=== PATIENT | female | born 1945 | race Asian ===

== ENCOUNTER → 2017-08-16 14:33 | Outpatient (CLI) | payer OTHER, SELFPAY ==
[2017-08-16 16:52] LABS: Blood Urea Nitrogen 26 mg/dL (7-17); Calcium 10.1 mg/dL (8.4-10.2); Carbon Dioxide 30 mmol/L (22-32); Chloride 99 mmol/L (98-107); Estimated Glomerular Filt Rate 54.3 mL/min (>60); Glucose 125 mg/dL (80-110); HEMOLYSIS < 15 (0-50); Potassium 4.9 mmol/L (3.4-5.1); Sodium 143 mmol/L (137-145)
== END ==
PROVIDERS: PCP Physician Assistant; Visit Provider Internal Medicine Cardiovascular Disease
DX: I10 Essential (primary) hypertension (principal)
CPT/HCPCS: 36415; 80048

== ENCOUNTER → 2017-11-17 08:01 | Outpatient (CLI) | payer OTHER, SELFPAY ==
--- NOTE | 2017-11-17 08:06 | DI.RAD.S_ITS ---
This blank DEXA report has been sent in error by the PACS system. The correct and complete report will be forthcoming in 1-2 days. Thank you for your patience and understanding. Dictated by: Lala Ruiz MD, PhD on 11/17/2017 at 9:56 Approved by: Lala Ruiz MD, PhD on 11/17/2017 at 9:57
--- NOTE | 2017-11-17 08:06 | DI.MG.S_ITS ---
BILATERAL DIGITAL SCREENING MAMMOGRAM 3D/2D WITH CAD: 11/17/2017 CLINICAL: Routine screening. Comparison is made to exams dated: 09/30/2016 mammogram, 09/24/2015 mammogram, and 08/05/2014 mammogram - [facility]. The tissue of both breasts is extremely dense, which lowers the sensitivity of mammography. Current study was also evaluated with a Computer Aided Detection (CAD) system. There is an oval focal asymmetry in the right breast upper outer aspect in the retroareolar region. No other significant masses, calcifications, or other findings are seen in either breast. IMPRESSION: INCOMPLETE: NEEDS ADDITIONAL IMAGING EVALUATION The oval focal asymmetry in the right breast is indeterminate. Additional views with possible ultrasound are recommended. This exam was interpreted at Station ID: [id number]. NOTE: For mammograms, a report in lay terms will be sent to the patient. Approximately 15% of breast malignancies will not be visualized mammographically. In the management of a palpable breast mass, a negative mammogram must not discourage biopsy of a clinically suspicious lesion. Electronically Signed By: José Miguel Forrester M.D. ecl/:11/18/2017 02:36:28 letter sent: Additional Imaging Needed ACR BI-RADS Category 0: Incomplete 3340F
[2017-11-17 09:47] LABS: Creatinine Urine Random 134.5 mg/dL
[2017-11-17 09:56] LABS: Microalbumi Creatinin Ratio Ur 4.4 ug/mg CR (<30); Microalbumin Urine Random < 0.6 mg/dL (0-1.6)
[2017-11-17 09:57] LABS: Alanine Aminotransferase 23 IU/L (9-52); Albumin 4.3 g/dL (3.5-5.0); Albumin Globulin Ratio 1.3 (1.0-2.8); Alkaline Phosphatase 82 U/L (38-126); Aspartate Aminotransferase 26 IU/L (14-36); BUN Creatinine Ratio 19.1 (6-22); Bilirubin Total 0.5 mg/dL (0.2-1.3); Blood Urea Nitrogen 21 mg/dL (7-17); Calcium 10.1 mg/dL (8.4-10.2); Carbon Dioxide 30 mmol/L (22-32); Chloride 103 mmol/L (98-107); Cholesterol 239 mg/dL (140-199); Estimated Glomerular Filt Rate 48.6 mL/min (>60); Globulin 3.4 g/dL (1.7-4.1); Glucose 104 mg/dL (80-110); HDL Cholesterol 37 mg/dL (40-60); HEMOLYSIS < 15 (0-50); LDL Cholesterol Calculated 150 mg/dL (<100); Potassium 5.3 mmol/L (3.4-5.1); Sodium 143 mmol/L (137-145); Total Protein 7.7 g/dL (6.3-8.2); Triglycerides 259 mg/dL (35-150)
== END ==
PROVIDERS: PCP Physician Assistant; Visit Provider Physician Assistant
DX: Z12.31 Encounter for screening mammogram for malignant neoplasm of breast (principal); E28.39 Other primary ovarian failure; Z78.0 Asymptomatic menopausal state; E78.2 Mixed hyperlipidemia; I10 Essential (primary) hypertension; Z90.722 Acquired absence of ovaries, bilateral
CPT/HCPCS: 36415; 77063; 77067; 77080; 80053; 80061; 82043; 82570; 84550

== ENCOUNTER → 2017-11-17 15:11 | Outpatient (CLI) | payer OTHER, MEDICARE, SELFPAY ==
[2017-11-18 14:43] LABS: Uric Acid 7.3 mg/dL (2.5-6.2)
== END ==
PROVIDERS: PCP Physician Assistant; Visit Provider Physician Assistant
DX: E78.5 Hyperlipidemia, unspecified (principal); I10 Essential (primary) hypertension; N28.9 Disorder of kidney and ureter, unspecified
CPT/HCPCS: 84550

== ENCOUNTER → 2017-12-14 09:26 | Outpatient (CLI) | payer OTHER, SELFPAY ==
--- NOTE | 2017-12-14 10:46 | DIET.PN ---
Met for initial MNT for new dx of mixed hyperlipidemia, HTN. Saw pt last year for assistance with weight control and gout. DX high TG, high BG, HTN HX: gout WEIGHT HX: Highest- 145# Current WT: 142# Most of adult life: 135# HT: 60 PHYSICAL ACTIVITY: Walks on weekends. Very little exercise during work week. Has sedentary job. USUAL DIET: Mostly vegetarian - eats mostly tofu, some legumes for protein. Lot of vegetables, whole grains and a lot of fruit. Drinks a Mocha daily. Only occasional sweets (a potlucks). ASSESSMENT: Has nutritionally well balanced diet with few extras, so there is not much left to cut out. The daily mocha provides regular source of sugar, as does the high intake of fruit. Exercise is lacking. Wt has maintained since our meetings last year. Some wt loss would benefit health significantly. INTERVENTION: Provided education on diet for mixed hyperlipidemia/high TG with emphasis on cutting out sugar, increasing exercise and weight loss PLAN/GOALS: Cut out sugar - Change mochas: Inquire at [facility] what is available for sweetening May substitue w/Mochas made with sugar free flavoring Sorbitol may try trial. Sorbitol may cause inflammation/high TG If Stevia sweetened flavoring available - best choice Or, get plain latte and curtis w/stevia herself Or, find a new beverage - Tea? Increase exercise. Strongly encouraged at least 5 days/week. During work week walk on breaks Suggested try phone bria to track food intake, following a low carb plan, to assist with wt loss No plan for f/u at this time
== END ==
PROVIDERS: PCP Physician Assistant; Visit Provider Nurse Practitioner Family
DX: E78.2 Mixed hyperlipidemia (principal)
CPT/HCPCS: 97802

== ENCOUNTER → 2017-12-30 08:23 | Outpatient (CLI) | payer OTHER, SELFPAY ==
--- NOTE | 2017-12-30 | DI.MG.S_ITS ---
UNILATERAL RIGHT DIGITAL DIAGNOSTIC MAMMOGRAM 3D/2D WITH ADDITIONAL VIEWS: 12/30/2017 CLINICAL: Additional evaluation requested from prior study. Comparison is made to exams dated: 11/17/2017 mammogram, 09/30/2016 mammogram, and 09/24/2015 mammogram - [facility]. The tissue of right breast is extremely dense, which lowers the sensitivity of mammography. There is a benign oval asymmetry in the right breast at 9 o'clock in the retroareolar region. This is not seen in additional views. No other significant masses or calcifications are seen in the breast. IMPRESSION: There is no mammographic evidence of malignancy. A 1 year screening mammogram is recommended. This exam was interpreted at Station ID: [id number]. NOTE: For mammograms, a report in lay terms will be sent to the patient. Approximately 15% of breast malignancies will not be visualized mammographically. In the management of a palpable breast mass, a negative mammogram must not discourage biopsy of a clinically suspicious lesion. Electronically Signed By: Yonatan montgomery/louis:12/30/2017 08:57:00 letter sent: Normal Exam ACR BI-RADS Category 2: Benign Finding(s) 3342F
== END ==
PROVIDERS: PCP Physician Assistant; Visit Provider Physician Assistant
DX: R92.8 Other abnormal and inconclusive findings on diagnostic imaging of breast (principal)
CPT/HCPCS: 77065; G0279

== ENCOUNTER → 2018-05-29 08:36 | Outpatient (CLI) | payer OTHER, SELFPAY ==
[2018-05-29 10:49] LABS: BUN Creatinine Ratio 24.5 (6-22); Blood Urea Nitrogen 27 mg/dL (7-17); Calcium 9.8 mg/dL (8.4-10.2); Carbon Dioxide 26 mmol/L (22-32); Chloride 103 mmol/L (98-107); Cholesterol 226 mg/dL (140-199); Estimated Glomerular Filt Rate 48.6 mL/min (>60); Glucose 108 mg/dL (80-110); HDL Cholesterol 38 mg/dL (40-60); HEMOLYSIS < 15 (0-50); LDL Cholesterol Calculated 162 mg/dL (<100); Potassium 4.8 mmol/L (3.4-5.1); Sodium 139 mmol/L (137-145); Triglycerides 130 mg/dL (35-150); Uric Acid 7.9 mg/dL (2.5-6.2)
== END ==
PROVIDERS: PCP Physician Assistant; Visit Provider Physician Assistant
DX: E78.2 Mixed hyperlipidemia (principal); E79.0 Hyperuricemia without signs of inflammatory arthritis and tophaceous disease; I10 Essential (primary) hypertension; N28.9 Disorder of kidney and ureter, unspecified
CPT/HCPCS: 36415; 80048; 80061; 84550

== ENCOUNTER → 2018-06-19 15:24 | Outpatient (CLI) | payer OTHER, SELFPAY ==
--- NOTE | 2018-06-19 15:28 | DI.RAD.S_ITS ---
PROCEDURE: XR CHEST 2V INDICATIONS: Persistant cough x 2 weeks; dyspnea TECHNIQUE: 2 views of the chest were acquired. COMPARISON: None. FINDINGS: Surgical changes and devices: None. Lungs and pleura: Lungs are clear. No pleural effusions or pneumothorax. Mediastinum: Mediastinal contours are normal. Heart size is normal. Bones and chest wall: No suspicious bony abnormalities. Soft tissues appear unremarkable. IMPRESSION: No acute disease Dictated by: Joel Childs M.D. on 06/19/2018 at 15:49 Approved by: Joel Childs M.D. on 06/19/2018 at 15:49
== END ==
PROVIDERS: PCP Physician Assistant; Visit Provider Physician Assistant
DX: R05 Cough (principal)
CPT/HCPCS: 71046

== ENCOUNTER → 2019-09-11 11:08 | Outpatient (CLI) | payer MEDICARE, SELFPAY ==
[2019-09-11 12:28] LABS: BUN Creatinine Ratio 19.8 (6-22); Blood Urea Nitrogen 23 mg/dL (7-17); Calcium 10.4 mg/dL (8.4-10.2); Carbon Dioxide 24 mmol/L (22-32); Chloride 105 mmol/L (98-107); Estimated Glomerular Filt Rate 45.5 mL/min (>60); Glucose 105 mg/dL (80-110); HEMOLYSIS < 15 (0-50); Potassium 5.3 mmol/L (3.4-5.1); Sodium 139 mmol/L (137-145)
== END ==
PROVIDERS: Referring Provider Internal Medicine Cardiovascular Disease; Visit Provider Internal Medicine Cardiovascular Disease
DX: I10 Essential (primary) hypertension (principal)
CPT/HCPCS: 36415; 80048

== ENCOUNTER → 2019-10-19 09:18 | Outpatient (CLI) | payer MEDICARE, SELFPAY ==
[2019-10-23 04:08] LABS: Aldosterone/Renin Activity Rat 1.6 (0.0-30.0); Plama Renin, LC/MS/MS 1.598 ng/mL/hr (0.167-5.380)
== END ==
PROVIDERS: Referring Provider Internal Medicine Cardiovascular Disease; Visit Provider Internal Medicine Cardiovascular Disease
DX: I10 Essential (primary) hypertension (principal)
CPT/HCPCS: 36415; 82088; 84244

== ENCOUNTER → 2019-11-02 15:03 | Outpatient (CLI) | payer MEDICARE, SELFPAY ==
[2019-11-02 16:40] LABS: BUN Creatinine Ratio 21.1 (6-22); Blood Urea Nitrogen 23 mg/dL (7-17); Calcium 9.8 mg/dL (8.4-10.2); Carbon Dioxide 28 mmol/L (22-32); Chloride 102 mmol/L (98-107); Estimated Glomerular Filt Rate 48.8 mL/min (>60); Glucose 107 mg/dL (80-110); HEMOLYSIS < 15 (0-50); Potassium 4.6 mmol/L (3.4-5.1); Sodium 139 mmol/L (137-145)
== END ==
PROVIDERS: Referring Provider Nurse Practitioner Family; Visit Provider Nurse Practitioner Family
DX: I10 Essential (primary) hypertension (principal)
CPT/HCPCS: 36415; 80048

== ENCOUNTER → 2020-02-07 07:29 | Outpatient (CLI) | payer MEDICARE, SELFPAY ==
--- NOTE | 2020-02-07 07:32 | DI.RAD.S_ITS ---
PROCEDURE: XR KNEE RT 3V INDICATIONS: right knee pain TECHNIQUE: 3 views of the knee were acquired. COMPARISON: [facility], , KNEE 3V LEFT, 10/02/2012, 14:49. FINDINGS: Bones: No acute fracture or dislocation. There is moderate medial femorotibial compartment narrowing, small intercondylar osteophytes and small tricompartmental osteophytes. Soft tissues: No joint effusion. No suspicious soft tissue calcifications. IMPRESSION: Mild knee osteoarthritis. Dictated by: Kristin Maradiaga M.D. on 02/07/2020 at 8:55 Approved by: Kristin Maradiaga M.D. on 02/07/2020 at 8:56
[2020-02-07 08:35] LABS: Hematocrit 35.9 % (36-46); Hemoglobin 12.1 g/dL (12.0-16.0); Mean Corpuscular HGB Conc 33.7 % (30-36); Mean Corpuscular Hemoglobin 30.4 PG (26-34); Mean Corpuscular Volume 90.2 fL (80-100); Platelet Count 182 X10^3/uL (150-400); Red Blood Cell Count 3.98 X10^6/uL (4.0-5.2); Red Cell Distribution Width 12.5 % (11.6-14.8); White Blood Cell Count 5.1 X10^3/uL (4.5-11.0)
[2020-02-07 09:37] LABS: Alanine Aminotransferase 18 IU/L (<35); Albumin 4.2 g/dL (3.5-5.0); Albumin Globulin Ratio 1.3 (1.0-2.8); Alkaline Phosphatase 71 U/L (38-126); Aspartate Aminotransferase 27 IU/L (14-36); Bilirubin Total 0.7 mg/dL (0.2-1.3); Blood Urea Nitrogen 26 mg/dL (7-17); Calcium 9.8 mg/dL (8.4-10.2); Carbon Dioxide 28 mmol/L (22-32); Chloride 102 mmol/L (98-107); Cholesterol 207 mg/dL (140-199); Estimated Glomerular Filt Rate 46.8 mL/min (>60); Globulin 3.2 g/dL (1.7-4.1); Glucose 100 mg/dL (80-110); HDL Cholesterol 28 mg/dL (40-60); HEMOLYSIS < 15 (0-50); LDL Cholesterol Calculated 145 mg/dL (<100); Sodium 137 mmol/L (137-145); Total Protein 7.4 g/dL (6.3-8.2); Triglycerides 170 mg/dL (35-150); Uric Acid 6.2 mg/dL (2.5-6.2)
[2020-02-07 09:39] LABS: Microalbumin Urine Random < 0.6 mg/dL (0-1.6)
== END ==
PROVIDERS: PCP Nurse Practitioner Family; Referring Provider Nurse Practitioner Family; Visit Provider Nurse Practitioner Family
DX: E78.2 Mixed hyperlipidemia (principal); I10 Essential (primary) hypertension; M25.561 Pain in right knee; N28.9 Disorder of kidney and ureter, unspecified; Z00.00 Encounter for general adult medical examination without abnormal findings; Z13.6 Encounter for screening for cardiovascular disorders; E79.0 Hyperuricemia without signs of inflammatory arthritis and tophaceous disease
CPT/HCPCS: 36415; 73562; 80053; 80061; 82043; 82570; 84550; 85027

== ENCOUNTER → 2020-03-05 12:22 | Outpatient (CLI) | payer MEDICARE, SELFPAY ==
--- NOTE | 2020-03-05 12:24 | DI.RAD.S_ITS ---
PROCEDURE: XR LUMBAR SPINE 2-3V INDICATIONS: neck and back pain TECHNIQUE: 3 views of the lumbar spine were acquired. COMPARISON: None. FINDINGS: Bones: No fracture. Multilevel degenerative endplate sclerosis and spurring. Diffuse facet arthropathy. Grade 1 anterolisthesis of L4 on L5. Diffuse mild narrowing of the lumbar disc spaces. Partially visualized lateral curvature of the thoracolumbar spine. Soft tissues: Overlying bowel gas pattern is normal. No suspicious soft tissue calcifications. IMPRESSION: Multilevel lumbar spondylosis and facet disease Grade 1 anterolisthesis of L4 on L5 Dictated by: Joel Childs M.D. on 03/05/2020 at 13:23 Approved by: Joel Childs M.D. on 03/05/2020 at 13:24
--- NOTE | 2020-03-05 12:24 | DI.RAD.S_ITS ---
PROCEDURE: XR CERVICAL SPINE 2V OR 3V INDICATIONS: neck and back pain TECHNIQUE: 3 view(s) of the cervical spine were acquired. COMPARISON: None. FINDINGS: Bones: No fracture. Multilevel degenerative endplate sclerosis and spurring. Diffuse facet arthropathy. Moderate narrowing of the C7-T1 disc space. Mild narrowing of the C6-C7 disc space. Soft tissues: No prevertebral soft tissue swelling. IMPRESSION: Multilevel cervical spondylosis and severe facet arthropathy Dictated by: Joel Childs M.D. on 03/05/2020 at 13:19 Approved by: Joel Childs M.D. on 03/05/2020 at 13:23
--- NOTE | 2020-03-05 12:24 | DI.RAD.S_ITS ---
PROCEDURE: XR THORACIC SPINE 2V INDICATIONS: neck and back pain TECHNIQUE: 2 views of the thoracic spine were acquired. COMPARISON: None. FINDINGS: Bones: No fracture. Diffuse discogenic changes. Multilevel degenerative endplate sclerosis and spurring. Diffuse facet arthropathy. Soft tissues: No paravertebral stripe thickening. IMPRESSION: Diffuse spondylosis. No fracture Dictated by: Joel Childs M.D. on 03/05/2020 at 13:24 Approved by: Joel Childs M.D. on 03/05/2020 at 13:25
== END ==
PROVIDERS: Family Provider Nurse Practitioner Family; PCP Nurse Practitioner Family; Referring Provider Nurse Practitioner Family; Visit Provider Nurse Practitioner Family
DX: M54.2 Cervicalgia (principal); M54.9 Dorsalgia, unspecified; M47.812 Spondylosis without myelopathy or radiculopathy, cervical region; M47.814 Spondylosis without myelopathy or radiculopathy, thoracic region; M47.816 Spondylosis without myelopathy or radiculopathy, lumbar region; M43.16 Spondylolisthesis, lumbar region
CPT/HCPCS: 72040; 72072; 72100

== ENCOUNTER → 2020-03-10 15:24 | Outpatient (CLI) | payer MEDICARE, SELFPAY ==
--- NOTE | 2020-03-10 15:26 | DI.MG.S_ITS ---
BILATERAL DIGITAL SCREENING MAMMOGRAM 3D/2D WITH CAD: 03/10/2020 CLINICAL: Routine screening. Comparison is made to exams dated: 11/17/2017 mammogram, 09/30/2016 mammogram, and 09/24/2015 mammogram - [facility]. The tissue of both breasts is extremely dense, which lowers the sensitivity of mammography. Current study was also evaluated with a Computer Aided Detection (CAD) system. No significant masses, calcifications, or other findings are seen in either breast. There has been no significant interval change. IMPRESSION: NEGATIVE There is no mammographic evidence of malignancy. A 1 year screening mammogram is recommended. This exam was interpreted at Station ID: [id number]. NOTE: For mammograms, a report in lay terms will be sent to the patient. Approximately 15% of breast malignancies will not be visualized mammographically. In the management of a palpable breast mass, a negative mammogram must not discourage biopsy of a clinically suspicious lesion. Electronically Signed By: Chandler gunn/louis:03/10/2020 16:15:21 letter sent: Normal Exam ACR BI-RADS Category 1: Negative [id number]
== END ==
PROVIDERS: Family Provider Nurse Practitioner Family; PCP Nurse Practitioner Family; Referring Provider Nurse Practitioner Family; Visit Provider Nurse Practitioner Family
DX: Z12.31 Encounter for screening mammogram for malignant neoplasm of breast (principal)
CPT/HCPCS: 77063; 77067

== ENCOUNTER → 2020-05-28 15:19 | Outpatient (CLI) | payer MEDICARE, SELFPAY ==
[2020-05-28] MEDS: COVID-19 VACC, Ad26(JANSSEN)/PF 0.5 ML IM (15:33)
== END ==
PROVIDERS: Family Provider Nurse Practitioner Family; PCP Nurse Practitioner Family; Visit Provider Internal Medicine
DX: Z23 Encounter for immunization (principal)
CPT/HCPCS: 0031A; 91303

== ENCOUNTER → 2020-06-03 06:53 | Outpatient (CLI) | payer MEDICARE, SELFPAY ==
[2020-06-03 08:26] LABS: Hematocrit 36.7 % (36-46); Hemoglobin 12.4 g/dL (12.0-16.0); Mean Corpuscular HGB Conc 33.8 % (30-36); Mean Corpuscular Hemoglobin 30.4 PG (26-34); Mean Corpuscular Volume 89.8 fL (80-100); Platelet Count 203 X10^3/uL (150-400); Red Blood Cell Count 4.09 X10^6/uL (4.0-5.2); Red Cell Distribution Width 12.3 % (11.6-14.8); White Blood Cell Count 6.7 X10^3/uL (4.5-11.0)
[2020-06-03 08:51] LABS: Alanine Aminotransferase 18 IU/L (<35); Albumin 4.5 g/dL (3.5-5.0); Albumin Globulin Ratio 1.5 (1.0-2.8); Alkaline Phosphatase 79 U/L (38-126); Aspartate Aminotransferase 29 IU/L (14-36); Bilirubin Total 0.5 mg/dL (0.2-1.3); Blood Urea Nitrogen 22 mg/dL (7-17); Calcium 9.6 mg/dL (8.4-10.2); Carbon Dioxide 28 mmol/L (22-32); Chloride 102 mmol/L (98-107); Cholesterol 191 mg/dL (140-199); Estimated Glomerular Filt Rate 48.3 mL/min (>60); Glucose 101 mg/dL (80-110); HDL Cholesterol 34 mg/dL (40-60); HEMOLYSIS < 15 (0-50); LDL Cholesterol Calculated 121 mg/dL (<100); Potassium 4.8 mmol/L (3.4-5.1); Sodium 136 mmol/L (137-145); Total Protein 7.5 g/dL (6.3-8.2); Triglycerides 180 mg/dL (35-150)
== END ==
PROVIDERS: Family Provider Nurse Practitioner Family; PCP Nurse Practitioner Family; Referring Provider Nurse Practitioner Family; Visit Provider Nurse Practitioner Family
DX: E78.2 Mixed hyperlipidemia (principal); Z13.6 Encounter for screening for cardiovascular disorders; I10 Essential (primary) hypertension; N28.9 Disorder of kidney and ureter, unspecified
CPT/HCPCS: 36415; 80053; 80061; 85027

== ENCOUNTER → 2020-06-16 14:42 | Outpatient (CLI) | payer MEDICARE, SELFPAY ==
[2020-06-16 16:16] LABS: Uric Acid 6.4 mg/dL (2.5-6.2)
== END ==
PROVIDERS: Family Provider Nurse Practitioner Family; PCP Nurse Practitioner Family; Referring Provider Nurse Practitioner Family; Visit Provider Nurse Practitioner Family
DX: M10.9 Gout, unspecified (principal)
CPT/HCPCS: 36415; 84550

== ENCOUNTER 2020-06-18 11:15 | Outpatient (RCR) | payer MEDICARE, OTHER, SELFPAY ==
--- NOTE | 2020-02-27 17:11 | PT.OIE ---
Current Diagnoses Pain in right knee (02/27/20) Difficulty in walking, not elsewhere classified (02/27/20) Past Medical History (Last Updated 02/06/20 @ 10:34 by BECKY Kline) Gout (Unknown) Hyperlipemia (Unknown) Hypertension (Unknown) Right knee pain (2019) Past Surgical History (Last Updated 09/22/17 @ 14:02 by Shirley Ayon LPN) History of cataract removal with insertion of prosthetic lens S/P total abdominal hysterectomy and bilateral salpingo-oophorectomy (1987) Visit Care Team Role Provider Type BECKY Kline Attending Provider Advanced Bed Bug Exterminator Family Provider Primary Care Provider Referring Provider Specialty: Family Practice Address: [address] [place] [address] Email: [email or web address] Physical Therapy Initial Evaluation PT-OP-A Visit Information Start: 02/27/20 12:58 Freq: Status: Active Protocol: Document 02/27/20 14:35 AW (Rec: 02/27/20 14:51 AW [id number]) Out-Patient Physical Therapy Visit Information Visit Information Visit Type Initial Evaluation Visit Start Time 13:45 Visit Stop Time 14:35 Total Visit Minutes 50 Visit Number 1 Number of MARKETING/SALES PERSON Visits 0 Evaluation Information Evaluation Date 02/27/20 PT-OP-B Current Condition Start: 02/27/20 12:58 Freq: Status: Active Protocol: Document 02/27/20 14:35 AW (Rec: 02/27/20 14:51 AW [id number]) Current Condition History of Current Condition Onset Date last two years Current Complaints right knee pain History of Current Condition Pt reports bilateral knee pain with right worse than left. She used to bowl and landed on right knee >10 years ago. She had no fracture but no longer felt safe bowling. Her pain resolved but has returned over the last few years. She states it is not worsening but it is not improving at all. She does not have pain on waking in the morning. She is able to do light activity without pain. She does note pain with ambulation > 1 block which then bothers her for up to an hour. When asked about pain location, pt points to the inferomedial aspect of the anterior knee. Prior Treatments and Tests x-ray right knee 01/28/20: Bones: No acute fracture or dislocation. There is moderate medial femorotibial compartment narrowing, small intercondylar osteophytes and small tricompartmental osteophytes. Soft tissues: No joint effusion. No suspicious soft tissue calcifications. IMPRESSION: Mild knee osteoarthritis. Pt has been using a prescription topical gel for pain relief but with limited effect. She is not taking any OTC medications. She has had PT before for plantar fasciitis but never for her knee pain. Pt sees a chiropractor monthly for back, hip, and neck pain. 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 Baseline Function- Recreation/Hobbies Walking for exercise without pain. Able to walk her dogs without concern for pain. Current Functional Impairments (Reported) Functional Limitations- Mobility/Gait Unable to walk > 1 block without pain. Difficulty managing with dog walking. Personal Factors Other Personal Factors That May Effect + Pt is active and has Therapy/Recovery positive associations with movement, activity, and exercise. PT-OP-C Subjective Start: 02/27/20 12:58 Freq: Status: Active Protocol: Document 02/27/20 14:35 AW (Rec: 02/27/20 15:07 AW [email or web address]) Patient Questionnaires Lower Extremity Functional Scale LEFS Score 72 LEFS Impairment 1 to 19% Impaired (Score 63-79 ) OP-PT Pain Assessment Pain Assessment Grid Paper Pain Assessment Grid Completed Yes Location right knee Intensity 1 Scale Used Numeric (0 - 10) Pain Aggravating Factors Exercise PT-OP-D Balance Start: 02/27/20 12:58 Freq: Status: Active Protocol: Document 02/27/20 14:35 AW (Rec: 02/27/20 15:07 AW [email or web address]) OP-PT Balance Assessment Standing Balance Static Standing Balance Ability Good Dynamic Standing Balance Ability Good Standing Balance Comments L SLS : 12 sec R SLS: 6 sec Robledo Fall Scale Copyright Permission PT-OP-G Mobility & Gait Start: 02/27/20 12:58 Freq: Status: Active Protocol: Document 02/27/20 14:35 AW (Rec: 02/27/20 15:07 AW [email or web address]) OP Mobility Evaluation Functional Movements Squats able with neutral knee posture but improves with cues for hip hinge OP Gait Assessment Gait Gait Assistance Required: Independent Distance (Feet) 100 Assistive Devices Assistive Device None Orthotic/Prosthetic Devices or Brace: No Gait Deviations General Gait Pattern Within Normal Limits,Decreased Feet Clearance Factors Limiting Gait Function Factors Limiting Gait Function Decreased Strength,Pain Comments Gait Comments Pt with slight genu varus in static and dynamic posture. Pt wears off the shelf shoes inserts bilaterally for arch support. PT-OP-H Neuro Start: 02/27/20 12:58 Freq: Status: Active Protocol: Document 02/27/20 14:35 AW (Rec: 02/27/20 15:07 AW [email or web address]) Sensation Evaluation Gross Sensation Gross Sensation WNL Deep Tendon Reflex & Clonus Assessment Deep Tendon Reflex Bilateral Achilles Deep Tendon Reflex 1+ Diminished Bilateral Patellar Deep Tendon Reflex 1+ Diminished PT-OP-J Posture/Palpation/Skin Start: 02/27/20 12:58 Freq: Status: Active Protocol: Document 02/27/20 14:35 AW (Rec: 02/27/20 15:07 AW [email or web address]) Posture Evaluation Position Standing Pelvis Posture Anteriorly Tilted Hip Posture (R) Externally Rotated Knee Posture (L) Genu Varus,(R) Genu Varus Patellar Posture (L) Neutral,(R) Neutral Ankle/Foot Posture (L) Pronated,(R) Pronated PT-OP-K Range of Motion Start: 02/27/20 12:58 Freq: Status: Active Protocol: Document 02/27/20 14:35 AW (Rec: 02/27/20 15:07 AW [email or web address]) Lumbar Spine Range of Motion Lumbar Spine Active Percentage Comments WNL Hip Goniometric Range of Motion Hip Left Active Extension 12 Internal Rotation 60 External Rotation 60 Right Active Hip ROM WFL Yes Testing Position Supine Extension 12 Internal Rotation 40 External Rotation 60 Hip ROM Limitations Hip ROM Limitations Soft Tissue Tightness,Muscle Weakness Knee Goniometric Range of Motion Knee Right Knee ROM WFL Yes Patient Position Supine Flexion Active (degrees) 135 Extension Active (degrees) 0 Left Knee ROM WFL Yes Patient Position Supine Flexion Active (degrees) 140 Extension Active (degrees) 0 Ankle and Foot Goniometric Range of Motion Ankle and Foot Left Active Comments B ankle ROM WNL all planes PT-OP-L Special Tests Start: 02/27/20 12:58 Freq: Status: Active Protocol: Document 02/27/20 14:35 AW (Rec: 02/27/20 16:48 AW [email or web address]) Special Tests Hip Special Tests Scour Test Test Results negative bilaterally Knee Special Tests Dony Test Results positive Comments leg elevated from table ~1 bilaterally Milind's Test Test Results positive Comments mildly positive bilaterally ligaments Comments B knees stable in all planes on exam PT-OP-M Strength Start: 02/27/20 12:58 Freq: Status: Active Protocol: Document 02/27/20 14:35 AW (Rec: 02/27/20 15:10 AW [email or web address]) Hip Strength Hip Manual Muscle Testing Right Flexion (L2) 4+ Good+ Extension (S1) 3+ Fair+ Abduction 4- Good- Adduction 4+ Good+ External Rotation 4+ Good+ Internal Rotation 4 Good Left Flexion (L2) 4+ Good+ Extension (S1) 3+ Fair+ Abduction 4- Good- Adduction 4+ Good+ External Rotation 4+ Good+ Internal Rotation 4 Good Knee Strength Knee Manual Muscle Testing Right Flexion (S2) 4+ Good+ Extension (L3) 5 Normal Left Flexion (S2) 4+ Good+ Extension (L3) 5 Normal Ankle/Foot Strength Ankle and Foot Manual Muscle Testing Right Dorsiflexion (L4) 4+ Good+ Plantarflexion (S1) 4+ Good+ Inversion 4+ Good+ Eversion (S1) 4+ Good+ Left Dorsiflexion (L4) 4+ Good+ Plantarflexion (S1) 4+ Good+ Inversion 4+ Good+ Eversion (S1) 4+ Good+ PT-OP-Q Treatments Start: 02/27/20 12:58 Freq: Status: Active Protocol: Document 02/27/20 14:35 AW (Rec: 02/27/20 15:12 AW [email or web address]) Therapeutic Exercises Supine Exercises 1 Supine Exercise Name hip flexor stretch Side bilateral Resistance manual Reps/Minutes 2 min Comments with manual resistance into knee flexion and cues for TA PT-OP-T Assessment and Plan Start: 02/27/20 12:58 Freq: Status: Active Protocol: Document 02/27/20 14:35 AW (Rec: 02/27/20 17:10 AW [email or web address]) Physical Therapy Assessment Rehab Potential Rehabilitation Potential Good Evaluation Complexity Number of Personal Factors/Comorbidities 0 Number of Body Systems Impaired 1-2 Clinical Presentation at Evaluation Stable Impairments Impairments Balance,Functional Activities, Gait,Pain,Posture,ROM,Soft Tissue Mobility,Strength Goals Three Impairment Decreased strength Short Term Goal (STG) Pt will demonstrate hip extension strength 4+ bilaterally STG Duration 04/02/20 Batch Mixing Truck Driver Goal (LTG) Pt will increase SLS to 20 seconds bilaterally without UE support LTG Duration 05/07/20 Two Impairment Pt unable to ambulate >1 block without right knee pain limiting activity. Short Term Goal (STG) Pt will walk 3 blocks without right knee pain STG Duration 04/02/20 Batch Mixing Truck Driver Goal (LTG) Pt will be able to walk her dogs for 20 minutes with 1- point or less increase in baseline pain LTG Duration 05/07/20 One Impairment Pt lacks appropriate HEP Short Term Goal (STG) Pt will be independent with HEP for support of therapy services provided in clinic. STG Duration 04/02/20 Assessment Summary Assessment Kimberly is a 74 yo recently- retired woman who presents as a low-complexity evaluation in the outpatient PT setting. She has had right knee pain with activity such as walking more than one block for approximately two years now. Pain has not worsened and has not improved. On evaluation, pt presents with anterior pelvic tilt, decreased hip flexor length, slight varus knee posture, positive Trendelenburg sign bilateraly, weakness of hip extension and hip abduction, and impaired single leg balance. Pt's pain is limiting her ability to participate in exercise and recreational activities such as walking her dogs. Pt will benefit from skilled PT to address these impairments for safe return to full activities . Physical Therapy Plan Frequency and Duration Frequency of Treatment 2x/Week Duration of Treatment 10 weeks Plan of Care Start Date 02/27/20 Plan of Care End Date 05/07/20 Therapeutic Interventions Therapeutic Interventions Balance Training,Gait Training ,Home Exercise Program,Joint Mobilizations,Manual Therapy, Neuromuscular Re-education, Patient/Caregiver Education, Self-Care/Home Management,Soft Tissue Mobilization,Taping, Therapeutic Activities, Therapeutic Exercises Modalities Cold Pack/Ice Massage Next Visit Focus/Plan Next Note Type Treatment Note Next Visit Plan introduce and progress stretching for hip flexors, lateral thigh. initiate ther ex for bilateral hip strength
--- NOTE | 2020-02-27 17:11 | PT.OPPOC ---
Physical, Occupational & Speech Therapy At [facility] Current Diagnoses Pain in right knee (02/27/20) Difficulty in walking, not elsewhere classified (02/27/20) Visit Care Team Role Provider Type BECKY Kline Attending Provider Advanced Mult Au Matic Operator Family Provider Primary Care Provider Referring Provider Specialty: Family Practice Address: [address] [place] [address], [facility] Email: [email or web address] Plan Of Care PT-OP-T Assessment and Plan Start: 02/27/20 12:58 Freq: Status: Active Protocol: Document 02/27/20 14:35 AW (Rec: 02/27/20 17:10 AW [email or web address]) Physical Therapy Assessment Rehab Potential Rehabilitation Potential Good Evaluation Complexity Number of Personal Factors/Comorbidities 0 Number of Body Systems Impaired 1-2 Clinical Presentation at Evaluation Stable Impairments Impairments Balance,Functional Activities, Gait,Pain,Posture,ROM,Soft Tissue Mobility,Strength Goals Three Impairment Decreased strength Short Term Goal (STG) Pt will demonstrate hip extension strength 4+ bilaterally STG Duration 04/02/20 [facility] Goal (LTG) Pt will increase SLS to 20 seconds bilaterally without UE support LTG Duration 05/07/20 Two Impairment Pt unable to ambulate >1 block without right knee pain limiting activity. Short Term Goal (STG) Pt will walk 3 blocks without right knee pain STG Duration 04/02/20 Slicing Machine Tender Goal (LTG) Pt will be able to walk her dogs for 20 minutes with 1- point or less increase in baseline pain LTG Duration 05/07/20 One Impairment Pt lacks appropriate HEP Short Term Goal (STG) Pt will be independent with HEP for support of therapy services provided in clinic. STG Duration 04/02/20 Assessment Summary Assessment Kimberly is a 74 yo recently- retired woman who presents as a low-complexity evaluation in the outpatient PT setting. She has had right knee pain with activity such as walking more than one block for approximately two years now. Pain has not worsened and has not improved. On evaluation, pt presents with anterior pelvic tilt, decreased hip flexor length, slight varus knee posture, positive Trendelenburg sign bilateraly, weakness of hip extension and hip abduction, and impaired single leg balance. Pt's pain is limiting her ability to participate in exercise and recreational activities such as walking her dogs. Pt will benefit from skilled PT to address these impairments for safe return to full activities . Physical Therapy Plan Frequency and Duration Frequency of Treatment 2x/Week Duration of Treatment 10 weeks Plan of Care Start Date 02/27/20 Plan of Care End Date 05/07/20 Therapeutic Interventions Therapeutic Interventions Balance Training,Gait Training ,Home Exercise Program,Joint Mobilizations,Manual Therapy, Neuromuscular Re-education, Patient/Caregiver Education, Self-Care/Home Management,Soft Tissue Mobilization,Taping, Therapeutic Activities, Therapeutic Exercises Modalities Cold Pack/Ice Massage Next Visit Focus/Plan Next Note Type Treatment Note Next Visit Plan introduce and progress stretching for hip flexors, lateral thigh. initiate ther ex for bilateral hip strength Plan of Care Dates Plan of Care Start Date 02/27/20 Plan of Care End Date 05/07/20 Electronically Signed by: Zoya Snow PT 02/27/20 [id number] Please Sign and Return: I have reviewed this Plan of Care and certify that the skilled therapy services above are required to meet the patient?s needs. Physician Signature Date Printed Name and Credentials Clinical Instructor Signature Printed Name and Credentials
--- NOTE | 2020-03-05 15:41 | PT.OTN ---
Current Diagnoses Pain in right knee (03/05/20) Difficulty in walking, not elsewhere classified (03/05/20) Physical Therapy Treatment Note PT-OP-A Visit Information Start: 02/27/20 12:58 Freq: Status: Active Protocol: Document 03/05/20 15:32 AW (Rec: 03/05/20 15:41 AW [email or web address]) Out-Patient Physical Therapy Visit Information Visit Information Visit Type Treatment Note Visit Start Time 14:30 Visit Stop Time 15:15 Total Visit Minutes 45 Visit Number 2 Number of REPAIR WEAVER Visits 0 Evaluation Information Evaluation Date 02/27/20 PT-OP-B Current Condition Start: 02/27/20 12:58 Freq: Status: Active Protocol: Document 02/27/20 14:35 AW (Rec: 02/27/20 14:51 AW [id number]) Current Condition History of Current Condition Onset Date last two years Current Complaints right knee pain History of Current Condition Pt reports bilateral knee pain with right worse than left. She used to bowl and landed on right knee >10 years ago. She had no fracture but no longer felt safe bowling. Her pain resolved but has returned over the last few years. She states it is not worsening but it is not improving at all. She does not have pain on waking in the morning. She is able to do light activity without pain. She does note pain with ambulation > 1 block which then bothers her for up to an hour. When asked about pain location, pt points to the inferomedial aspect of the anterior knee. Prior Treatments and Tests x-ray right knee 01/28/20: Bones: No acute fracture or dislocation. There is moderate medial femorotibial compartment narrowing, small intercondylar osteophytes and small tricompartmental osteophytes. Soft tissues: No joint effusion. No suspicious soft tissue calcifications. IMPRESSION: Mild knee osteoarthritis. Pt has been using a prescription topical gel for pain relief but with limited effect. She is not taking any OTC medications. She has had PT before for plantar fasciitis but never for her knee pain. Pt sees a chiropractor monthly for back, hip, and neck pain. 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 Baseline Function- Recreation/Hobbies Walking for exercise without pain. Able to walk her dogs without concern for pain. Current Functional Impairments (Reported) Functional Limitations- Mobility/Gait Unable to walk > 1 block without pain. Difficulty managing with dog walking. Personal Factors Other Personal Factors That May Effect + Pt is active and has Therapy/Recovery positive associations with movement, activity, and exercise. PT-OP-C Subjective Start: 02/27/20 12:58 Freq: Status: Active Protocol: Document 03/05/20 15:32 AW (Rec: 03/05/20 15:41 AW [email or web address]) OP-PT Subjective Patient Comments Patient Comments I'm not sure I've been doing that exercise correctly. PT-OP-D Balance Start: 02/27/20 12:58 Freq: Status: Active Protocol: Document 02/27/20 14:35 AW (Rec: 02/27/20 15:07 AW [email or web address]) OP-PT Balance Assessment Standing Balance Static Standing Balance Ability Good Dynamic Standing Balance Ability Good Standing Balance Comments L SLS : 12 sec R SLS: 6 sec Robledo Fall Scale Copyright Permission PT-OP-G Mobility & Gait Start: 02/27/20 12:58 Freq: Status: Active Protocol: Document 02/27/20 14:35 AW (Rec: 02/27/20 15:07 AW [email or web address]) OP Mobility Evaluation Functional Movements Squats able with neutral knee posture but improves with cues for hip hinge OP Gait Assessment Gait Gait Assistance Required: Independent Distance (Feet) 100 Assistive Devices Assistive Device None Orthotic/Prosthetic Devices or Brace: No Gait Deviations General Gait Pattern Within Normal Limits,Decreased Feet Clearance Factors Limiting Gait Function Factors Limiting Gait Function Decreased Strength,Pain Comments Gait Comments Pt with slight genu varus in static and dynamic posture. Pt wears off the shelf shoes inserts bilaterally for arch support. PT-OP-H Neuro Start: 02/27/20 12:58 Freq: Status: Active Protocol: Document 02/27/20 14:35 AW (Rec: 02/27/20 15:07 AW [email or web address]) Sensation Evaluation Gross Sensation Gross Sensation WNL Deep Tendon Reflex & Clonus Assessment Deep Tendon Reflex Bilateral Achilles Deep Tendon Reflex 1+ Diminished Bilateral Patellar Deep Tendon Reflex 1+ Diminished PT-OP-J Posture/Palpation/Skin Start: 02/27/20 12:58 Freq: Status: Active Protocol: Document 02/27/20 14:35 AW (Rec: 02/27/20 15:07 AW [email or web address]) Posture Evaluation Position Standing Pelvis Posture Anteriorly Tilted Hip Posture (R) Externally Rotated Knee Posture (L) Genu Varus,(R) Genu Varus Patellar Posture (L) Neutral,(R) Neutral Ankle/Foot Posture (L) Pronated,(R) Pronated PT-OP-K Range of Motion Start: 02/27/20 12:58 Freq: Status: Active Protocol: Document 02/27/20 14:35 AW (Rec: 02/27/20 15:07 AW [email or web address]) Lumbar Spine Range of Motion Lumbar Spine Active Percentage Comments WNL Hip Goniometric Range of Motion Hip Left Active Extension 12 Internal Rotation 60 External Rotation 60 Right Active Hip ROM WFL Yes Testing Position Supine Extension 12 Internal Rotation 40 External Rotation 60 Hip ROM Limitations Hip ROM Limitations Soft Tissue Tightness,Muscle Weakness Knee Goniometric Range of Motion Knee Right Knee ROM WFL Yes Patient Position Supine Flexion Active (degrees) 135 Extension Active (degrees) 0 Left Knee ROM WFL Yes Patient Position Supine Flexion Active (degrees) 140 Extension Active (degrees) 0 Ankle and Foot Goniometric Range of Motion Ankle and Foot Left Active Comments B ankle ROM WNL all planes PT-OP-L Special Tests Start: 02/27/20 12:58 Freq: Status: Active Protocol: Document 02/27/20 14:35 AW (Rec: 02/27/20 16:48 AW [email or web address]) Special Tests Hip Special Tests Scour Test Test Results negative bilaterally Knee Special Tests Dony Test Results positive Comments leg elevated from table ~1 bilaterally Milind's Test Test Results positive Comments mildly positive bilaterally ligaments Comments B knees stable in all planes on exam PT-OP-M Strength Start: 02/27/20 12:58 Freq: Status: Active Protocol: Document 02/27/20 14:35 AW (Rec: 02/27/20 15:10 AW [email or web address]) Hip Strength Hip Manual Muscle Testing Right Flexion (L2) 4+ Good+ Extension (S1) 3+ Fair+ Abduction 4- Good- Adduction 4+ Good+ External Rotation 4+ Good+ Internal Rotation 4 Good Left Flexion (L2) 4+ Good+ Extension (S1) 3+ Fair+ Abduction 4- Good- Adduction 4+ Good+ External Rotation 4+ Good+ Internal Rotation 4 Good Knee Strength Knee Manual Muscle Testing Right Flexion (S2) 4+ Good+ Extension (L3) 5 Normal Left Flexion (S2) 4+ Good+ Extension (L3) 5 Normal Ankle/Foot Strength Ankle and Foot Manual Muscle Testing Right Dorsiflexion (L4) 4+ Good+ Plantarflexion (S1) 4+ Good+ Inversion 4+ Good+ Eversion (S1) 4+ Good+ Left Dorsiflexion (L4) 4+ Good+ Plantarflexion (S1) 4+ Good+ Inversion 4+ Good+ Eversion (S1) 4+ Good+ PT-OP-Q Treatments Start: 02/27/20 12:58 Freq: Status: Active Protocol: Document 03/05/20 15:32 AW (Rec: 03/05/20 15:41 AW [email or web address]) Therapeutic Exercises Supine Exercises 4 Supine Exercise Name bridge with adduction Equipment Used purple ball Reps/Minutes 10 x 2 Comments cues for TA activation 3 Supine Exercise Name glute sets Side bilateral Reps/Minutes 15 2 Supine Exercise Name HS stretch with strap Side bilateral Equipment Used strap Reps/Minutes 30 SH x 4 Comments added to HEP 1 Supine Exercise Name hip flexor stretch Side bilateral Resistance manual Reps/Minutes 30 SH x 4 Comments instructed pt in use of strap for home use Sidelying Exercises 2 Sidelying Exercise Name reverse clamshell Side bilateral Reps/Minutes 15 Comments cued for pacing 1 Sidelying Exercise Name clamshell Side bilateral Reps/Minutes 15 Comments cues for stacked hips PT-OP-T Assessment and Plan Start: 02/27/20 12:58 Freq: Status: Active Protocol: Document 03/05/20 15:32 AW (Rec: 03/05/20 15:41 AW [email or web address]) Physical Therapy Assessment Goals Three Impairment Decreased strength Short Term Goal (STG) Pt will demonstrate hip extension strength 4+ bilaterally STG Duration 04/02/20 [employer] Lead Goal (LTG) Pt will increase SLS to 20 seconds bilaterally without UE support LTG Duration 05/07/20 Two Impairment Pt unable to ambulate >1 block without right knee pain limiting activity. Short Term Goal (STG) Pt will walk 3 blocks without right knee pain STG Duration 04/02/20 [facility] Goal (LTG) Pt will be able to walk her dogs for 20 minutes with 1- point or less increase in baseline pain LTG Duration 05/07/20 One Impairment Pt lacks appropriate HEP Short Term Goal (STG) Pt will be independent with HEP for support of therapy services provided in clinic. STG Duration 04/02/20 Assessment Summary Assessment Marii shows good effort with all activities and responds well to verbal/tactile cues for exercise form. Treatment focused on initiating hip strengthening in supported position. Physical Therapy Plan Frequency and Duration Frequency of Treatment 2x/Week Duration of Treatment 10 weeks Plan of Care Start Date 02/27/20 Plan of Care End Date 05/07/20 Therapeutic Interventions Therapeutic Interventions Balance Training,Gait Training ,Home Exercise Program,Joint Mobilizations,Manual Therapy, Neuromuscular Re-education, Patient/Caregiver Education, Self-Care/Home Management,Soft Tissue Mobilization,Taping, Therapeutic Activities, Therapeutic Exercises Modalities Cold Pack/Ice Massage Next Visit Focus/Plan Next Note Type Treatment Note Next Visit Plan Progress hip mobility and strength.
--- NOTE | 2020-03-07 11:17 | PT.OTN ---
Current Diagnoses Pain in right knee (03/07/20) Difficulty in walking, not elsewhere classified (03/07/20) Physical Therapy Treatment Note PT-OP-A Visit Information Start: 02/27/20 12:58 Freq: Status: Active Protocol: Document 03/07/20 10:32 SP (Rec: 03/07/20 13:25 SP [id number]) Out-Patient Physical Therapy Visit Information Visit Information Visit Type Treatment Note Visit Start Time 10:32 Visit Stop Time 11:17 Total Visit Minutes 53 Visit Number 3 Number of CONTENT STRATEGIST Visits 1 PT-OP-B Current Condition Start: 02/27/20 12:58 Freq: Status: Active Protocol: Document 02/27/20 14:35 AW (Rec: 02/27/20 14:51 AW [id number]) Current Condition History of Current Condition Onset Date last two years Current Complaints right knee pain History of Current Condition Pt reports bilateral knee pain with right worse than left. She used to bowl and landed on right knee >10 years ago. She had no fracture but no longer felt safe bowling. Her pain resolved but has returned over the last few years. She states it is not worsening but it is not improving at all. She does not have pain on waking in the morning. She is able to do light activity without pain. She does note pain with ambulation > 1 block which then bothers her for up to an hour. When asked about pain location, pt points to the inferomedial aspect of the anterior knee. Prior Treatments and Tests x-ray right knee 01/28/20: Bones: No acute fracture or dislocation. There is moderate medial femorotibial compartment narrowing, small intercondylar osteophytes and small tricompartmental osteophytes. Soft tissues: No joint effusion. No suspicious soft tissue calcifications. IMPRESSION: Mild knee osteoarthritis. Pt has been using a prescription topical gel for pain relief but with limited effect. She is not taking any OTC medications. She has had PT before for plantar fasciitis but never for her knee pain. Pt sees a chiropractor monthly for back, hip, and neck pain. 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 Able to walk her dogs without concern for pain. Current Functional Impairments (Reported) Functional Limitations- Mobility/Gait Unable to walk > 1 block without pain. Difficulty managing with dog walking. Personal Factors Other Personal Factors That May Effect + Pt is active and has Therapy/Recovery positive associations with movement, activity, and exercise. PT-OP-C Subjective Start: 02/27/20 12:58 Freq: Status: Active Protocol: Document 03/07/20 10:32 SP (Rec: 03/07/20 13:25 SP [id number]) OP-PT Subjective Patient Comments Patient Comments I am doing well, compliant with exercises given, but want to review. Dont' have a tall enought bed/table for front leg stretch exercise and using a pillow for between knees squeezes. Pt reported when goes for walks her upper traps tighten up initially until distance progresses and relaxes. Patient Reported Progress Improving PT-OP-D Balance Start: 02/27/20 12:58 Freq: Status: Active Protocol: Document 02/27/20 14:35 AW (Rec: 02/27/20 15:07 AW [email or web address]) OP-PT Balance Assessment Standing Balance Static Standing Balance Ability Good Dynamic Standing Balance Ability Good Standing Balance Comments L SLS : 12 sec R SLS: 6 sec Robledo Fall Scale Copyright Permission PT-OP-G Mobility & Gait Start: 02/27/20 12:58 Freq: Status: Active Protocol: Document 02/27/20 14:35 AW (Rec: 02/27/20 15:07 AW [email or web address]) OP Mobility Evaluation Functional Movements Squats able with neutral knee posture but improves with cues for hip hinge OP Gait Assessment Gait Gait Assistance Required: Independent Distance (Feet) 100 Assistive Devices Assistive Device None Orthotic/Prosthetic Devices or Brace: No Gait Deviations General Gait Pattern Within Normal Limits,Decreased Feet Clearance Factors Limiting Gait Function Factors Limiting Gait Function Decreased Strength,Pain Comments Gait Comments Pt with slight genu varus in static and dynamic posture. Pt wears off the shelf shoes inserts bilaterally for arch support. PT-OP-H Neuro Start: 02/27/20 12:58 Freq: Status: Active Protocol: Document 02/27/20 14:35 AW (Rec: 02/27/20 15:07 AW [email or web address]) Sensation Evaluation Gross Sensation Gross Sensation WNL Deep Tendon Reflex & Clonus Assessment Deep Tendon Reflex Bilateral Achilles Deep Tendon Reflex 1+ Diminished Bilateral Patellar Deep Tendon Reflex 1+ Diminished PT-OP-J Posture/Palpation/Skin Start: 02/27/20 12:58 Freq: Status: Active Protocol: Document 02/27/20 14:35 AW (Rec: 02/27/20 15:07 AW [email or web address]) Posture Evaluation Position Standing Pelvis Posture Anteriorly Tilted Hip Posture (R) Externally Rotated Knee Posture (L) Genu Varus,(R) Genu Varus Patellar Posture (L) Neutral,(R) Neutral Ankle/Foot Posture (L) Pronated,(R) Pronated PT-OP-K Range of Motion Start: 02/27/20 12:58 Freq: Status: Active Protocol: Document 02/27/20 14:35 AW (Rec: 02/27/20 15:07 AW [email or web address]) Lumbar Spine Range of Motion Lumbar Spine Active Percentage Comments WNL Hip Goniometric Range of Motion Hip Left Active Extension 12 Internal Rotation 60 External Rotation 60 Right Active Hip ROM WFL Yes Testing Position Supine Extension 12 Internal Rotation 40 External Rotation 60 Hip ROM Limitations Hip ROM Limitations Soft Tissue Tightness,Muscle Weakness Knee Goniometric Range of Motion Knee Right Knee ROM WFL Yes Patient Position Supine Flexion Active (degrees) 135 Extension Active (degrees) 0 Left Knee ROM WFL Yes Patient Position Supine Flexion Active (degrees) 140 Extension Active (degrees) 0 Ankle and Foot Goniometric Range of Motion Ankle and Foot Left Active Comments B ankle ROM WNL all planes PT-OP-L Special Tests Start: 02/27/20 12:58 Freq: Status: Active Protocol: Document 02/27/20 14:35 AW (Rec: 02/27/20 16:48 AW [email or web address]) Special Tests Hip Special Tests Scour Test Test Results negative bilaterally Knee Special Tests Dony Test Results positive Comments leg elevated from table ~1 bilaterally Milind's Test Test Results positive Comments mildly positive bilaterally ligaments Comments B knees stable in all planes on exam PT-OP-M Strength Start: 02/27/20 12:58 Freq: Status: Active Protocol: Document 02/27/20 14:35 AW (Rec: 02/27/20 15:10 AW [email or web address]) Hip Strength Hip Manual Muscle Testing Right Flexion (L2) 4+ Good+ Extension (S1) 3+ Fair+ Abduction 4- Good- Adduction 4+ Good+ External Rotation 4+ Good+ Internal Rotation 4 Good Left Flexion (L2) 4+ Good+ Extension (S1) 3+ Fair+ Abduction 4- Good- Adduction 4+ Good+ External Rotation 4+ Good+ Internal Rotation 4 Good Knee Strength Knee Manual Muscle Testing Right Flexion (S2) 4+ Good+ Extension (L3) 5 Normal Left Flexion (S2) 4+ Good+ Extension (L3) 5 Normal Ankle/Foot Strength Ankle and Foot Manual Muscle Testing Right Dorsiflexion (L4) 4+ Good+ Plantarflexion (S1) 4+ Good+ Inversion 4+ Good+ Eversion (S1) 4+ Good+ Left Dorsiflexion (L4) 4+ Good+ Plantarflexion (S1) 4+ Good+ Inversion 4+ Good+ Eversion (S1) 4+ Good+ PT-OP-Q Treatments Start: 02/27/20 12:58 Freq: Status: Active Protocol: Document 03/07/20 10:32 SP (Rec: 03/07/20 13:25 SP [id number]) Therapeutic Exercises Supine Exercises 4 Supine Exercise Name bridge with adduction Equipment Used purple ball (pillow HEP) Reps/Minutes 10 x 2 Comments good TA facilitatoin 3 Supine Exercise Name glute sets Side bilateral Reps/Minutes 15 2 Supine Exercise Name HS stretch with strap Side bilateral Equipment Used strap Reps/Minutes 30 SH x 2 Comments Review HEP 1 Supine Exercise Name hip flexor stretch Side bilateral Resistance AAROM Equipment Used off table angled with towel under pelvis/thigh Reps/Minutes 30 SH x 2 Comments instructed pt in use of strap for home use Sidelying Exercises 2 Sidelying Exercise Name reverse clamshell Side bilateral Reps/Minutes 15 Comments cued for pacing 1 Sidelying Exercise Name clamshell Side bilateral Equipment Used pillow behind pelvis assist no rocking Reps/Minutes 15 Comments cues for stacked hips Standing Exercises sit to stand Standing Exercise Name arms across chest Reps/Minutes 2x5 Comments cued hip hinge and feet under, glut facilitation, decreased anterior discom Other Exercises self STMS glut and upper trap Side bilateral Reps/Minutes 2' Comments discussed for loosening up mm before going for a walk PT-OP-T Assessment and Plan Start: 02/27/20 12:58 Freq: Status: Active Protocol: Document 03/07/20 10:32 SP (Rec: 03/07/20 13:25 SP [id number]) Physical Therapy Assessment Goals Three Impairment Decreased strength Short Term Goal (STG) Pt will demonstrate hip extension strength 4+ bilaterally STG Duration 04/02/20 M[facility] Goal (LTG) Pt will increase SLS to 20 seconds bilaterally without UE support LTG Duration 05/07/20 Two Impairment Pt unable to ambulate >1 block without right knee pain limiting activity. Short Term Goal (STG) Pt will walk 3 blocks without right knee pain STG Duration 04/02/20 M[facility] Goal (LTG) Pt will be able to walk her dogs for 20 minutes with 1- point or less increase in baseline pain LTG Duration 05/07/20 One Impairment Pt lacks appropriate HEP Short Term Goal (STG) Pt will be independent with HEP for support of therapy services provided in clinic. STG Duration 04/02/20 Assessment Summary Assessment Pt responded well to HEP review with good improvement in core facilitation, no cuing required. Initiated sit to stand for glut functional strengthening with improved hip hinge post cued and demonstrationto follow, able to do with crossed arms. Provided self STMs for decrease muscle tightness reported before goes for walks , didnt have time to perform, review next tx. Pt is making gains in glut/core facilitation. Next tx add: standing hip strengthening ( glut med). Physical Therapy Plan Frequency and Duration Frequency of Treatment 2x/Week Duration of Treatment 10 weeks Plan of Care Start Date 02/27/20 Plan of Care End Date 05/07/20 Therapeutic Interventions Therapeutic Interventions Balance Training,Gait Training ,Home Exercise Program,Joint Mobilizations,Manual Therapy, Neuromuscular Re-education, Patient/Caregiver Education, Self-Care/Home Management,Soft Tissue Mobilization,Taping, Therapeutic Activities, Therapeutic Exercises Modalities Cold Pack/Ice Massage Next Visit Focus/Plan Next Note Type Treatment Note Next Visit Plan Assess HEP review and added sit to stands and self STMs gave last tx. Progress hip mobility and strength.
--- NOTE | 2020-03-10 15:18 | PT.OTN ---
Current Diagnoses Pain in right knee (03/10/20) Difficulty in walking, not elsewhere classified (03/10/20) Physical Therapy Treatment Note PT-OP-A Visit Information Start: 02/27/20 12:58 Freq: Status: Active Protocol: Document 03/10/20 14:36 SP (Rec: 03/10/20 15:26 SP [id number]) Out-Patient Physical Therapy Visit Information Visit Information Visit Type Treatment Note Visit Note DATA POWER CONSULTANT late bringing pt back. Visit Start Time 14:36 Visit Stop Time 15:18 Total Visit Minutes 42 Visit Number 4 Number of DATA POWER CONSULTANT Visits 2 PT-OP-B Current Condition Start: 02/27/20 12:58 Freq: Status: Active Protocol: Document 02/27/20 14:35 AW (Rec: 02/27/20 14:51 AW [id number]) Current Condition History of Current Condition Onset Date last two years Current Complaints right knee pain History of Current Condition Pt reports bilateral knee pain with right worse than left. She used to bowl and landed on right knee >10 years ago. She had no fracture but no longer felt safe bowling. Her pain resolved but has returned over the last few years. She states it is not worsening but it is not improving at all. She does not have pain on waking in the morning. She is able to do light activity without pain. She does note pain with ambulation > 1 block which then bothers her for up to an hour. When asked about pain location, pt points to the inferomedial aspect of the anterior knee. Prior Treatments and Tests x-ray right knee 01/28/20: Bones: No acute fracture or dislocation. There is moderate medial femorotibial compartment narrowing, small intercondylar osteophytes and small tricompartmental osteophytes. Soft tissues: No joint effusion. No suspicious soft tissue calcifications. IMPRESSION: Mild knee osteoarthritis. Pt has been using a prescription topical gel for pain relief but with limited effect. She is not taking any OTC medications. She has had PT before for plantar fasciitis but never for her knee pain. Pt sees a chiropractor monthly for back, hip, and neck pain. 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 Baseline Function- Recreation/Hobbies Walking for exercise without pain. Able to walk her dogs without concern for pain. Current Functional Impairments (Reported) Functional Limitations- Mobility/Gait Unable to walk > 1 block without pain. Difficulty managing with dog walking. Personal Factors Other Personal Factors That May Effect + Pt is active and has Therapy/Recovery positive associations with movement, activity, and exercise. PT-OP-C Subjective Start: 02/27/20 12:58 Freq: Status: Active Protocol: Document 03/10/20 14:36 SP (Rec: 03/10/20 15:26 SP [id number]) OP-PT Subjective Patient Comments Patient Comments I am doing well, compliant with HEP and they are helping and the ball rolling at wall helped alot, so much better that can do myself w/ tennis ball. Patient Reported Progress Improving PT-OP-D Balance Start: 02/27/20 12:58 Freq: Status: Active Protocol: Document 02/27/20 14:35 AW (Rec: 02/27/20 15:07 AW [email or web address]) OP-PT Balance Assessment Standing Balance Static Standing Balance Ability Good Dynamic Standing Balance Ability Good Standing Balance Comments L SLS : 12 sec R SLS: 6 sec Robledo Fall Scale Copyright Permission PT-OP-G Mobility & Gait Start: 02/27/20 12:58 Freq: Status: Active Protocol: Document 02/27/20 14:35 AW (Rec: 02/27/20 15:07 AW [email or web address]) OP Mobility Evaluation Functional Movements Squats able with neutral knee posture but improves with cues for hip hinge OP Gait Assessment Gait Gait Assistance Required: Independent Distance (Feet) 100 Assistive Devices Assistive Device None Orthotic/Prosthetic Devices or Brace: No Gait Deviations General Gait Pattern Within Normal Limits,Decreased Feet Clearance Factors Limiting Gait Function Factors Limiting Gait Function Decreased Strength,Pain Comments Gait Comments Pt with slight genu varus in static and dynamic posture. Pt wears off the shelf shoes inserts bilaterally for arch support. PT-OP-H Neuro Start: 02/27/20 12:58 Freq: Status: Active Protocol: Document 02/27/20 14:35 AW (Rec: 02/27/20 15:07 AW [email or web address]) Sensation Evaluation Gross Sensation Gross Sensation WNL Deep Tendon Reflex & Clonus Assessment Deep Tendon Reflex Bilateral Achilles Deep Tendon Reflex 1+ Diminished Bilateral Patellar Deep Tendon Reflex 1+ Diminished PT-OP-J Posture/Palpation/Skin Start: 02/27/20 12:58 Freq: Status: Active Protocol: Document 02/27/20 14:35 AW (Rec: 02/27/20 15:07 AW [email or web address]) Posture Evaluation Position Standing Pelvis Posture Anteriorly Tilted Hip Posture (R) Externally Rotated Knee Posture (L) Genu Varus,(R) Genu Varus Patellar Posture (L) Neutral,(R) Neutral Ankle/Foot Posture (L) Pronated,(R) Pronated PT-OP-K Range of Motion Start: 02/27/20 12:58 Freq: Status: Active Protocol: Document 02/27/20 14:35 AW (Rec: 02/27/20 15:07 AW [email or web address]) Lumbar Spine Range of Motion Lumbar Spine Active Percentage Comments WNL Hip Goniometric Range of Motion Hip Left Active Extension 12 Internal Rotation 60 External Rotation 60 Right Active Hip ROM WFL Yes Testing Position Supine Extension 12 Internal Rotation 40 External Rotation 60 Hip ROM Limitations Hip ROM Limitations Soft Tissue Tightness,Muscle Weakness Knee Goniometric Range of Motion Knee Right Knee ROM WFL Yes Patient Position Supine Flexion Active (degrees) 135 Extension Active (degrees) 0 Left Knee ROM WFL Yes Patient Position Supine Flexion Active (degrees) 140 Extension Active (degrees) 0 Ankle and Foot Goniometric Range of Motion Ankle and Foot Left Active Comments B ankle ROM WNL all planes PT-OP-L Special Tests Start: 02/27/20 12:58 Freq: Status: Active Protocol: Document 02/27/20 14:35 AW (Rec: 02/27/20 16:48 AW [email or web address]) Special Tests Hip Special Tests Scour Test Test Results negative bilaterally Knee Special Tests Dony Test Results positive Comments leg elevated from table ~1 bilaterally Milind's Test Test Results positive Comments mildly positive bilaterally ligaments Comments B knees stable in all planes on exam PT-OP-M Strength Start: 02/27/20 12:58 Freq: Status: Active Protocol: Document 02/27/20 14:35 AW (Rec: 02/27/20 15:10 AW [email or web address]) Hip Strength Hip Manual Muscle Testing Right Flexion (L2) 4+ Good+ Extension (S1) 3+ Fair+ Abduction 4- Good- Adduction 4+ Good+ External Rotation 4+ Good+ Internal Rotation 4 Good Left Flexion (L2) 4+ Good+ Extension (S1) 3+ Fair+ Abduction 4- Good- Adduction 4+ Good+ External Rotation 4+ Good+ Internal Rotation 4 Good Knee Strength Knee Manual Muscle Testing Right Flexion (S2) 4+ Good+ Extension (L3) 5 Normal Left Flexion (S2) 4+ Good+ Extension (L3) 5 Normal Ankle/Foot Strength Ankle and Foot Manual Muscle Testing Right Dorsiflexion (L4) 4+ Good+ Plantarflexion (S1) 4+ Good+ Inversion 4+ Good+ Eversion (S1) 4+ Good+ Left Dorsiflexion (L4) 4+ Good+ Plantarflexion (S1) 4+ Good+ Inversion 4+ Good+ Eversion (S1) 4+ Good+ PT-OP-Q Treatments Start: 02/27/20 12:58 Freq: Status: Active Protocol: Document 03/10/20 14:36 SP (Rec: 03/10/20 15:26 SP [email or web address]) Therapeutic Exercises Sidelying Exercises 2 Sidelying Exercise Name reverse clamshell Side bilateral Reps/Minutes 15 Comments good pacing and form 1 Sidelying Exercise Name clamshell Side bilateral Reps/Minutes 15 Comments cue x1 for stacked hips Sitting Exercises HS stretch Side bilateral Reps/Minutes 30 x2 Comments cued straight back hip hinge, opp knee >90 deg (no pain) pirformis stretch Sitting Exercise Name ER and IR add HEP Side bilateral Reps/Minutes 30 x2 Comments cued arms support legs , Standing Exercises band walk Standing Exercise Name f/b/side stepping ( add HEP) Resistance Tb #1 Reps/Minutes 20 ft x2 laps each Comments cued soft knee, feet parallel apart, level pelvis sit to stand Standing Exercise Name arms across chest Reps/Minutes 5 reps in 20 sec, then eccentric squat x3 cued hip hinge Comments cued hip hinge and feet under, glut facilitation, good form PT-OP-T Assessment and Plan Start: 02/27/20 12:58 Freq: Status: Active Protocol: Document 03/10/20 14:36 SP (Rec: 03/10/20 15:26 SP [id number]) Physical Therapy Assessment Goals Three Impairment Decreased strength Short Term Goal (STG) Pt will demonstrate hip extension strength 4+ bilaterally STG Duration 04/02/20 Director Of Online Education Goal (LTG) Pt will increase SLS to 20 seconds bilaterally without UE support LTG Duration 05/07/20 Two Impairment Pt unable to ambulate >1 block without right knee pain limiting activity. Short Term Goal (STG) Pt will walk 3 blocks without right knee pain STG Duration 04/02/20 Jail Goal (LTG) Pt will be able to walk her dogs for 20 minutes with 1- point or less increase in baseline pain LTG Duration 05/07/20 One Impairment Pt lacks appropriate HEP Short Term Goal (STG) Pt will be independent with HEP for support of therapy services provided in clinic. STG Duration 04/02/20 Assessment Summary Assessment Pt responded well to HEP review, very occasional cuing for set up. Initiated standing band walk and pirf & HS stretches with good feedback results. These new ones are good, I feel a good hip working with no pain. Physical Therapy Plan Frequency and Duration Frequency of Treatment 2x/Week Duration of Treatment 10 weeks Plan of Care Start Date 02/27/20 Plan of Care End Date 05/07/20 Therapeutic Interventions Therapeutic Interventions Balance Training,Gait Training ,Home Exercise Program,Joint Mobilizations,Manual Therapy, Neuromuscular Re-education, Patient/Caregiver Education, Self-Care/Home Management,Soft Tissue Mobilization,Taping, Therapeutic Activities, Therapeutic Exercises Modalities Cold Pack/Ice Massage Next Visit Focus/Plan Next Note Type Treatment Note Next Visit Plan Assess HEP review and initiated standing strengthening and flexibility. Progress hip mobility and strength.
--- NOTE | 2020-03-12 12:17 | PT.OTN ---
Current Diagnoses Pain in right knee (03/12/20) Difficulty in walking, not elsewhere classified (03/12/20) Physical Therapy Treatment Note PT-OP-A Visit Information Start: 02/27/20 12:58 Freq: Status: Active Protocol: Document 03/12/20 11:17 AW (Rec: 03/12/20 12:17 AW [id number]) Out-Patient Physical Therapy Visit Information Visit Information Visit Type Treatment Note Visit Start Time 11:15 Visit Stop Time 12:00 Total Visit Minutes 45 Visit Number 5 Number of CLOTH BURLER Visits 0 Evaluation Information Evaluation Date 02/27/20 PT-OP-B Current Condition Start: 02/27/20 12:58 Freq: Status: Active Protocol: Document 02/27/20 14:35 AW (Rec: 02/27/20 14:51 AW [id number]) Current Condition History of Current Condition Onset Date last two years Current Complaints right knee pain History of Current Condition Pt reports bilateral knee pain with right worse than left. She used to bowl and landed on right knee >10 years ago. She had no fracture but no longer felt safe bowling. Her pain resolved but has returned over the last few years. She states it is not worsening but it is not improving at all. She does not have pain on waking in the morning. She is able to do light activity without pain. She does note pain with ambulation > 1 block which then bothers her for up to an hour. When asked about pain location, pt points to the inferomedial aspect of the anterior knee. Prior Treatments and Tests x-ray right knee 01/28/20: Bones: No acute fracture or dislocation. There is moderate medial femorotibial compartment narrowing, small intercondylar osteophytes and small tricompartmental osteophytes. Soft tissues: No joint effusion. No suspicious soft tissue calcifications. IMPRESSION: Mild knee osteoarthritis. Pt has been using a prescription topical gel for pain relief but with limited effect. She is not taking any OTC medications. She has had PT before for plantar fasciitis but never for her knee pain. Pt sees a chiropractor monthly for back, hip, and neck pain. 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 Able to walk her dogs without concern for pain. Current Functional Impairments (Reported) Functional Limitations- Mobility/Gait Unable to walk > 1 block without pain. Difficulty managing with dog walking. Personal Factors Other Personal Factors That May Effect + Pt is active and has Therapy/Recovery positive associations with movement, activity, and exercise. PT-OP-C Subjective Start: 02/27/20 12:58 Freq: Status: Active Protocol: Document 03/12/20 11:17 AW (Rec: 03/12/20 12:12 AW [id number]) OP-PT Subjective Patient Comments Patient Comments My calves have been feeling sore but not painful. Patient Reported Progress Improving PT-OP-D Balance Start: 02/27/20 12:58 Freq: Status: Active Protocol: Document 02/27/20 14:35 AW (Rec: 02/27/20 15:07 AW [email or web address]) OP-PT Balance Assessment Standing Balance Static Standing Balance Ability Good Dynamic Standing Balance Ability Good Standing Balance Comments L SLS : 12 sec R SLS: 6 sec Robledo Fall Scale Copyright Permission PT-OP-G Mobility & Gait Start: 02/27/20 12:58 Freq: Status: Active Protocol: Document 02/27/20 14:35 AW (Rec: 02/27/20 15:07 AW [email or web address]) OP Mobility Evaluation Functional Movements Squats able with neutral knee posture but improves with cues for hip hinge OP Gait Assessment Gait Gait Assistance Required: Independent Distance (Feet) 100 Assistive Devices Assistive Device None Orthotic/Prosthetic Devices or Brace: No Gait Deviations General Gait Pattern Within Normal Limits,Decreased Feet Clearance Factors Limiting Gait Function Factors Limiting Gait Function Decreased Strength,Pain Comments Gait Comments Pt with slight genu varus in static and dynamic posture. Pt wears off the shelf shoes inserts bilaterally for arch support. PT-OP-H Neuro Start: 02/27/20 12:58 Freq: Status: Active Protocol: Document 02/27/20 14:35 AW (Rec: 02/27/20 15:07 AW [email or web address]) Sensation Evaluation Gross Sensation Gross Sensation WNL Deep Tendon Reflex & Clonus Assessment Deep Tendon Reflex Bilateral Achilles Deep Tendon Reflex 1+ Diminished Bilateral Patellar Deep Tendon Reflex 1+ Diminished PT-OP-J Posture/Palpation/Skin Start: 02/27/20 12:58 Freq: Status: Active Protocol: Document 12/09/20 14:35 AW (Rec: 02/27/20 15:07 AW [email or web address]) Posture Evaluation Position Standing Pelvis Posture Anteriorly Tilted Hip Posture (R) Externally Rotated Knee Posture (L) Genu Varus,(R) Genu Varus Patellar Posture (L) Neutral,(R) Neutral Ankle/Foot Posture (L) Pronated,(R) Pronated PT-OP-K Range of Motion Start: 02/27/20 12:58 Freq: Status: Active Protocol: Document 02/27/20 14:35 AW (Rec: 02/27/20 15:07 AW [email or web address]) Lumbar Spine Range of Motion Lumbar Spine Active Percentage Comments WNL Hip Goniometric Range of Motion Hip Left Active Extension 12 Internal Rotation 60 External Rotation 60 Right Active Hip ROM WFL Yes Testing Position Supine Extension 12 Internal Rotation 40 External Rotation 60 Hip ROM Limitations Hip ROM Limitations Soft Tissue Tightness,Muscle Weakness Knee Goniometric Range of Motion Knee Right Knee ROM WFL Yes Patient Position Supine Flexion Active (degrees) 135 Extension Active (degrees) 0 Left Knee ROM WFL Yes Patient Position Supine Flexion Active (degrees) 140 Extension Active (degrees) 0 Ankle and Foot Goniometric Range of Motion Ankle and Foot Left Active Comments B ankle ROM WNL all planes PT-OP-L Special Tests Start: 02/27/20 12:58 Freq: Status: Active Protocol: Document 02/27/20 14:35 AW (Rec: 02/27/20 16:48 AW [email or web address]) Special Tests Hip Special Tests Scour Test Test Results negative bilaterally Knee Special Tests Dony Test Results positive Comments leg elevated from table ~1 bilaterally Milind's Test Test Results positive Comments mildly positive bilaterally ligaments Comments B knees stable in all planes on exam PT-OP-M Strength Start: 02/27/20 12:58 Freq: Status: Active Protocol: Document 02/27/20 14:35 AW (Rec: 02/27/20 15:10 AW [email or web address]) Hip Strength Hip Manual Muscle Testing Right Flexion (L2) 4+ Good+ Extension (S1) 3+ Fair+ Abduction 4- Good- Adduction 4+ Good+ External Rotation 4+ Good+ Internal Rotation 4 Good Left Flexion (L2) 4+ Good+ Extension (S1) 3+ Fair+ Abduction 4- Good- Adduction 4+ Good+ External Rotation 4+ Good+ Internal Rotation 4 Good Knee Strength Knee Manual Muscle Testing Right Flexion (S2) 4+ Good+ Extension (L3) 5 Normal Left Flexion (S2) 4+ Good+ Extension (L3) 5 Normal Ankle/Foot Strength Ankle and Foot Manual Muscle Testing Right Dorsiflexion (L4) 4+ Good+ Plantarflexion (S1) 4+ Good+ Inversion 4+ Good+ Eversion (S1) 4+ Good+ Left Dorsiflexion (L4) 4+ Good+ Plantarflexion (S1) 4+ Good+ Inversion 4+ Good+ Eversion (S1) 4+ Good+ PT-OP-Q Treatments Start: 02/27/20 12:58 Freq: Status: Active Protocol: Document 03/12/20 11:17 AW (Rec: 03/12/20 12:12 AW [id number]) Therapeutic Exercises Sitting Exercises HS stretch Side bilateral Reps/Minutes 30 x2 Comments cued straight back hip hinge, opp knee >90 deg (no pain) Standing Exercises single leg stance Standing Exercise Name single leg stance Side bilateral Equipment Used counter top for fingertip support Comments LLE >20 sec; RLE up to 15 sec but with increased instability step up Standing Exercise Name step up Side bilateral Equipment Used 4 step Reps/Minutes x10 Comments painful on right side, d/c'ed; focus on hip extension iso glut med with ball at wall Standing Exercise Name iso glut med with ball at wall Side bilateral Resistance purple ball Reps/Minutes 3SH x 8 Comments cued level pelvis resisted hip extension Standing Exercise Name resisted hip extension Side bilateral Resistance Tb #2 Reps/Minutes 10 reps x 2 band walk Standing Exercise Name f/b/side stepping ( add HEP) Resistance Tb #2 Reps/Minutes 20 ft x2 laps each Comments cued soft knee, feet parallel apart, level pelvis sit to stand Standing Exercise Name arms across chest Reps/Minutes 10 reps + 10 reps squat tap Comments focus on hip extension, improved hip hinge PT-OP-T Assessment and Plan Start: 02/27/20 12:58 Freq: Status: Active Protocol: Document 03/12/20 11:17 AW (Rec: 03/12/20 12:17 AW [id number]) Physical Therapy Assessment Goals Three Impairment Decreased strength Short Term Goal (STG) Pt will demonstrate hip extension strength 4+ bilaterally STG Duration 04/02/20 Retirement Goal (LTG) Pt will increase SLS to 20 seconds bilaterally without UE support LTG Duration 05/07/20 Two Impairment Pt unable to ambulate >1 block without right knee pain limiting activity. Short Term Goal (STG) Pt will walk 3 blocks without right knee pain STG Duration 04/02/20 Retirement Goal (LTG) Pt will be able to walk her dogs for 20 minutes with 1- point or less increase in baseline pain LTG Duration 05/07/20 One Impairment Pt lacks appropriate HEP Short Term Goal (STG) Pt will be independent with HEP for support of therapy services provided in clinic. STG Duration 04/02/20 Assessment Summary Assessment Discussed HEP with pt who is performing every exercise every day. Advised pt to split HEP into supported (supine, SL) and unsupported and to do a 2-day split. Added SLS to HEP. Pt is improving in glute facilitation and awareness of pelvic stability. Physical Therapy Plan Frequency and Duration Frequency of Treatment 2x/Week Duration of Treatment 10 weeks Plan of Care Start Date 02/27/20 Plan of Care End Date 05/07/20 Therapeutic Interventions Therapeutic Interventions Balance Training,Gait Training ,Home Exercise Program,Joint Mobilizations,Manual Therapy, Neuromuscular Re-education, Patient/Caregiver Education, Self-Care/Home Management,Soft Tissue Mobilization,Taping, Therapeutic Activities, Therapeutic Exercises Modalities Cold Pack/Ice Massage Next Visit Focus/Plan Next Note Type Treatment Note Next Visit Plan Assess response to remodeled HEP. Progress hip strength and SLS.
--- NOTE | 2020-03-17 11:53 | PT.OTN ---
Current Diagnoses Pain in right knee (03/17/20) Difficulty in walking, not elsewhere classified (03/17/20) Physical Therapy Treatment Note PT-OP-A Visit Information Start: 02/27/20 12:58 Freq: Status: Active Protocol: Document 03/17/20 11:44 MA (Rec: 03/17/20 11:53 MA [email or web address]) Out-Patient Physical Therapy Visit Information Visit Information Visit Type Treatment Note Visit Start Time 11:02 Visit Stop Time 11:45 Total Visit Minutes 43 Visit Number 6 Number of SATELLITE TV TECHNICIAN INSTALLER Visits 1 PT-OP-B Current Condition Start: 02/27/20 12:58 Freq: Status: Active Protocol: Document 02/27/20 14:35 AW (Rec: 02/27/20 14:51 AW [id number]) Current Condition History of Current Condition Onset Date last two years Current Complaints right knee pain History of Current Condition Pt reports bilateral knee pain with right worse than left. She used to bowl and landed on right knee >10 years ago. She had no fracture but no longer felt safe bowling. Her pain resolved but has returned over the last few years. She states it is not worsening but it is not improving at all. She does not have pain on waking in the morning. She is able to do light activity without pain. She does note pain with ambulation > 1 block which then bothers her for up to an hour. When asked about pain location, pt points to the inferomedial aspect of the anterior knee. Prior Treatments and Tests x-ray right knee 01/28/20: Bones: No acute fracture or dislocation. There is moderate medial femorotibial compartment narrowing, small intercondylar osteophytes and small tricompartmental osteophytes. Soft tissues: No joint effusion. No suspicious soft tissue calcifications. IMPRESSION: Mild knee osteoarthritis. Pt has been using a prescription topical gel for pain relief but with limited effect. She is not taking any OTC medications. She has had PT before for plantar fasciitis but never for her knee pain. Pt sees a chiropractor monthly for back, hip, and neck pain. 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 Baseline Function- Recreation/Hobbies Walking for exercise without pain. Able to walk her dogs without concern for pain. Current Functional Impairments (Reported) Functional Limitations- Mobility/Gait Unable to walk > 1 block without pain. Difficulty managing with dog walking. Personal Factors Other Personal Factors That May Effect + Pt is active and has Therapy/Recovery positive associations with movement, activity, and exercise. PT-OP-C Subjective Start: 02/27/20 12:58 Freq: Status: Active Protocol: Document 03/17/20 11:44 MA (Rec: 03/17/20 11:53 MA [email or web address]) OP-PT Subjective Patient Comments Patient Comments I would like to review that one walking exercise with the band because I don't know where I am supposed to be feeling it Patient Reported Progress Improving PT-OP-D Balance Start: 02/27/20 12:58 Freq: Status: Active Protocol: Document 02/27/20 14:35 AW (Rec: 02/27/20 15:07 AW [email or web address]) OP-PT Balance Assessment Standing Balance Static Standing Balance Ability Good Dynamic Standing Balance Ability Good Standing Balance Comments L SLS : 12 sec R SLS: 6 sec Robledo Fall Scale Copyright Permission PT-OP-G Mobility & Gait Start: 02/27/20 12:58 Freq: Status: Active Protocol: Document 02/27/20 14:35 AW (Rec: 02/27/20 15:07 AW [email or web address]) OP Mobility Evaluation Functional Movements Squats able with neutral knee posture but improves with cues for hip hinge OP Gait Assessment Gait Gait Assistance Required: Independent Distance (Feet) 100 Assistive Devices Assistive Device None Orthotic/Prosthetic Devices or Brace: No Gait Deviations General Gait Pattern Within Normal Limits,Decreased Feet Clearance Factors Limiting Gait Function Factors Limiting Gait Function Decreased Strength,Pain Comments Gait Comments Pt with slight genu varus in static and dynamic posture. Pt wears off the shelf shoes inserts bilaterally for arch support. PT-OP-H Neuro Start: 02/27/20 12:58 Freq: Status: Active Protocol: Document 02/27/20 14:35 AW (Rec: 02/27/20 15:07 AW [email or web address]) Sensation Evaluation Gross Sensation Gross Sensation WNL Deep Tendon Reflex & Clonus Assessment Deep Tendon Reflex Bilateral Achilles Deep Tendon Reflex 1+ Diminished Bilateral Patellar Deep Tendon Reflex 1+ Diminished PT-OP-J Posture/Palpation/Skin Start: 12/09/20 12:58 Freq: Status: Active Protocol: Document 02/27/20 14:35 AW (Rec: 02/27/20 15:07 AW [email or web address]) Posture Evaluation Position Standing Pelvis Posture Anteriorly Tilted Hip Posture (R) Externally Rotated Knee Posture (L) Genu Varus,(R) Genu Varus Patellar Posture (L) Neutral,(R) Neutral Ankle/Foot Posture (L) Pronated,(R) Pronated PT-OP-K Range of Motion Start: 02/27/20 12:58 Freq: Status: Active Protocol: Document 02/27/20 14:35 AW (Rec: 02/27/20 15:07 AW [email or web address]) Lumbar Spine Range of Motion Lumbar Spine Active Percentage Comments WNL Hip Goniometric Range of Motion Hip Left Active Extension 12 Internal Rotation 60 External Rotation 60 Right Active Hip ROM WFL Yes Testing Position Supine Extension 12 Internal Rotation 40 External Rotation 60 Hip ROM Limitations Hip ROM Limitations Soft Tissue Tightness,Muscle Weakness Knee Goniometric Range of Motion Knee Right Knee ROM WFL Yes Patient Position Supine Flexion Active (degrees) 135 Extension Active (degrees) 0 Left Knee ROM WFL Yes Patient Position Supine Flexion Active (degrees) 140 Extension Active (degrees) 0 Ankle and Foot Goniometric Range of Motion Ankle and Foot Left Active Comments B ankle ROM WNL all planes PT-OP-L Special Tests Start: 02/27/20 12:58 Freq: Status: Active Protocol: Document 02/27/20 14:35 AW (Rec: 02/27/20 16:48 AW [email or web address]) Special Tests Hip Special Tests Scour Test Test Results negative bilaterally Knee Special Tests Dony Test Results positive Comments leg elevated from table ~1 bilaterally Milind's Test Test Results positive Comments mildly positive bilaterally ligaments Comments B knees stable in all planes on exam PT-OP-M Strength Start: 02/27/20 12:58 Freq: Status: Active Protocol: Document 02/27/20 14:35 AW (Rec: 02/27/20 15:10 AW [email or web address]) Hip Strength Hip Manual Muscle Testing Right Flexion (L2) 4+ Good+ Extension (S1) 3+ Fair+ Abduction 4- Good- Adduction 4+ Good+ External Rotation 4+ Good+ Internal Rotation 4 Good Left Flexion (L2) 4+ Good+ Extension (S1) 3+ Fair+ Abduction 4- Good- Adduction 4+ Good+ External Rotation 4+ Good+ Internal Rotation 4 Good Knee Strength Knee Manual Muscle Testing Right Flexion (S2) 4+ Good+ Extension (L3) 5 Normal Left Flexion (S2) 4+ Good+ Extension (L3) 5 Normal Ankle/Foot Strength Ankle and Foot Manual Muscle Testing Right Dorsiflexion (L4) 4+ Good+ Plantarflexion (S1) 4+ Good+ Inversion 4+ Good+ Eversion (S1) 4+ Good+ Left Dorsiflexion (L4) 4+ Good+ Plantarflexion (S1) 4+ Good+ Inversion 4+ Good+ Eversion (S1) 4+ Good+ PT-OP-Q Treatments Start: 02/27/20 12:58 Freq: Status: Active Protocol: Document 03/17/20 11:44 MA (Rec: 03/17/20 11:53 MA [email or web address]) Therapeutic Exercises Supine Exercises 1 Supine Exercise Name Dony Stretch Side bilateral Prone Exercises Quad Stretch Side bilateral Reps/Minutes 60 sec Sidelying Exercises 2 Sidelying Exercise Name reverse clamshell Side bilateral Reps/Minutes 15 Comments good pacing and form 1 Sidelying Exercise Name clamshell Side bilateral Reps/Minutes 15 Comments cue x1 for stacked hips Sitting Exercises HS stretch Side bilateral Reps/Minutes 30 x2 Comments Bothered R knee so switched to standing HS stretch pirformis stretch Sitting Exercise Name ER and IR add HEP Side bilateral Reps/Minutes 30 x2 Comments cued arms support legs , Standing Exercises HS Stretch Standing Exercise Name reaching for toes Side bilateral single leg stance Standing Exercise Name single leg stance Side bilateral Equipment Used counter top for fingertip support Comments LLE 30 sec, RLE 17 Sec resisted hip extension Standing Exercise Name resisted hip extension Side bilateral Resistance 4# Reps/Minutes x10 band walk Standing Exercise Name f/b/side stepping Resistance Tb #2 Reps/Minutes 20 ft x2 laps each Comments cued soft knee, feet parallel apart, level pelvis Self-Care/Home Management Treatment Education Patient Education Home Exercise Program Other Education Seated HS stretch bothered right knee. Reviewed HS stretch standing while reaching for toes and long sitting on floor reaching for toes instead. PT-OP-T Assessment and Plan Start: 02/27/20 12:58 Freq: Status: Active Protocol: Document 03/17/20 11:44 MA (Rec: 03/17/20 11:53 MA [email or web address]) Physical Therapy Assessment Goals Three Impairment Decreased strength Short Term Goal (STG) Pt will demonstrate hip extension strength 4+ bilaterally STG Duration 04/02/20 Cane Loader Goal (LTG) Pt will increase SLS to 20 seconds bilaterally without UE support LTG Duration 05/07/20 Two Impairment Pt unable to ambulate >1 block without right knee pain limiting activity. Short Term Goal (STG) Pt will walk 3 blocks without right knee pain STG Duration 04/02/20 Cane Loader Goal (LTG) Pt will be able to walk her dogs for 20 minutes with 1- point or less increase in baseline pain LTG Duration 05/07/20 One Impairment Pt lacks appropriate HEP Short Term Goal (STG) Pt will be independent with HEP for support of therapy services provided in clinic. STG Duration 04/02/20 Assessment Summary Assessment HS stretch while seated bothered pt's R knee. Switched to a standing HS stretch reaching for toes with no pain felt. Also demonstrated long sitting on floor and reaching for toes to help support back on knee if R knee pain continues. Reviewed stepping band exercises with pt able to feel correct mms when stepping fwd, bkwd, and laterally. Pt was able to complete 17 sec today SLS on the RLE and 30 sec LLE with no hand hold assistance. Physical Therapy Plan Frequency and Duration Frequency of Treatment 2x/Week Duration of Treatment 10 weeks Plan of Care Start Date 02/27/20 Plan of Care End Date 05/07/20 Therapeutic Interventions Therapeutic Interventions Balance Training,Gait Training ,Home Exercise Program,Joint Mobilizations,Manual Therapy, Neuromuscular Re-education, Patient/Caregiver Education, Self-Care/Home Management,Soft Tissue Mobilization,Taping, Therapeutic Activities, Therapeutic Exercises Modalities Cold Pack/Ice Massage Next Visit Focus/Plan Next Note Type Treatment Note Next Visit Plan Continue prone quad stretch and dony stretch. Progress hip strength and SLS.
--- NOTE | 2020-03-24 13:52 | PT.OTN ---
Current Diagnoses Pain in right knee (03/24/20) Difficulty in walking, not elsewhere classified (03/24/20) Physical Therapy Treatment Note PT-OP-A Visit Information Start: 02/27/20 12:58 Freq: Status: Active Protocol: Document 03/24/20 13:06 SP (Rec: 03/24/20 14:13 SP [id number]) Out-Patient Physical Therapy Visit Information Visit Information Visit Type Treatment Note Visit Start Time 13:06 Visit Stop Time 13:52 Total Visit Minutes 46 Visit Number 7 Number of REVENUE SETTLEMENTS ADMINISTRATOR Visits 2 PT-OP-B Current Condition Start: 02/27/20 12:58 Freq: Status: Active Protocol: Document 02/27/20 14:35 AW (Rec: 02/27/20 14:51 AW [id number]) Current Condition History of Current Condition Onset Date last two years Current Complaints right knee pain History of Current Condition Pt reports bilateral knee pain with right worse than left. She used to bowl and landed on right knee >10 years ago. She had no fracture but no longer felt safe bowling. Her pain resolved but has returned over the last few years. She states it is not worsening but it is not improving at all. She does not have pain on waking in the morning. She is able to do light activity without pain. She does note pain with ambulation > 1 block which then bothers her for up to an hour. When asked about pain location, pt points to the inferomedial aspect of the anterior knee. Prior Treatments and Tests x-ray right knee 01/28/20: Bones: No acute fracture or dislocation. There is moderate medial femorotibial compartment narrowing, small intercondylar osteophytes and small tricompartmental osteophytes. Soft tissues: No joint effusion. No suspicious soft tissue calcifications. IMPRESSION: Mild knee osteoarthritis. Pt has been using a prescription topical gel for pain relief but with limited effect. She is not taking any OTC medications. She has had PT before for plantar fasciitis but never for her knee pain. Pt sees a chiropractor monthly for back, hip, and neck pain. 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 Able to walk her dogs without concern for pain. Current Functional Impairments (Reported) Functional Limitations- Mobility/Gait Unable to walk > 1 block without pain. Difficulty managing with dog walking. Personal Factors Other Personal Factors That May Effect + Pt is active and has Therapy/Recovery positive associations with movement, activity, and exercise. PT-OP-C Subjective Start: 02/27/20 12:58 Freq: Status: Active Protocol: Document 03/24/20 13:06 SP (Rec: 03/24/20 14:13 SP [id number]) OP-PT Subjective Patient Comments Patient Comments Pt reported wants to work on review of HEP, felt like almost fell off the bed during Dony stretch and medial L knee irritation at times. PT-OP-D Balance Start: 02/27/20 12:58 Freq: Status: Active Protocol: Document 02/27/20 14:35 AW (Rec: 02/27/20 15:07 AW [email or web address]) OP-PT Balance Assessment Standing Balance Static Standing Balance Ability Good Dynamic Standing Balance Ability Good Standing Balance Comments L SLS : 12 sec R SLS: 6 sec Robledo Fall Scale Copyright Permission PT-OP-G Mobility & Gait Start: 02/27/20 12:58 Freq: Status: Active Protocol: Document 02/27/20 14:35 AW (Rec: 02/27/20 15:07 AW [email or web address]) OP Mobility Evaluation Functional Movements Squats able with neutral knee posture but improves with cues for hip hinge OP Gait Assessment Gait Gait Assistance Required: Independent Distance (Feet) 100 Assistive Devices Assistive Device None Orthotic/Prosthetic Devices or Brace: No Gait Deviations General Gait Pattern Within Normal Limits,Decreased Feet Clearance Factors Limiting Gait Function Factors Limiting Gait Function Decreased Strength,Pain Comments Gait Comments Pt with slight genu varus in static and dynamic posture. Pt wears off the shelf shoes inserts bilaterally for arch support. PT-OP-H Neuro Start: 02/27/20 12:58 Freq: Status: Active Protocol: Document 02/27/20 14:35 AW (Rec: 02/27/20 15:07 AW [email or web address]) Sensation Evaluation Gross Sensation Gross Sensation WNL Deep Tendon Reflex & Clonus Assessment Deep Tendon Reflex Bilateral Achilles Deep Tendon Reflex 1+ Diminished Bilateral Patellar Deep Tendon Reflex 1+ Diminished PT-OP-J Posture/Palpation/Skin Start: 02/27/20 12:58 Freq: Status: Active Protocol: Document 02/27/20 14:35 AW (Rec: 02/27/20 15:07 AW [email or web address]) Posture Evaluation Position Standing Pelvis Posture Anteriorly Tilted Hip Posture (R) Externally Rotated Knee Posture (L) Genu Varus,(R) Genu Varus Patellar Posture (L) Neutral,(R) Neutral Ankle/Foot Posture (L) Pronated,(R) Pronated PT-OP-K Range of Motion Start: 02/27/20 12:58 Freq: Status: Active Protocol: Document 02/27/20 14:35 AW (Rec: 02/27/20 15:07 AW [email or web address]) Lumbar Spine Range of Motion Lumbar Spine Active Percentage Comments WNL Hip Goniometric Range of Motion Hip Left Active Extension 12 Internal Rotation 60 External Rotation 60 Right Active Hip ROM WFL Yes Testing Position Supine Extension 12 Internal Rotation 40 External Rotation 60 Hip ROM Limitations Hip ROM Limitations Soft Tissue Tightness,Muscle Weakness Knee Goniometric Range of Motion Knee Right Knee ROM WFL Yes Patient Position Supine Flexion Active (degrees) 135 Extension Active (degrees) 0 Left Knee ROM WFL Yes Patient Position Supine Flexion Active (degrees) 140 Extension Active (degrees) 0 Ankle and Foot Goniometric Range of Motion Ankle and Foot Left Active Comments B ankle ROM WNL all planes PT-OP-L Special Tests Start: 02/27/20 12:58 Freq: Status: Active Protocol: Document 02/27/20 14:35 AW (Rec: 02/27/20 16:48 AW [email or web address]) Special Tests Hip Special Tests Scour Test Test Results negative bilaterally Knee Special Tests Dony Test Results positive Comments leg elevated from table ~1 bilaterally Milind's Test Test Results positive Comments mildly positive bilaterally ligaments Comments B knees stable in all planes on exam PT-OP-M Strength Start: 02/27/20 12:58 Freq: Status: Active Protocol: Document 02/27/20 14:35 AW (Rec: 02/27/20 15:10 AW [email or web address]) Hip Strength Hip Manual Muscle Testing Right Flexion (L2) 4+ Good+ Extension (S1) 3+ Fair+ Abduction 4- Good- Adduction 4+ Good+ External Rotation 4+ Good+ Internal Rotation 4 Good Left Flexion (L2) 4+ Good+ Extension (S1) 3+ Fair+ Abduction 4- Good- Adduction 4+ Good+ External Rotation 4+ Good+ Internal Rotation 4 Good Knee Strength Knee Manual Muscle Testing Right Flexion (S2) 4+ Good+ Extension (L3) 5 Normal Left Flexion (S2) 4+ Good+ Extension (L3) 5 Normal Ankle/Foot Strength Ankle and Foot Manual Muscle Testing Right Dorsiflexion (L4) 4+ Good+ Plantarflexion (S1) 4+ Good+ Inversion 4+ Good+ Eversion (S1) 4+ Good+ Left Dorsiflexion (L4) 4+ Good+ Plantarflexion (S1) 4+ Good+ Inversion 4+ Good+ Eversion (S1) 4+ Good+ PT-OP-Q Treatments Start: 02/27/20 12:58 Freq: Status: Active Protocol: Document 03/24/20 13:06 SP (Rec: 03/24/20 14:13 SP [id number]) Therapeutic Exercises Supine Exercises 4 Supine Exercise Name bridge with abd TB (changed from hip add w/ pillow) Equipment Used Y TB Reps/Minutes 10 x 2, pause Comments good TA and glut facilitation (no medial knee pain) 1 Supine Exercise Name Dony Stretch perpendicular to side of bed Side bilateral Reps/Minutes 30 x2 each LE Comments cued PPT awareness- good demonstration cued set up Sitting Exercises HS stretch Side bilateral Reps/Minutes 30 x2 Comments cued hip hinge not reaching toes, discussed standing HS stretch pirformis stretch Sitting Exercise Name ER and IR add HEP Side bilateral Reps/Minutes 30 x2 Comments cued arms support legs, tall posture Standing Exercises HS Stretch Standing Exercise Name hip hinge chest elevated toward LE, straight back Side bilateral Reps/Minutes 30 single leg stance Standing Exercise Name single leg stance Side bilateral Equipment Used counter top for fingertip support Comments LLE 30 sec +, RLE 13, 13, 14 ( 3 sec less today) step up Standing Exercise Name step up Side bilateral Equipment Used 4 step Reps/Minutes x2 Comments painful on R medial knee: DC'd , difficult neutral knee alignment w/mid foot resisted hip extension Standing Exercise Name resisted hip extension Side bilateral Resistance TB #1 loop Reps/Minutes x10 Comments cued PPT awareness and hip glut facilitaiton range (both hips) band walk Standing Exercise Name f/b/side stepping Resistance Tb #2 Reps/Minutes 20 ft x2 laps each Comments cued soft knee // with toes, level pelvis Neuro Re-Education Treatment Balance Activities rocker board Details f/b/side wt shifting Equipment rocker board, contact table PRN Comments GB CG- SBA. cued COG over ENMANUEL, knees // with and behind toes. PT-OP-T Assessment and Plan Start: 02/27/20 12:58 Freq: Status: Active Protocol: Document 03/24/20 13:06 SP (Rec: 03/24/20 14:13 SP [id number]) Physical Therapy Assessment Goals Three Impairment Decreased strength Short Term Goal (STG) Pt will demonstrate hip extension strength 4+ bilaterally STG Duration 04/02/20 Credit Union Examiner Goal (LTG) Pt will increase SLS to 20 seconds bilaterally without UE support LTG Duration 05/07/20 Two Impairment Pt unable to ambulate >1 block without right knee pain limiting activity. Short Term Goal (STG) Pt will walk 3 blocks without right knee pain STG Duration 04/02/20 Credit Union Examiner Goal (LTG) Pt will be able to walk her dogs for 20 minutes with 1- point or less increase in baseline pain LTG Duration 05/07/20 One Impairment Pt lacks appropriate HEP Short Term Goal (STG) Pt will be independent with HEP for support of therapy services provided in clinic. STG Duration 04/02/20 Assessment Summary Assessment Pt improved with medial knee alignment and COG over ENMANUEL today, improved SLS set up and wt shift with tall posture and glut facilitation into hip ext with cuing. Able to tolerated and carryover onto rockerboard initiation. Physical Therapy Plan Frequency and Duration Frequency of Treatment 2x/Week Duration of Treatment 10 weeks Plan of Care Start Date 02/27/20 Plan of Care End Date 05/07/20 Therapeutic Interventions Therapeutic Interventions Balance Training,Gait Training ,Home Exercise Program,Joint Mobilizations,Manual Therapy, Neuromuscular Re-education, Patient/Caregiver Education, Self-Care/Home Management,Soft Tissue Mobilization,Taping, Therapeutic Activities, Therapeutic Exercises Modalities Cold Pack/Ice Massage Next Visit Focus/Plan Next Note Type Treatment Note Next Visit Plan Assess response to last tx: HEP review, rockerboard, band walk, stretching. Next tx reassess prone quad stretch and dony stretch for safety and flexibility. Initiate rolling stick if tolerated and beneficial for flexibility. Continue per PT POC: Progress hip strength and SLS.
--- NOTE | 2020-03-26 14:01 | PT.OTN ---
Current Diagnoses Pain in right knee (03/26/20) Difficulty in walking, not elsewhere classified (03/26/20) Physical Therapy Treatment Note PT-OP-A Visit Information Start: 02/27/20 12:58 Freq: Status: Active Protocol: Document 03/26/20 13:45 AW (Rec: 03/26/20 14:01 AW [email or web address]) Out-Patient Physical Therapy Visit Information Visit Information Visit Type Treatment Note Visit Start Time 13:01 Visit Stop Time 13:45 Total Visit Minutes 44 Visit Number 8 Number of SPOOLING OPERATOR Visits 0 Evaluation Information Evaluation Date 02/27/20 PT-OP-B Current Condition Start: 02/27/20 12:58 Freq: Status: Active Protocol: Document 02/27/20 14:35 AW (Rec: 02/27/20 14:51 AW [id number]) Current Condition History of Current Condition Onset Date last two years Current Complaints right knee pain History of Current Condition Pt reports bilateral knee pain with right worse than left. She used to bowl and landed on right knee >10 years ago. She had no fracture but no longer felt safe bowling. Her pain resolved but has returned over the last few years. She states it is not worsening but it is not improving at all. She does not have pain on waking in the morning. She is able to do light activity without pain. She does note pain with ambulation > 1 block which then bothers her for up to an hour. When asked about pain location, pt points to the inferomedial aspect of the anterior knee. Prior Treatments and Tests x-ray right knee 01/28/20: Bones: No acute fracture or dislocation. There is moderate medial femorotibial compartment narrowing, small intercondylar osteophytes and small tricompartmental osteophytes. Soft tissues: No joint effusion. No suspicious soft tissue calcifications. IMPRESSION: Mild knee osteoarthritis. Pt has been using a prescription topical gel for pain relief but with limited effect. She is not taking any OTC medications. She has had PT before for plantar fasciitis but never for her knee pain. Pt sees a chiropractor monthly for back, hip, and neck pain. 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 Baseline Function- Recreation/Hobbies Walking for exercise without pain. Able to walk her dogs without concern for pain. Current Functional Impairments (Reported) Functional Limitations- Mobility/Gait Unable to walk > 1 block without pain. Difficulty managing with dog walking. Personal Factors Other Personal Factors That May Effect + Pt is active and has Therapy/Recovery positive associations with movement, activity, and exercise. PT-OP-C Subjective Start: 02/27/20 12:58 Freq: Status: Active Protocol: Document 03/26/20 13:45 AW (Rec: 03/26/20 14:01 AW [email or web address]) OP-PT Subjective Patient Comments Patient Comments Pt still reporting medial knee irritation with recent exacerbation. She thinks she may have twisted her knee but can't remember a specific instance. PT-OP-D Balance Start: 02/27/20 12:58 Freq: Status: Active Protocol: Document 02/27/20 14:35 AW (Rec: 02/27/20 15:07 AW [email or web address]) OP-PT Balance Assessment Standing Balance Static Standing Balance Ability Good Dynamic Standing Balance Ability Good Standing Balance Comments L SLS : 12 sec R SLS: 6 sec Robledo Fall Scale Copyright Permission PT-OP-G Mobility & Gait Start: 02/27/20 12:58 Freq: Status: Active Protocol: Document 02/27/20 14:35 AW (Rec: 02/27/20 15:07 AW [email or web address]) OP Mobility Evaluation Functional Movements Squats able with neutral knee posture but improves with cues for hip hinge OP Gait Assessment Gait Gait Assistance Required: Independent Distance (Feet) 100 Assistive Devices Assistive Device None Orthotic/Prosthetic Devices or Brace: No Gait Deviations General Gait Pattern Within Normal Limits,Decreased Feet Clearance Factors Limiting Gait Function Factors Limiting Gait Function Decreased Strength,Pain Comments Gait Comments Pt with slight genu varus in static and dynamic posture. Pt wears off the shelf shoes inserts bilaterally for arch support. PT-OP-H Neuro Start: 02/27/20 12:58 Freq: Status: Active Protocol: Document 02/27/20 14:35 AW (Rec: 02/27/20 15:07 AW [email or web address]) Sensation Evaluation Gross Sensation Gross Sensation WNL Deep Tendon Reflex & Clonus Assessment Deep Tendon Reflex Bilateral Achilles Deep Tendon Reflex 1+ Diminished Bilateral Patellar Deep Tendon Reflex 1+ Diminished PT-OP-J Posture/Palpation/Skin Start: 02/27/20 12:58 Freq: Status: Active Protocol: Document 02/27/20 14:35 AW (Rec: 02/27/20 15:07 AW [email or web address]) Posture Evaluation Position Standing Pelvis Posture Anteriorly Tilted Hip Posture (R) Externally Rotated Knee Posture (L) Genu Varus,(R) Genu Varus Patellar Posture (L) Neutral,(R) Neutral Ankle/Foot Posture (L) Pronated,(R) Pronated PT-OP-K Range of Motion Start: 02/27/20 12:58 Freq: Status: Active Protocol: Document 02/27/20 14:35 AW (Rec: 02/27/20 15:07 AW [email or web address]) Lumbar Spine Range of Motion Lumbar Spine Active Percentage Comments WNL Hip Goniometric Range of Motion Hip Left Active Extension 12 Internal Rotation 60 External Rotation 60 Right Active Hip ROM WFL Yes Testing Position Supine Extension 12 Internal Rotation 40 External Rotation 60 Hip ROM Limitations Hip ROM Limitations Soft Tissue Tightness,Muscle Weakness Knee Goniometric Range of Motion Knee Right Knee ROM WFL Yes Patient Position Supine Flexion Active (degrees) 135 Extension Active (degrees) 0 Left Knee ROM WFL Yes Patient Position Supine Flexion Active (degrees) 140 Extension Active (degrees) 0 Ankle and Foot Goniometric Range of Motion Ankle and Foot Left Active Comments B ankle ROM WNL all planes PT-OP-L Special Tests Start: 02/27/20 12:58 Freq: Status: Active Protocol: Document 02/27/20 14:35 AW (Rec: 02/27/20 16:48 AW [email or web address]) Special Tests Hip Special Tests Scour Test Test Results negative bilaterally Knee Special Tests Dony Test Results positive Comments leg elevated from table ~1 bilaterally Milind's Test Test Results positive Comments mildly positive bilaterally ligaments Comments B knees stable in all planes on exam PT-OP-M Strength Start: 02/27/20 12:58 Freq: Status: Active Protocol: Document 02/27/20 14:35 AW (Rec: 02/27/20 15:10 AW [email or web address]) Hip Strength Hip Manual Muscle Testing Right Flexion (L2) 4+ Good+ Extension (S1) 3+ Fair+ Abduction 4- Good- Adduction 4+ Good+ External Rotation 4+ Good+ Internal Rotation 4 Good Left Flexion (L2) 4+ Good+ Extension (S1) 3+ Fair+ Abduction 4- Good- Adduction 4+ Good+ External Rotation 4+ Good+ Internal Rotation 4 Good Knee Strength Knee Manual Muscle Testing Right Flexion (S2) 4+ Good+ Extension (L3) 5 Normal Left Flexion (S2) 4+ Good+ Extension (L3) 5 Normal Ankle/Foot Strength Ankle and Foot Manual Muscle Testing Right Dorsiflexion (L4) 4+ Good+ Plantarflexion (S1) 4+ Good+ Inversion 4+ Good+ Eversion (S1) 4+ Good+ Left Dorsiflexion (L4) 4+ Good+ Plantarflexion (S1) 4+ Good+ Inversion 4+ Good+ Eversion (S1) 4+ Good+ PT-OP-Q Treatments Start: 02/27/20 12:58 Freq: Status: Active Protocol: Document 03/26/20 13:45 AW (Rec: 03/26/20 14:01 AW [email or web address]) Gym Equipment Shuttle Balance SLS Details WBOS, NBOS, SLS Reps/Duration 5 min Comments blue clips Therapeutic Exercises Supine Exercises 4 Supine Exercise Name bridge with abd TB (changed from hip add w/ pillow) Resistance level 2 Equipment Used TB Reps/Minutes 10 x 2 Comments good TA and glut facilitation (no medial knee pain) 1 Supine Exercise Name Dony Stretch perpendicular to side of bed Side bilateral Reps/Minutes 30 x2 each LE Comments reviewed set up for home with diagonal orientation Sitting Exercises HS stretch Side bilateral Reps/Minutes 30 x2 Comments cued hip hinge not reaching toes, discussed standing HS stretch pirformis stretch Sitting Exercise Name ER and IR add HEP Side bilateral Reps/Minutes 30 x2 Comments cued arms support legs, tall posture Standing Exercises single leg stance Standing Exercise Name single leg stance Side bilateral Equipment Used // bars; blue foam Comments LLE 10 sec; RLE 5 sec step up Standing Exercise Name lateral step up Side right Equipment Used 6 step Reps/Minutes x10 Comments cued for knee posture sit to stand Standing Exercise Name arms across chest Reps/Minutes 10 reps + 10 reps with blue foam under feet Comments focus on hip extension, improved hip hinge Neuro Re-Education Treatment Balance Activities rocker board Details f/b/side wt shifting Equipment rocker board, // bars for prn support Comments GB CG- SBA. cued COG over ENMANUEL, knees // with and behind toes. PT-OP-T Assessment and Plan Start: 02/27/20 12:58 Freq: Status: Active Protocol: Document 03/26/20 13:45 AW (Rec: 03/26/20 14:01 AW [email or web address]) Physical Therapy Assessment Goals Three Impairment Decreased strength Short Term Goal (STG) Pt will demonstrate hip extension strength 4+ bilaterally STG Duration 04/02/20 Barrel Polisher Goal (LTG) Pt will increase SLS to 20 seconds bilaterally without UE support LTG Duration 05/07/20 Two Impairment Pt unable to ambulate >1 block without right knee pain limiting activity. Short Term Goal (STG) Pt will walk 3 blocks without right knee pain STG Duration 04/02/20 Nursing Home Goal (LTG) Pt will be able to walk her dogs for 20 minutes with 1- point or less increase in baseline pain LTG Duration 05/07/20 One Impairment Pt lacks appropriate HEP Short Term Goal (STG) Pt will be independent with HEP for support of therapy services provided in clinic. STG Duration 04/02/20 Assessment Summary Assessment Pt improved with glute facilitation for sit to stand. Progressed sit to stand with foam surface under feet. Pt continues with medial knee irritation. Thessaly test today was only mildly positive for pain reproduction. Low suspicion for meniscus involvement. Descending stairs is most irritating. Physical Therapy Plan Frequency and Duration Frequency of Treatment 2x/Week Duration of Treatment 10 weeks Plan of Care Start Date 02/27/20 Plan of Care End Date 05/07/20 Therapeutic Interventions Therapeutic Interventions Balance Training,Gait Training ,Home Exercise Program,Joint Mobilizations,Manual Therapy, Neuromuscular Re-education, Patient/Caregiver Education, Self-Care/Home Management,Soft Tissue Mobilization,Taping, Therapeutic Activities, Therapeutic Exercises Modalities Cold Pack/Ice Massage Next Visit Focus/Plan Next Note Type Treatment Note Next Visit Plan Assess response to last tx: HEP review, rockerboard, band walk, stretching. Next tx Initiate rolling stick if tolerated and beneficial for flexibility. Continue per PT POC: Progress hip strength and SLS.
--- NOTE | 2020-03-31 12:38 | PT-OP ANOTE ---
Pt DNS for appt at 1215 today, called and she thought her appt was at 1300. EXTRUSION LINE OPERATOR offered appt today at 1345 but as her chiropractic appt at that time. Pt confirmed next appt on 04/03/20 at 0730.
--- NOTE | 2020-04-03 11:30 | PT.OTN ---
Current Diagnoses Pain in right knee (04/03/20) Difficulty in walking, not elsewhere classified (04/03/20) Physical Therapy Treatment Note PT-OP-A Visit Information Start: 02/27/20 12:58 Freq: Status: Active Protocol: Document 04/03/20 10:30 SP (Rec: 04/03/20 11:42 SP [id number]) Out-Patient Physical Therapy Visit Information Visit Information Visit Type Treatment Note Visit Start Time 10:30 Visit Stop Time 11:30 Total Visit Minutes 60 Visit Number 9 Number of GARBAGE STOKER Visits 1 PT-OP-B Current Condition Start: 02/27/20 12:58 Freq: Status: Active Protocol: Document 02/27/20 14:35 AW (Rec: 02/27/20 14:51 AW [id number]) Current Condition History of Current Condition Onset Date last two years Current Complaints right knee pain History of Current Condition Pt reports bilateral knee pain with right worse than left. She used to bowl and landed on right knee >10 years ago. She had no fracture but no longer felt safe bowling. Her pain resolved but has returned over the last few years. She states it is not worsening but it is not improving at all. She does not have pain on waking in the morning. She is able to do light activity without pain. She does note pain with ambulation > 1 block which then bothers her for up to an hour. When asked about pain location, pt points to the inferomedial aspect of the anterior knee. Prior Treatments and Tests x-ray right knee 01/28/20: Bones: No acute fracture or dislocation. There is moderate medial femorotibial compartment narrowing, small intercondylar osteophytes and small tricompartmental osteophytes. Soft tissues: No joint effusion. No suspicious soft tissue calcifications. IMPRESSION: Mild knee osteoarthritis. Pt has been using a prescription topical gel for pain relief but with limited effect. She is not taking any OTC medications. She has had PT before for plantar fasciitis but never for her knee pain. Pt sees a chiropractor monthly for back, hip, and neck pain. 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 Able to walk her dogs without concern for pain. Current Functional Impairments (Reported) Functional Limitations- Mobility/Gait Unable to walk > 1 block without pain. Difficulty managing with dog walking. Personal Factors Other Personal Factors That May Effect + Pt is active and has Therapy/Recovery positive associations with movement, activity, and exercise. PT-OP-C Subjective Start: 02/27/20 12:58 Freq: Status: Active Protocol: Document 04/03/20 10:30 SP (Rec: 04/03/20 11:42 SP [id number]) OP-PT Subjective Patient Comments Patient Comments Pt reported got some xray results that has some DD in back but hasn't seen her physician yet to discuss further. Her knees have some arthritis as well but dont' bother to much. Patient Reported Progress Improving PT-OP-D Balance Start: 02/27/20 12:58 Freq: Status: Active Protocol: Document 02/27/20 14:35 AW (Rec: 02/27/20 15:07 AW [email or web address]) OP-PT Balance Assessment Standing Balance Static Standing Balance Ability Good Dynamic Standing Balance Ability Good Standing Balance Comments L SLS : 12 sec R SLS: 6 sec Robledo Fall Scale Copyright Permission PT-OP-G Mobility & Gait Start: 02/27/20 12:58 Freq: Status: Active Protocol: Document 02/27/20 14:35 AW (Rec: 02/27/20 15:07 AW [email or web address]) OP Mobility Evaluation Functional Movements Squats able with neutral knee posture but improves with cues for hip hinge OP Gait Assessment Gait Gait Assistance Required: Independent Distance (Feet) 100 Assistive Devices Assistive Device None Orthotic/Prosthetic Devices or Brace: No Gait Deviations General Gait Pattern Within Normal Limits,Decreased Feet Clearance Factors Limiting Gait Function Factors Limiting Gait Function Decreased Strength,Pain Comments Gait Comments Pt with slight genu varus in static and dynamic posture. Pt wears off the shelf shoes inserts bilaterally for arch support. PT-OP-H Neuro Start: 02/27/20 12:58 Freq: Status: Active Protocol: Document 02/27/20 14:35 AW (Rec: 02/27/20 15:07 AW [email or web address]) Sensation Evaluation Gross Sensation Gross Sensation WNL Deep Tendon Reflex & Clonus Assessment Deep Tendon Reflex Bilateral Achilles Deep Tendon Reflex 1+ Diminished Bilateral Patellar Deep Tendon Reflex 1+ Diminished PT-OP-J Posture/Palpation/Skin Start: 02/27/20 12:58 Freq: Status: Active Protocol: Document 02/27/20 14:35 AW (Rec: 02/27/20 15:07 AW [email or web address]) Posture Evaluation Position Standing Pelvis Posture Anteriorly Tilted Hip Posture (R) Externally Rotated Knee Posture (L) Genu Varus,(R) Genu Varus Patellar Posture (L) Neutral,(R) Neutral Ankle/Foot Posture (L) Pronated,(R) Pronated PT-OP-K Range of Motion Start: 02/27/20 12:58 Freq: Status: Active Protocol: Document 02/27/20 14:35 AW (Rec: 02/27/20 15:07 AW [email or web address]) Lumbar Spine Range of Motion Lumbar Spine Active Percentage Comments WNL Hip Goniometric Range of Motion Hip Left Active Extension 12 Internal Rotation 60 External Rotation 60 Right Active Hip ROM WFL Yes Testing Position Supine Extension 12 Internal Rotation 40 External Rotation 60 Hip ROM Limitations Hip ROM Limitations Soft Tissue Tightness,Muscle Weakness Knee Goniometric Range of Motion Knee Right Knee ROM WFL Yes Patient Position Supine Flexion Active (degrees) 135 Extension Active (degrees) 0 Left Knee ROM WFL Yes Patient Position Supine Flexion Active (degrees) 140 Extension Active (degrees) 0 Ankle and Foot Goniometric Range of Motion Ankle and Foot Left Active Comments B ankle ROM WNL all planes PT-OP-L Special Tests Start: 02/27/20 12:58 Freq: Status: Active Protocol: Document 02/27/20 14:35 AW (Rec: 02/27/20 16:48 AW [email or web address]) Special Tests Hip Special Tests Scour Test Test Results negative bilaterally Knee Special Tests Dony Test Results positive Comments leg elevated from table ~1 bilaterally Milind's Test Test Results positive Comments mildly positive bilaterally ligaments Comments B knees stable in all planes on exam PT-OP-M Strength Start: 02/27/20 12:58 Freq: Status: Active Protocol: Document 02/27/20 14:35 AW (Rec: 02/27/20 15:10 AW [email or web address]) Hip Strength Hip Manual Muscle Testing Right Flexion (L2) 4+ Good+ Extension (S1) 3+ Fair+ Abduction 4- Good- Adduction 4+ Good+ External Rotation 4+ Good+ Internal Rotation 4 Good Left Flexion (L2) 4+ Good+ Extension (S1) 3+ Fair+ Abduction 4- Good- Adduction 4+ Good+ External Rotation 4+ Good+ Internal Rotation 4 Good Knee Strength Knee Manual Muscle Testing Right Flexion (S2) 4+ Good+ Extension (L3) 5 Normal Left Flexion (S2) 4+ Good+ Extension (L3) 5 Normal Ankle/Foot Strength Ankle and Foot Manual Muscle Testing Right Dorsiflexion (L4) 4+ Good+ Plantarflexion (S1) 4+ Good+ Inversion 4+ Good+ Eversion (S1) 4+ Good+ Left Dorsiflexion (L4) 4+ Good+ Plantarflexion (S1) 4+ Good+ Inversion 4+ Good+ Eversion (S1) 4+ Good+ PT-OP-Q Treatments Start: 02/27/20 12:58 Freq: Status: Active Protocol: Document 04/03/20 10:30 SP (Rec: 04/03/20 11:42 SP [email or web address]) Gym Equipment Shuttle Balance red Details WBOS, NBOS, side Comments EO 1. wt shift 2. head turns SLS Details WBOS, NBOS, Stagger stance Reps/Duration 5 min Comments blue clips EO 1. wt shift 2. head turns 3. eyes closed each 30 sec CGA Therapeutic Exercises Standing Exercises step up Standing Exercise Name forward w/ Med knee irritation (did perform) lateral step up Side right Equipment Used 6 step Reps/Minutes x10 Comments cued for knee posture with and behind toes w/ glut facilitaiton Other Exercises rolling pin Other Exercise Name quad, HS, calf Reps/Minutes 1 min tota Comments cued rolling or rocking side to side tolerance and benefits PT-OP-R Modalities Start: 02/27/20 12:58 Freq: Status: Active Protocol: Document 04/03/20 10:30 SP (Rec: 04/03/20 11:42 SP [id number]) Hot Pack/Cold Pack Treatment CP Location R Medial knee jt line Patient Position Hooklying Treatment Duration (minutes) 10 Patient Tolerance Good Comments feels alot better, I can use cold to decreased pain or prescription ointment as needed. PT-OP-T Assessment and Plan Start: 02/27/20 12:58 Freq: Status: Active Protocol: Document 04/03/20 10:30 SP (Rec: 04/03/20 11:42 SP [id number]) Physical Therapy Assessment Goals Three Impairment Decreased strength Short Term Goal (STG) Pt will demonstrate hip extension strength 4+ bilaterally STG Duration 04/02/20 Care Home Goal (LTG) Pt will increase SLS to 20 seconds bilaterally without UE support LTG Duration 05/07/20 Two Impairment Pt unable to ambulate >1 block without right knee pain limiting activity. Short Term Goal (STG) Pt will walk 3 blocks without right knee pain STG Duration 04/02/20 Care Home Goal (LTG) Pt will be able to walk her dogs for 20 minutes with 1- point or less increase in baseline pain LTG Duration 05/07/20 One Impairment Pt lacks appropriate HEP Short Term Goal (STG) Pt will be independent with HEP for support of therapy services provided in clinic. STG Duration 04/02/20 Assessment Summary Assessment Pt improved with shuttle balance today blue clips 30 sec EO/ EC. Intiated Red clips with good response and improved COG over ENMANUEL and glut facilitaiton. Initiated rolling pin to quad for assist with flexibility with good response for home application. Forward step ups irritated medial R knee, alot better after cryocuff. Physical Therapy Plan Frequency and Duration Frequency of Treatment 2x/Week Duration of Treatment 10 weeks Plan of Care Start Date 02/27/20 Plan of Care End Date 05/07/20 Therapeutic Interventions Therapeutic Interventions Balance Training,Gait Training ,Home Exercise Program,Joint Mobilizations,Manual Therapy, Neuromuscular Re-education, Patient/Caregiver Education, Self-Care/Home Management,Soft Tissue Mobilization,Taping, Therapeutic Activities, Therapeutic Exercises Modalities Cold Pack/Ice Massage Next Visit Focus/Plan Next Note Type Treatment Note Next Visit Plan Assess response to last tx: shuttle balance, step ups and irritation of R knee and rolling stick to quad, HS, ITB , calf initated last tx. Next tx revisit lateral step ups and knee align/glut fac russ. Continue per PT POC: Progress hip strength and SLS.
--- NOTE | 2020-04-07 13:47 | PT.OTN ---
Current Diagnoses Pain in right knee (04/07/20) Difficulty in walking, not elsewhere classified (04/07/20) Physical Therapy Treatment Note PT-OP-A Visit Information Start: 02/27/20 12:58 Freq: Status: Active Protocol: Document 04/07/20 12:58 SP (Rec: 04/07/20 13:52 SP [id number]) Out-Patient Physical Therapy Visit Information Visit Information Visit Type Treatment Note Visit Start Time 12:58 Visit Stop Time 13:45 Total Visit Minutes 47 Visit Number 10 Number of HAIRCUTTER Visits 2 PT-OP-B Current Condition Start: 02/27/20 12:58 Freq: Status: Active Protocol: Document 02/27/20 14:35 AW (Rec: 02/27/20 14:51 AW [id number]) Current Condition History of Current Condition Onset Date last two years Current Complaints right knee pain History of Current Condition Pt reports bilateral knee pain with right worse than left. She used to bowl and landed on right knee >10 years ago. She had no fracture but no longer felt safe bowling. Her pain resolved but has returned over the last few years. She states it is not worsening but it is not improving at all. She does not have pain on waking in the morning. She is able to do light activity without pain. She does note pain with ambulation > 1 block which then bothers her for up to an hour. When asked about pain location, pt points to the inferomedial aspect of the anterior knee. Prior Treatments and Tests x-ray right knee 01/28/20: Bones: No acute fracture or dislocation. There is moderate medial femorotibial compartment narrowing, small intercondylar osteophytes and small tricompartmental osteophytes. Soft tissues: No joint effusion. No suspicious soft tissue calcifications. IMPRESSION: Mild knee osteoarthritis. Pt has been using a prescription topical gel for pain relief but with limited effect. She is not taking any OTC medications. She has had PT before for plantar fasciitis but never for her knee pain. Pt sees a chiropractor monthly for back, hip, and neck pain. 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 Baseline Function- Recreation/Hobbies Walking for exercise without pain. Able to walk her dogs without concern for pain. Current Functional Impairments (Reported) Functional Limitations- Mobility/Gait Unable to walk > 1 block without pain. Difficulty managing with dog walking. Personal Factors Other Personal Factors That May Effect + Pt is active and has Therapy/Recovery positive associations with movement, activity, and exercise. PT-OP-C Subjective Start: 02/27/20 12:58 Freq: Status: Active Protocol: Document 04/07/20 12:58 SP (Rec: 04/07/20 13:52 SP [id number]) OP-PT Subjective Patient Comments Patient Comments Pt stated the step ups are irritating her medial R knee and want to review to see if doing it wrong. Pt reported when medial R knee is painful stops walking/ stairs and extends knee and does a quad set and helps, also hamstring stretch is getting further. Patient Reported Progress Same PT-OP-D Balance Start: 02/27/20 12:58 Freq: Status: Active Protocol: Document 02/27/20 14:35 AW (Rec: 02/27/20 15:07 AW [email or web address]) OP-PT Balance Assessment Standing Balance Static Standing Balance Ability Good Dynamic Standing Balance Ability Good Standing Balance Comments L SLS : 12 sec R SLS: 6 sec Robledo Fall Scale Copyright Permission PT-OP-G Mobility & Gait Start: 02/27/20 12:58 Freq: Status: Active Protocol: Document 02/27/20 14:35 AW (Rec: 02/27/20 15:07 AW [email or web address]) OP Mobility Evaluation Functional Movements Squats able with neutral knee posture but improves with cues for hip hinge OP Gait Assessment Gait Gait Assistance Required: Independent Distance (Feet) 100 Assistive Devices Assistive Device None Orthotic/Prosthetic Devices or Brace: No Gait Deviations General Gait Pattern Within Normal Limits,Decreased Feet Clearance Factors Limiting Gait Function Factors Limiting Gait Function Decreased Strength,Pain Comments Gait Comments Pt with slight genu varus in static and dynamic posture. Pt wears off the shelf shoes inserts bilaterally for arch support. PT-OP-H Neuro Start: 02/27/20 12:58 Freq: Status: Active Protocol: Document 02/27/20 14:35 AW (Rec: 02/27/20 15:07 AW [email or web address]) Sensation Evaluation Gross Sensation Gross Sensation WNL Deep Tendon Reflex & Clonus Assessment Deep Tendon Reflex Bilateral Achilles Deep Tendon Reflex 1+ Diminished Bilateral Patellar Deep Tendon Reflex 1+ Diminished PT-OP-J Posture/Palpation/Skin Start: 02/27/20 12:58 Freq: Status: Active Protocol: Document 02/27/20 14:35 AW (Rec: 02/27/20 15:07 AW [email or web address]) Posture Evaluation Position Standing Pelvis Posture Anteriorly Tilted Hip Posture (R) Externally Rotated Knee Posture (L) Genu Varus,(R) Genu Varus Patellar Posture (L) Neutral,(R) Neutral Ankle/Foot Posture (L) Pronated,(R) Pronated PT-OP-K Range of Motion Start: 02/27/20 12:58 Freq: Status: Active Protocol: Document 02/27/20 14:35 AW (Rec: 02/27/20 15:07 AW [email or web address]) Lumbar Spine Range of Motion Lumbar Spine Active Percentage Comments WNL Hip Goniometric Range of Motion Hip Left Active Extension 12 Internal Rotation 60 External Rotation 60 Right Active Hip ROM WFL Yes Testing Position Supine Extension 12 Internal Rotation 40 External Rotation 60 Hip ROM Limitations Hip ROM Limitations Soft Tissue Tightness,Muscle Weakness Knee Goniometric Range of Motion Knee Right Knee ROM WFL Yes Patient Position Supine Flexion Active (degrees) 135 Extension Active (degrees) 0 Left Knee ROM WFL Yes Patient Position Supine Flexion Active (degrees) 140 Extension Active (degrees) 0 Ankle and Foot Goniometric Range of Motion Ankle and Foot Left Active Comments B ankle ROM WNL all planes PT-OP-L Special Tests Start: 02/27/20 12:58 Freq: Status: Active Protocol: Document 02/27/20 14:35 AW (Rec: 02/27/20 16:48 AW [email or web address]) Special Tests Hip Special Tests Scour Test Test Results negative bilaterally Knee Special Tests Dony Test Results positive Comments leg elevated from table ~1 bilaterally Milind's Test Test Results positive Comments mildly positive bilaterally ligaments Comments B knees stable in all planes on exam PT-OP-M Strength Start: 02/27/20 12:58 Freq: Status: Active Protocol: Document 02/27/20 14:35 AW (Rec: 02/27/20 15:10 AW [email or web address]) Hip Strength Hip Manual Muscle Testing Right Flexion (L2) 4+ Good+ Extension (S1) 3+ Fair+ Abduction 4- Good- Adduction 4+ Good+ External Rotation 4+ Good+ Internal Rotation 4 Good Left Flexion (L2) 4+ Good+ Extension (S1) 3+ Fair+ Abduction 4- Good- Adduction 4+ Good+ External Rotation 4+ Good+ Internal Rotation 4 Good Knee Strength Knee Manual Muscle Testing Right Flexion (S2) 4+ Good+ Extension (L3) 5 Normal Left Flexion (S2) 4+ Good+ Extension (L3) 5 Normal Ankle/Foot Strength Ankle and Foot Manual Muscle Testing Right Dorsiflexion (L4) 4+ Good+ Plantarflexion (S1) 4+ Good+ Inversion 4+ Good+ Eversion (S1) 4+ Good+ Left Dorsiflexion (L4) 4+ Good+ Plantarflexion (S1) 4+ Good+ Inversion 4+ Good+ Eversion (S1) 4+ Good+ PT-OP-Q Treatments Start: 02/27/20 12:58 Freq: Status: Active Protocol: Document 04/07/20 12:58 SP (Rec: 04/07/20 13:52 SP [id number]) Therapeutic Exercises Supine Exercises 4 Supine Exercise Name bridge with abd TB (changed from hip add w/ pillow) Resistance level 2 Equipment Used TB Reps/Minutes 10 x 2 Comments good TA and glut facilitation (no medial knee pain) Sitting Exercises HS stretch Side bilateral Reps/Minutes 30 x2 Comments cued hip hinge not reaching toes, discussed standing HS stretch pirformis stretch Sitting Exercise Name ER and IR add HEP Side bilateral Reps/Minutes 30 x2 Comments cued arms support legs, tall posture Standing Exercises TKE Standing Exercise Name Add HEP Side right Resistance Tb #2 Reps/Minutes 5 sec hold x10 Comments cued knee with and behind toes step up Standing Exercise Name lateral step up Side right Equipment Used 4 step Reps/Minutes x15 Comments cued knee with and behind toes and still irritated so stopped, hold for now band walk Standing Exercise Name f/b/side stepping ( review HEP ) Resistance Tb #2 loop Reps/Minutes 20 ft x2 laps each Comments cued soft knee // with toes, level pelvis Gait Training Gait Activity stair mgt Device Used R rail down Level of Assistance S Distance/Duration 4 steps x4 sets Treatment Focus knee alignment Comments R knee eccentric flexion alignment and hip hinge glut facilitation- improved less pain PT-OP-R Modalities Start: 02/27/20 12:58 Freq: Status: Active Protocol: Document 04/03/20 10:30 SP (Rec: 04/03/20 11:42 SP [id number]) Hot Pack/Cold Pack Treatment CP Location R Medial knee jt line Patient Position Hooklying Treatment Duration (minutes) 10 Patient Tolerance Good Comments feels alot better, I can use cold to decreased pain or prescription ointment as needed. PT-OP-T Assessment and Plan Start: 02/27/20 12:58 Freq: Status: Active Protocol: Document 04/07/20 12:58 SP (Rec: 04/07/20 13:52 SP [id number]) Physical Therapy Assessment Goals Three Impairment Decreased strength Short Term Goal (STG) Pt will demonstrate hip extension strength 4+ bilaterally STG Duration 04/02/20 Fpc Goal (LTG) Pt will increase SLS to 20 seconds bilaterally without UE support LTG Duration 05/07/20 Two Impairment Pt unable to ambulate >1 block without right knee pain limiting activity. Short Term Goal (STG) Pt will walk 3 blocks without right knee pain STG Duration 04/02/20 Fpc Goal (LTG) Pt will be able to walk her dogs for 20 minutes with 1- point or less increase in baseline pain LTG Duration 05/07/20 One Impairment Pt lacks appropriate HEP Short Term Goal (STG) Pt will be independent with HEP for support of therapy services provided in clinic. STG Duration 04/02/20 Assessment Summary Assessment Pt had irritation during lateral step down and assess stair mgt so stopped, hold for now. Pt able to complete 10 sec balance EC WBOS shuttle bal and 5 sec NBOS/ stagger today. Intiated TKE and band walk with no pain. Pt stated no pain end of tx. Physical Therapy Plan Frequency and Duration Frequency of Treatment 2x/Week Duration of Treatment 10 weeks Plan of Care Start Date 02/27/20 Plan of Care End Date 05/07/20 Therapeutic Interventions Therapeutic Interventions Balance Training,Gait Training ,Home Exercise Program,Joint Mobilizations,Manual Therapy, Neuromuscular Re-education, Patient/Caregiver Education, Self-Care/Home Management,Soft Tissue Mobilization,Taping, Therapeutic Activities, Therapeutic Exercises Modalities Cold Pack/Ice Massage Next Visit Focus/Plan Next Note Type Treatment Note Next Visit Plan Assess response to last tx: shuttle balance, TKE, band walk. Continue per PT POC: Progress hip strength and SLS.
--- NOTE | 2020-04-09 11:55 | PT.OTN ---
Current Diagnoses Pain in right knee (04/09/20) Difficulty in walking, not elsewhere classified (04/09/20) Physical Therapy Treatment Note PT-OP-A Visit Information Start: 02/27/20 12:58 Freq: Status: Active Protocol: Document 04/09/20 11:47 AW (Rec: 04/09/20 11:55 AW [email or web address]) Out-Patient Physical Therapy Visit Information Visit Information Visit Type Progress Note Visit Start Time 09:45 Visit Stop Time 10:30 Total Visit Minutes 45 Visit Number 11 Number of RADIO MACHINIST Visits 0 Evaluation Information Evaluation Date 02/27/20 PT-OP-B Current Condition Start: 02/27/20 12:58 Freq: Status: Active Protocol: Document 02/27/20 14:35 AW (Rec: 02/27/20 14:51 AW [id number]) Current Condition History of Current Condition Onset Date last two years Current Complaints right knee pain History of Current Condition Pt reports bilateral knee pain with right worse than left. She used to bowl and landed on right knee >10 years ago. She had no fracture but no longer felt safe bowling. Her pain resolved but has returned over the last few years. She states it is not worsening but it is not improving at all. She does not have pain on waking in the morning. She is able to do light activity without pain. She does note pain with ambulation > 1 block which then bothers her for up to an hour. When asked about pain location, pt points to the inferomedial aspect of the anterior knee. Prior Treatments and Tests x-ray right knee 01/28/20: Bones: No acute fracture or dislocation. There is moderate medial femorotibial compartment narrowing, small intercondylar osteophytes and small tricompartmental osteophytes. Soft tissues: No joint effusion. No suspicious soft tissue calcifications. IMPRESSION: Mild knee osteoarthritis. Pt has been using a prescription topical gel for pain relief but with limited effect. She is not taking any OTC medications. She has had PT before for plantar fasciitis but never for her knee pain. Pt sees a chiropractor monthly for back, hip, and neck pain. 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 Able to walk her dogs without concern for pain. Current Functional Impairments (Reported) Functional Limitations- Mobility/Gait Unable to walk > 1 block without pain. Difficulty managing with dog walking. Personal Factors Other Personal Factors That May Effect + Pt is active and has Therapy/Recovery positive associations with movement, activity, and exercise. PT-OP-C Subjective Start: 02/27/20 12:58 Freq: Status: Active Protocol: Document 04/09/20 11:47 AW (Rec: 04/09/20 11:55 AW [email or web address]) OP-PT Subjective Patient Comments Patient Comments Pt reports mild knee irritation when initiating gait but improved with quad sets and focus on knee extension. PT-OP-D Balance Start: 02/27/20 12:58 Freq: Status: Active Protocol: Document 02/27/20 14:35 AW (Rec: 02/27/20 15:07 AW [email or web address]) OP-PT Balance Assessment Standing Balance Static Standing Balance Ability Good Dynamic Standing Balance Ability Good Standing Balance Comments L SLS : 12 sec R SLS: 6 sec Robledo Fall Scale Copyright Permission PT-OP-G Mobility & Gait Start: 02/27/20 12:58 Freq: Status: Active Protocol: Document 02/27/20 14:35 AW (Rec: 02/27/20 15:07 AW [email or web address]) OP Mobility Evaluation Functional Movements Squats able with neutral knee posture but improves with cues for hip hinge OP Gait Assessment Gait Gait Assistance Required: Independent Distance (Feet) 100 Assistive Devices Assistive Device None Orthotic/Prosthetic Devices or Brace: No Gait Deviations General Gait Pattern Within Normal Limits,Decreased Feet Clearance Factors Limiting Gait Function Factors Limiting Gait Function Decreased Strength,Pain Comments Gait Comments Pt with slight genu varus in static and dynamic posture. Pt wears off the shelf shoes inserts bilaterally for arch support. PT-OP-H Neuro Start: 02/27/20 12:58 Freq: Status: Active Protocol: Document 02/27/20 14:35 AW (Rec: 02/27/20 15:07 AW [email or web address]) Sensation Evaluation Gross Sensation Gross Sensation WNL Deep Tendon Reflex & Clonus Assessment Deep Tendon Reflex Bilateral Achilles Deep Tendon Reflex 1+ Diminished Bilateral Patellar Deep Tendon Reflex 1+ Diminished PT-OP-J Posture/Palpation/Skin Start: 02/27/20 12:58 Freq: Status: Active Protocol: Document 02/27/20 14:35 AW (Rec: 02/27/20 15:07 AW [email or web address]) Posture Evaluation Position Standing Pelvis Posture Anteriorly Tilted Hip Posture (R) Externally Rotated Knee Posture (L) Genu Varus,(R) Genu Varus Patellar Posture (L) Neutral,(R) Neutral Ankle/Foot Posture (L) Pronated,(R) Pronated PT-OP-K Range of Motion Start: 02/27/20 12:58 Freq: Status: Active Protocol: Document 02/27/20 14:35 AW (Rec: 02/27/20 15:07 AW [email or web address]) Lumbar Spine Range of Motion Lumbar Spine Active Percentage Comments WNL Hip Goniometric Range of Motion Hip Left Active Extension 12 Internal Rotation 60 External Rotation 60 Right Active Hip ROM WFL Yes Testing Position Supine Extension 12 Internal Rotation 40 External Rotation 60 Hip ROM Limitations Hip ROM Limitations Soft Tissue Tightness,Muscle Weakness Knee Goniometric Range of Motion Knee Right Knee ROM WFL Yes Patient Position Supine Flexion Active (degrees) 135 Extension Active (degrees) 0 Left Knee ROM WFL Yes Patient Position Supine Flexion Active (degrees) 140 Extension Active (degrees) 0 Ankle and Foot Goniometric Range of Motion Ankle and Foot Left Active Comments B ankle ROM WNL all planes PT-OP-L Special Tests Start: 02/27/20 12:58 Freq: Status: Active Protocol: Document 02/27/20 14:35 AW (Rec: 02/27/20 16:48 AW [email or web address]) Special Tests Hip Special Tests Scour Test Test Results negative bilaterally Knee Special Tests Dony Test Results positive Comments leg elevated from table ~1 bilaterally Milind's Test Test Results positive Comments mildly positive bilaterally ligaments Comments B knees stable in all planes on exam PT-OP-M Strength Start: 02/27/20 12:58 Freq: Status: Active Protocol: Document 02/27/20 14:35 AW (Rec: 02/27/20 15:10 AW [email or web address]) Hip Strength Hip Manual Muscle Testing Right Flexion (L2) 4+ Good+ Extension (S1) 3+ Fair+ Abduction 4- Good- Adduction 4+ Good+ External Rotation 4+ Good+ Internal Rotation 4 Good Left Flexion (L2) 4+ Good+ Extension (S1) 3+ Fair+ Abduction 4- Good- Adduction 4+ Good+ External Rotation 4+ Good+ Internal Rotation 4 Good Knee Strength Knee Manual Muscle Testing Right Flexion (S2) 4+ Good+ Extension (L3) 5 Normal Left Flexion (S2) 4+ Good+ Extension (L3) 5 Normal Ankle/Foot Strength Ankle and Foot Manual Muscle Testing Right Dorsiflexion (L4) 4+ Good+ Plantarflexion (S1) 4+ Good+ Inversion 4+ Good+ Eversion (S1) 4+ Good+ Left Dorsiflexion (L4) 4+ Good+ Plantarflexion (S1) 4+ Good+ Inversion 4+ Good+ Eversion (S1) 4+ Good+ PT-OP-Q Treatments Start: 02/27/20 12:58 Freq: Status: Active Protocol: Document 04/09/20 11:47 AW (Rec: 04/09/20 11:55 AW [email or web address]) Gym Equipment Shuttle Balance red Details WBOS, NBOS EO EC Comments EO 1. wt shift 2. head turns EC 1. static stance Therapeutic Exercises Supine Exercises 4 Supine Exercise Name bridge with abd TB Resistance level 2 Equipment Used TB Reps/Minutes 5SH x 15 Comments good TA and glut facilitation (no medial knee pain) Sitting Exercises HS stretch Side bilateral Reps/Minutes 30 x2 Comments cued hip hinge not reaching toes, discussed standing HS stretch pirformis stretch Sitting Exercise Name ER and IR Side bilateral Reps/Minutes 30 x2 Comments cued arms support legs, tall posture Standing Exercises TKE Side right Resistance Tb #2 Reps/Minutes 5 sec hold x10; 2 sets Comments minimal cueing; improved performance sit to stand Standing Exercise Name arms across chest Equipment Used 16 table; 2 foam Reps/Minutes 10 reps + 10 reps with blue foam under feet Comments focus on hip extension, improved hip hinge PT-OP-R Modalities Start: 02/27/20 12:58 Freq: Status: Active Protocol: Document 04/09/20 11:47 AW (Rec: 04/09/20 11:55 AW [email or web address]) Hot Pack/Cold Pack Treatment CP Location R Medial knee jt line Patient Position Hooklying Treatment Duration (minutes) 4 Patient Tolerance Good Comments ice massage to reach numb state; pt tolerated well PT-OP-T Assessment and Plan Start: 02/27/20 12:58 Freq: Status: Active Protocol: Document 04/09/20 11:47 AW (Rec: 04/09/20 11:55 AW [email or web address]) Physical Therapy Assessment Goals Three Impairment Decreased strength Short Term Goal (STG) Pt will demonstrate hip extension strength 4+ bilaterally 04/09/20 MET STG Duration 04/02/20 Project Developer Goal (LTG) Pt will increase SLS to 20 seconds bilaterally without UE support LTG Duration 05/07/20 Two Impairment Pt unable to ambulate >1 block without right knee pain limiting activity. Short Term Goal (STG) Pt will walk 3 blocks without right knee pain 04/09/20 MET - pt reports walking up to 1 mile without pain STG Duration 04/02/20 Nursing Home Goal (LTG) Pt will be able to walk her dogs for 20 minutes with 1- point or less increase in baseline pain LTG Duration 05/07/20 One Impairment Pt lacks appropriate HEP Short Term Goal (STG) Pt will be independent with HEP for support of therapy services provided in clinic. MET STG Duration 04/02/20 Assessment Summary Assessment Pt still experiencing medial knee irritation with stairs, lateral or forward step ups. Overall progress is positive. Pt will benefit from continued PT to progress her strength, improve stairs mobility, and balance on uneven terrain. Physical Therapy Plan Frequency and Duration Frequency of Treatment 2x/Week Duration of Treatment 10 weeks Plan of Care Start Date 02/27/20 Plan of Care End Date 05/07/20 Therapeutic Interventions Therapeutic Interventions Balance Training,Gait Training ,Home Exercise Program,Joint Mobilizations,Manual Therapy, Neuromuscular Re-education, Patient/Caregiver Education, Self-Care/Home Management,Soft Tissue Mobilization,Taping, Therapeutic Activities, Therapeutic Exercises Modalities Cold Pack/Ice Massage Next Visit Focus/Plan Next Note Type Treatment Note Next Visit Plan Continue per PT POC: Progress hip strength and SLS.
--- NOTE | 2020-04-14 13:48 | PT.OTN ---
Current Diagnoses Pain in right knee (04/14/20) Difficulty in walking, not elsewhere classified (04/14/20) Physical Therapy Treatment Note PT-OP-A Visit Information Start: 02/27/20 12:58 Freq: Status: Active Protocol: Document 04/14/20 13:08 SP (Rec: 04/14/20 14:44 SP [email or web address]) Out-Patient Physical Therapy Visit Information Visit Information Visit Type Treatment Note Visit Note SATURNINO Tijerina attended tx, observation only. Visit Start Time 13:08 Visit Stop Time 13:48 Total Visit Minutes 40 Visit Number 12 Number of [employer] Visits 1 PT-OP-B Current Condition Start: 02/27/20 12:58 Freq: Status: Active Protocol: Document 02/27/20 14:35 AW (Rec: 02/27/20 14:51 AW [id number]) Current Condition History of Current Condition Onset Date last two years Current Complaints right knee pain History of Current Condition Pt reports bilateral knee pain with right worse than left. She used to bowl and landed on right knee >10 years ago. She had no fracture but no longer felt safe bowling. Her pain resolved but has returned over the last few years. She states it is not worsening but it is not improving at all. She does not have pain on waking in the morning. She is able to do light activity without pain. She does note pain with ambulation > 1 block which then bothers her for up to an hour. When asked about pain location, pt points to the inferomedial aspect of the anterior knee. Prior Treatments and Tests x-ray right knee 01/28/20: Bones: No acute fracture or dislocation. There is moderate medial femorotibial compartment narrowing, small intercondylar osteophytes and small tricompartmental osteophytes. Soft tissues: No joint effusion. No suspicious soft tissue calcifications. IMPRESSION: Mild knee osteoarthritis. Pt has been using a prescription topical gel for pain relief but with limited effect. She is not taking any OTC medications. She has had PT before for plantar fasciitis but never for her knee pain. Pt sees a chiropractor monthly for back, hip, and neck pain. 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 Baseline Function- Recreation/Hobbies Walking for exercise without pain. Able to walk her dogs without concern for pain. Current Functional Impairments (Reported) Functional Limitations- Mobility/Gait Unable to walk > 1 block without pain. Difficulty managing with dog walking. Personal Factors Other Personal Factors That May Effect + Pt is active and has Therapy/Recovery positive associations with movement, activity, and exercise. PT-OP-C Subjective Start: 02/27/20 12:58 Freq: Status: Active Protocol: Document 04/14/20 13:08 SP (Rec: 04/14/20 14:44 SP [email or web address]) OP-PT Subjective Patient Comments Patient Comments Pt reported has helped not doing the step exercise since last tx, hasn't done any walking outside due to it being cold so not sure how her knee is improving with that activity. Pt state will try her treadmill at home in the garage. PT-OP-D Balance Start: 02/27/20 12:58 Freq: Status: Active Protocol: Document 02/27/20 14:35 AW (Rec: 02/27/20 15:07 AW [email or web address]) OP-PT Balance Assessment Standing Balance Static Standing Balance Ability Good Dynamic Standing Balance Ability Good Standing Balance Comments L SLS : 12 sec R SLS: 6 sec Robledo Fall Scale Copyright Permission PT-OP-G Mobility & Gait Start: 02/27/20 12:58 Freq: Status: Active Protocol: Document 02/27/20 14:35 AW (Rec: 02/27/20 15:07 AW [email or web address]) OP Mobility Evaluation Functional Movements Squats able with neutral knee posture but improves with cues for hip hinge OP Gait Assessment Gait Gait Assistance Required: Independent Distance (Feet) 100 Assistive Devices Assistive Device None Orthotic/Prosthetic Devices or Brace: No Gait Deviations General Gait Pattern Within Normal Limits,Decreased Feet Clearance Factors Limiting Gait Function Factors Limiting Gait Function Decreased Strength,Pain Comments Gait Comments Pt with slight genu varus in static and dynamic posture. Pt wears off the shelf shoes inserts bilaterally for arch support. PT-OP-H Neuro Start: 02/27/20 12:58 Freq: Status: Active Protocol: Document 02/27/20 14:35 AW (Rec: 02/27/20 15:07 AW [email or web address]) Sensation Evaluation Gross Sensation Gross Sensation WNL Deep Tendon Reflex & Clonus Assessment Deep Tendon Reflex Bilateral Achilles Deep Tendon Reflex 1+ Diminished Bilateral Patellar Deep Tendon Reflex 1+ Diminished PT-OP-J Posture/Palpation/Skin Start: 02/27/20 12:58 Freq: Status: Active Protocol: Document 02/27/20 14:35 AW (Rec: 02/27/20 15:07 AW [email or web address]) Posture Evaluation Position Standing Pelvis Posture Anteriorly Tilted Hip Posture (R) Externally Rotated Knee Posture (L) Genu Varus,(R) Genu Varus Patellar Posture (L) Neutral,(R) Neutral Ankle/Foot Posture (L) Pronated,(R) Pronated PT-OP-K Range of Motion Start: 02/27/20 12:58 Freq: Status: Active Protocol: Document 02/27/20 14:35 AW (Rec: 02/27/20 15:07 AW [email or web address]) Lumbar Spine Range of Motion Lumbar Spine Active Percentage Comments WNL Hip Goniometric Range of Motion Hip Left Active Extension 12 Internal Rotation 60 External Rotation 60 Right Active Hip ROM WFL Yes Testing Position Supine Extension 12 Internal Rotation 40 External Rotation 60 Hip ROM Limitations Hip ROM Limitations Soft Tissue Tightness,Muscle Weakness Knee Goniometric Range of Motion Knee Right Knee ROM WFL Yes Patient Position Supine Flexion Active (degrees) 135 Extension Active (degrees) 0 Left Knee ROM WFL Yes Patient Position Supine Flexion Active (degrees) 140 Extension Active (degrees) 0 Ankle and Foot Goniometric Range of Motion Ankle and Foot Left Active Comments B ankle ROM WNL all planes PT-OP-L Special Tests Start: 02/27/20 12:58 Freq: Status: Active Protocol: Document 02/27/20 14:35 AW (Rec: 02/27/20 16:48 AW [email or web address]) Special Tests Hip Special Tests Scour Test Test Results negative bilaterally Knee Special Tests Dony Test Results positive Comments leg elevated from table ~1 bilaterally Milind's Test Test Results positive Comments mildly positive bilaterally ligaments Comments B knees stable in all planes on exam PT-OP-M Strength Start: 02/27/20 12:58 Freq: Status: Active Protocol: Document 02/27/20 14:35 AW (Rec: 02/27/20 15:10 AW [email or web address]) Hip Strength Hip Manual Muscle Testing Right Flexion (L2) 4+ Good+ Extension (S1) 3+ Fair+ Abduction 4- Good- Adduction 4+ Good+ External Rotation 4+ Good+ Internal Rotation 4 Good Left Flexion (L2) 4+ Good+ Extension (S1) 3+ Fair+ Abduction 4- Good- Adduction 4+ Good+ External Rotation 4+ Good+ Internal Rotation 4 Good Knee Strength Knee Manual Muscle Testing Right Flexion (S2) 4+ Good+ Extension (L3) 5 Normal Left Flexion (S2) 4+ Good+ Extension (L3) 5 Normal Ankle/Foot Strength Ankle and Foot Manual Muscle Testing Right Dorsiflexion (L4) 4+ Good+ Plantarflexion (S1) 4+ Good+ Inversion 4+ Good+ Eversion (S1) 4+ Good+ Left Dorsiflexion (L4) 4+ Good+ Plantarflexion (S1) 4+ Good+ Inversion 4+ Good+ Eversion (S1) 4+ Good+ PT-OP-Q Treatments Start: 02/27/20 12:58 Freq: Status: Active Protocol: Document 04/14/20 13:08 SP (Rec: 04/14/20 14:44 SP [email or web address]) Cardio Equipment Treadmill Duration (Minutes) 8 Speed 1-1.3 Incline 0-2% Other 0.18 miles, ed for safety clip and tred movt befor getting on, rails PRN Gym Equipment Shuttle Balance red Details WBOS, NBOS EO EC Comments EO 1. wt shift 2. head turns EC 1. static stance 30 sec CG- min WBOS, 10 sec NBOS , unable stagger Sport Cord green Exercise Details glut fac, ENMANUEL, posture/trunk alignment level vs incline/ decline Cord/Resistance green Reps/Duration 5 reps f/b/side stepping Comments cued COG over ENMANUEL w/ glut facil eccentric directioning for safety w/ balance, provided CG- 10% PRN. Therapeutic Exercises Standing Exercises TKE Standing Exercise Name Discussed but not performed- Yes perform B at home Side right Resistance Tb #2 Reps/Minutes 5 sec hold x10; 2 sets Comments minimal cueing; improved performance PT-OP-R Modalities Start: 02/27/20 12:58 Freq: Status: Active Protocol: Document 04/09/20 11:47 AW (Rec: 04/09/20 11:55 AW [email or web address]) Hot Pack/Cold Pack Treatment CP Location R Medial knee jt line Patient Position Hooklying Treatment Duration (minutes) 4 Patient Tolerance Good Comments ice massage to reach numb state; pt tolerated well PT-OP-T Assessment and Plan Start: 02/27/20 12:58 Freq: Status: Active Protocol: Document 04/14/20 13:08 SP (Rec: 04/14/20 14:44 SP [email or web address]) Physical Therapy Assessment Goals Three Impairment Decreased strength Short Term Goal (STG) Pt will demonstrate hip extension strength 4+ bilaterally 04/09/20 MET STG Duration 04/02/20 Lobster Fisherman Goal (LTG) Pt will increase SLS to 20 seconds bilaterally without UE support LTG Duration 05/07/20 Two Impairment Pt unable to ambulate >1 block without right knee pain limiting activity. Short Term Goal (STG) Pt will walk 3 blocks without right knee pain 04/09/20 MET - pt reports walking up to 1 mile without pain STG Duration 04/02/20 Halfway Goal (LTG) Pt will be able to walk her dogs for 20 minutes with 1- point or less increase in baseline pain LTG Duration 05/07/20 One Impairment Pt lacks appropriate HEP Short Term Goal (STG) Pt will be independent with HEP for support of therapy services provided in clinic. MET STG Duration 04/02/20 Assessment Summary Assessment Pt tolerated tx, education on proper set up and use of TM warm up to assimuate use at home for cold days gait. Pt reported some R knee pain during shuttle bal in NBOS and stagger but decreased post cuing for taller posture and utilizing glut and COG over ENMANUEL and not knee flexion stabilization. Pt requested more visits to get her through POC. Messaged schedulers 2x/ wk for 4 weeks for now and POC update w/ PT pre 05/07/20. Physical Therapy Plan Frequency and Duration Frequency of Treatment 2x/Week Duration of Treatment 10 weeks Plan of Care Start Date 02/27/20 Plan of Care End Date 05/07/20 Therapeutic Interventions Therapeutic Interventions Balance Training,Gait Training ,Home Exercise Program,Joint Mobilizations,Manual Therapy, Neuromuscular Re-education, Patient/Caregiver Education, Self-Care/Home Management,Soft Tissue Mobilization,Taping, Therapeutic Activities, Therapeutic Exercises Modalities Cold Pack/Ice Massage Next Visit Focus/Plan Next Note Type Treatment Note Next Visit Plan Assess response to last tx: initiated TM warm up and sport cord, continued shuttle bal. Continue per PT POC: Progress hip strength and SLS.
--- NOTE | 2020-04-16 15:05 | PT.OTN ---
Current Diagnoses Pain in right knee (04/16/20) Difficulty in walking, not elsewhere classified (04/16/20) Physical Therapy Treatment Note PT-OP-A Visit Information Start: 02/27/20 12:58 Freq: Status: Active Protocol: Document 04/16/20 14:54 AW (Rec: 04/16/20 15:05 AW [email or web address]) Out-Patient Physical Therapy Visit Information Visit Information Visit Type Treatment Note Visit Start Time 13:00 Visit Stop Time 13:43 Total Visit Minutes 43 Visit Number 13 Number of [employer] Visits 0 PT-OP-B Current Condition Start: 02/27/20 12:58 Freq: Status: Active Protocol: Document 02/27/20 14:35 AW (Rec: 02/27/20 14:51 AW [id number]) Current Condition History of Current Condition Onset Date last two years Current Complaints right knee pain History of Current Condition Pt reports bilateral knee pain with right worse than left. She used to bowl and landed on right knee >10 years ago. She had no fracture but no longer felt safe bowling. Her pain resolved but has returned over the last few years. She states it is not worsening but it is not improving at all. She does not have pain on waking in the morning. She is able to do light activity without pain. She does note pain with ambulation > 1 block which then bothers her for up to an hour. When asked about pain location, pt points to the inferomedial aspect of the anterior knee. Prior Treatments and Tests x-ray right knee 01/28/20: Bones: No acute fracture or dislocation. There is moderate medial femorotibial compartment narrowing, small intercondylar osteophytes and small tricompartmental osteophytes. Soft tissues: No joint effusion. No suspicious soft tissue calcifications. IMPRESSION: Mild knee osteoarthritis. Pt has been using a prescription topical gel for pain relief but with limited effect. She is not taking any OTC medications. She has had PT before for plantar fasciitis but never for her knee pain. Pt sees a chiropractor monthly for back, hip, and neck pain. 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 Able to walk her dogs without concern for pain. Current Functional Impairments (Reported) Functional Limitations- Mobility/Gait Unable to walk > 1 block without pain. Difficulty managing with dog walking. Personal Factors Other Personal Factors That May Effect + Pt is active and has Therapy/Recovery positive associations with movement, activity, and exercise. PT-OP-C Subjective Start: 02/27/20 12:58 Freq: Status: Active Protocol: Document 04/16/20 14:54 AW (Rec: 04/16/20 15:05 AW [email or web address]) OP-PT Subjective Patient Comments Patient Comments Pt continues to have mild medial knee irritation which is complicating her relationship with stairs. She notices mild pain when initiating ambulation but states it resolves with warm up ~50% of the time. PT-OP-D Balance Start: 02/27/20 12:58 Freq: Status: Active Protocol: Document 02/27/20 14:35 AW (Rec: 02/27/20 15:07 AW [email or web address]) OP-PT Balance Assessment Standing Balance Static Standing Balance Ability Good Dynamic Standing Balance Ability Good Standing Balance Comments L SLS : 12 sec R SLS: 6 sec Robledo Fall Scale Copyright Permission PT-OP-G Mobility & Gait Start: 02/27/20 12:58 Freq: Status: Active Protocol: Document 02/27/20 14:35 AW (Rec: 02/27/20 15:07 AW [email or web address]) OP Mobility Evaluation Functional Movements Squats able with neutral knee posture but improves with cues for hip hinge OP Gait Assessment Gait Gait Assistance Required: Independent Distance (Feet) 100 Assistive Devices Assistive Device None Orthotic/Prosthetic Devices or Brace: No Gait Deviations General Gait Pattern Within Normal Limits,Decreased Feet Clearance Factors Limiting Gait Function Factors Limiting Gait Function Decreased Strength,Pain Comments Gait Comments Pt with slight genu varus in static and dynamic posture. Pt wears off the shelf shoes inserts bilaterally for arch support. PT-OP-H Neuro Start: 02/27/20 12:58 Freq: Status: Active Protocol: Document 02/27/20 14:35 AW (Rec: 02/27/20 15:07 AW [email or web address]) Sensation Evaluation Gross Sensation Gross Sensation WNL Deep Tendon Reflex & Clonus Assessment Deep Tendon Reflex Bilateral Achilles Deep Tendon Reflex 1+ Diminished Bilateral Patellar Deep Tendon Reflex 1+ Diminished PT-OP-J Posture/Palpation/Skin Start: 12/09/20 12:58 Freq: Status: Active Protocol: Document 02/27/20 14:35 AW (Rec: 02/27/20 15:07 AW [email or web address]) Posture Evaluation Position Standing Pelvis Posture Anteriorly Tilted Hip Posture (R) Externally Rotated Knee Posture (L) Genu Varus,(R) Genu Varus Patellar Posture (L) Neutral,(R) Neutral Ankle/Foot Posture (L) Pronated,(R) Pronated PT-OP-K Range of Motion Start: 02/27/20 12:58 Freq: Status: Active Protocol: Document 02/27/20 14:35 AW (Rec: 02/27/20 15:07 AW [email or web address]) Lumbar Spine Range of Motion Lumbar Spine Active Percentage Comments WNL Hip Goniometric Range of Motion Hip Left Active Extension 12 Internal Rotation 60 External Rotation 60 Right Active Hip ROM WFL Yes Testing Position Supine Extension 12 Internal Rotation 40 External Rotation 60 Hip ROM Limitations Hip ROM Limitations Soft Tissue Tightness,Muscle Weakness Knee Goniometric Range of Motion Knee Right Knee ROM WFL Yes Patient Position Supine Flexion Active (degrees) 135 Extension Active (degrees) 0 Left Knee ROM WFL Yes Patient Position Supine Flexion Active (degrees) 140 Extension Active (degrees) 0 Ankle and Foot Goniometric Range of Motion Ankle and Foot Left Active Comments B ankle ROM WNL all planes PT-OP-L Special Tests Start: 02/27/20 12:58 Freq: Status: Active Protocol: Document 02/27/20 14:35 AW (Rec: 02/27/20 16:48 AW [email or web address]) Special Tests Hip Special Tests Scour Test Test Results negative bilaterally Knee Special Tests Dony Test Results positive Comments leg elevated from table ~1 bilaterally Milind's Test Test Results positive Comments mildly positive bilaterally ligaments Comments B knees stable in all planes on exam PT-OP-M Strength Start: 02/27/20 12:58 Freq: Status: Active Protocol: Document 02/27/20 14:35 AW (Rec: 02/27/20 15:10 AW [email or web address]) Hip Strength Hip Manual Muscle Testing Right Flexion (L2) 4+ Good+ Extension (S1) 3+ Fair+ Abduction 4- Good- Adduction 4+ Good+ External Rotation 4+ Good+ Internal Rotation 4 Good Left Flexion (L2) 4+ Good+ Extension (S1) 3+ Fair+ Abduction 4- Good- Adduction 4+ Good+ External Rotation 4+ Good+ Internal Rotation 4 Good Knee Strength Knee Manual Muscle Testing Right Flexion (S2) 4+ Good+ Extension (L3) 5 Normal Left Flexion (S2) 4+ Good+ Extension (L3) 5 Normal Ankle/Foot Strength Ankle and Foot Manual Muscle Testing Right Dorsiflexion (L4) 4+ Good+ Plantarflexion (S1) 4+ Good+ Inversion 4+ Good+ Eversion (S1) 4+ Good+ Left Dorsiflexion (L4) 4+ Good+ Plantarflexion (S1) 4+ Good+ Inversion 4+ Good+ Eversion (S1) 4+ Good+ PT-OP-Q Treatments Start: 02/27/20 12:58 Freq: Status: Active Protocol: Document 04/16/20 14:54 AW (Rec: 04/16/20 15:05 AW [email or web address]) Cardio Equipment Treadmill Duration (Minutes) 8 Speed 1.7 Other cued for natural arm swing and self-selected pace Gym Equipment Sport Cord green Exercise Details glut fac, ENMANUEL, posture/trunk alignment level vs incline/ decline Cord/Resistance green Reps/Duration multiple reps f/b/lateral Comments Cued glute facilitation in stance and core engagement. Required CGA for balance ~10% of the time Neuro Re-Education Treatment Balance Activities SLS Details SLS Surface firm and foam Equipment 4 blue foam; mirror Reps/Duration 12 min Comments Started on level ground: LLE 30 sec, RLE 18 sec. Progressed to foam under feet and used mirror for visual feedback for pelvic stability, posture with pt able to progress to ~12 sec each LE PT-OP-R Modalities Start: 02/27/20 12:58 Freq: Status: Active Protocol: Document 04/16/20 14:54 AW (Rec: 04/16/20 15:05 AW [email or web address]) Hot Pack/Cold Pack Treatment CP Location R Medial knee jt line Patient Position Hooklying Treatment Duration (minutes) 4 Patient Tolerance Good Comments ice massage to reach numb state; pt tolerated well PT-OP-T Assessment and Plan Start: 02/27/20 12:58 Freq: Status: Active Protocol: Document 04/16/20 14:54 AW (Rec: 04/16/20 15:05 AW [email or web address]) Physical Therapy Assessment Goals Three Impairment Decreased strength Short Term Goal (STG) Pt will demonstrate hip extension strength 4+ bilaterally 04/09/20 MET STG Duration 04/02/20 Shelter Goal (LTG) Pt will increase SLS to 20 seconds bilaterally without UE support LTG Duration 05/07/20 Two Impairment Pt unable to ambulate >1 block without right knee pain limiting activity. Short Term Goal (STG) Pt will walk 3 blocks without right knee pain 04/09/20 MET - pt reports walking up to 1 mile without pain STG Duration 04/02/20 Shelter Goal (LTG) Pt will be able to walk her dogs for 20 minutes with 1- point or less increase in baseline pain LTG Duration 05/07/20 One Impairment Pt lacks appropriate HEP Short Term Goal (STG) Pt will be independent with HEP for support of therapy services provided in clinic. MET STG Duration 04/02/20 Assessment Summary Assessment Pt responds well to cues for natural gait on treadmill and appreciates warm up to work out initial irritation in medial knee. Focused treatment today on single-leg stance and glute facilitation in gait . Some activities bothered pt' s knee so ended with ice massage with immediate relief noted. Physical Therapy Plan Frequency and Duration Frequency of Treatment 2x/Week Duration of Treatment 10 weeks Plan of Care Start Date 02/27/20 Plan of Care End Date 05/07/20 Therapeutic Interventions Therapeutic Interventions Balance Training,Gait Training ,Home Exercise Program,Joint Mobilizations,Manual Therapy, Neuromuscular Re-education, Patient/Caregiver Education, Self-Care/Home Management,Soft Tissue Mobilization,Taping, Therapeutic Activities, Therapeutic Exercises Modalities Cold Pack/Ice Massage Next Visit Focus/Plan Next Note Type Treatment Note Next Visit Plan Add ankle strength and stability for R ankle to improve SLS.
--- NOTE | 2020-04-21 13:47 | PT.OTN ---
Current Diagnoses Pain in right knee (04/21/20) Difficulty in walking, not elsewhere classified (04/21/20) Physical Therapy Treatment Note PT-OP-A Visit Information Start: 02/27/20 12:58 Freq: Status: Active Protocol: Document 04/21/20 13:02 LD (Rec: 04/21/20 16:15 LD [email or web address]) Out-Patient Physical Therapy Visit Information Visit Information Visit Type Treatment Note Visit Note SATURNINO Tijerina led tx, with supervision by RANDA Santos. Visit Start Time 13:02 Visit Stop Time 13:47 Total Visit Minutes 45 Visit Number 14 Number of CYLINDER STEAMER Visits 1 PT-OP-B Current Condition Start: 02/27/20 12:58 Freq: Status: Active Protocol: Document 02/27/20 14:35 AW (Rec: 02/27/20 14:51 AW [id number]) Current Condition History of Current Condition Onset Date last two years Current Complaints right knee pain History of Current Condition Pt reports bilateral knee pain with right worse than left. She used to bowl and landed on right knee >10 years ago. She had no fracture but no longer felt safe bowling. Her pain resolved but has returned over the last few years. She states it is not worsening but it is not improving at all. She does not have pain on waking in the morning. She is able to do light activity without pain. She does note pain with ambulation > 1 block which then bothers her for up to an hour. When asked about pain location, pt points to the inferomedial aspect of the anterior knee. Prior Treatments and Tests x-ray right knee 01/28/20: Bones: No acute fracture or dislocation. There is moderate medial femorotibial compartment narrowing, small intercondylar osteophytes and small tricompartmental osteophytes. Soft tissues: No joint effusion. No suspicious soft tissue calcifications. IMPRESSION: Mild knee osteoarthritis. Pt has been using a prescription topical gel for pain relief but with limited effect. She is not taking any OTC medications. She has had PT before for plantar fasciitis but never for her knee pain. Pt sees a chiropractor monthly for back, hip, and neck pain. 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 Baseline Function- Recreation/Hobbies Walking for exercise without pain. Able to walk her dogs without concern for pain. Current Functional Impairments (Reported) Functional Limitations- Mobility/Gait Unable to walk > 1 block without pain. Difficulty managing with dog walking. Personal Factors Other Personal Factors That May Effect + Pt is active and has Therapy/Recovery positive associations with movement, activity, and exercise. PT-OP-C Subjective Start: 02/27/20 12:58 Freq: Status: Active Protocol: Document 04/21/20 13:02 LD (Rec: 04/21/20 16:15 LD [email or web address]) OP-PT Subjective Patient Comments Patient Comments Pt reported she got a new car, still adjusting to it. Notices pain when sitting and driving 30 min to her tx from home. Patient Reported Progress Improving PT-OP-D Balance Start: 02/27/20 12:58 Freq: Status: Active Protocol: Document 02/27/20 14:35 AW (Rec: 02/27/20 15:07 AW [email or web address]) OP-PT Balance Assessment Standing Balance Static Standing Balance Ability Good Dynamic Standing Balance Ability Good Standing Balance Comments L SLS : 12 sec R SLS: 6 sec Robledo Fall Scale Copyright Permission PT-OP-G Mobility & Gait Start: 02/27/20 12:58 Freq: Status: Active Protocol: Document 02/27/20 14:35 AW (Rec: 02/27/20 15:07 AW [email or web address]) OP Mobility Evaluation Functional Movements Squats able with neutral knee posture but improves with cues for hip hinge OP Gait Assessment Gait Gait Assistance Required: Independent Distance (Feet) 100 Assistive Devices Assistive Device None Orthotic/Prosthetic Devices or Brace: No Gait Deviations General Gait Pattern Within Normal Limits,Decreased Feet Clearance Factors Limiting Gait Function Factors Limiting Gait Function Decreased Strength,Pain Comments Gait Comments Pt with slight genu varus in static and dynamic posture. Pt wears off the shelf shoes inserts bilaterally for arch support. PT-OP-H Neuro Start: 02/27/20 12:58 Freq: Status: Active Protocol: Document 02/27/20 14:35 AW (Rec: 02/27/20 15:07 AW [email or web address]) Sensation Evaluation Gross Sensation Gross Sensation WNL Deep Tendon Reflex & Clonus Assessment Deep Tendon Reflex Bilateral Achilles Deep Tendon Reflex 1+ Diminished Bilateral Patellar Deep Tendon Reflex 1+ Diminished PT-OP-J Posture/Palpation/Skin Start: 02/27/20 12:58 Freq: Status: Active Protocol: Document 02/27/20 14:35 AW (Rec: 02/27/20 15:07 AW [email or web address]) Posture Evaluation Position Standing Pelvis Posture Anteriorly Tilted Hip Posture (R) Externally Rotated Knee Posture (L) Genu Varus,(R) Genu Varus Patellar Posture (L) Neutral,(R) Neutral Ankle/Foot Posture (L) Pronated,(R) Pronated PT-OP-K Range of Motion Start: 02/27/20 12:58 Freq: Status: Active Protocol: Document 02/27/20 14:35 AW (Rec: 02/27/20 15:07 AW [email or web address]) Lumbar Spine Range of Motion Lumbar Spine Active Percentage Comments WNL Hip Goniometric Range of Motion Hip Left Active Extension 12 Internal Rotation 60 External Rotation 60 Right Active Hip ROM WFL Yes Testing Position Supine Extension 12 Internal Rotation 40 External Rotation 60 Hip ROM Limitations Hip ROM Limitations Soft Tissue Tightness,Muscle Weakness Knee Goniometric Range of Motion Knee Right Knee ROM WFL Yes Patient Position Supine Flexion Active (degrees) 135 Extension Active (degrees) 0 Left Knee ROM WFL Yes Patient Position Supine Flexion Active (degrees) 140 Extension Active (degrees) 0 Ankle and Foot Goniometric Range of Motion Ankle and Foot Left Active Comments B ankle ROM WNL all planes PT-OP-L Special Tests Start: 02/27/20 12:58 Freq: Status: Active Protocol: Document 02/27/20 14:35 AW (Rec: 02/27/20 16:48 AW [email or web address]) Special Tests Hip Special Tests Scour Test Test Results negative bilaterally Knee Special Tests Dony Test Results positive Comments leg elevated from table ~1 bilaterally Milind's Test Test Results positive Comments mildly positive bilaterally ligaments Comments B knees stable in all planes on exam PT-OP-M Strength Start: 02/27/20 12:58 Freq: Status: Active Protocol: Document 02/27/20 14:35 AW (Rec: 02/27/20 15:10 AW [email or web address]) Hip Strength Hip Manual Muscle Testing Right Flexion (L2) 4+ Good+ Extension (S1) 3+ Fair+ Abduction 4- Good- Adduction 4+ Good+ External Rotation 4+ Good+ Internal Rotation 4 Good Left Flexion (L2) 4+ Good+ Extension (S1) 3+ Fair+ Abduction 4- Good- Adduction 4+ Good+ External Rotation 4+ Good+ Internal Rotation 4 Good Knee Strength Knee Manual Muscle Testing Right Flexion (S2) 4+ Good+ Extension (L3) 5 Normal Left Flexion (S2) 4+ Good+ Extension (L3) 5 Normal Ankle/Foot Strength Ankle and Foot Manual Muscle Testing Right Dorsiflexion (L4) 4+ Good+ Plantarflexion (S1) 4+ Good+ Inversion 4+ Good+ Eversion (S1) 4+ Good+ Left Dorsiflexion (L4) 4+ Good+ Plantarflexion (S1) 4+ Good+ Inversion 4+ Good+ Eversion (S1) 4+ Good+ PT-OP-Q Treatments Start: 02/27/20 12:58 Freq: Status: Active Protocol: Document 04/21/20 13:02 LD (Rec: 04/21/20 16:15 LD [email or web address]) Cardio Equipment Treadmill Duration (Minutes) 8 Speed 1.4 Incline 0 Other pt able to walk and talk w/ head turned on treadmill. Unsteady,self recover Gym Equipment Sport Cord green Exercise Details glut fac, ENMANUEL, posture/trunk alignment level vs incline/ decline Cord/Resistance green Reps/Duration multiple reps f/b/lateral Comments Cued glute facilitation in stance w/ knee extended and core engagement. Provided CGA for balance -10% of the time. Therapeutic Exercises Standing Exercises Concentric/eccentric calf raises Side bilateral Equipment Used stairs Reps/Minutes 10x bilateral, 10x unilateral each LE Neuro Re-Education Treatment Balance Activities Obstacle course Surface unstable Equipment 4 oval cusions, 4 seneca cushions Reps/Duration 4 laps Comments Cued for COG over ENMANUEL, heel to toe pattern. SLS Details SLS Surface foam Equipment 4 blue foam; mirror Reps/Duration 12 min Comments LLE: 6'', 11'', 18'', 21'' RLE: 7'', 5'', 11'', 24'' Used mirror for visual feedback, cued knee straight, body weight over stance leg, lift other leg, 'tall' posture '. PT-OP-R Modalities Start: 02/27/20 12:58 Freq: Status: Active Protocol: Document 04/16/20 14:54 AW (Rec: 04/16/20 15:05 AW [email or web address]) Hot Pack/Cold Pack Treatment CP Location R Medial knee jt line Patient Position Hooklying Treatment Duration (minutes) 4 Patient Tolerance Good Comments ice massage to reach numb state; pt tolerated well PT-OP-T Assessment and Plan Start: 02/27/20 12:58 Freq: Status: Active Protocol: Document 04/21/20 13:02 LD (Rec: 04/21/20 16:15 LD [email or web address]) Physical Therapy Assessment Goals Three Impairment Decreased strength Short Term Goal (STG) Pt will demonstrate hip extension strength 4+ bilaterally 04/09/20 MET STG Duration 04/02/20 Alf Goal (LTG) Pt will increase SLS to 20 seconds bilaterally without UE support LTG Duration 05/07/20 Two Impairment Pt unable to ambulate >1 block without right knee pain limiting activity. Short Term Goal (STG) Pt will walk 3 blocks without right knee pain 04/09/20 MET - pt reports walking up to 1 mile without pain STG Duration 04/02/20 Alf Goal (LTG) Pt will be able to walk her dogs for 20 minutes with 1- point or less increase in baseline pain LTG Duration 05/07/20 One Impairment Pt lacks appropriate HEP Short Term Goal (STG) Pt will be independent with HEP for support of therapy services provided in clinic. MET STG Duration 04/02/20 Assessment Summary Assessment Pt responded well to tx. Pt improved in self dynamic balance and recovery on treadmill. Pt presented w/ lateral knee irritation when walking laterally during sport cord ex. Decreased w/ shorter steps. SLS is improving, w/ appropriate cues given: 'knee straight, body weight over stance leg, lift other leg and tall posture.' RLE increased to 24''. Added ankle strengthening and obstacle course to improve ankle stability and strength. Physical Therapy Plan Frequency and Duration Frequency of Treatment 2x/Week Duration of Treatment 10 weeks Plan of Care Start Date 02/27/20 Plan of Care End Date 05/07/20 Therapeutic Interventions Therapeutic Interventions Balance Training,Gait Training ,Home Exercise Program,Joint Mobilizations,Manual Therapy, Neuromuscular Re-education, Patient/Caregiver Education, Self-Care/Home Management,Soft Tissue Mobilization,Taping, Therapeutic Activities, Therapeutic Exercises Modalities Cold Pack/Ice Massage Next Visit Focus/Plan Next Note Type Treatment Note Next Visit Plan Assess response to last tx: concentric/eccentric calf raises, obstacle course. Continue per PT POC: Progress hip strength, continue ankle strengthening and SLS.
--- NOTE | 2020-04-23 14:15 | PT.OTN ---
Current Diagnoses Pain in right knee (04/23/20) Difficulty in walking, not elsewhere classified (04/23/20) Physical Therapy Treatment Note PT-OP-A Visit Information Start: 02/27/20 12:58 Freq: Status: Active Protocol: Document 04/23/20 14:06 AW (Rec: 04/23/20 14:15 AW [email or web address]) Out-Patient Physical Therapy Visit Information Visit Information Visit Type Treatment Note Visit Start Time 13:00 Visit Stop Time 13:45 Total Visit Minutes 45 Visit Number 15 Number of WELDER TOOL AND DIE Visits 0 PT-OP-B Current Condition Start: 02/27/20 12:58 Freq: Status: Active Protocol: Document 02/27/20 14:35 AW (Rec: 02/27/20 14:51 AW [id number]) Current Condition History of Current Condition Onset Date last two years Current Complaints right knee pain History of Current Condition Pt reports bilateral knee pain with right worse than left. She used to bowl and landed on right knee >10 years ago. She had no fracture but no longer felt safe bowling. Her pain resolved but has returned over the last few years. She states it is not worsening but it is not improving at all. She does not have pain on waking in the morning. She is able to do light activity without pain. She does note pain with ambulation > 1 block which then bothers her for up to an hour. When asked about pain location, pt points to the inferomedial aspect of the anterior knee. Prior Treatments and Tests x-ray right knee 01/28/20: Bones: No acute fracture or dislocation. There is moderate medial femorotibial compartment narrowing, small intercondylar osteophytes and small tricompartmental osteophytes. Soft tissues: No joint effusion. No suspicious soft tissue calcifications. IMPRESSION: Mild knee osteoarthritis. Pt has been using a prescription topical gel for pain relief but with limited effect. She is not taking any OTC medications. She has had PT before for plantar fasciitis but never for her knee pain. Pt sees a chiropractor monthly for back, hip, and neck pain. 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 Able to walk her dogs without concern for pain. Current Functional Impairments (Reported) Functional Limitations- Mobility/Gait Unable to walk > 1 block without pain. Difficulty managing with dog walking. Personal Factors Other Personal Factors That May Effect + Pt is active and has Therapy/Recovery positive associations with movement, activity, and exercise. PT-OP-C Subjective Start: 02/27/20 12:58 Freq: Status: Active Protocol: Document 04/23/20 14:06 AW (Rec: 04/23/20 14:15 AW [email or web address]) OP-PT Subjective Patient Comments Patient Comments Pt reports frequent use of her home treadmill and her tolerance is improving. PT-OP-D Balance Start: 02/27/20 12:58 Freq: Status: Active Protocol: Document 02/27/20 14:35 AW (Rec: 02/27/20 15:07 AW [email or web address]) OP-PT Balance Assessment Standing Balance Static Standing Balance Ability Good Dynamic Standing Balance Ability Good Standing Balance Comments L SLS : 12 sec R SLS: 6 sec Robledo Fall Scale Copyright Permission PT-OP-G Mobility & Gait Start: 02/27/20 12:58 Freq: Status: Active Protocol: Document 02/27/20 14:35 AW (Rec: 02/27/20 15:07 AW [email or web address]) OP Mobility Evaluation Functional Movements Squats able with neutral knee posture but improves with cues for hip hinge OP Gait Assessment Gait Gait Assistance Required: Independent Distance (Feet) 100 Assistive Devices Assistive Device None Orthotic/Prosthetic Devices or Brace: No Gait Deviations General Gait Pattern Within Normal Limits,Decreased Feet Clearance Factors Limiting Gait Function Factors Limiting Gait Function Decreased Strength,Pain Comments Gait Comments Pt with slight genu varus in static and dynamic posture. Pt wears off the shelf shoes inserts bilaterally for arch support. PT-OP-H Neuro Start: 02/27/20 12:58 Freq: Status: Active Protocol: Document 02/27/20 14:35 AW (Rec: 02/27/20 15:07 AW [email or web address]) Sensation Evaluation Gross Sensation Gross Sensation WNL Deep Tendon Reflex & Clonus Assessment Deep Tendon Reflex Bilateral Achilles Deep Tendon Reflex 1+ Diminished Bilateral Patellar Deep Tendon Reflex 1+ Diminished PT-OP-J Posture/Palpation/Skin Start: 02/27/20 12:58 Freq: Status: Active Protocol: Document 02/27/20 14:35 AW (Rec: 12/09/20 15:07 AW [email or web address]) Posture Evaluation Position Standing Pelvis Posture Anteriorly Tilted Hip Posture (R) Externally Rotated Knee Posture (L) Genu Varus,(R) Genu Varus Patellar Posture (L) Neutral,(R) Neutral Ankle/Foot Posture (L) Pronated,(R) Pronated PT-OP-K Range of Motion Start: 02/27/20 12:58 Freq: Status: Active Protocol: Document 02/27/20 14:35 AW (Rec: 02/27/20 15:07 AW [email or web address]) Lumbar Spine Range of Motion Lumbar Spine Active Percentage Comments WNL Hip Goniometric Range of Motion Hip Left Active Extension 12 Internal Rotation 60 External Rotation 60 Right Active Hip ROM WFL Yes Testing Position Supine Extension 12 Internal Rotation 40 External Rotation 60 Hip ROM Limitations Hip ROM Limitations Soft Tissue Tightness,Muscle Weakness Knee Goniometric Range of Motion Knee Right Knee ROM WFL Yes Patient Position Supine Flexion Active (degrees) 135 Extension Active (degrees) 0 Left Knee ROM WFL Yes Patient Position Supine Flexion Active (degrees) 140 Extension Active (degrees) 0 Ankle and Foot Goniometric Range of Motion Ankle and Foot Left Active Comments B ankle ROM WNL all planes PT-OP-L Special Tests Start: 02/27/20 12:58 Freq: Status: Active Protocol: Document 02/27/20 14:35 AW (Rec: 02/27/20 16:48 AW [email or web address]) Special Tests Hip Special Tests Scour Test Test Results negative bilaterally Knee Special Tests Dony Test Results positive Comments leg elevated from table ~1 bilaterally Milind's Test Test Results positive Comments mildly positive bilaterally ligaments Comments B knees stable in all planes on exam PT-OP-M Strength Start: 02/27/20 12:58 Freq: Status: Active Protocol: Document 02/27/20 14:35 AW (Rec: 02/27/20 15:10 AW [email or web address]) Hip Strength Hip Manual Muscle Testing Right Flexion (L2) 4+ Good+ Extension (S1) 3+ Fair+ Abduction 4- Good- Adduction 4+ Good+ External Rotation 4+ Good+ Internal Rotation 4 Good Left Flexion (L2) 4+ Good+ Extension (S1) 3+ Fair+ Abduction 4- Good- Adduction 4+ Good+ External Rotation 4+ Good+ Internal Rotation 4 Good Knee Strength Knee Manual Muscle Testing Right Flexion (S2) 4+ Good+ Extension (L3) 5 Normal Left Flexion (S2) 4+ Good+ Extension (L3) 5 Normal Ankle/Foot Strength Ankle and Foot Manual Muscle Testing Right Dorsiflexion (L4) 4+ Good+ Plantarflexion (S1) 4+ Good+ Inversion 4+ Good+ Eversion (S1) 4+ Good+ Left Dorsiflexion (L4) 4+ Good+ Plantarflexion (S1) 4+ Good+ Inversion 4+ Good+ Eversion (S1) 4+ Good+ PT-OP-Q Treatments Start: 02/27/20 12:58 Freq: Status: Active Protocol: Document 04/23/20 14:06 AW (Rec: 04/23/20 14:15 AW [email or web address]) Cardio Equipment Treadmill Duration (Minutes) 5 Speed 1.8 Incline 1.0 Other pt tolerated slight incline without increase in pain Therapeutic Exercises Standing Exercises lateral step up Standing Exercise Name lateral step up Side right Equipment Used 4 step Reps/Minutes 10 x 2 Comments cued weight shift over stance leg prior to knee/hip extension mini squat Standing Exercise Name mini squat Equipment Used TB around knees + mirror Reps/Minutes 10 x 2 Comments good hip hinge form and awareness of knee posture Concentric/eccentric calf raises Side bilateral Equipment Used stairs Reps/Minutes 10x bilateral, 10x unilateral each LE iso glut med with ball at wall Standing Exercise Name iso glut med with ball at wall Side bilateral Resistance purple ball Reps/Minutes 3SH x 8 Comments for SLS awareness of lateral hip/level pelvis Neuro Re-Education Treatment Balance Activities Obstacle course Surface unstable Equipment oval cushions, river stones, rocker board Reps/Duration 10 laps Comments Cued for COG over ENMANUEL, heel to toe pattern. SBA to CGA SLS Details SLS Surface foam Equipment 4 blue foam; mirror Reps/Duration 12 min Comments Improvement BLE Used mirror for visual feedback, cued knee straight, body weight over stance leg, lift other leg, 'tall' posture '. rocker board Details f/b/side wt shifting Equipment rocker board, mirror for feedback of pelvic neutral PT-OP-R Modalities Start: 02/27/20 12:58 Freq: Status: Active Protocol: Document 04/16/20 14:54 AW (Rec: 04/16/20 15:05 AW [email or web address]) Hot Pack/Cold Pack Treatment CP Location R Medial knee jt line Patient Position Hooklying Treatment Duration (minutes) 4 Patient Tolerance Good Comments ice massage to reach numb state; pt tolerated well PT-OP-T Assessment and Plan Start: 02/27/20 12:58 Freq: Status: Active Protocol: Document 04/23/20 14:06 AW (Rec: 04/23/20 14:15 AW [email or web address]) Physical Therapy Assessment Goals Three Impairment Decreased strength Short Term Goal (STG) Pt will demonstrate hip extension strength 4+ bilaterally 04/09/20 MET STG Duration 04/02/20 Fdc Goal (LTG) Pt will increase SLS to 20 seconds bilaterally without UE support LTG Duration 05/07/20 Two Impairment Pt unable to ambulate >1 block without right knee pain limiting activity. Short Term Goal (STG) Pt will walk 3 blocks without right knee pain 04/09/20 MET - pt reports walking up to 1 mile without pain STG Duration 04/02/20 Strategy Specialist Goal (LTG) Pt will be able to walk her dogs for 20 minutes with 1- point or less increase in baseline pain LTG Duration 05/07/20 One Impairment Pt lacks appropriate HEP Short Term Goal (STG) Pt will be independent with HEP for support of therapy services provided in clinic. MET STG Duration 04/02/20 Assessment Summary Assessment Pt tolerated incline on treadmill and improved lateral weight shifting in response to cues for weight shift over stance leg prior to hip/knee extension. Initiated forward tap/step down from 4 step but pain was reported so discontinued. Physical Therapy Plan Frequency and Duration Frequency of Treatment 2x/Week Duration of Treatment 10 weeks Plan of Care Start Date 02/27/20 Plan of Care End Date 05/07/20 Therapeutic Interventions Therapeutic Interventions Balance Training,Gait Training ,Home Exercise Program,Joint Mobilizations,Manual Therapy, Neuromuscular Re-education, Patient/Caregiver Education, Self-Care/Home Management,Soft Tissue Mobilization,Taping, Therapeutic Activities, Therapeutic Exercises Modalities Cold Pack/Ice Massage Next Visit Focus/Plan Next Note Type Treatment Note Next Visit Plan Continue to challenge pt with unstable surfaces, gradually progress step ups with cues for weight shift over stance leg as tolerated
--- NOTE | 2020-04-28 13:47 | PT.OTN ---
Current Diagnoses Pain in right knee (04/28/20) Difficulty in walking, not elsewhere classified (04/28/20) Physical Therapy Treatment Note PT-OP-A Visit Information Start: 02/27/20 12:58 Freq: Status: Active Protocol: Document 04/28/20 13:02 LD (Rec: 04/28/20 16:25 LD [id number]) Out-Patient Physical Therapy Visit Information Visit Information Visit Type Treatment Note Visit Note SATURNINO Tijerina led tx w/ supervision of RANDA Santos. POC expires 05/07, progress note required next appt 05/14. Visit Start Time 13:02 Visit Stop Time 13:47 Total Visit Minutes 45 Visit Number 16 Number of FINISHED STOCK INSPECTOR Visits 1 PT-OP-B Current Condition Start: 02/27/20 12:58 Freq: Status: Active Protocol: Document 02/27/20 14:35 AW (Rec: 02/27/20 14:51 AW [id number]) Current Condition History of Current Condition Onset Date last two years Current Complaints right knee pain History of Current Condition Pt reports bilateral knee pain with right worse than left. She used to bowl and landed on right knee >10 years ago. She had no fracture but no longer felt safe bowling. Her pain resolved but has returned over the last few years. She states it is not worsening but it is not improving at all. She does not have pain on waking in the morning. She is able to do light activity without pain. She does note pain with ambulation > 1 block which then bothers her for up to an hour. When asked about pain location, pt points to the inferomedial aspect of the anterior knee. Prior Treatments and Tests x-ray right knee 01/28/20: Bones: No acute fracture or dislocation. There is moderate medial femorotibial compartment narrowing, small intercondylar osteophytes and small tricompartmental osteophytes. Soft tissues: No joint effusion. No suspicious soft tissue calcifications. IMPRESSION: Mild knee osteoarthritis. Pt has been using a prescription topical gel for pain relief but with limited effect. She is not taking any OTC medications. She has had PT before for plantar fasciitis but never for her knee pain. Pt sees a chiropractor monthly for back, hip, and neck pain. 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 Baseline Function- Recreation/Hobbies Walking for exercise without pain. Able to walk her dogs without concern for pain. Current Functional Impairments (Reported) Functional Limitations- Mobility/Gait Unable to walk > 1 block without pain. Difficulty managing with dog walking. Personal Factors Other Personal Factors That May Effect + Pt is active and has Therapy/Recovery positive associations with movement, activity, and exercise. PT-OP-C Subjective Start: 02/27/20 12:58 Freq: Status: Active Protocol: Document 04/28/20 13:02 LD (Rec: 04/28/20 16:25 LD [id number]) OP-PT Subjective Patient Comments Patient Comments Pt reports walking to her appt from home, car is getting repaired. Is planning to walk to her chiropractic appt after . ([address] <> [address]) PT-OP-D Balance Start: 02/27/20 12:58 Freq: Status: Active Protocol: Document 02/27/20 14:35 AW (Rec: 02/27/20 15:07 AW [email or web address]) OP-PT Balance Assessment Standing Balance Static Standing Balance Ability Good Dynamic Standing Balance Ability Good Standing Balance Comments L SLS : 12 sec R SLS: 6 sec Robledo Fall Scale Copyright Permission PT-OP-G Mobility & Gait Start: 02/27/20 12:58 Freq: Status: Active Protocol: Document 02/27/20 14:35 AW (Rec: 02/27/20 15:07 AW [email or web address]) OP Mobility Evaluation Functional Movements Squats able with neutral knee posture but improves with cues for hip hinge OP Gait Assessment Gait Gait Assistance Required: Independent Distance (Feet) 100 Assistive Devices Assistive Device None Orthotic/Prosthetic Devices or Brace: No Gait Deviations General Gait Pattern Within Normal Limits,Decreased Feet Clearance Factors Limiting Gait Function Factors Limiting Gait Function Decreased Strength,Pain Comments Gait Comments Pt with slight genu varus in static and dynamic posture. Pt wears off the shelf shoes inserts bilaterally for arch support. PT-OP-H Neuro Start: 02/27/20 12:58 Freq: Status: Active Protocol: Document 02/27/20 14:35 AW (Rec: 02/27/20 15:07 AW [email or web address]) Sensation Evaluation Gross Sensation Gross Sensation WNL Deep Tendon Reflex & Clonus Assessment Deep Tendon Reflex Bilateral Achilles Deep Tendon Reflex 1+ Diminished Bilateral Patellar Deep Tendon Reflex 1+ Diminished PT-OP-J Posture/Palpation/Skin Start: 02/27/20 12:58 Freq: Status: Active Protocol: Document 02/27/20 14:35 AW (Rec: 02/27/20 15:07 AW [email or web address]) Posture Evaluation Position Standing Pelvis Posture Anteriorly Tilted Hip Posture (R) Externally Rotated Knee Posture (L) Genu Varus,(R) Genu Varus Patellar Posture (L) Neutral,(R) Neutral Ankle/Foot Posture (L) Pronated,(R) Pronated PT-OP-K Range of Motion Start: 02/27/20 12:58 Freq: Status: Active Protocol: Document 02/27/20 14:35 AW (Rec: 02/27/20 15:07 AW [email or web address]) Lumbar Spine Range of Motion Lumbar Spine Active Percentage Comments WNL Hip Goniometric Range of Motion Hip Left Active Extension 12 Internal Rotation 60 External Rotation 60 Right Active Hip ROM WFL Yes Testing Position Supine Extension 12 Internal Rotation 40 External Rotation 60 Hip ROM Limitations Hip ROM Limitations Soft Tissue Tightness,Muscle Weakness Knee Goniometric Range of Motion Knee Right Knee ROM WFL Yes Patient Position Supine Flexion Active (degrees) 135 Extension Active (degrees) 0 Left Knee ROM WFL Yes Patient Position Supine Flexion Active (degrees) 140 Extension Active (degrees) 0 Ankle and Foot Goniometric Range of Motion Ankle and Foot Left Active Comments B ankle ROM WNL all planes PT-OP-L Special Tests Start: 02/27/20 12:58 Freq: Status: Active Protocol: Document 02/27/20 14:35 AW (Rec: 02/27/20 16:48 AW [email or web address]) Special Tests Hip Special Tests Scour Test Test Results negative bilaterally Knee Special Tests Dony Test Results positive Comments leg elevated from table ~1 bilaterally Milind's Test Test Results positive Comments mildly positive bilaterally ligaments Comments B knees stable in all planes on exam PT-OP-M Strength Start: 02/27/20 12:58 Freq: Status: Active Protocol: Document 02/27/20 14:35 AW (Rec: 02/27/20 15:10 AW [email or web address]) Hip Strength Hip Manual Muscle Testing Right Flexion (L2) 4+ Good+ Extension (S1) 3+ Fair+ Abduction 4- Good- Adduction 4+ Good+ External Rotation 4+ Good+ Internal Rotation 4 Good Left Flexion (L2) 4+ Good+ Extension (S1) 3+ Fair+ Abduction 4- Good- Adduction 4+ Good+ External Rotation 4+ Good+ Internal Rotation 4 Good Knee Strength Knee Manual Muscle Testing Right Flexion (S2) 4+ Good+ Extension (L3) 5 Normal Left Flexion (S2) 4+ Good+ Extension (L3) 5 Normal Ankle/Foot Strength Ankle and Foot Manual Muscle Testing Right Dorsiflexion (L4) 4+ Good+ Plantarflexion (S1) 4+ Good+ Inversion 4+ Good+ Eversion (S1) 4+ Good+ Left Dorsiflexion (L4) 4+ Good+ Plantarflexion (S1) 4+ Good+ Inversion 4+ Good+ Eversion (S1) 4+ Good+ PT-OP-Q Treatments Start: 02/27/20 12:58 Freq: Status: Active Protocol: Document 04/28/20 13:02 LD (Rec: 04/28/20 16:25 LD [id number]) Therapeutic Exercises Standing Exercises lateral step up Standing Exercise Name lateral step up Side right Equipment Used 4 step, pole stick, L hand rail Reps/Minutes 10 x 2 Comments cued weight shift over stance leg prior to knee/hip extension mini squat Standing Exercise Name mini squat Equipment Used TB around knees + mirror Reps/Minutes 10 x 2 Comments good hip hinge form and awareness of knee posture Therapeutic Activity Therapeutic Activity Education on falls/ getting up from floor Reps/Minutes 5 min Comments Performed and educated pt on ways to safely get up from floor, protecting R knee. Neuro Re-Education Treatment Balance Activities SLS Details SLS Surface foam Equipment 4 blue foam; mirror Reps/Duration 12 min Comments Improvement BLE: able to hold 30 sec each LE. Used mirror for visual feedback, cued knee straight, body weight over stance leg, lift other leg, 'tall' posture '. rocker board Details f/b/side wt shifting Equipment rocker board, mirror for feedback of pelvic neutral, balloon for dynamic st Comments 1. f/b/side wt shifting 2. balloon toss for dynamic stability, more unsteadiness w / lateral weightshifting. PT-OP-R Modalities Start: 02/27/20 12:58 Freq: Status: Active Protocol: Document 04/16/20 14:54 AW (Rec: 04/16/20 15:05 AW [email or web address]) Hot Pack/Cold Pack Treatment CP Location R Medial knee jt line Patient Position Hooklying Treatment Duration (minutes) 4 Patient Tolerance Good Comments ice massage to reach numb state; pt tolerated well PT-OP-T Assessment and Plan Start: 02/27/20 12:58 Freq: Status: Active Protocol: Document 04/28/20 13:02 LD (Rec: 04/28/20 16:25 LD [id number]) Physical Therapy Assessment Goals Three Impairment Decreased strength Short Term Goal (STG) Pt will demonstrate hip extension strength 4+ bilaterally 04/09/20 MET STG Duration 04/02/20 [facility] Goal (LTG) Pt will increase SLS to 20 seconds bilaterally without UE support LTG Duration 05/07/20 Two Impairment Pt unable to ambulate >1 block without right knee pain limiting activity. Short Term Goal (STG) Pt will walk 3 blocks without right knee pain 04/09/20 MET - pt reports walking up to 1 mile without pain STG Duration 04/02/20 Sample Mounter Goal (LTG) Pt will be able to walk her dogs for 20 minutes with 1- point or less increase in baseline pain LTG Duration 05/07/20 One Impairment Pt lacks appropriate HEP Short Term Goal (STG) Pt will be independent with HEP for support of therapy services provided in clinic. MET STG Duration 04/02/20 Assessment Summary Assessment Pt is continuosly improving her balance. Initiated balloon toss w/ rockerboard for dynamic stability, challenged by lateral weight shifting. Provided education on how to protect the right knee when getting up from floor, pt requested fall prevention recovery review. Pt utilized a walkiong stick during lateral step up today, to assimulate use w/ broom due to no right HR. Pt didn't comment any pain today. Continue to reasses tolereance of the exercise. Physical Therapy Plan Frequency and Duration Frequency of Treatment 2x/Week Duration of Treatment 10 weeks Plan of Care Start Date 02/27/20 Plan of Care End Date 05/07/20 Therapeutic Interventions Therapeutic Interventions Balance Training,Gait Training ,Home Exercise Program,Joint Mobilizations,Manual Therapy, Neuromuscular Re-education, Patient/Caregiver Education, Self-Care/Home Management,Soft Tissue Mobilization,Taping, Therapeutic Activities, Therapeutic Exercises Modalities Cold Pack/Ice Massage Next Visit Focus/Plan Next Note Type Treatment Note Next Visit Plan Assess response to last tx: mini squats, rocker board w/ balloon toss, SLS, lateral step up. Continue to challenge pt w/ unstable surfaces. Progress note required next appt 05/14.
--- NOTE | 2020-05-14 14:02 | PT.OTN ---
Current Diagnoses Pain in right knee (05/14/20) Difficulty in walking, not elsewhere classified (05/14/20) Physical Therapy Treatment Note PT-OP-A Visit Information Start: 02/27/20 12:58 Freq: Status: Active Protocol: Document 05/14/20 13:48 AW (Rec: 05/14/20 14:02 AW [email or web address]) Out-Patient Physical Therapy Visit Information Visit Information Visit Type Progress Note Visit Start Time 13:00 Visit Stop Time 13:45 Total Visit Minutes 45 Visit Number 17 Number of CONSUMER LOAN PROCESSOR Visits 0 Evaluation Information Evaluation Date 02/27/20 PT-OP-B Current Condition Start: 02/27/20 12:58 Freq: Status: Active Protocol: Document 02/27/20 14:35 AW (Rec: 02/27/20 14:51 AW [id number]) Current Condition History of Current Condition Onset Date last two years Current Complaints right knee pain History of Current Condition Pt reports bilateral knee pain with right worse than left. She used to bowl and landed on right knee >10 years ago. She had no fracture but no longer felt safe bowling. Her pain resolved but has returned over the last few years. She states it is not worsening but it is not improving at all. She does not have pain on waking in the morning. She is able to do light activity without pain. She does note pain with ambulation > 1 block which then bothers her for up to an hour. When asked about pain location, pt points to the inferomedial aspect of the anterior knee. Prior Treatments and Tests x-ray right knee 01/28/20: Bones: No acute fracture or dislocation. There is moderate medial femorotibial compartment narrowing, small intercondylar osteophytes and small tricompartmental osteophytes. Soft tissues: No joint effusion. No suspicious soft tissue calcifications. IMPRESSION: Mild knee osteoarthritis. Pt has been using a prescription topical gel for pain relief but with limited effect. She is not taking any OTC medications. She has had PT before for plantar fasciitis but never for her knee pain. Pt sees a chiropractor monthly for back, hip, and neck pain. 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 Able to walk her dogs without concern for pain. Current Functional Impairments (Reported) Functional Limitations- Mobility/Gait Unable to walk > 1 block without pain. Difficulty managing with dog walking. Personal Factors Other Personal Factors That May Effect + Pt is active and has Therapy/Recovery positive associations with movement, activity, and exercise. PT-OP-C Subjective Start: 02/27/20 12:58 Freq: Status: Active Protocol: Document 05/14/20 13:48 AW (Rec: 05/14/20 14:02 AW [email or web address]) OP-PT Subjective Patient Comments Patient Comments Pt reports overall improvement . Medial knee pain is off and on and worse with inclines or stairs. Patient Reported Progress Improving PT-OP-D Balance Start: 02/27/20 12:58 Freq: Status: Active Protocol: Document 02/27/20 14:35 AW (Rec: 02/27/20 15:07 AW [email or web address]) OP-PT Balance Assessment Standing Balance Static Standing Balance Ability Good Dynamic Standing Balance Ability Good Standing Balance Comments L SLS : 12 sec R SLS: 6 sec Robledo Fall Scale Copyright Permission PT-OP-G Mobility & Gait Start: 02/27/20 12:58 Freq: Status: Active Protocol: Document 02/27/20 14:35 AW (Rec: 02/27/20 15:07 AW [email or web address]) OP Mobility Evaluation Functional Movements Squats able with neutral knee posture but improves with cues for hip hinge OP Gait Assessment Gait Gait Assistance Required: Independent Distance (Feet) 100 Assistive Devices Assistive Device None Orthotic/Prosthetic Devices or Brace: No Gait Deviations General Gait Pattern Within Normal Limits,Decreased Feet Clearance Factors Limiting Gait Function Factors Limiting Gait Function Decreased Strength,Pain Comments Gait Comments Pt with slight genu varus in static and dynamic posture. Pt wears off the shelf shoes inserts bilaterally for arch support. PT-OP-H Neuro Start: 02/27/20 12:58 Freq: Status: Active Protocol: Document 02/27/20 14:35 AW (Rec: 02/27/20 15:07 AW [email or web address]) Sensation Evaluation Gross Sensation Gross Sensation WNL Deep Tendon Reflex & Clonus Assessment Deep Tendon Reflex Bilateral Achilles Deep Tendon Reflex 1+ Diminished Bilateral Patellar Deep Tendon Reflex 1+ Diminished PT-OP-J Posture/Palpation/Skin Start: 02/27/20 12:58 Freq: Status: Active Protocol: Document 02/27/20 14:35 AW (Rec: 02/27/20 15:07 AW [email or web address]) Posture Evaluation Position Standing Pelvis Posture Anteriorly Tilted Hip Posture (R) Externally Rotated Knee Posture (L) Genu Varus,(R) Genu Varus Patellar Posture (L) Neutral,(R) Neutral Ankle/Foot Posture (L) Pronated,(R) Pronated PT-OP-K Range of Motion Start: 02/27/20 12:58 Freq: Status: Active Protocol: Document 02/27/20 14:35 AW (Rec: 02/27/20 15:07 AW [email or web address]) Lumbar Spine Range of Motion Lumbar Spine Active Percentage Comments WNL Hip Goniometric Range of Motion Hip Left Active Extension 12 Internal Rotation 60 External Rotation 60 Right Active Hip ROM WFL Yes Testing Position Supine Extension 12 Internal Rotation 40 External Rotation 60 Hip ROM Limitations Hip ROM Limitations Soft Tissue Tightness,Muscle Weakness Knee Goniometric Range of Motion Knee Right Knee ROM WFL Yes Patient Position Supine Flexion Active (degrees) 135 Extension Active (degrees) 0 Left Knee ROM WFL Yes Patient Position Supine Flexion Active (degrees) 140 Extension Active (degrees) 0 Ankle and Foot Goniometric Range of Motion Ankle and Foot Left Active Comments B ankle ROM WNL all planes PT-OP-L Special Tests Start: 02/27/20 12:58 Freq: Status: Active Protocol: Document 02/27/20 14:35 AW (Rec: 02/27/20 16:48 AW [email or web address]) Special Tests Hip Special Tests Scour Test Test Results negative bilaterally Knee Special Tests Dony Test Results positive Comments leg elevated from table ~1 bilaterally Milind's Test Test Results positive Comments mildly positive bilaterally ligaments Comments B knees stable in all planes on exam PT-OP-M Strength Start: 02/27/20 12:58 Freq: Status: Active Protocol: Document 02/27/20 14:35 AW (Rec: 02/27/20 15:10 AW [email or web address]) Hip Strength Hip Manual Muscle Testing Right Flexion (L2) 4+ Good+ Extension (S1) 3+ Fair+ Abduction 4- Good- Adduction 4+ Good+ External Rotation 4+ Good+ Internal Rotation 4 Good Left Flexion (L2) 4+ Good+ Extension (S1) 3+ Fair+ Abduction 4- Good- Adduction 4+ Good+ External Rotation 4+ Good+ Internal Rotation 4 Good Knee Strength Knee Manual Muscle Testing Right Flexion (S2) 4+ Good+ Extension (L3) 5 Normal Left Flexion (S2) 4+ Good+ Extension (L3) 5 Normal Ankle/Foot Strength Ankle and Foot Manual Muscle Testing Right Dorsiflexion (L4) 4+ Good+ Plantarflexion (S1) 4+ Good+ Inversion 4+ Good+ Eversion (S1) 4+ Good+ Left Dorsiflexion (L4) 4+ Good+ Plantarflexion (S1) 4+ Good+ Inversion 4+ Good+ Eversion (S1) 4+ Good+ PT-OP-Q Treatments Start: 02/27/20 12:58 Freq: Status: Active Protocol: Document 05/14/20 13:48 AW (Rec: 05/14/20 14:02 AW [email or web address]) Therapeutic Exercises Supine Exercises 4 Supine Exercise Name bridge with abd TB Resistance level 2 Equipment Used TB Reps/Minutes 5SH x 15 Comments good TA and glut facilitation (no medial knee pain) Standing Exercises lateral step up Standing Exercise Name lateral step up Side right Equipment Used 4 step, hand rail Reps/Minutes 10 x 2 Comments cued weight shift over stance leg prior to knee/hip extension Concentric/eccentric calf raises Side bilateral Equipment Used stairs Reps/Minutes 10x bilateral, 10x unilateral each LE TKE Standing Exercise Name Discussed but not performed- Yes perform B at home Side right Resistance Tb #2 Reps/Minutes 5 sec hold x10; 2 sets Comments minimal cueing; no pain resisted hip extension Standing Exercise Name resisted hip extension Side left Resistance orange cord on wall Reps/Minutes x10 Comments RLE with pt c/o medial knee pain; d/c'ed band walk Standing Exercise Name f/b/side stepping ( review HEP ) Resistance green loop Reps/Minutes 20 ft x2 laps each Comments cued soft knee // with toes, level pelvis Manual Therapy Treatment Soft Tissue Mobilization R medial quad Body Location R medial quad Mobilization Type Cross-Friction,Myofascial Release Intensity/Depth Moderate Body Position Hooklying R medial gastroc Body Location R medial gastroc Mobilization Type Cross-Friction,Myofascial Release,Trigger Point Release Intensity/Depth Moderate Body Position Hooklying Comments trigger point with improvement following STM PT-OP-R Modalities Start: 02/27/20 12:58 Freq: Status: Active Protocol: Document 04/16/20 14:54 AW (Rec: 04/16/20 15:05 AW [email or web address]) Hot Pack/Cold Pack Treatment CP Location R Medial knee jt line Patient Position Hooklying Treatment Duration (minutes) 4 Patient Tolerance Good Comments ice massage to reach numb state; pt tolerated well PT-OP-T Assessment and Plan Start: 02/27/20 12:58 Freq: Status: Active Protocol: Document 05/14/20 13:48 AW (Rec: 05/14/20 14:02 AW [email or web address]) Physical Therapy Assessment Rehab Potential Rehabilitation Potential Good Evaluation Complexity Number of Personal Factors/Comorbidities 0 Number of Body Systems Impaired 1-2 Clinical Presentation at Evaluation Stable Impairments Impairments Balance,Functional Activities, Gait,Pain,Posture,ROM,Soft Tissue Mobility,Strength Goals Four Impairment single leg balance Facility Specialist Goal (LTG) Pt will be able to perform RLE single leg squat from 21 height with good stability. LTG Duration 08/11/20 Three Impairment Decreased strength Short Term Goal (STG) Pt will demonstrate hip extension strength 4+ bilaterally 04/09/20 MET STG Duration 04/02/20 Penitentiary Goal (LTG) Pt will increase SLS to 20 seconds bilaterally without UE support 05/14/20 MET LTG Duration 05/07/20 Two Impairment Pt unable to ambulate >1 block without right knee pain limiting activity. Short Term Goal (STG) Pt will walk 3 blocks without right knee pain 04/09/20 MET - pt reports walking up to 1 mile without pain STG Duration 04/02/20 Penitentiary Goal (LTG) Pt will be able to walk her dogs for 60 minutes with 1- point or less increase in baseline pain LTG Duration 08/11/20 One Impairment Pt lacks appropriate HEP Short Term Goal (STG) Pt will be independent with HEP for support of therapy services provided in clinic. MET STG Duration 04/02/20 Progress Towards Goals Progress Towards Goals Progressing Toward Goals Progress Comments Pt has progressed by decreasing pain symptoms overall but remains challenged by inclines and longer distance ambulation on flat terrain. Pt would benefit from further PT to address hip strength, ROM, and balance deficits for ability to return to regular activity. Assessment Summary Assessment Static single leg balance has improved greatly but pt remains challenged with single leg squat from a high chair surface (21). Will continue to work on hip strength, hip extension ROM, and dynamic stability. Physical Therapy Plan Frequency and Duration Frequency of Treatment 2x/Week Duration of Treatment 3 months Plan of Care Start Date 05/14/20 Plan of Care End Date 08/11/20 Therapeutic Interventions Therapeutic Interventions Balance Training,Gait Training ,Home Exercise Program,Joint Mobilizations,Manual Therapy, Neuromuscular Re-education, Patient/Caregiver Education, Self-Care/Home Management,Soft Tissue Mobilization,Taping, Therapeutic Activities, Therapeutic Exercises Modalities Cold Pack/Ice Massage Next Visit Focus/Plan Next Note Type Treatment Note Next Visit Plan Continue dynamic stability training for right knee. May need to dial back exercises depending on pain presentation .
--- NOTE | 2020-05-14 14:03 | PT.OPPOC ---
Physical, Occupational & Speech Therapy At [facility] Current Diagnoses Pain in right knee (05/14/20) Difficulty in walking, not elsewhere classified (05/14/20) Visit Care Team Role Provider Type BECKY Kline Attending Provider Advanced Clock Smith Family Provider Primary Care Provider Referring Provider Specialty: Family Practice Address: [address] [place] [address], [facility] Email: [email or web address] Plan Of Care PT-OP-T Assessment and Plan Start: 02/27/20 12:58 Freq: Status: Active Protocol: Document 05/14/20 13:48 AW (Rec: 05/14/20 14:02 AW [email or web address]) Physical Therapy Assessment Rehab Potential Rehabilitation Potential Good Evaluation Complexity Number of Personal Factors/Comorbidities 0 Number of Body Systems Impaired 1-2 Clinical Presentation at Evaluation Stable Impairments Impairments Balance,Functional Activities, Gait,Pain,Posture,ROM,Soft Tissue Mobility,Strength Goals Four Impairment single leg balance Fpc Goal (LTG) Pt will be able to perform RLE single leg squat from 21 height with good stability. LTG Duration 08/11/20 Three Impairment Decreased strength Short Term Goal (STG) Pt will demonstrate hip extension strength 4+ bilaterally 04/09/20 MET STG Duration 04/02/20 Spinner Iron Goal (LTG) Pt will increase SLS to 20 seconds bilaterally without UE support 05/14/20 MET LTG Duration 05/07/20 Two Impairment Pt unable to ambulate >1 block without right knee pain limiting activity. Short Term Goal (STG) Pt will walk 3 blocks without right knee pain 04/09/20 MET - pt reports walking up to 1 mile without pain STG Duration 04/02/20 Fpc Goal (LTG) Pt will be able to walk her dogs for 60 minutes with 1- point or less increase in baseline pain LTG Duration 08/11/20 One Impairment Pt lacks appropriate HEP Short Term Goal (STG) Pt will be independent with HEP for support of therapy services provided in clinic. MET STG Duration 04/02/20 Progress Towards Goals Progress Towards Goals Progressing Toward Goals Progress Comments Pt has progressed by decreasing pain symptoms overall but remains challenged by inclines and longer distance ambulation on flat terrain. Pt would benefit from further PT to address hip strength, ROM, and balance deficits for ability to return to regular activity. Assessment Summary Assessment Static single leg balance has improved greatly but pt remains challenged with single leg squat from a high chair surface (21). Will continue to work on hip strength, hip extension ROM, and dynamic stability. Physical Therapy Plan Frequency and Duration Frequency of Treatment 2x/Week Duration of Treatment 3 months Plan of Care Start Date 05/14/20 Plan of Care End Date 08/11/20 Therapeutic Interventions Therapeutic Interventions Balance Training,Gait Training ,Home Exercise Program,Joint Mobilizations,Manual Therapy, Neuromuscular Re-education, Patient/Caregiver Education, Self-Care/Home Management,Soft Tissue Mobilization,Taping, Therapeutic Activities, Therapeutic Exercises Modalities Cold Pack/Ice Massage Next Visit Focus/Plan Next Note Type Treatment Note Next Visit Plan Continue dynamic stability training for right knee. May need to dial back exercises depending on pain presentation . Plan of Care Dates Plan of Care Start Date 05/14/20 Plan of Care End Date 08/11/20 Electronically Signed by: Zoya Snow, PT 05/14/20 [id number] Please Sign and Return: I have reviewed this Plan of Care and certify that the skilled therapy services above are required to meet the patient?s needs. Physician Signature Date Printed Name and Credentials Clinical Instructor Signature Printed Name and Credentials
--- NOTE | 2020-05-19 13:46 | PT.OTN ---
Current Diagnoses Pain in right knee (05/19/20) Difficulty in walking, not elsewhere classified (05/19/20) Physical Therapy Treatment Note PT-OP-A Visit Information Start: 02/27/20 12:58 Freq: Status: Active Protocol: Document 05/19/20 13:01 SP (Rec: 05/19/20 14:08 SP [id number]) Out-Patient Physical Therapy Visit Information Visit Information Visit Type Treatment Note Visit Note DENVERA Lilliana assisted durign tx as needed. Visit Start Time 13:01 Visit Stop Time 13:46 Total Visit Minutes 45 Visit Number 18 Number of DUMPER OPERATOR Visits 1 PT-OP-B Current Condition Start: 02/27/20 12:58 Freq: Status: Active Protocol: Document 02/27/20 14:35 AW (Rec: 02/27/20 14:51 AW [id number]) Current Condition History of Current Condition Onset Date last two years Current Complaints right knee pain History of Current Condition Pt reports bilateral knee pain with right worse than left. She used to bowl and landed on right knee >10 years ago. She had no fracture but no longer felt safe bowling. Her pain resolved but has returned over the last few years. She states it is not worsening but it is not improving at all. She does not have pain on waking in the morning. She is able to do light activity without pain. She does note pain with ambulation > 1 block which then bothers her for up to an hour. When asked about pain location, pt points to the inferomedial aspect of the anterior knee. Prior Treatments and Tests x-ray right knee 01/28/20: Bones: No acute fracture or dislocation. There is moderate medial femorotibial compartment narrowing, small intercondylar osteophytes and small tricompartmental osteophytes. Soft tissues: No joint effusion. No suspicious soft tissue calcifications. IMPRESSION: Mild knee osteoarthritis. Pt has been using a prescription topical gel for pain relief but with limited effect. She is not taking any OTC medications. She has had PT before for plantar fasciitis but never for her knee pain. Pt sees a chiropractor monthly for back, hip, and neck pain. 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 Baseline Function- Recreation/Hobbies Walking for exercise without pain. Able to walk her dogs without concern for pain. Current Functional Impairments (Reported) Functional Limitations- Mobility/Gait Unable to walk > 1 block without pain. Difficulty managing with dog walking. Personal Factors Other Personal Factors That May Effect + Pt is active and has Therapy/Recovery positive associations with movement, activity, and exercise. PT-OP-C Subjective Start: 02/27/20 12:58 Freq: Status: Active Protocol: Document 05/19/20 13:01 SP (Rec: 05/19/20 14:08 SP [id number]) OP-PT Subjective Patient Comments Patient Comments Pt stated is getting some aching pain over anteromedial proximal tibia, knows it's there but so much better than when first started PT, is improving. Patient Reported Progress Improving PT-OP-D Balance Start: 02/27/20 12:58 Freq: Status: Active Protocol: Document 02/27/20 14:35 AW (Rec: 02/27/20 15:07 AW [email or web address]) OP-PT Balance Assessment Standing Balance Static Standing Balance Ability Good Dynamic Standing Balance Ability Good Standing Balance Comments L SLS : 12 sec R SLS: 6 sec Robledo Fall Scale Copyright Permission PT-OP-G Mobility & Gait Start: 02/27/20 12:58 Freq: Status: Active Protocol: Document 02/27/20 14:35 AW (Rec: 02/27/20 15:07 AW [email or web address]) OP Mobility Evaluation Functional Movements Squats able with neutral knee posture but improves with cues for hip hinge OP Gait Assessment Gait Gait Assistance Required: Independent Distance (Feet) 100 Assistive Devices Assistive Device None Orthotic/Prosthetic Devices or Brace: No Gait Deviations General Gait Pattern Within Normal Limits,Decreased Feet Clearance Factors Limiting Gait Function Factors Limiting Gait Function Decreased Strength,Pain Comments Gait Comments Pt with slight genu varus in static and dynamic posture. Pt wears off the shelf shoes inserts bilaterally for arch support. PT-OP-H Neuro Start: 02/27/20 12:58 Freq: Status: Active Protocol: Document 02/27/20 14:35 AW (Rec: 02/27/20 15:07 AW [email or web address]) Sensation Evaluation Gross Sensation Gross Sensation WNL Deep Tendon Reflex & Clonus Assessment Deep Tendon Reflex Bilateral Achilles Deep Tendon Reflex 1+ Diminished Bilateral Patellar Deep Tendon Reflex 1+ Diminished PT-OP-J Posture/Palpation/Skin Start: 02/27/20 12:58 Freq: Status: Active Protocol: Document 02/27/20 14:35 AW (Rec: 02/27/20 15:07 AW [email or web address]) Posture Evaluation Position Standing Pelvis Posture Anteriorly Tilted Hip Posture (R) Externally Rotated Knee Posture (L) Genu Varus,(R) Genu Varus Patellar Posture (L) Neutral,(R) Neutral Ankle/Foot Posture (L) Pronated,(R) Pronated PT-OP-K Range of Motion Start: 02/27/20 12:58 Freq: Status: Active Protocol: Document 02/27/20 14:35 AW (Rec: 02/27/20 15:07 AW [email or web address]) Lumbar Spine Range of Motion Lumbar Spine Active Percentage Comments WNL Hip Goniometric Range of Motion Hip Left Active Extension 12 Internal Rotation 60 External Rotation 60 Right Active Hip ROM WFL Yes Testing Position Supine Extension 12 Internal Rotation 40 External Rotation 60 Hip ROM Limitations Hip ROM Limitations Soft Tissue Tightness,Muscle Weakness Knee Goniometric Range of Motion Knee Right Knee ROM WFL Yes Patient Position Supine Flexion Active (degrees) 135 Extension Active (degrees) 0 Left Knee ROM WFL Yes Patient Position Supine Flexion Active (degrees) 140 Extension Active (degrees) 0 Ankle and Foot Goniometric Range of Motion Ankle and Foot Left Active Comments B ankle ROM WNL all planes PT-OP-L Special Tests Start: 02/27/20 12:58 Freq: Status: Active Protocol: Document 02/27/20 14:35 AW (Rec: 02/27/20 16:48 AW [email or web address]) Special Tests Hip Special Tests Scour Test Test Results negative bilaterally Knee Special Tests Dony Test Results positive Comments leg elevated from table ~1 bilaterally Milind's Test Test Results positive Comments mildly positive bilaterally ligaments Comments B knees stable in all planes on exam PT-OP-M Strength Start: 02/27/20 12:58 Freq: Status: Active Protocol: Document 02/27/20 14:35 AW (Rec: 02/27/20 15:10 AW [email or web address]) Hip Strength Hip Manual Muscle Testing Right Flexion (L2) 4+ Good+ Extension (S1) 3+ Fair+ Abduction 4- Good- Adduction 4+ Good+ External Rotation 4+ Good+ Internal Rotation 4 Good Left Flexion (L2) 4+ Good+ Extension (S1) 3+ Fair+ Abduction 4- Good- Adduction 4+ Good+ External Rotation 4+ Good+ Internal Rotation 4 Good Knee Strength Knee Manual Muscle Testing Right Flexion (S2) 4+ Good+ Extension (L3) 5 Normal Left Flexion (S2) 4+ Good+ Extension (L3) 5 Normal Ankle/Foot Strength Ankle and Foot Manual Muscle Testing Right Dorsiflexion (L4) 4+ Good+ Plantarflexion (S1) 4+ Good+ Inversion 4+ Good+ Eversion (S1) 4+ Good+ Left Dorsiflexion (L4) 4+ Good+ Plantarflexion (S1) 4+ Good+ Inversion 4+ Good+ Eversion (S1) 4+ Good+ PT-OP-Q Treatments Start: 02/27/20 12:58 Freq: Status: Active Protocol: Document 05/19/20 13:01 SP (Rec: 05/19/20 14:08 SP [id number]) Cardio Equipment Treadmill Duration (Minutes) 10 Speed 1.0-1.6 Incline 0>0.5%> 0 Other no contact needed Therapeutic Exercises Standing Exercises single leg squat to 21 chair Equipment Used 20 height chair Reps/Minutes x10 Comments cued foot under and hip hinge, buttocks back con/eccentric lateral step up Standing Exercise Name lateral step up -no pain Side right Equipment Used 6 step, hand rail Reps/Minutes 10 x 2 Comments cued weight shift over stance leg prior to knee/hip extension Other Exercises rolling pin Other Exercise Name quad Reps/Minutes 1 min tota Comments cued rolling or rocking side to side tolerance and benefits Manual Therapy Treatment Taping patellar tendon/fat pad taping Body Location R anterior knee Treatment Focus decrease anteromedial achy/ pain Type of Tape [place] Skin Inspection intact, normal color Comments little pocket edema R very little more than L. Cover roll and leukotape decompress patellar tendon. PT-OP-R Modalities Start: 02/27/20 12:58 Freq: Status: Active Protocol: Document 04/16/20 14:54 AW (Rec: 04/16/20 15:05 AW [email or web address]) Hot Pack/Cold Pack Treatment CP Location R Medial knee jt line Patient Position Hooklying Treatment Duration (minutes) 4 Patient Tolerance Good Comments ice massage to reach numb state; pt tolerated well PT-OP-T Assessment and Plan Start: 02/27/20 12:58 Freq: Status: Active Protocol: Document 05/19/20 13:01 SP (Rec: 05/19/20 14:08 SP [id number]) Physical Therapy Assessment Goals Four Impairment single leg balance Electricity Trader Goal (LTG) Pt will be able to perform RLE single leg squat from 21 height with good stability. LTG Duration 08/11/20 Three Impairment Decreased strength Short Term Goal (STG) Pt will demonstrate hip extension strength 4+ bilaterally 04/09/20 MET STG Duration 04/02/20 Mcfp Goal (LTG) Pt will increase SLS to 20 seconds bilaterally without UE support 05/14/20 MET LTG Duration 05/07/20 Two Impairment Pt unable to ambulate >1 block without right knee pain limiting activity. Short Term Goal (STG) Pt will walk 3 blocks without right knee pain 04/09/20 MET - pt reports walking up to 1 mile without pain STG Duration 04/02/20 Electricity Trader Goal (LTG) Pt will be able to walk her dogs for 60 minutes with 1- point or less increase in baseline pain LTG Duration 08/11/20 One Impairment Pt lacks appropriate HEP Short Term Goal (STG) Pt will be independent with HEP for support of therapy services provided in clinic. MET STG Duration 04/02/20 Assessment Summary Assessment Pt commented when added incline on TM notices increase achy pain over anterior medial tibia, better on 0% incline. Extra time spent with new activity assessed last tx : single leg sit to stand with improvement in ability arrise from 20 raised table post cuing for hip hinge and posterior chain facilitation and awareness of knee with mid foot alignment with improved muscle recruitment reported more mid to upper quad and glut, no front knee pain. Pt continues to have no knee pain in lateral step. Physical Therapy Plan Frequency and Duration Frequency of Treatment 2x/Week Duration of Treatment 3 months Plan of Care Start Date 05/14/20 Plan of Care End Date 08/11/20 Therapeutic Interventions Therapeutic Interventions Balance Training,Gait Training ,Home Exercise Program,Joint Mobilizations,Manual Therapy, Neuromuscular Re-education, Patient/Caregiver Education, Self-Care/Home Management,Soft Tissue Mobilization,Taping, Therapeutic Activities, Therapeutic Exercises Modalities Cold Pack/Ice Massage Next Visit Focus/Plan Next Note Type Treatment Note Next Visit Plan Assess response of last tx: lat step ups, single leg sit < > stand. Continue per PT POC: dynamic stability training for right knee. May need to dial back exercises depending on pain presentation.
--- NOTE | 2020-05-21 17:31 | PT.OTN ---
Current Diagnoses Pain in right knee (05/21/20) Difficulty in walking, not elsewhere classified (05/21/20) Physical Therapy Treatment Note PT-OP-A Visit Information Start: 02/27/20 12:58 Freq: Status: Active Protocol: Document 05/21/20 17:26 AW (Rec: 05/21/20 17:31 AW [email or web address]) Out-Patient Physical Therapy Visit Information Visit Information Visit Type Treatment Note Visit Start Time 13:00 Visit Stop Time 13:45 Total Visit Minutes 45 Visit Number 19 Number of IT HELP DESK ANALYST Visits 0 Evaluation Information Evaluation Date 02/27/20 PT-OP-B Current Condition Start: 02/27/20 12:58 Freq: Status: Active Protocol: Document 02/27/20 14:35 AW (Rec: 02/27/20 14:51 AW [id number]) Current Condition History of Current Condition Onset Date last two years Current Complaints right knee pain History of Current Condition Pt reports bilateral knee pain with right worse than left. She used to bowl and landed on right knee >10 years ago. She had no fracture but no longer felt safe bowling. Her pain resolved but has returned over the last few years. She states it is not worsening but it is not improving at all. She does not have pain on waking in the morning. She is able to do light activity without pain. She does note pain with ambulation > 1 block which then bothers her for up to an hour. When asked about pain location, pt points to the inferomedial aspect of the anterior knee. Prior Treatments and Tests x-ray right knee 01/28/20: Bones: No acute fracture or dislocation. There is moderate medial femorotibial compartment narrowing, small intercondylar osteophytes and small tricompartmental osteophytes. Soft tissues: No joint effusion. No suspicious soft tissue calcifications. IMPRESSION: Mild knee osteoarthritis. Pt has been using a prescription topical gel for pain relief but with limited effect. She is not taking any OTC medications. She has had PT before for plantar fasciitis but never for her knee pain. Pt sees a chiropractor monthly for back, hip, and neck pain. 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 Baseline Function- Recreation/Hobbies Walking for exercise without pain. Able to walk her dogs without concern for pain. Current Functional Impairments (Reported) Functional Limitations- Mobility/Gait Unable to walk > 1 block without pain. Difficulty managing with dog walking. Personal Factors Other Personal Factors That May Effect + Pt is active and has Therapy/Recovery positive associations with movement, activity, and exercise. PT-OP-C Subjective Start: 02/27/20 12:58 Freq: Status: Active Protocol: Document 05/21/20 17:26 AW (Rec: 05/21/20 17:31 AW [email or web address]) OP-PT Subjective Patient Comments Patient Comments Pt reports anteromedial knee pain worse after long periods of inactivity and after long walks. Patient Reported Progress Improving PT-OP-D Balance Start: 02/27/20 12:58 Freq: Status: Active Protocol: Document 02/27/20 14:35 AW (Rec: 02/27/20 15:07 AW [email or web address]) OP-PT Balance Assessment Standing Balance Static Standing Balance Ability Good Dynamic Standing Balance Ability Good Standing Balance Comments L SLS : 12 sec R SLS: 6 sec Robledo Fall Scale Copyright Permission PT-OP-G Mobility & Gait Start: 02/27/20 12:58 Freq: Status: Active Protocol: Document 02/27/20 14:35 AW (Rec: 02/27/20 15:07 AW [email or web address]) OP Mobility Evaluation Functional Movements Squats able with neutral knee posture but improves with cues for hip hinge OP Gait Assessment Gait Gait Assistance Required: Independent Distance (Feet) 100 Assistive Devices Assistive Device None Orthotic/Prosthetic Devices or Brace: No Gait Deviations General Gait Pattern Within Normal Limits,Decreased Feet Clearance Factors Limiting Gait Function Factors Limiting Gait Function Decreased Strength,Pain Comments Gait Comments Pt with slight genu varus in static and dynamic posture. Pt wears off the shelf shoes inserts bilaterally for arch support. PT-OP-H Neuro Start: 02/27/20 12:58 Freq: Status: Active Protocol: Document 02/27/20 14:35 AW (Rec: 02/27/20 15:07 AW [email or web address]) Sensation Evaluation Gross Sensation Gross Sensation WNL Deep Tendon Reflex & Clonus Assessment Deep Tendon Reflex Bilateral Achilles Deep Tendon Reflex 1+ Diminished Bilateral Patellar Deep Tendon Reflex 1+ Diminished PT-OP-J Posture/Palpation/Skin Start: 02/27/20 12:58 Freq: Status: Active Protocol: Document 02/27/20 14:35 AW (Rec: 02/27/20 15:07 AW [email or web address]) Posture Evaluation Position Standing Pelvis Posture Anteriorly Tilted Hip Posture (R) Externally Rotated Knee Posture (L) Genu Varus,(R) Genu Varus Patellar Posture (L) Neutral,(R) Neutral Ankle/Foot Posture (L) Pronated,(R) Pronated PT-OP-K Range of Motion Start: 02/27/20 12:58 Freq: Status: Active Protocol: Document 02/27/20 14:35 AW (Rec: 02/27/20 15:07 AW [email or web address]) Lumbar Spine Range of Motion Lumbar Spine Active Percentage Comments WNL Hip Goniometric Range of Motion Hip Left Active Extension 12 Internal Rotation 60 External Rotation 60 Right Active Hip ROM WFL Yes Testing Position Supine Extension 12 Internal Rotation 40 External Rotation 60 Hip ROM Limitations Hip ROM Limitations Soft Tissue Tightness,Muscle Weakness Knee Goniometric Range of Motion Knee Right Knee ROM WFL Yes Patient Position Supine Flexion Active (degrees) 135 Extension Active (degrees) 0 Left Knee ROM WFL Yes Patient Position Supine Flexion Active (degrees) 140 Extension Active (degrees) 0 Ankle and Foot Goniometric Range of Motion Ankle and Foot Left Active Comments B ankle ROM WNL all planes PT-OP-L Special Tests Start: 02/27/20 12:58 Freq: Status: Active Protocol: Document 02/27/20 14:35 AW (Rec: 02/27/20 16:48 AW [email or web address]) Special Tests Hip Special Tests Scour Test Test Results negative bilaterally Knee Special Tests Dony Test Results positive Comments leg elevated from table ~1 bilaterally Milind's Test Test Results positive Comments mildly positive bilaterally ligaments Comments B knees stable in all planes on exam PT-OP-M Strength Start: 02/27/20 12:58 Freq: Status: Active Protocol: Document 02/27/20 14:35 AW (Rec: 02/27/20 15:10 AW [email or web address]) Hip Strength Hip Manual Muscle Testing Right Flexion (L2) 4+ Good+ Extension (S1) 3+ Fair+ Abduction 4- Good- Adduction 4+ Good+ External Rotation 4+ Good+ Internal Rotation 4 Good Left Flexion (L2) 4+ Good+ Extension (S1) 3+ Fair+ Abduction 4- Good- Adduction 4+ Good+ External Rotation 4+ Good+ Internal Rotation 4 Good Knee Strength Knee Manual Muscle Testing Right Flexion (S2) 4+ Good+ Extension (L3) 5 Normal Left Flexion (S2) 4+ Good+ Extension (L3) 5 Normal Ankle/Foot Strength Ankle and Foot Manual Muscle Testing Right Dorsiflexion (L4) 4+ Good+ Plantarflexion (S1) 4+ Good+ Inversion 4+ Good+ Eversion (S1) 4+ Good+ Left Dorsiflexion (L4) 4+ Good+ Plantarflexion (S1) 4+ Good+ Inversion 4+ Good+ Eversion (S1) 4+ Good+ PT-OP-Q Treatments Start: 02/27/20 12:58 Freq: Status: Active Protocol: Document 05/21/20 13:45 AW (Rec: 05/21/20 13:50 AW [id number]) Cardio Equipment Bicycle (Upright) Duration (Minutes) 6 Resistance 9 Seat Position min Gym Equipment Shuttle Recovery Bilateral Squats Resistance 75 Shuttle Recovery Platform Stable,Unstable Reps/Time 2 x 10 stable; 1 x 10 unstable Shuttle Balance red Details WBOS, NBOS Reps/Duration 8 min Comments + mini squats Therapeutic Exercises Standing Exercises mini squat Standing Exercise Name mini squat Reps/Minutes 10 x 2 Comments good hip hinge form and awareness of knee posture Concentric/eccentric calf raises Side bilateral Equipment Used stairs Reps/Minutes 10x bilateral, 10x unilateral each LE resisted hip extension Standing Exercise Name bodyweight hip extension Side bilateral Reps/Minutes 10 Comments improved with no resistance Manual Therapy Treatment Soft Tissue Mobilization R medial quad Body Location R medial quad, HS Mobilization Type Cross-Friction,Myofascial Release Intensity/Depth Moderate Body Position Hooklying Comments trigger point vs cyst R medial hamstring R medial gastroc Body Location R medial gastroc Mobilization Type Cross-Friction,Myofascial Release,Trigger Point Release Intensity/Depth Moderate Body Position Hooklying PT-OP-R Modalities Start: 02/27/20 12:58 Freq: Status: Active Protocol: Document 04/16/20 14:54 AW (Rec: 04/16/20 15:05 AW [email or web address]) Hot Pack/Cold Pack Treatment CP Location R Medial knee jt line Patient Position Hooklying Treatment Duration (minutes) 4 Patient Tolerance Good Comments ice massage to reach numb state; pt tolerated well PT-OP-T Assessment and Plan Start: 02/27/20 12:58 Freq: Status: Active Protocol: Document 05/21/20 17:26 AW (Rec: 05/21/20 17:31 AW [email or web address]) Physical Therapy Assessment Impairments Impairments Balance,Functional Activities, Gait,Pain,Posture,ROM,Soft Tissue Mobility,Strength Goals Four Impairment single leg balance Retirement Goal (LTG) Pt will be able to perform RLE single leg squat from 21 height with good stability. LTG Duration 08/11/20 Three Impairment Decreased strength Short Term Goal (STG) Pt will demonstrate hip extension strength 4+ bilaterally 04/09/20 MET STG Duration 04/02/20 Payroll Accounting Manager Goal (LTG) Pt will increase SLS to 20 seconds bilaterally without UE support 05/14/20 MET LTG Duration 05/07/20 Two Impairment Pt unable to ambulate >1 block without right knee pain limiting activity. Short Term Goal (STG) Pt will walk 3 blocks without right knee pain 04/09/20 MET - pt reports walking up to 1 mile without pain STG Duration 04/02/20 Payroll Accounting Manager Goal (LTG) Pt will be able to walk her dogs for 60 minutes with 1- point or less increase in baseline pain LTG Duration 08/11/20 One Impairment Pt lacks appropriate HEP Short Term Goal (STG) Pt will be independent with HEP for support of therapy services provided in clinic. MET STG Duration 04/02/20 Assessment Summary Assessment Pt tolerated bike today but lowest seat setting is slightly too high so will discontinue. Pt has continued pocket of swelling at anteromedial knee and pain first thing in the morning and after long walks. Physical Therapy Plan Frequency and Duration Frequency of Treatment 2x/Week Duration of Treatment 3 months Plan of Care Start Date 05/14/20 Plan of Care End Date 08/11/20 Therapeutic Interventions Therapeutic Interventions Balance Training,Gait Training ,Home Exercise Program,Joint Mobilizations,Manual Therapy, Neuromuscular Re-education, Patient/Caregiver Education, Self-Care/Home Management,Soft Tissue Mobilization,Taping, Therapeutic Activities, Therapeutic Exercises Modalities Cold Pack/Ice Massage Next Visit Focus/Plan Next Note Type Treatment Note Next Visit Plan Assess response of last tx: STM medial HS, quad, gastroc. Continue per PT POC: dynamic stability training for right knee. May need to dial back exercises depending on pain presentation.
--- NOTE | 2020-05-28 12:14 | PT.OTN ---
Current Diagnoses Pain in right knee (05/28/20) Difficulty in walking, not elsewhere classified (05/28/20) Physical Therapy Treatment Note PT-OP-A Visit Information Start: 02/27/20 12:58 Freq: Status: Active Protocol: Document 05/28/20 12:02 AW (Rec: 05/28/20 12:14 AW [email or web address]) Out-Patient Physical Therapy Visit Information Visit Information Visit Type Treatment Note Visit Start Time 11:15 Visit Stop Time 12:00 Total Visit Minutes 45 Visit Number 20 Number of SUPERVISOR RESEARCH [employer]OP Visits 0 Evaluation Information Evaluation Date 02/27/20 PT-OP-B Current Condition Start: 02/27/20 12:58 Freq: Status: Active Protocol: Document 02/27/20 14:35 AW (Rec: 02/27/20 14:51 AW [id number]) Current Condition History of Current Condition Onset Date last two years Current Complaints right knee pain History of Current Condition Pt reports bilateral knee pain with right worse than left. She used to bowl and landed on right knee >10 years ago. She had no fracture but no longer felt safe bowling. Her pain resolved but has returned over the last few years. She states it is not worsening but it is not improving at all. She does not have pain on waking in the morning. She is able to do light activity without pain. She does note pain with ambulation > 1 block which then bothers her for up to an hour. When asked about pain location, pt points to the inferomedial aspect of the anterior knee. Prior Treatments and Tests x-ray right knee 01/28/20: Bones: No acute fracture or dislocation. There is moderate medial femorotibial compartment narrowing, small intercondylar osteophytes and small tricompartmental osteophytes. Soft tissues: No joint effusion. No suspicious soft tissue calcifications. IMPRESSION: Mild knee osteoarthritis. Pt has been using a prescription topical gel for pain relief but with limited effect. She is not taking any OTC medications. She has had PT before for plantar fasciitis but never for her knee pain. Pt sees a chiropractor monthly for back, hip, and neck pain. 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 Able to walk her dogs without concern for pain. Current Functional Impairments (Reported) Functional Limitations- Mobility/Gait Unable to walk > 1 block without pain. Difficulty managing with dog walking. Personal Factors Other Personal Factors That May Effect + Pt is active and has Therapy/Recovery positive associations with movement, activity, and exercise. PT-OP-C Subjective Start: 02/27/20 12:58 Freq: Status: Active Protocol: Document 05/28/20 12:02 AW (Rec: 05/28/20 12:14 AW [email or web address]) OP-PT Subjective Patient Comments Patient Comments Pt walked >40 blocks today without significant increase in pain. Pt reports symptoms as irritation. PT-OP-D Balance Start: 02/27/20 12:58 Freq: Status: Active Protocol: Document 02/27/20 14:35 AW (Rec: 02/27/20 15:07 AW [email or web address]) OP-PT Balance Assessment Standing Balance Static Standing Balance Ability Good Dynamic Standing Balance Ability Good Standing Balance Comments L SLS : 12 sec R SLS: 6 sec Robledo Fall Scale Copyright Permission PT-OP-G Mobility & Gait Start: 02/27/20 12:58 Freq: Status: Active Protocol: Document 02/27/20 14:35 AW (Rec: 02/27/20 15:07 AW [email or web address]) OP Mobility Evaluation Functional Movements Squats able with neutral knee posture but improves with cues for hip hinge OP Gait Assessment Gait Gait Assistance Required: Independent Distance (Feet) 100 Assistive Devices Assistive Device None Orthotic/Prosthetic Devices or Brace: No Gait Deviations General Gait Pattern Within Normal Limits,Decreased Feet Clearance Factors Limiting Gait Function Factors Limiting Gait Function Decreased Strength,Pain Comments Gait Comments Pt with slight genu varus in static and dynamic posture. Pt wears off the shelf shoes inserts bilaterally for arch support. PT-OP-H Neuro Start: 02/27/20 12:58 Freq: Status: Active Protocol: Document 02/27/20 14:35 AW (Rec: 02/27/20 15:07 AW [email or web address]) Sensation Evaluation Gross Sensation Gross Sensation WNL Deep Tendon Reflex & Clonus Assessment Deep Tendon Reflex Bilateral Achilles Deep Tendon Reflex 1+ Diminished Bilateral Patellar Deep Tendon Reflex 1+ Diminished PT-OP-J Posture/Palpation/Skin Start: 02/27/20 12:58 Freq: Status: Active Protocol: Document 02/27/20 14:35 AW (Rec: 02/27/20 15:07 AW [email or web address]) Posture Evaluation Position Standing Pelvis Posture Anteriorly Tilted Hip Posture (R) Externally Rotated Knee Posture (L) Genu Varus,(R) Genu Varus Patellar Posture (L) Neutral,(R) Neutral Ankle/Foot Posture (L) Pronated,(R) Pronated PT-OP-K Range of Motion Start: 02/27/20 12:58 Freq: Status: Active Protocol: Document 02/27/20 14:35 AW (Rec: 02/27/20 15:07 AW [email or web address]) Lumbar Spine Range of Motion Lumbar Spine Active Percentage Comments WNL Hip Goniometric Range of Motion Hip Left Active Extension 12 Internal Rotation 60 External Rotation 60 Right Active Hip ROM WFL Yes Testing Position Supine Extension 12 Internal Rotation 40 External Rotation 60 Hip ROM Limitations Hip ROM Limitations Soft Tissue Tightness,Muscle Weakness Knee Goniometric Range of Motion Knee Right Knee ROM WFL Yes Patient Position Supine Flexion Active (degrees) 135 Extension Active (degrees) 0 Left Knee ROM WFL Yes Patient Position Supine Flexion Active (degrees) 140 Extension Active (degrees) 0 Ankle and Foot Goniometric Range of Motion Ankle and Foot Left Active Comments B ankle ROM WNL all planes PT-OP-L Special Tests Start: 02/27/20 12:58 Freq: Status: Active Protocol: Document 02/27/20 14:35 AW (Rec: 02/27/20 16:48 AW [email or web address]) Special Tests Hip Special Tests Scour Test Test Results negative bilaterally Knee Special Tests Dony Test Results positive Comments leg elevated from table ~1 bilaterally Milind's Test Test Results positive Comments mildly positive bilaterally ligaments Comments B knees stable in all planes on exam PT-OP-M Strength Start: 02/27/20 12:58 Freq: Status: Active Protocol: Document 02/27/20 14:35 AW (Rec: 02/27/20 15:10 AW [email or web address]) Hip Strength Hip Manual Muscle Testing Right Flexion (L2) 4+ Good+ Extension (S1) 3+ Fair+ Abduction 4- Good- Adduction 4+ Good+ External Rotation 4+ Good+ Internal Rotation 4 Good Left Flexion (L2) 4+ Good+ Extension (S1) 3+ Fair+ Abduction 4- Good- Adduction 4+ Good+ External Rotation 4+ Good+ Internal Rotation 4 Good Knee Strength Knee Manual Muscle Testing Right Flexion (S2) 4+ Good+ Extension (L3) 5 Normal Left Flexion (S2) 4+ Good+ Extension (L3) 5 Normal Ankle/Foot Strength Ankle and Foot Manual Muscle Testing Right Dorsiflexion (L4) 4+ Good+ Plantarflexion (S1) 4+ Good+ Inversion 4+ Good+ Eversion (S1) 4+ Good+ Left Dorsiflexion (L4) 4+ Good+ Plantarflexion (S1) 4+ Good+ Inversion 4+ Good+ Eversion (S1) 4+ Good+ PT-OP-Q Treatments Start: 02/27/20 12:58 Freq: Status: Active Protocol: Document 05/28/20 12:02 AW (Rec: 05/28/20 12:14 AW [email or web address]) Therapeutic Exercises Supine Exercises SLR with ER Supine Exercise Name SLR with ER Side right Reps/Minutes 8x2 Comments emphasis on VMO contraction bridge with heels on ball Supine Exercise Name bridge with heels on ball Equipment Used 45 cm ball Reps/Minutes 8x2 Comments no pain; fatigue only 4 Supine Exercise Name bridge with add squeeze Equipment Used ball Reps/Minutes 5SH x 8; 2 sets Comments no medial knee pain Prone Exercises prone extension on ball Prone Exercise Name prone extension on ball Side bilateral Resistance none Equipment Used 45 cm ball Reps/Minutes x5 right side only Comments pain with RLE WB in plank position Quad Stretch Side bilateral Reps/Minutes 60 sec Comments with anterior femoral glide grade III Standing Exercises plie squat Standing Exercise Name plie squat Reps/Minutes x8 Comments reported medial knee pain; dc' ed mini squat Standing Exercise Name mini squat Equipment Used ball for add squeeze Reps/Minutes 10 TKE Standing Exercise Name Discussed but not performed- Yes perform B at home Side right Resistance Tb #4 Reps/Minutes 5 sec hold x10; 2 sets Comments relieves pain Manual Therapy Treatment Soft Tissue Mobilization R medial quad Body Location R medial quad, HS Mobilization Type Cross-Friction,Myofascial Release Intensity/Depth Moderate Body Position Hooklying Comments trigger point vs cyst R medial hamstring R medial gastroc Body Location R medial gastroc Mobilization Type Cross-Friction,Myofascial Release,Trigger Point Release Intensity/Depth Moderate Body Position Hooklying PT-OP-R Modalities Start: 02/27/20 12:58 Freq: Status: Active Protocol: Document 04/16/20 14:54 AW (Rec: 04/16/20 15:05 AW [email or web address]) Hot Pack/Cold Pack Treatment CP Location R Medial knee jt line Patient Position Hooklying Treatment Duration (minutes) 4 Patient Tolerance Good Comments ice massage to reach numb state; pt tolerated well PT-OP-T Assessment and Plan Start: 02/27/20 12:58 Freq: Status: Active Protocol: Document 05/28/20 12:02 AW (Rec: 05/28/20 12:14 AW [email or web address]) Physical Therapy Assessment Impairments Impairments Balance,Functional Activities, Gait,Pain,Posture,ROM,Soft Tissue Mobility,Strength Goals Four Impairment single leg balance Residential Goal (LTG) Pt will be able to perform RLE single leg squat from 21 height with good stability. LTG Duration 08/11/20 Three Impairment Decreased strength Short Term Goal (STG) Pt will demonstrate hip extension strength 4+ bilaterally 04/09/20 MET STG Duration 04/02/20 Communications Instructor Goal (LTG) Pt will increase SLS to 20 seconds bilaterally without UE support 05/14/20 MET LTG Duration 05/07/20 Two Impairment Pt unable to ambulate >1 block without right knee pain limiting activity. Short Term Goal (STG) Pt will walk 3 blocks without right knee pain 04/09/20 MET - pt reports walking up to 1 mile without pain STG Duration 04/02/20 Residential Goal (LTG) Pt will be able to walk her dogs for 60 minutes with 1- point or less increase in baseline pain LTG Duration 08/11/20 One Impairment Pt lacks appropriate HEP Short Term Goal (STG) Pt will be independent with HEP for support of therapy services provided in clinic. MET STG Duration 04/02/20 Assessment Summary Assessment Tx focused on hip extension ROM and strength. Also worked on VMO activation and awareness. Pt progressing overall but continuing to complain of right medial knee pain with initiation and with uphill walking. Encouraged pt to perform a set of LAQ before getting up from sitting position and report back if helpful. Screw home mechanism intact and relieves knee pain. Physical Therapy Plan Frequency and Duration Frequency of Treatment 2x/Week Duration of Treatment 3 months Plan of Care Start Date 05/14/20 Plan of Care End Date 08/11/20 Therapeutic Interventions Therapeutic Interventions Balance Training,Gait Training ,Home Exercise Program,Joint Mobilizations,Manual Therapy, Neuromuscular Re-education, Patient/Caregiver Education, Self-Care/Home Management,Soft Tissue Mobilization,Taping, Therapeutic Activities, Therapeutic Exercises Modalities Cold Pack/Ice Massage Next Visit Focus/Plan Next Note Type Treatment Note Next Visit Plan Continue per PT POC: dynamic stability training for right knee. May need to dial back exercises depending on pain presentation.
--- NOTE | 2020-06-02 14:35 | PT.OTN ---
Current Diagnoses Pain in right knee (06/02/20) Difficulty in walking, not elsewhere classified (06/02/20) Physical Therapy Treatment Note PT-OP-A Visit Information Start: 02/27/20 12:58 Freq: Status: Active Protocol: Document 06/02/20 13:50 SP (Rec: 06/02/20 16:03 SP [id number]) Out-Patient Physical Therapy Visit Information Visit Information Visit Type Treatment Note Visit Start Time 13:50 Visit Stop Time 14:35 Total Visit Minutes 45 Visit Number 21 Number of DENTAL INSURANCE COORDINATOR Visits 1 PT-OP-B Current Condition Start: 02/27/20 12:58 Freq: Status: Active Protocol: Document 02/27/20 14:35 AW (Rec: 02/27/20 14:51 AW [id number]) Current Condition History of Current Condition Onset Date last two years Current Complaints right knee pain History of Current Condition Pt reports bilateral knee pain with right worse than left. She used to bowl and landed on right knee >10 years ago. She had no fracture but no longer felt safe bowling. Her pain resolved but has returned over the last few years. She states it is not worsening but it is not improving at all. She does not have pain on waking in the morning. She is able to do light activity without pain. She does note pain with ambulation > 1 block which then bothers her for up to an hour. When asked about pain location, pt points to the inferomedial aspect of the anterior knee. Prior Treatments and Tests x-ray right knee 01/28/20: Bones: No acute fracture or dislocation. There is moderate medial femorotibial compartment narrowing, small intercondylar osteophytes and small tricompartmental osteophytes. Soft tissues: No joint effusion. No suspicious soft tissue calcifications. IMPRESSION: Mild knee osteoarthritis. Pt has been using a prescription topical gel for pain relief but with limited effect. She is not taking any OTC medications. She has had PT before for plantar fasciitis but never for her knee pain. Pt sees a chiropractor monthly for back, hip, and neck pain. 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 Baseline Function- Recreation/Hobbies Walking for exercise without pain. Able to walk her dogs without concern for pain. Current Functional Impairments (Reported) Functional Limitations- Mobility/Gait Unable to walk > 1 block without pain. Difficulty managing with dog walking. Personal Factors Other Personal Factors That May Effect + Pt is active and has Therapy/Recovery positive associations with movement, activity, and exercise. PT-OP-C Subjective Start: 02/27/20 12:58 Freq: Status: Active Protocol: Document 06/02/20 13:50 SP (Rec: 06/02/20 16:03 SP [id number]) OP-PT Subjective Patient Comments Patient Comments Pt stated walked here from home approx 10 blocks, my L knee did get stiff like the veronica in gun smoke. The L knee pain does come and go not significant just aware, does make a conscious effort to massage the knee and extend the knee out before gets up. PT-OP-D Balance Start: 02/27/20 12:58 Freq: Status: Active Protocol: Document 02/27/20 14:35 AW (Rec: 02/27/20 15:07 AW [email or web address]) OP-PT Balance Assessment Standing Balance Static Standing Balance Ability Good Dynamic Standing Balance Ability Good Standing Balance Comments L SLS : 12 sec R SLS: 6 sec Robledo Fall Scale Copyright Permission PT-OP-G Mobility & Gait Start: 02/27/20 12:58 Freq: Status: Active Protocol: Document 02/27/20 14:35 AW (Rec: 02/27/20 15:07 AW [email or web address]) OP Mobility Evaluation Functional Movements Squats able with neutral knee posture but improves with cues for hip hinge OP Gait Assessment Gait Gait Assistance Required: Independent Distance (Feet) 100 Assistive Devices Assistive Device None Orthotic/Prosthetic Devices or Brace: No Gait Deviations General Gait Pattern Within Normal Limits,Decreased Feet Clearance Factors Limiting Gait Function Factors Limiting Gait Function Decreased Strength,Pain Comments Gait Comments Pt with slight genu varus in static and dynamic posture. Pt wears off the shelf shoes inserts bilaterally for arch support. PT-OP-H Neuro Start: 02/27/20 12:58 Freq: Status: Active Protocol: Document 02/27/20 14:35 AW (Rec: 02/27/20 15:07 AW [email or web address]) Sensation Evaluation Gross Sensation Gross Sensation WNL Deep Tendon Reflex & Clonus Assessment Deep Tendon Reflex Bilateral Achilles Deep Tendon Reflex 1+ Diminished Bilateral Patellar Deep Tendon Reflex 1+ Diminished PT-OP-J Posture/Palpation/Skin Start: 02/27/20 12:58 Freq: Status: Active Protocol: Document 02/27/20 14:35 AW (Rec: 02/27/20 15:07 AW [email or web address]) Posture Evaluation Position Standing Pelvis Posture Anteriorly Tilted Hip Posture (R) Externally Rotated Knee Posture (L) Genu Varus,(R) Genu Varus Patellar Posture (L) Neutral,(R) Neutral Ankle/Foot Posture (L) Pronated,(R) Pronated PT-OP-K Range of Motion Start: 02/27/20 12:58 Freq: Status: Active Protocol: Document 02/27/20 14:35 AW (Rec: 02/27/20 15:07 AW [email or web address]) Lumbar Spine Range of Motion Lumbar Spine Active Percentage Comments WNL Hip Goniometric Range of Motion Hip Left Active Extension 12 Internal Rotation 60 External Rotation 60 Right Active Hip ROM WFL Yes Testing Position Supine Extension 12 Internal Rotation 40 External Rotation 60 Hip ROM Limitations Hip ROM Limitations Soft Tissue Tightness,Muscle Weakness Knee Goniometric Range of Motion Knee Right Knee ROM WFL Yes Patient Position Supine Flexion Active (degrees) 135 Extension Active (degrees) 0 Left Knee ROM WFL Yes Patient Position Supine Flexion Active (degrees) 140 Extension Active (degrees) 0 Ankle and Foot Goniometric Range of Motion Ankle and Foot Left Active Comments B ankle ROM WNL all planes PT-OP-L Special Tests Start: 02/27/20 12:58 Freq: Status: Active Protocol: Document 02/27/20 14:35 AW (Rec: 02/27/20 16:48 AW [email or web address]) Special Tests Hip Special Tests Scour Test Test Results negative bilaterally Knee Special Tests Dony Test Results positive Comments leg elevated from table ~1 bilaterally Milind's Test Test Results positive Comments mildly positive bilaterally ligaments Comments B knees stable in all planes on exam PT-OP-M Strength Start: 02/27/20 12:58 Freq: Status: Active Protocol: Document 02/27/20 14:35 AW (Rec: 02/27/20 15:10 AW [email or web address]) Hip Strength Hip Manual Muscle Testing Right Flexion (L2) 4+ Good+ Extension (S1) 3+ Fair+ Abduction 4- Good- Adduction 4+ Good+ External Rotation 4+ Good+ Internal Rotation 4 Good Left Flexion (L2) 4+ Good+ Extension (S1) 3+ Fair+ Abduction 4- Good- Adduction 4+ Good+ External Rotation 4+ Good+ Internal Rotation 4 Good Knee Strength Knee Manual Muscle Testing Right Flexion (S2) 4+ Good+ Extension (L3) 5 Normal Left Flexion (S2) 4+ Good+ Extension (L3) 5 Normal Ankle/Foot Strength Ankle and Foot Manual Muscle Testing Right Dorsiflexion (L4) 4+ Good+ Plantarflexion (S1) 4+ Good+ Inversion 4+ Good+ Eversion (S1) 4+ Good+ Left Dorsiflexion (L4) 4+ Good+ Plantarflexion (S1) 4+ Good+ Inversion 4+ Good+ Eversion (S1) 4+ Good+ PT-OP-Q Treatments Start: 02/27/20 12:58 Freq: Status: Active Protocol: Document 06/02/20 13:50 SP (Rec: 06/02/20 16:03 SP [id number]) Therapeutic Exercises Supine Exercises SLR with ER Supine Exercise Name SLR with ER Side right Reps/Minutes 12 reps x2 Comments emphasis on VMO contraction bridge with heels on ball Supine Exercise Name bridge with heels on ball Equipment Used 45 cm ball (blue)- unsure knee / hip range Reps/Minutes 8x2 Comments some inferiolateral R pain- cued glut facilitation/ mod knee 4 Supine Exercise Name bridge with add squeeze Equipment Used small blue ball Reps/Minutes 5SH x 8; 2 sets Comments no medial knee pain, twinge lat R knee but gone with glut fac ecc return Standing Exercises plie squat Standing Exercise Name plie squat w/ arms across chest Equipment Used to raised table approx 18- good hip hinge Reps/Minutes x8 Comments reported medial lateral R knee pressure post wt shift even BLE, B quad tire Other Exercises rolling pin Other Exercise Name quad, ITb, adductor, calf Side bilateral Equipment Used green Reps/Minutes 2 min total Comments end tx for flexibility and pre walk home PT-OP-R Modalities Start: 02/27/20 12:58 Freq: Status: Active Protocol: Document 04/16/20 14:54 AW (Rec: 04/16/20 15:05 AW [email or web address]) Hot Pack/Cold Pack Treatment CP Location R Medial knee jt line Patient Position Hooklying Treatment Duration (minutes) 4 Patient Tolerance Good Comments ice massage to reach numb state; pt tolerated well PT-OP-T Assessment and Plan Start: 02/27/20 12:58 Freq: Status: Active Protocol: Document 06/02/20 13:50 SP (Rec: 06/02/20 16:03 SP [id number]) Physical Therapy Assessment Goals Four Impairment single leg balance Longterm Goal (LTG) Pt will be able to perform RLE single leg squat from 21 height with good stability. LTG Duration 08/11/20 Three Impairment Decreased strength Short Term Goal (STG) Pt will demonstrate hip extension strength 4+ bilaterally 04/09/20 MET STG Duration 04/02/20 Longterm Goal (LTG) Pt will increase SLS to 20 seconds bilaterally without UE support 05/14/20 MET LTG Duration 05/07/20 Two Impairment Pt unable to ambulate >1 block without right knee pain limiting activity. Short Term Goal (STG) Pt will walk 3 blocks without right knee pain 04/09/20 MET - pt reports walking up to 1 mile without pain STG Duration 04/02/20 Longterm Goal (LTG) Pt will be able to walk her dogs for 60 minutes with 1- point or less increase in baseline pain LTG Duration 08/11/20 One Impairment Pt lacks appropriate HEP Short Term Goal (STG) Pt will be independent with HEP for support of therapy services provided in clinic. MET STG Duration 04/02/20 Assessment Summary Assessment Tx continued on hip extension ROM and strength, VMO facilitation with occasional cuing for knee alignment to allow brief distal ITB twinge with improvement. Pt rolled LE musculature end of tx and will see if helped pain with walk home today. Physical Therapy Plan Frequency and Duration Frequency of Treatment 2x/Week Duration of Treatment 3 months Plan of Care Start Date 05/14/20 Plan of Care End Date 08/11/20 Therapeutic Interventions Therapeutic Interventions Balance Training,Gait Training ,Home Exercise Program,Joint Mobilizations,Manual Therapy, Neuromuscular Re-education, Patient/Caregiver Education, Self-Care/Home Management,Soft Tissue Mobilization,Taping, Therapeutic Activities, Therapeutic Exercises Modalities Cold Pack/Ice Massage Next Visit Focus/Plan Next Note Type Treatment Note Next Visit Plan Continue per PT POC: dynamic stability training for right knee. May need to dial back exercises depending on pain presentation.
--- NOTE | 2020-06-04 17:11 | PT.OTN ---
Current Diagnoses Pain in right knee (06/04/20) Difficulty in walking, not elsewhere classified (06/04/20) Physical Therapy Treatment Note PT-OP-A Visit Information Start: 02/27/20 12:58 Freq: Status: Active Protocol: Document 06/04/20 13:47 AW (Rec: 06/04/20 14:31 AW [id number]) Out-Patient Physical Therapy Visit Information Visit Information Visit Type Treatment Note Visit Start Time 13:45 Visit Stop Time 14:30 Total Visit Minutes 45 Visit Number 22 Number of GLOVE TURNER Visits 0 PT-OP-B Current Condition Start: 02/27/20 12:58 Freq: Status: Active Protocol: Document 02/27/20 14:35 AW (Rec: 02/27/20 14:51 AW [id number]) Current Condition History of Current Condition Onset Date last two years Current Complaints right knee pain History of Current Condition Pt reports bilateral knee pain with right worse than left. She used to bowl and landed on right knee >10 years ago. She had no fracture but no longer felt safe bowling. Her pain resolved but has returned over the last few years. She states it is not worsening but it is not improving at all. She does not have pain on waking in the morning. She is able to do light activity without pain. She does note pain with ambulation > 1 block which then bothers her for up to an hour. When asked about pain location, pt points to the inferomedial aspect of the anterior knee. Prior Treatments and Tests x-ray right knee 01/28/20: Bones: No acute fracture or dislocation. There is moderate medial femorotibial compartment narrowing, small intercondylar osteophytes and small tricompartmental osteophytes. Soft tissues: No joint effusion. No suspicious soft tissue calcifications. IMPRESSION: Mild knee osteoarthritis. Pt has been using a prescription topical gel for pain relief but with limited effect. She is not taking any OTC medications. She has had PT before for plantar fasciitis but never for her knee pain. Pt sees a chiropractor monthly for back, hip, and neck pain. 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 Able to walk her dogs without concern for pain. Current Functional Impairments (Reported) Functional Limitations- Mobility/Gait Unable to walk > 1 block without pain. Difficulty managing with dog walking. Personal Factors Other Personal Factors That May Effect + Pt is active and has Therapy/Recovery positive associations with movement, activity, and exercise. PT-OP-C Subjective Start: 02/27/20 12:58 Freq: Status: Active Protocol: Document 06/04/20 13:47 AW (Rec: 06/04/20 17:11 AW [email or web address]) OP-PT Subjective Patient Comments Patient Comments Pt reports taking longer walks with less pain. PT-OP-D Balance Start: 02/27/20 12:58 Freq: Status: Active Protocol: Document 02/27/20 14:35 AW (Rec: 02/27/20 15:07 AW [email or web address]) OP-PT Balance Assessment Standing Balance Static Standing Balance Ability Good Dynamic Standing Balance Ability Good Standing Balance Comments L SLS : 12 sec R SLS: 6 sec Robledo Fall Scale Copyright Permission PT-OP-G Mobility & Gait Start: 02/27/20 12:58 Freq: Status: Active Protocol: Document 02/27/20 14:35 AW (Rec: 02/27/20 15:07 AW [email or web address]) OP Mobility Evaluation Functional Movements Squats able with neutral knee posture but improves with cues for hip hinge OP Gait Assessment Gait Gait Assistance Required: Independent Distance (Feet) 100 Assistive Devices Assistive Device None Orthotic/Prosthetic Devices or Brace: No Gait Deviations General Gait Pattern Within Normal Limits,Decreased Feet Clearance Factors Limiting Gait Function Factors Limiting Gait Function Decreased Strength,Pain Comments Gait Comments Pt with slight genu varus in static and dynamic posture. Pt wears off the shelf shoes inserts bilaterally for arch support. PT-OP-H Neuro Start: 02/27/20 12:58 Freq: Status: Active Protocol: Document 02/27/20 14:35 AW (Rec: 02/27/20 15:07 AW [email or web address]) Sensation Evaluation Gross Sensation Gross Sensation WNL Deep Tendon Reflex & Clonus Assessment Deep Tendon Reflex Bilateral Achilles Deep Tendon Reflex 1+ Diminished Bilateral Patellar Deep Tendon Reflex 1+ Diminished PT-OP-J Posture/Palpation/Skin Start: 02/27/20 12:58 Freq: Status: Active Protocol: Document 02/27/20 14:35 AW (Rec: 02/27/20 15:07 AW [email or web address]) Posture Evaluation Position Standing Pelvis Posture Anteriorly Tilted Hip Posture (R) Externally Rotated Knee Posture (L) Genu Varus,(R) Genu Varus Patellar Posture (L) Neutral,(R) Neutral Ankle/Foot Posture (L) Pronated,(R) Pronated PT-OP-K Range of Motion Start: 02/27/20 12:58 Freq: Status: Active Protocol: Document 02/27/20 14:35 AW (Rec: 02/27/20 15:07 AW [email or web address]) Lumbar Spine Range of Motion Lumbar Spine Active Percentage Comments WNL Hip Goniometric Range of Motion Hip Left Active Extension 12 Internal Rotation 60 External Rotation 60 Right Active Hip ROM WFL Yes Testing Position Supine Extension 12 Internal Rotation 40 External Rotation 60 Hip ROM Limitations Hip ROM Limitations Soft Tissue Tightness,Muscle Weakness Knee Goniometric Range of Motion Knee Right Knee ROM WFL Yes Patient Position Supine Flexion Active (degrees) 135 Extension Active (degrees) 0 Left Knee ROM WFL Yes Patient Position Supine Flexion Active (degrees) 140 Extension Active (degrees) 0 Ankle and Foot Goniometric Range of Motion Ankle and Foot Left Active Comments B ankle ROM WNL all planes PT-OP-L Special Tests Start: 02/27/20 12:58 Freq: Status: Active Protocol: Document 02/27/20 14:35 AW (Rec: 02/27/20 16:48 AW [email or web address]) Special Tests Hip Special Tests Scour Test Test Results negative bilaterally Knee Special Tests Dony Test Results positive Comments leg elevated from table ~1 bilaterally Milind's Test Test Results positive Comments mildly positive bilaterally ligaments Comments B knees stable in all planes on exam PT-OP-M Strength Start: 02/27/20 12:58 Freq: Status: Active Protocol: Document 02/27/20 14:35 AW (Rec: 02/27/20 15:10 AW [email or web address]) Hip Strength Hip Manual Muscle Testing Right Flexion (L2) 4+ Good+ Extension (S1) 3+ Fair+ Abduction 4- Good- Adduction 4+ Good+ External Rotation 4+ Good+ Internal Rotation 4 Good Left Flexion (L2) 4+ Good+ Extension (S1) 3+ Fair+ Abduction 4- Good- Adduction 4+ Good+ External Rotation 4+ Good+ Internal Rotation 4 Good Knee Strength Knee Manual Muscle Testing Right Flexion (S2) 4+ Good+ Extension (L3) 5 Normal Left Flexion (S2) 4+ Good+ Extension (L3) 5 Normal Ankle/Foot Strength Ankle and Foot Manual Muscle Testing Right Dorsiflexion (L4) 4+ Good+ Plantarflexion (S1) 4+ Good+ Inversion 4+ Good+ Eversion (S1) 4+ Good+ Left Dorsiflexion (L4) 4+ Good+ Plantarflexion (S1) 4+ Good+ Inversion 4+ Good+ Eversion (S1) 4+ Good+ PT-OP-Q Treatments Start: 02/27/20 12:58 Freq: Status: Active Protocol: Document 06/04/20 13:47 AW (Rec: 06/04/20 14:31 AW [id number]) Gym Equipment Shuttle Balance red Details WBOS, NBOS Reps/Duration 8 min Comments + mini squats Therapeutic Exercises Supine Exercises hip flexor march Side right Reps/Minutes x15 Comments floor to tx table SLR with ER Supine Exercise Name SLR with ER Side right Resistance level 1 Equipment Used TB Reps/Minutes 12 reps x2 Comments emphasis on medial quad bridge with heels on ball Supine Exercise Name bridge with heels on ball Equipment Used 45 cm ball (blue) - straight leg and 90/90 Reps/Minutes 8x2 Comments no reported pain Standing Exercises TKE Side right Resistance Tb #4 Reps/Minutes 5 sec hold x10; 2 sets Comments relieves pain Gait Training Gait Activity stair mgt Device Used R rail down Level of Assistance SBA Distance/Duration 4 hallway stairs Treatment Focus knee alignment Comments pain worse with descending; ascending, pt responds well to cues for glute facilitation which reduces pain Manual Therapy Treatment Soft Tissue Mobilization R medial quad Body Location R medial quad, HS Mobilization Type Cross-Friction,Myofascial Release Intensity/Depth Moderate Body Position Hooklying Comments trigger point vs cyst R medial hamstring R medial gastroc Body Location R medial gastroc Mobilization Type Cross-Friction,Myofascial Release,Trigger Point Release Intensity/Depth Moderate Body Position Hooklying PT-OP-R Modalities Start: 02/27/20 12:58 Freq: Status: Active Protocol: Document 04/16/20 14:54 AW (Rec: 04/16/20 15:05 AW [email or web address]) Hot Pack/Cold Pack Treatment CP Location R Medial knee jt line Patient Position Hooklying Treatment Duration (minutes) 4 Patient Tolerance Good Comments ice massage to reach numb state; pt tolerated well PT-OP-T Assessment and Plan Start: 02/27/20 12:58 Freq: Status: Active Protocol: Document 06/04/20 13:47 AW (Rec: 06/04/20 17:11 AW [email or web address]) Physical Therapy Assessment Goals Four Impairment single leg balance Residential Goal (LTG) Pt will be able to perform RLE single leg squat from 21 height with good stability. LTG Duration 08/11/20 Three Impairment Decreased strength Short Term Goal (STG) Pt will demonstrate hip extension strength 4+ bilaterally 04/09/20 MET STG Duration 04/02/20 Studio Data Analyst Goal (LTG) Pt will increase SLS to 20 seconds bilaterally without UE support 05/14/20 MET LTG Duration 05/07/20 Two Impairment Pt unable to ambulate >1 block without right knee pain limiting activity. Short Term Goal (STG) Pt will walk 3 blocks without right knee pain 04/09/20 MET - pt reports walking up to 1 mile without pain STG Duration 04/02/20 [employer] Data [employer]st Goal (LTG) Pt will be able to walk her dogs for 60 minutes with 1- point or less increase in baseline pain LTG Duration 08/11/20 One Impairment Pt lacks appropriate HEP Short Term Goal (STG) Pt will be independent with HEP for support of therapy services provided in clinic. MET STG Duration 04/02/20 Assessment Summary Assessment Worked on stairs today with pt complaining of greatest pain going down stairs. Cued knee alignment and posture with mild improvement. Pt may be plateauing in progress. She has several visits remaining. Will continue to assess readiness for discharge. Physical Therapy Plan Frequency and Duration Frequency of Treatment 2x/Week Duration of Treatment 3 months Plan of Care Start Date 05/14/20 Plan of Care End Date 08/11/20 Therapeutic Interventions Therapeutic Interventions Balance Training,Gait Training ,Home Exercise Program,Joint Mobilizations,Manual Therapy, Neuromuscular Re-education, Patient/Caregiver Education, Self-Care/Home Management,Soft Tissue Mobilization,Taping, Therapeutic Activities, Therapeutic Exercises Modalities Cold Pack/Ice Massage Next Visit Focus/Plan Next Note Type Treatment Note Next Visit Plan Continue per PT POC: dynamic stability training for right knee. Work on uneven surfaces.
--- NOTE | 2020-06-09 14:34 | PT.OTN ---
Current Diagnoses Pain in right knee (06/09/20) Difficulty in walking, not elsewhere classified (06/09/20) Physical Therapy Treatment Note PT-OP-A Visit Information Start: 02/27/20 12:58 Freq: Status: Active Protocol: Document 06/09/20 13:46 SP (Rec: 06/09/20 16:17 SP [id number]) Out-Patient Physical Therapy Visit Information Visit Information Visit Type Treatment Note Visit Start Time 13:46 Visit Stop Time 14:34 Total Visit Minutes 48 Visit Number 23 Number of CYBER SYSTEMS OPERATIONS SPECIALIST Visits 1 PT-OP-B Current Condition Start: 02/27/20 12:58 Freq: Status: Active Protocol: Document 02/27/20 14:35 AW (Rec: 02/27/20 14:51 AW [id number]) Current Condition History of Current Condition Onset Date last two years Current Complaints right knee pain History of Current Condition Pt reports bilateral knee pain with right worse than left. She used to bowl and landed on right knee >10 years ago. She had no fracture but no longer felt safe bowling. Her pain resolved but has returned over the last few years. She states it is not worsening but it is not improving at all. She does not have pain on waking in the morning. She is able to do light activity without pain. She does note pain with ambulation > 1 block which then bothers her for up to an hour. When asked about pain location, pt points to the inferomedial aspect of the anterior knee. Prior Treatments and Tests x-ray right knee 01/28/20: Bones: No acute fracture or dislocation. There is moderate medial femorotibial compartment narrowing, small intercondylar osteophytes and small tricompartmental osteophytes. Soft tissues: No joint effusion. No suspicious soft tissue calcifications. IMPRESSION: Mild knee osteoarthritis. Pt has been using a prescription topical gel for pain relief but with limited effect. She is not taking any OTC medications. She has had PT before for plantar fasciitis but never for her knee pain. Pt sees a chiropractor monthly for back, hip, and neck pain. 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 Baseline Function- Recreation/Hobbies Walking for exercise without pain. Able to walk her dogs without concern for pain. Current Functional Impairments (Reported) Functional Limitations- Mobility/Gait Unable to walk > 1 block without pain. Difficulty managing with dog walking. Personal Factors Other Personal Factors That May Effect + Pt is active and has Therapy/Recovery positive associations with movement, activity, and exercise. PT-OP-C Subjective Start: 02/27/20 12:58 Freq: Status: Active Protocol: Document 06/09/20 13:46 SP (Rec: 06/09/20 16:17 SP [id number]) OP-PT Subjective Patient Comments Patient Comments Pt reported walked approx 1, 991 steps walking from her house to today's appt with initial soreness over anterior R knee (like can occasional twist feeling) but lessened if completes TKE with tall posture. PT-OP-D Balance Start: 02/27/20 12:58 Freq: Status: Active Protocol: Document 02/27/20 14:35 AW (Rec: 02/27/20 15:07 AW [email or web address]) OP-PT Balance Assessment Standing Balance Static Standing Balance Ability Good Dynamic Standing Balance Ability Good Standing Balance Comments L SLS : 12 sec R SLS: 6 sec Robledo Fall Scale Copyright Permission PT-OP-G Mobility & Gait Start: 02/27/20 12:58 Freq: Status: Active Protocol: Document 02/27/20 14:35 AW (Rec: 02/27/20 15:07 AW [email or web address]) OP Mobility Evaluation Functional Movements Squats able with neutral knee posture but improves with cues for hip hinge OP Gait Assessment Gait Gait Assistance Required: Independent Distance (Feet) 100 Assistive Devices Assistive Device None Orthotic/Prosthetic Devices or Brace: No Gait Deviations General Gait Pattern Within Normal Limits,Decreased Feet Clearance Factors Limiting Gait Function Factors Limiting Gait Function Decreased Strength,Pain Comments Gait Comments Pt with slight genu varus in static and dynamic posture. Pt wears off the shelf shoes inserts bilaterally for arch support. PT-OP-H Neuro Start: 02/27/20 12:58 Freq: Status: Active Protocol: Document 02/27/20 14:35 AW (Rec: 02/27/20 15:07 AW [email or web address]) Sensation Evaluation Gross Sensation Gross Sensation WNL Deep Tendon Reflex & Clonus Assessment Deep Tendon Reflex Bilateral Achilles Deep Tendon Reflex 1+ Diminished Bilateral Patellar Deep Tendon Reflex 1+ Diminished PT-OP-J Posture/Palpation/Skin Start: 02/27/20 12:58 Freq: Status: Active Protocol: Document 02/27/20 14:35 AW (Rec: 02/27/20 15:07 AW [email or web address]) Posture Evaluation Position Standing Pelvis Posture Anteriorly Tilted Hip Posture (R) Externally Rotated Knee Posture (L) Genu Varus,(R) Genu Varus Patellar Posture (L) Neutral,(R) Neutral Ankle/Foot Posture (L) Pronated,(R) Pronated PT-OP-K Range of Motion Start: 02/27/20 12:58 Freq: Status: Active Protocol: Document 02/27/20 14:35 AW (Rec: 02/27/20 15:07 AW [email or web address]) Lumbar Spine Range of Motion Lumbar Spine Active Percentage Comments WNL Hip Goniometric Range of Motion Hip Left Active Extension 12 Internal Rotation 60 External Rotation 60 Right Active Hip ROM WFL Yes Testing Position Supine Extension 12 Internal Rotation 40 External Rotation 60 Hip ROM Limitations Hip ROM Limitations Soft Tissue Tightness,Muscle Weakness Knee Goniometric Range of Motion Knee Right Knee ROM WFL Yes Patient Position Supine Flexion Active (degrees) 135 Extension Active (degrees) 0 Left Knee ROM WFL Yes Patient Position Supine Flexion Active (degrees) 140 Extension Active (degrees) 0 Ankle and Foot Goniometric Range of Motion Ankle and Foot Left Active Comments B ankle ROM WNL all planes PT-OP-L Special Tests Start: 02/27/20 12:58 Freq: Status: Active Protocol: Document 02/27/20 14:35 AW (Rec: 02/27/20 16:48 AW [email or web address]) Special Tests Hip Special Tests Scour Test Test Results negative bilaterally Knee Special Tests Dony Test Results positive Comments leg elevated from table ~1 bilaterally Milind's Test Test Results positive Comments mildly positive bilaterally ligaments Comments B knees stable in all planes on exam PT-OP-M Strength Start: 02/27/20 12:58 Freq: Status: Active Protocol: Document 02/27/20 14:35 AW (Rec: 02/27/20 15:10 AW [email or web address]) Hip Strength Hip Manual Muscle Testing Right Flexion (L2) 4+ Good+ Extension (S1) 3+ Fair+ Abduction 4- Good- Adduction 4+ Good+ External Rotation 4+ Good+ Internal Rotation 4 Good Left Flexion (L2) 4+ Good+ Extension (S1) 3+ Fair+ Abduction 4- Good- Adduction 4+ Good+ External Rotation 4+ Good+ Internal Rotation 4 Good Knee Strength Knee Manual Muscle Testing Right Flexion (S2) 4+ Good+ Extension (L3) 5 Normal Left Flexion (S2) 4+ Good+ Extension (L3) 5 Normal Ankle/Foot Strength Ankle and Foot Manual Muscle Testing Right Dorsiflexion (L4) 4+ Good+ Plantarflexion (S1) 4+ Good+ Inversion 4+ Good+ Eversion (S1) 4+ Good+ Left Dorsiflexion (L4) 4+ Good+ Plantarflexion (S1) 4+ Good+ Inversion 4+ Good+ Eversion (S1) 4+ Good+ PT-OP-Q Treatments Start: 02/27/20 12:58 Freq: Status: Active Protocol: Document 06/09/20 13:46 SP (Rec: 06/09/20 16:17 SP [id number]) Gym Equipment Shuttle Balance red Details WBOS, NBOS Reps/Duration 8 min Comments wt shift f/b, stationary w/ head turns, EC 7 sec & 10 sec, + mini squats Therapeutic Exercises Supine Exercises bridge with heels on ball Supine Exercise Name bridge with heels on ball Equipment Used 45 cm ball (blue) - straight leg and 90/90 Reps/Minutes 8x2 Comments no reported pain- how can do this at home with no ball Sitting Exercises HS curl w/ TB Side right Resistance Tb #2 Equipment Used chair Reps/Minutes x10 Comments cued slow muscular control Standing Exercises lunge knee flexion mobility Side right Equipment Used rail at stairs, 2nd step Reps/Minutes x5 pre post TKE Comments reports decreased tight/ soreness in R knee post to walk home TKE Side right Resistance AROM Reps/Minutes x5 isometric post shuttle balance Comments relieves soreness/tightness Lateral knee pain PT-OP-R Modalities Start: 02/27/20 12:58 Freq: Status: Active Protocol: Document 04/16/20 14:54 AW (Rec: 04/16/20 15:05 AW [email or web address]) Hot Pack/Cold Pack Treatment CP Location R Medial knee jt line Patient Position Hooklying Treatment Duration (minutes) 4 Patient Tolerance Good Comments ice massage to reach numb state; pt tolerated well PT-OP-T Assessment and Plan Start: 02/27/20 12:58 Freq: Status: Active Protocol: Document 06/09/20 13:46 SP (Rec: 06/09/20 16:17 SP [id number]) Physical Therapy Assessment Goals Four Impairment single leg balance Fci Goal (LTG) Pt will be able to perform RLE single leg squat from 21 height with good stability. LTG Duration 08/11/20 Three Impairment Decreased strength Short Term Goal (STG) Pt will demonstrate hip extension strength 4+ bilaterally 04/09/20 MET STG Duration 04/02/20 Power Reactor Operator Goal (LTG) Pt will increase SLS to 20 seconds bilaterally without UE support 05/14/20 MET LTG Duration 05/07/20 Two Impairment Pt unable to ambulate >1 block without right knee pain limiting activity. Short Term Goal (STG) Pt will walk 3 blocks without right knee pain 04/09/20 MET - pt reports walking up to 1 mile without pain STG Duration 04/02/20 Power Reactor Operator Goal (LTG) Pt will be able to walk her dogs for 60 minutes with 1- point or less increase in baseline pain LTG Duration 08/11/20 One Impairment Pt lacks appropriate HEP Short Term Goal (STG) Pt will be independent with HEP for support of therapy services provided in clinic. MET STG Duration 04/02/20 Assessment Summary Assessment Extra time spent on HS facilitation and DF range to decrease calf recruitment using theraball, added seated HS curl against TB with good simulation feedback feels same w/ awareness of DF R LE. Post shuttle balance required knee mobility and TKE ROM to decrease increased tightness post balance activity as does during walk to PT. Pt stated decreased anterior R knee soreness end of tx. Physical Therapy Plan Frequency and Duration Frequency of Treatment 2x/Week Duration of Treatment 3 months Plan of Care Start Date 05/14/20 Plan of Care End Date 08/11/20 Therapeutic Interventions Therapeutic Interventions Balance Training,Gait Training ,Home Exercise Program,Joint Mobilizations,Manual Therapy, Neuromuscular Re-education, Patient/Caregiver Education, Self-Care/Home Management,Soft Tissue Mobilization,Taping, Therapeutic Activities, Therapeutic Exercises Modalities Cold Pack/Ice Massage Next Visit Focus/Plan Next Note Type Treatment Note Next Visit Plan Continue per PT POC: dynamic stability training for right knee. Work on uneven surfaces.
--- NOTE | 2020-06-13 09:46 | PT.OTN ---
Current Diagnoses Pain in right knee (06/13/20) Difficulty in walking, not elsewhere classified (06/13/20) Physical Therapy Treatment Note PT-OP-A Visit Information Start: 02/27/20 12:58 Freq: Status: Active Protocol: Document 06/13/20 09:06 SP (Rec: 06/13/20 09:49 SP [id number]) Out-Patient Physical Therapy Visit Information Visit Information Visit Type Treatment Note Visit Start Time 09:06 Visit Stop Time 09:46 Total Visit Minutes 40 Visit Number 24 Number of HAT BRIM CURLER Visits 2 PT-OP-B Current Condition Start: 02/27/20 12:58 Freq: Status: Active Protocol: Document 02/27/20 14:35 AW (Rec: 02/27/20 14:51 AW [id number]) Current Condition History of Current Condition Onset Date last two years Current Complaints right knee pain History of Current Condition Pt reports bilateral knee pain with right worse than left. She used to bowl and landed on right knee >10 years ago. She had no fracture but no longer felt safe bowling. Her pain resolved but has returned over the last few years. She states it is not worsening but it is not improving at all. She does not have pain on waking in the morning. She is able to do light activity without pain. She does note pain with ambulation > 1 block which then bothers her for up to an hour. When asked about pain location, pt points to the inferomedial aspect of the anterior knee. Prior Treatments and Tests x-ray right knee 01/28/20: Bones: No acute fracture or dislocation. There is moderate medial femorotibial compartment narrowing, small intercondylar osteophytes and small tricompartmental osteophytes. Soft tissues: No joint effusion. No suspicious soft tissue calcifications. IMPRESSION: Mild knee osteoarthritis. Pt has been using a prescription topical gel for pain relief but with limited effect. She is not taking any OTC medications. She has had PT before for plantar fasciitis but never for her knee pain. Pt sees a chiropractor monthly for back, hip, and neck pain. 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 Able to walk her dogs without concern for pain. Current Functional Impairments (Reported) Functional Limitations- Mobility/Gait Unable to walk > 1 block without pain. Difficulty managing with dog walking. Personal Factors Other Personal Factors That May Effect + Pt is active and has Therapy/Recovery positive associations with movement, activity, and exercise. PT-OP-C Subjective Start: 02/27/20 12:58 Freq: Status: Active Protocol: Document 06/13/20 09:06 SP (Rec: 06/13/20 09:49 SP [id number]) OP-PT Subjective Patient Comments Patient Comments Pt reported had a good day on was nice out so walked > 10,000 steps and Wed did 3.000 + steps on treadmill. Experiences just R knee soreness not pain but goes away with TKE ROM few reps. Patient Reported Progress Improving PT-OP-D Balance Start: 02/27/20 12:58 Freq: Status: Active Protocol: Document 02/27/20 14:35 AW (Rec: 02/27/20 15:07 AW [email or web address]) OP-PT Balance Assessment Standing Balance Static Standing Balance Ability Good Dynamic Standing Balance Ability Good Standing Balance Comments L SLS : 12 sec R SLS: 6 sec Robledo Fall Scale Copyright Permission PT-OP-G Mobility & Gait Start: 02/27/20 12:58 Freq: Status: Active Protocol: Document 02/27/20 14:35 AW (Rec: 02/27/20 15:07 AW [email or web address]) OP Mobility Evaluation Functional Movements Squats able with neutral knee posture but improves with cues for hip hinge OP Gait Assessment Gait Gait Assistance Required: Independent Distance (Feet) 100 Assistive Devices Assistive Device None Orthotic/Prosthetic Devices or Brace: No Gait Deviations General Gait Pattern Within Normal Limits,Decreased Feet Clearance Factors Limiting Gait Function Factors Limiting Gait Function Decreased Strength,Pain Comments Gait Comments Pt with slight genu varus in static and dynamic posture. Pt wears off the shelf shoes inserts bilaterally for arch support. PT-OP-H Neuro Start: 02/27/20 12:58 Freq: Status: Active Protocol: Document 02/27/20 14:35 AW (Rec: 02/27/20 15:07 AW [email or web address]) Sensation Evaluation Gross Sensation Gross Sensation WNL Deep Tendon Reflex & Clonus Assessment Deep Tendon Reflex Bilateral Achilles Deep Tendon Reflex 1+ Diminished Bilateral Patellar Deep Tendon Reflex 1+ Diminished PT-OP-J Posture/Palpation/Skin Start: 02/27/20 12:58 Freq: Status: Active Protocol: Document 02/27/20 14:35 AW (Rec: 02/27/20 15:07 AW [email or web address]) Posture Evaluation Position Standing Pelvis Posture Anteriorly Tilted Hip Posture (R) Externally Rotated Knee Posture (L) Genu Varus,(R) Genu Varus Patellar Posture (L) Neutral,(R) Neutral Ankle/Foot Posture (L) Pronated,(R) Pronated PT-OP-K Range of Motion Start: 02/27/20 12:58 Freq: Status: Active Protocol: Document 02/27/20 14:35 AW (Rec: 02/27/20 15:07 AW [email or web address]) Lumbar Spine Range of Motion Lumbar Spine Active Percentage Comments WNL Hip Goniometric Range of Motion Hip Left Active Extension 12 Internal Rotation 60 External Rotation 60 Right Active Hip ROM WFL Yes Testing Position Supine Extension 12 Internal Rotation 40 External Rotation 60 Hip ROM Limitations Hip ROM Limitations Soft Tissue Tightness,Muscle Weakness Knee Goniometric Range of Motion Knee Right Knee ROM WFL Yes Patient Position Supine Flexion Active (degrees) 135 Extension Active (degrees) 0 Left Knee ROM WFL Yes Patient Position Supine Flexion Active (degrees) 140 Extension Active (degrees) 0 Ankle and Foot Goniometric Range of Motion Ankle and Foot Left Active Comments B ankle ROM WNL all planes PT-OP-L Special Tests Start: 02/27/20 12:58 Freq: Status: Active Protocol: Document 02/27/20 14:35 AW (Rec: 02/27/20 16:48 AW [email or web address]) Special Tests Hip Special Tests Scour Test Test Results negative bilaterally Knee Special Tests Dony Test Results positive Comments leg elevated from table ~1 bilaterally Milind's Test Test Results positive Comments mildly positive bilaterally ligaments Comments B knees stable in all planes on exam PT-OP-M Strength Start: 02/27/20 12:58 Freq: Status: Active Protocol: Document 02/27/20 14:35 AW (Rec: 02/27/20 15:10 AW [email or web address]) Hip Strength Hip Manual Muscle Testing Right Flexion (L2) 4+ Good+ Extension (S1) 3+ Fair+ Abduction 4- Good- Adduction 4+ Good+ External Rotation 4+ Good+ Internal Rotation 4 Good Left Flexion (L2) 4+ Good+ Extension (S1) 3+ Fair+ Abduction 4- Good- Adduction 4+ Good+ External Rotation 4+ Good+ Internal Rotation 4 Good Knee Strength Knee Manual Muscle Testing Right Flexion (S2) 4+ Good+ Extension (L3) 5 Normal Left Flexion (S2) 4+ Good+ Extension (L3) 5 Normal Ankle/Foot Strength Ankle and Foot Manual Muscle Testing Right Dorsiflexion (L4) 4+ Good+ Plantarflexion (S1) 4+ Good+ Inversion 4+ Good+ Eversion (S1) 4+ Good+ Left Dorsiflexion (L4) 4+ Good+ Plantarflexion (S1) 4+ Good+ Inversion 4+ Good+ Eversion (S1) 4+ Good+ PT-OP-Q Treatments Start: 02/27/20 12:58 Freq: Status: Active Protocol: Document 06/13/20 09:06 SP (Rec: 06/13/20 09:49 SP [id number]) Gym Equipment Shuttle Recovery Unilateral squat Details cued knee with toes see shoe insole Resistance 37# Shuttle Recovery Platform Stable Reps/Time x10 each LE Bilateral Squats Details Cued knee Resistance 75# Shuttle Recovery Platform Stable,Unstable Reps/Time 2 x 10 stable; 1 x 10 unstable Shuttle Balance red Details WBOS, NBOS, stagger Reps/Duration 8 min Comments wt shift f/b, stationary w/ head turns, EC 30 sec WBOS and NBOS More challenging with stagger today 5-7 sec EC Gait Training Gait Activity uneven surface dynamic gait Description high knee lift step Device Used 0 Level of Assistance CG Surface uneven blue 2 lrg foam mats Distance/Duration 20 ft x4 laps Treatment Focus stabilization stance time Comments cued norrmal step length, tall glut hip ext and ankle stability over ENMANUEL PT-OP-R Modalities Start: 02/27/20 12:58 Freq: Status: Active Protocol: Document 04/16/20 14:54 AW (Rec: 04/16/20 15:05 AW [email or web address]) Hot Pack/Cold Pack Treatment CP Location R Medial knee jt line Patient Position Hooklying Treatment Duration (minutes) 4 Patient Tolerance Good Comments ice massage to reach numb state; pt tolerated well PT-OP-T Assessment and Plan Start: 02/27/20 12:58 Freq: Status: Active Protocol: Document 06/13/20 09:06 SP (Rec: 06/13/20 09:49 SP [id number]) Physical Therapy Assessment Goals Four Impairment single leg balance Lending Activities Supervisor Goal (LTG) Pt will be able to perform RLE single leg squat from 21 height with good stability. LTG Duration 08/11/20 Three Impairment Decreased strength Short Term Goal (STG) Pt will demonstrate hip extension strength 4+ bilaterally 04/09/20 MET STG Duration 04/02/20 Lending Activities Supervisor Goal (LTG) Pt will increase SLS to 20 seconds bilaterally without UE support 05/14/20 MET LTG Duration 05/07/20 Two Impairment Pt unable to ambulate >1 block without right knee pain limiting activity. Short Term Goal (STG) Pt will walk 3 blocks without right knee pain 04/09/20 MET - pt reports walking up to 1 mile without pain STG Duration 04/02/20 Penitentiary Goal (LTG) Pt will be able to walk her dogs for 60 minutes with 1- point or less increase in baseline pain LTG Duration 08/11/20 One Impairment Pt lacks appropriate HEP Short Term Goal (STG) Pt will be independent with HEP for support of therapy services provided in clinic. MET STG Duration 04/02/20 Assessment Summary Assessment Pt tolerated tx well, little medial R knee discomfort end DL uneven shuttle recovery but after TKE quad set standing, went away as experiences during walks. Initiated uneven gait increase high knee stance time for walking on grass with improved stability. Pt able increase EC timing stability WBOS and NBOS, challenging stagger but able to maintain 5 sec each foot position. Physical Therapy Plan Frequency and Duration Frequency of Treatment 2x/Week Duration of Treatment 3 months Plan of Care Start Date 05/14/20 Plan of Care End Date 08/11/20 Therapeutic Interventions Therapeutic Interventions Balance Training,Gait Training ,Home Exercise Program,Joint Mobilizations,Manual Therapy, Neuromuscular Re-education, Patient/Caregiver Education, Self-Care/Home Management,Soft Tissue Mobilization,Taping, Therapeutic Activities, Therapeutic Exercises Modalities Cold Pack/Ice Massage Next Visit Focus/Plan Next Note Type Treatment Note Next Visit Plan Assess response to uneven gait increased stance time and balance last tx. Continue per PT POC: dynamic stability training for right knee. Work on uneven surfaces.
--- NOTE | 2020-06-16 14:35 | PT.OTN ---
Current Diagnoses Pain in right knee (06/16/20) Difficulty in walking, not elsewhere classified (06/16/20) Physical Therapy Treatment Note PT-OP-A Visit Information Start: 02/27/20 12:58 Freq: Status: Active Protocol: Document 06/16/20 13:54 SP (Rec: 06/16/20 14:57 SP [id number]) Out-Patient Physical Therapy Visit Information Visit Information Visit Type Treatment Note Visit Start Time 13:54 Visit Stop Time 14:35 Total Visit Minutes 41 Visit Number 25 Number of ELECTRONICS TECHNICIAN Visits 3 PT-OP-B Current Condition Start: 02/27/20 12:58 Freq: Status: Active Protocol: Document 02/27/20 14:35 AW (Rec: 02/27/20 14:51 AW [id number]) Current Condition History of Current Condition Onset Date last two years Current Complaints right knee pain History of Current Condition Pt reports bilateral knee pain with right worse than left. She used to bowl and landed on right knee >10 years ago. She had no fracture but no longer felt safe bowling. Her pain resolved but has returned over the last few years. She states it is not worsening but it is not improving at all. She does not have pain on waking in the morning. She is able to do light activity without pain. She does note pain with ambulation > 1 block which then bothers her for up to an hour. When asked about pain location, pt points to the inferomedial aspect of the anterior knee. Prior Treatments and Tests x-ray right knee 01/28/20: Bones: No acute fracture or dislocation. There is moderate medial femorotibial compartment narrowing, small intercondylar osteophytes and small tricompartmental osteophytes. Soft tissues: No joint effusion. No suspicious soft tissue calcifications. IMPRESSION: Mild knee osteoarthritis. Pt has been using a prescription topical gel for pain relief but with limited effect. She is not taking any OTC medications. She has had PT before for plantar fasciitis but never for her knee pain. Pt sees a chiropractor monthly for back, hip, and neck pain. 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 Able to walk her dogs without concern for pain. Current Functional Impairments (Reported) Functional Limitations- Mobility/Gait Unable to walk > 1 block without pain. Difficulty managing with dog walking. Personal Factors Other Personal Factors That May Effect + Pt is active and has Therapy/Recovery positive associations with movement, activity, and exercise. PT-OP-C Subjective Start: 02/27/20 12:58 Freq: Status: Active Protocol: Document 06/16/20 13:54 SP (Rec: 06/16/20 14:57 SP [id number]) OP-PT Subjective Patient Comments Patient Comments Pt stated anteromedial R knee is sore and noted some swelling when walking here today and more as distance progressed on [employer] [place] and treadmill lately. PT-OP-D Balance Start: 02/27/20 12:58 Freq: Status: Active Protocol: Document 02/27/20 14:35 AW (Rec: 02/27/20 15:07 AW [email or web address]) OP-PT Balance Assessment Standing Balance Static Standing Balance Ability Good Dynamic Standing Balance Ability Good Standing Balance Comments L SLS : 12 sec R SLS: 6 sec Robledo Fall Scale Copyright Permission PT-OP-G Mobility & Gait Start: 02/27/20 12:58 Freq: Status: Active Protocol: Document 02/27/20 14:35 AW (Rec: 02/27/20 15:07 AW [email or web address]) OP Mobility Evaluation Functional Movements Squats able with neutral knee posture but improves with cues for hip hinge OP Gait Assessment Gait Gait Assistance Required: Independent Distance (Feet) 100 Assistive Devices Assistive Device None Orthotic/Prosthetic Devices or Brace: No Gait Deviations General Gait Pattern Within Normal Limits,Decreased Feet Clearance Factors Limiting Gait Function Factors Limiting Gait Function Decreased Strength,Pain Comments Gait Comments Pt with slight genu varus in static and dynamic posture. Pt wears off the shelf shoes inserts bilaterally for arch support. PT-OP-H Neuro Start: 02/27/20 12:58 Freq: Status: Active Protocol: Document 02/27/20 14:35 AW (Rec: 02/27/20 15:07 AW [email or web address]) Sensation Evaluation Gross Sensation Gross Sensation WNL Deep Tendon Reflex & Clonus Assessment Deep Tendon Reflex Bilateral Achilles Deep Tendon Reflex 1+ Diminished Bilateral Patellar Deep Tendon Reflex 1+ Diminished PT-OP-J Posture/Palpation/Skin Start: 02/27/20 12:58 Freq: Status: Active Protocol: Document 02/27/20 14:35 AW (Rec: 02/27/20 15:07 AW [email or web address]) Posture Evaluation Position Standing Pelvis Posture Anteriorly Tilted Hip Posture (R) Externally Rotated Knee Posture (L) Genu Varus,(R) Genu Varus Patellar Posture (L) Neutral,(R) Neutral Ankle/Foot Posture (L) Pronated,(R) Pronated PT-OP-K Range of Motion Start: 02/27/20 12:58 Freq: Status: Active Protocol: Document 02/27/20 14:35 AW (Rec: 02/27/20 15:07 AW [email or web address]) Lumbar Spine Range of Motion Lumbar Spine Active Percentage Comments WNL Hip Goniometric Range of Motion Hip Left Active Extension 12 Internal Rotation 60 External Rotation 60 Right Active Hip ROM WFL Yes Testing Position Supine Extension 12 Internal Rotation 40 External Rotation 60 Hip ROM Limitations Hip ROM Limitations Soft Tissue Tightness,Muscle Weakness Knee Goniometric Range of Motion Knee Right Knee ROM WFL Yes Patient Position Supine Flexion Active (degrees) 135 Extension Active (degrees) 0 Left Knee ROM WFL Yes Patient Position Supine Flexion Active (degrees) 140 Extension Active (degrees) 0 Ankle and Foot Goniometric Range of Motion Ankle and Foot Left Active Comments B ankle ROM WNL all planes PT-OP-L Special Tests Start: 02/27/20 12:58 Freq: Status: Active Protocol: Document 02/27/20 14:35 AW (Rec: 02/27/20 16:48 AW [email or web address]) Special Tests Hip Special Tests Scour Test Test Results negative bilaterally Knee Special Tests Dony Test Results positive Comments leg elevated from table ~1 bilaterally Milind's Test Test Results positive Comments mildly positive bilaterally ligaments Comments B knees stable in all planes on exam PT-OP-M Strength Start: 02/27/20 12:58 Freq: Status: Active Protocol: Document 02/27/20 14:35 AW (Rec: 02/27/20 15:10 AW [email or web address]) Hip Strength Hip Manual Muscle Testing Right Flexion (L2) 4+ Good+ Extension (S1) 3+ Fair+ Abduction 4- Good- Adduction 4+ Good+ External Rotation 4+ Good+ Internal Rotation 4 Good Left Flexion (L2) 4+ Good+ Extension (S1) 3+ Fair+ Abduction 4- Good- Adduction 4+ Good+ External Rotation 4+ Good+ Internal Rotation 4 Good Knee Strength Knee Manual Muscle Testing Right Flexion (S2) 4+ Good+ Extension (L3) 5 Normal Left Flexion (S2) 4+ Good+ Extension (L3) 5 Normal Ankle/Foot Strength Ankle and Foot Manual Muscle Testing Right Dorsiflexion (L4) 4+ Good+ Plantarflexion (S1) 4+ Good+ Inversion 4+ Good+ Eversion (S1) 4+ Good+ Left Dorsiflexion (L4) 4+ Good+ Plantarflexion (S1) 4+ Good+ Inversion 4+ Good+ Eversion (S1) 4+ Good+ PT-OP-Q Treatments Start: 02/27/20 12:58 Freq: Status: Active Protocol: Document 06/16/20 13:54 SP (Rec: 06/16/20 14:57 SP [id number]) Gym Equipment Shuttle Recovery Unilateral squat Details cued knee with toes see shoe insole Resistance 37# Shuttle Recovery Platform Stable Reps/Time x10 each LE Bilateral Squats Details Cued knee Resistance 62# Shuttle Recovery Platform Stable Reps/Time 2 x 10 stable Shuttle Balance red Details WBOS, NBOS, stagger Reps/Duration 8 min Comments wt shift f/b, stationary w/ head turns, EC 30 sec WBOS and NBOS More challenging with stagger today decreased to 2-3 sec EC Therapeutic Exercises Sitting Exercises HS curl w/ TB Side right Resistance Tb #2 Equipment Used chair Reps/Minutes 2 x10 Comments cued slow muscular eccentric control HS stretch Side bilateral Reps/Minutes 30 x2 Comments cued hip hinge pirformis stretch Sitting Exercise Name ER Side bilateral Reps/Minutes 20 Comments cued arms support legs, tall posture- little discomfort med R knee Standing Exercises sit to stand Standing Exercise Name arms across chest- pain free Equipment Used 18 black table (lowest will go); 2 foam Reps/Minutes 10 reps + 10 reps with blue foam under feet Comments focus on hip extension, improved hip hinge Manual Therapy Treatment Taping swelling/ medial jt suport Body Location C Treatment Focus assist swelling and medial support Type of Tape Kinesio Tape Skin Inspection intact, normal color Comments good response I don't feel the pull. PT-OP-R Modalities Start: 02/27/20 12:58 Freq: Status: Active Protocol: Document 04/16/20 14:54 AW (Rec: 04/16/20 15:05 AW [email or web address]) Hot Pack/Cold Pack Treatment CP Location R Medial knee jt line Patient Position Hooklying Treatment Duration (minutes) 4 Patient Tolerance Good Comments ice massage to reach numb state; pt tolerated well PT-OP-T Assessment and Plan Start: 02/27/20 12:58 Freq: Status: Active Protocol: Document 06/16/20 13:54 SP (Rec: 06/16/20 14:57 SP [id number]) Physical Therapy Assessment Goals Four Impairment single leg balance Jail Goal (LTG) Pt will be able to perform RLE single leg squat from 21 height with good stability. LTG Duration 08/11/20 Three Impairment Decreased strength Short Term Goal (STG) Pt will demonstrate hip extension strength 4+ bilaterally 04/09/20 MET STG Duration 04/02/20 Rehabilitation Tech Goal (LTG) Pt will increase SLS to 20 seconds bilaterally without UE support 05/14/20 MET LTG Duration 05/07/20 Two Impairment Pt unable to ambulate >1 block without right knee pain limiting activity. Short Term Goal (STG) Pt will walk 3 blocks without right knee pain 04/09/20 MET - pt reports walking up to 1 mile without pain STG Duration 04/02/20 Rehabilitation Tech Goal (LTG) Pt will be able to walk her dogs for 60 minutes with 1- point or less increase in baseline pain LTG Duration 08/11/20 One Impairment Pt lacks appropriate HEP Short Term Goal (STG) Pt will be independent with HEP for support of therapy services provided in clinic. MET STG Duration 04/02/20 Assessment Summary Assessment Pt had decreased in anteromedial R knee pain with K taping and CKC ther ex today by end of tx. Pt stated still getting irritation on longer walks and sometimes after PT, wondering if should try a knee sleeve compression sleeve and take a break from therapy and see how does if might help, can always return. Physical Therapy Plan Frequency and Duration Frequency of Treatment 2x/Week Duration of Treatment 3 months Plan of Care Start Date 05/14/20 Plan of Care End Date 08/11/20 Therapeutic Interventions Therapeutic Interventions Balance Training,Gait Training ,Home Exercise Program,Joint Mobilizations,Manual Therapy, Neuromuscular Re-education, Patient/Caregiver Education, Self-Care/Home Management,Soft Tissue Mobilization,Taping, Therapeutic Activities, Therapeutic Exercises Modalities Cold Pack/Ice Massage Next Visit Focus/Plan Next Note Type Treatment Note Next Visit Plan Assess response to ktaping and CKC functional strengthening and balance. Continue per PT POC: dynamic stability training for right knee. Work on uneven surfaces.
--- NOTE | 2020-06-18 12:07 | PT.OTN ---
Current Diagnoses Pain in right knee (06/18/20) Difficulty in walking, not elsewhere classified (06/18/20) Physical Therapy Treatment Note PT-OP-A Visit Information Start: 02/27/20 12:58 Freq: Status: Active Protocol: Document 06/18/20 11:57 AW (Rec: 06/18/20 12:00 AW [id number]) Out-Patient Physical Therapy Visit Information Visit Information Visit Type Treatment Note Visit Start Time 11:15 Visit Stop Time 11:57 Total Visit Minutes 42 Visit Number 26 Number of DIRECTOR ELECTRONICS Visits 0 PT-OP-B Current Condition Start: 02/27/20 12:58 Freq: Status: Active Protocol: Document 02/27/20 14:35 AW (Rec: 02/27/20 14:51 AW [id number]) Current Condition History of Current Condition Onset Date last two years Current Complaints right knee pain History of Current Condition Pt reports bilateral knee pain with right worse than left. She used to bowl and landed on right knee >10 years ago. She had no fracture but no longer felt safe bowling. Her pain resolved but has returned over the last few years. She states it is not worsening but it is not improving at all. She does not have pain on waking in the morning. She is able to do light activity without pain. She does note pain with ambulation > 1 block which then bothers her for up to an hour. When asked about pain location, pt points to the inferomedial aspect of the anterior knee. Prior Treatments and Tests x-ray right knee 01/28/20: Bones: No acute fracture or dislocation. There is moderate medial femorotibial compartment narrowing, small intercondylar osteophytes and small tricompartmental osteophytes. Soft tissues: No joint effusion. No suspicious soft tissue calcifications. IMPRESSION: Mild knee osteoarthritis. Pt has been using a prescription topical gel for pain relief but with limited effect. She is not taking any OTC medications. She has had PT before for plantar fasciitis but never for her knee pain. Pt sees a chiropractor monthly for back, hip, and neck pain. 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 Able to walk her dogs without concern for pain. Current Functional Impairments (Reported) Functional Limitations- Mobility/Gait Unable to walk > 1 block without pain. Difficulty managing with dog walking. Personal Factors Other Personal Factors That May Effect + Pt is active and has Therapy/Recovery positive associations with movement, activity, and exercise. PT-OP-C Subjective Start: 02/27/20 12:58 Freq: Status: Active Protocol: Document 06/18/20 11:57 AW (Rec: 06/18/20 12:00 AW [id number]) OP-PT Subjective Patient Comments Patient Comments Pt states K tape helped with swelling and irritation. She is planning to purchase a compression garment and is ready to discharge from therapy PT-OP-D Balance Start: 02/27/20 12:58 Freq: Status: Active Protocol: Document 02/27/20 14:35 AW (Rec: 02/27/20 15:07 AW [email or web address]) OP-PT Balance Assessment Standing Balance Static Standing Balance Ability Good Dynamic Standing Balance Ability Good Standing Balance Comments L SLS : 12 sec R SLS: 6 sec Robledo Fall Scale Copyright Permission PT-OP-G Mobility & Gait Start: 02/27/20 12:58 Freq: Status: Active Protocol: Document 02/27/20 14:35 AW (Rec: 02/27/20 15:07 AW [email or web address]) OP Mobility Evaluation Functional Movements Squats able with neutral knee posture but improves with cues for hip hinge OP Gait Assessment Gait Gait Assistance Required: Independent Distance (Feet) 100 Assistive Devices Assistive Device None Orthotic/Prosthetic Devices or Brace: No Gait Deviations General Gait Pattern Within Normal Limits,Decreased Feet Clearance Factors Limiting Gait Function Factors Limiting Gait Function Decreased Strength,Pain Comments Gait Comments Pt with slight genu varus in static and dynamic posture. Pt wears off the shelf shoes inserts bilaterally for arch support. PT-OP-H Neuro Start: 02/27/20 12:58 Freq: Status: Active Protocol: Document 02/27/20 14:35 AW (Rec: 02/27/20 15:07 AW [email or web address]) Sensation Evaluation Gross Sensation Gross Sensation WNL Deep Tendon Reflex & Clonus Assessment Deep Tendon Reflex Bilateral Achilles Deep Tendon Reflex 1+ Diminished Bilateral Patellar Deep Tendon Reflex 1+ Diminished PT-OP-J Posture/Palpation/Skin Start: 02/27/20 12:58 Freq: Status: Active Protocol: Document 02/27/20 14:35 AW (Rec: 02/27/20 15:07 AW [email or web address]) Posture Evaluation Position Standing Pelvis Posture Anteriorly Tilted Hip Posture (R) Externally Rotated Knee Posture (L) Genu Varus,(R) Genu Varus Patellar Posture (L) Neutral,(R) Neutral Ankle/Foot Posture (L) Pronated,(R) Pronated PT-OP-K Range of Motion Start: 02/27/20 12:58 Freq: Status: Active Protocol: Document 02/27/20 14:35 AW (Rec: 02/27/20 15:07 AW [email or web address]) Lumbar Spine Range of Motion Lumbar Spine Active Percentage Comments WNL Hip Goniometric Range of Motion Hip Left Active Extension 12 Internal Rotation 60 External Rotation 60 Right Active Hip ROM WFL Yes Testing Position Supine Extension 12 Internal Rotation 40 External Rotation 60 Hip ROM Limitations Hip ROM Limitations Soft Tissue Tightness,Muscle Weakness Knee Goniometric Range of Motion Knee Right Knee ROM WFL Yes Patient Position Supine Flexion Active (degrees) 135 Extension Active (degrees) 0 Left Knee ROM WFL Yes Patient Position Supine Flexion Active (degrees) 140 Extension Active (degrees) 0 Ankle and Foot Goniometric Range of Motion Ankle and Foot Left Active Comments B ankle ROM WNL all planes PT-OP-L Special Tests Start: 02/27/20 12:58 Freq: Status: Active Protocol: Document 02/27/20 14:35 AW (Rec: 02/27/20 16:48 AW [email or web address]) Special Tests Hip Special Tests Scour Test Test Results negative bilaterally Knee Special Tests Dony Test Results positive Comments leg elevated from table ~1 bilaterally Milind's Test Test Results positive Comments mildly positive bilaterally ligaments Comments B knees stable in all planes on exam PT-OP-M Strength Start: 02/27/20 12:58 Freq: Status: Active Protocol: Document 02/27/20 14:35 AW (Rec: 02/27/20 15:10 AW [email or web address]) Hip Strength Hip Manual Muscle Testing Right Flexion (L2) 4+ Good+ Extension (S1) 3+ Fair+ Abduction 4- Good- Adduction 4+ Good+ External Rotation 4+ Good+ Internal Rotation 4 Good Left Flexion (L2) 4+ Good+ Extension (S1) 3+ Fair+ Abduction 4- Good- Adduction 4+ Good+ External Rotation 4+ Good+ Internal Rotation 4 Good Knee Strength Knee Manual Muscle Testing Right Flexion (S2) 4+ Good+ Extension (L3) 5 Normal Left Flexion (S2) 4+ Good+ Extension (L3) 5 Normal Ankle/Foot Strength Ankle and Foot Manual Muscle Testing Right Dorsiflexion (L4) 4+ Good+ Plantarflexion (S1) 4+ Good+ Inversion 4+ Good+ Eversion (S1) 4+ Good+ Left Dorsiflexion (L4) 4+ Good+ Plantarflexion (S1) 4+ Good+ Inversion 4+ Good+ Eversion (S1) 4+ Good+ PT-OP-Q Treatments Start: 02/27/20 12:58 Freq: Status: Active Protocol: Document 06/18/20 11:57 AW (Rec: 06/18/20 12:00 AW [id number]) Gym Equipment Shuttle Recovery Unilateral squat Details cued knee with toes see shoe insole Resistance 50# Shuttle Recovery Platform Stable Reps/Time x10 each LE Bilateral Squats Details Cued knee (hip rotation) Resistance 75# Shuttle Recovery Platform Stable Reps/Time 2 x 10 stable Therapeutic Exercises Sitting Exercises HS curl w/ TB Side right Resistance Tb #2 Equipment Used chair Reps/Minutes 2 x10 Comments cued slow muscular eccentric control Standing Exercises Concentric/eccentric calf raises Side bilateral Equipment Used stairs Reps/Minutes 10x bilateral, 10x unilateral each LE single leg stance Standing Exercise Name single leg stance Side bilateral Equipment Used // bars; blue foam Comments BLE 20+ seconds on level surface Gait Training Gait Activity uneven surface dynamic gait Description high knee lift step Device Used 0 Level of Assistance CG Surface airex pads, hurdles Distance/Duration 10 ft x8 laps Treatment Focus single leg stability Comments cued norrmal step length, tall glut hip ext and ankle stability over ENMANUEL PT-OP-R Modalities Start: 02/27/20 12:58 Freq: Status: Active Protocol: Document 04/16/20 14:54 AW (Rec: 04/16/20 15:05 AW [email or web address]) Hot Pack/Cold Pack Treatment CP Location R Medial knee jt line Patient Position Hooklying Treatment Duration (minutes) 4 Patient Tolerance Good Comments ice massage to reach numb state; pt tolerated well PT-OP-T Assessment and Plan Start: 02/27/20 12:58 Freq: Status: Active Protocol: Document 06/18/20 11:57 AW (Rec: 06/18/20 12:04 AW [id number]) Physical Therapy Assessment Rehab Potential Rehabilitation Potential Good Goals Four Impairment single leg balance Inspector [employer] Goal (LTG) Pt will be able to perform RLE single leg squat from 21 height with good stability. 06/18/20 - PROGRESS pt able from 20 height bilaterally LTG Duration 08/11/20 Three Impairment Decreased strength Short Term Goal (STG) Pt will demonstrate hip extension strength 4+ bilaterally 04/09/20 MET STG Duration 04/02/20 Inspector [employer] Metal [employer] Goal (LTG) Pt will increase SLS to 20 seconds bilaterally without UE support 05/14/20 MET LTG Duration 05/07/20 Two Impairment Pt unable to ambulate >1 block without right knee pain limiting activity. Short Term Goal (STG) Pt will walk 3 blocks without right knee pain 04/09/20 MET - pt reports walking up to 1 mile without pain STG Duration 04/02/20 Inspector [employer] Metal [employer] Goal (LTG) Pt will be able to walk her dogs for 60 minutes with 1- point or less increase in baseline pain 06/18/20 - Pt able to walk ~25 min on uneven terrain without increased pain LTG Duration 08/11/20 One Impairment Pt lacks appropriate HEP Short Term Goal (STG) Pt will be independent with HEP for support of therapy services provided in clinic. MET STG Duration 04/02/20 Assessment Summary Assessment Pt has met or made good progress toward all goals. Therapy team feels she has plateaued in progress and pt agrees. Pt to trial compression garment and knows she will need a new referral to return to PT if condition worsens. Physical Therapy Plan Frequency and Duration Frequency of Treatment 2x/Week Duration of Treatment 3 months Plan of Care Start Date 05/14/20 Plan of Care End Date 08/11/20 Therapeutic Interventions Therapeutic Interventions Balance Training,Gait Training ,Home Exercise Program,Joint Mobilizations,Manual Therapy, Neuromuscular Re-education, Patient/Caregiver Education, Self-Care/Home Management,Soft Tissue Mobilization,Taping, Therapeutic Activities, Therapeutic Exercises Discharge Physical Therapy Discharge Reasons Plateau in Progress Discharge Comments Pt has met or made good progress toward all goals. Therapy team feels she has plateaued in progress and pt agrees. Pt to trial compression garment and knows she will need a new referral to return to PT if condition worsens.
== END 2020-06-25 08:56 | disposition home or self-care (01) ==
LOC: PHYS 11:15
PROVIDERS: Family Provider Nurse Practitioner Family; PCP Nurse Practitioner Family; Referring Provider Nurse Practitioner Family; Visit Provider Nurse Practitioner Family
DX: M25.561 Pain in right knee (principal); R26.2 Difficulty in walking, not elsewhere classified
CPT/HCPCS: 97110; 97112; 97116; 97140; 97161; 97530

== ENCOUNTER → 2021-02-04 08:09 | Outpatient (CLI) | payer MEDICARE, SELFPAY ==
[2021-02-04 09:29] LABS: Hematocrit 36.1 % (36-46); Hemoglobin 12.1 g/dL (12.0-16.0); Mean Corpuscular HGB Conc 33.6 % (30-36); Mean Corpuscular Hemoglobin 29.7 PG (26-34); Mean Corpuscular Volume 88.2 fL (80-100); Platelet Count 183 X10^3/uL (150-400); Red Blood Cell Count 4.09 X10^6/uL (4.0-5.2); White Blood Cell Count 4.5 X10^3/uL (4.5-11.0)
[2021-02-04 09:56] LABS: NT-proBNP (BNP-Adult 18+) 160 pg/mL (<450)
[2021-02-04 09:56] LABS: Alanine Aminotransferase 17 IU/L (<35); Albumin 4.5 g/dL (3.5-5.0); Albumin Globulin Ratio 1.5 (1.0-2.8); Alkaline Phosphatase 82 U/L (38-126); Aspartate Aminotransferase 26 IU/L (14-36); BUN Creatinine Ratio 22.8 (6-22); Bilirubin Total 0.6 mg/dL (0.2-1.3); Blood Urea Nitrogen 28 mg/dL (7-17); Calcium 9.7 mg/dL (8.4-10.2); Carbon Dioxide 25 mmol/L (22-32); Chloride 105 mmol/L (98-107); Cholesterol 172 mg/dL (140-199); Estimated Glomerular Filt Rate 42.3 mL/min (>60); Globulin 3.1 g/dL (1.7-4.1); Glucose 103 mg/dL (80-110); HDL Cholesterol 31 mg/dL (40-60); HEMOLYSIS 15 (0-50); LDL Cholesterol Calculated 112 mg/dL (<100); Sodium 139 mmol/L (137-145); Total Protein 7.6 g/dL (6.3-8.2); Triglycerides 147 mg/dL (35-150); Uric Acid 6.6 mg/dL (2.5-6.2)
[2021-02-04 10:00] LABS: Creatinine Urine Random 206.4 mg/dL
[2021-02-04 10:04] LABS: Microalbumi Creatinin Ratio Ur 4.8 ug/mg CR (<30)
[2021-02-04 10:14] LABS: Potassium 5.4 mmol/L (3.4-5.1)
== END ==
PROVIDERS: Family Provider Nurse Practitioner Family; PCP Nurse Practitioner Family; Referring Provider Internal Medicine Cardiovascular Disease; Visit Provider Internal Medicine Cardiovascular Disease
DX: I10 Essential (primary) hypertension (principal); R06.00 Dyspnea, unspecified
CPT/HCPCS: 36415; 80053; 80061; 82043; 82570; 83880; 84550; 85027

== ENCOUNTER → 2021-02-06 12:29 | Outpatient (CLI) | payer MEDICARE, SELFPAY ==
[2021-02-06 14:34] LABS: BUN Creatinine Ratio 17.6 (6-22); Blood Urea Nitrogen 22 mg/dL (7-17); Calcium 9.9 mg/dL (8.4-10.2); Carbon Dioxide 26 mmol/L (22-32); Chloride 103 mmol/L (98-107); Estimated Glomerular Filt Rate 41.6 mL/min (>60); Glucose 91 mg/dL (80-110); HEMOLYSIS < 15 (0-50); Potassium 5.2 mmol/L (3.4-5.1); Sodium 139 mmol/L (137-145)
== END ==
PROVIDERS: Family Provider Nurse Practitioner Family; PCP Nurse Practitioner Family; Referring Provider Nurse Practitioner Family; Visit Provider Nurse Practitioner Family
DX: E78.5 Hyperlipidemia, unspecified (principal); N28.9 Disorder of kidney and ureter, unspecified
CPT/HCPCS: 36415; 80048

== ENCOUNTER → 2021-03-23 08:19 | Outpatient (CLI) | payer MEDICARE, SELFPAY ==
[2021-03-23 10:06] LABS: BUN Creatinine Ratio 17.1 (6-22); Blood Urea Nitrogen 24 mg/dL (7-17); Calcium 10.1 mg/dL (8.4-10.2); Carbon Dioxide 28 mmol/L (22-32); Chloride 100 mmol/L (98-107); Estimated Glomerular Filt Rate 36.5 mL/min (>60); Glucose 100 mg/dL (80-110); HEMOLYSIS < 15 (0-50); Potassium 5.2 mmol/L (3.4-5.1); Sodium 134 mmol/L (137-145)
== END ==
PROVIDERS: Family Provider Nurse Practitioner Family; PCP Nurse Practitioner Family; Referring Provider Nurse Practitioner Family; Visit Provider Nurse Practitioner Family
DX: E87.5 Hyperkalemia (principal)
CPT/HCPCS: 36415; 80048

== ENCOUNTER → 2021-05-05 16:35 | Outpatient (CLI) | payer MEDICARE, SELFPAY ==
--- NOTE | 2021-05-05 16:37 | DI.MG.S_ITS ---
BILATERAL DIGITAL SCREENING MAMMOGRAM 3D/2D WITH CAD: 05/05/2021 CLINICAL: Routine screening. Comparison is made to exams dated: 03/10/2020 mammogram, 11/17/2017 mammogram, 09/30/2016 mammogram, and 12/30/2017 mammogram - [facility]. The tissue of both breasts is extremely dense, which lowers the sensitivity of mammography. Current study was also evaluated with a Computer Aided Detection (CAD) system. No significant masses, calcifications, or other findings are seen in either breast. There has been no significant interval change. IMPRESSION: NEGATIVE There is no mammographic evidence of malignancy. A 1 year screening mammogram is recommended. This exam was interpreted at Station ID: [id number]. NOTE: For mammograms, a report in lay terms will be sent to the patient. Approximately 15% of breast malignancies will not be visualized mammographically. In the management of a palpable breast mass, a negative mammogram must not discourage biopsy of a clinically suspicious lesion. Electronically Signed By: Mariza ruiz/louis:05/05/2021 17:22:25 letter sent: Normal Exam ACR BI-RADS Category 1: Negative [id number]
== END ==
PROVIDERS: Family Provider Nurse Practitioner Family; PCP Nurse Practitioner Family; Referring Provider Nurse Practitioner Family; Visit Provider Nurse Practitioner Family
DX: Z12.31 Encounter for screening mammogram for malignant neoplasm of breast (principal)
CPT/HCPCS: 77063; 77067

== ENCOUNTER → 2021-09-02 15:06 | Outpatient (CLI) | payer MEDICARE, SELFPAY | PROVIDERS: Family Provider Nurse Practitioner Family; PCP Nurse Practitioner; Referring Provider Nurse Practitioner; Visit Provider Nurse Practitioner | DX: M81.0 Age-related osteoporosis without current pathological fracture (principal) | CPT/HCPCS: 77080 ==

== ENCOUNTER → 2021-09-25 07:00 | Outpatient (CLI) | payer MEDICARE, SELFPAY ==
[2021-09-25 08:17] LABS: Alanine Aminotransferase 19 IU/L (<35); Albumin 4.5 g/dL (3.5-5.0); Albumin Globulin Ratio 1.4 (1.0-2.8); Alkaline Phosphatase 78 U/L (38-126); Aspartate Aminotransferase 28 IU/L (14-36); BUN Creatinine Ratio 17.2 (6-22); Bilirubin Total 0.8 mg/dL (0.2-1.3); Blood Urea Nitrogen 23 mg/dL (7-17); Calcium 9.5 mg/dL (8.4-10.2); Carbon Dioxide 26 mmol/L (22-32); Chloride 103 mmol/L (98-107); Cholesterol 186 mg/dL (140-199); Estimated Glomerular Filt Rate 41 mL/min (>60); Globulin 3.2 g/dL (1.7-4.1); Glucose 99 mg/dL (80-110); HDL Cholesterol 33 mg/dL (40-60); HEMOLYSIS < 15 (0-50); LDL Cholesterol Calculated 124 mg/dL (<100); Magnesium 1.9 mg/dL (1.6-2.3); Potassium 5.1 mmol/L (3.4-5.1); Sodium 137 mmol/L (137-145); Total Protein 7.7 g/dL (6.3-8.2); Triglycerides 145 mg/dL (35-150); Uric Acid 6.7 mg/dL (2.5-6.2)
== END ==
PROVIDERS: Family Provider Nurse Practitioner Family; PCP Nurse Practitioner; Referring Provider Internal Medicine Cardiovascular Disease; Visit Provider Internal Medicine Cardiovascular Disease
DX: I10 Essential (primary) hypertension (principal); E78.2 Mixed hyperlipidemia; E79.0 Hyperuricemia without signs of inflammatory arthritis and tophaceous disease; E87.5 Hyperkalemia; M1A.9XX0 Chronic gout, unspecified, without tophus (tophi); N28.9 Disorder of kidney and ureter, unspecified
CPT/HCPCS: 36415; 80053; 80061; 83735; 84550

== ENCOUNTER → 2022-04-21 08:34 | Outpatient (CLI) | payer MEDICARE, SELFPAY ==
[2022-04-21 11:17] LABS: Alanine Aminotransferase 19 IU/L (<35); Albumin 4.3 g/dL (3.5-5.0); Albumin Globulin Ratio 1.3 (1.0-2.8); Alkaline Phosphatase 70 U/L (38-126); Aspartate Aminotransferase 26 IU/L (14-36); BUN Creatinine Ratio 13.9 (6-22); Bilirubin Total 0.6 mg/dL (0.2-1.3); Blood Urea Nitrogen 17 mg/dL (7-17); Calcium 9.7 mg/dL (8.4-10.2); Carbon Dioxide 26 mmol/L (22-32); Chloride 99 mmol/L (98-107); Cholesterol 194 mg/dL (140-199); Estimated Glomerular Filt Rate 45 mL/min (>60); Globulin 3.4 g/dL (1.7-4.1); Glucose 91 mg/dL (80-110); HDL Cholesterol 39 mg/dL (40-60); HEMOLYSIS < 15 (0-50); LDL Cholesterol Calculated 129 mg/dL (<100); Sodium 135 mmol/L (137-145); Total Protein 7.7 g/dL (6.3-8.2); Triglycerides 132 mg/dL (35-150); Uric Acid 5.9 mg/dL (2.5-6.2)
[2022-04-21 11:29] LABS: Free T3, Triiodothyronine Free 3.76 pg/mL (2.77-5.27); Free T4, Direct Thyroxine 1.28 ng/dL (0.78-2.19)
[2022-04-21 11:37] LABS: Microalbumi Creatinin Ratio Ur 4.2 ug/mg CR (<30); Microalbumin Urine Random 1.1 mg/dL (0-1.6)
[2022-04-21 11:42] LABS: Thyroid Stimulating Hormone 2.55 uIU/mL (0.47-4.68)
== END ==
PROVIDERS: Family Provider Nurse Practitioner Family; PCP Nurse Practitioner; Referring Provider Nurse Practitioner; Visit Provider Nurse Practitioner
DX: E78.2 Mixed hyperlipidemia (principal); E79.0 Hyperuricemia without signs of inflammatory arthritis and tophaceous disease; E87.5 Hyperkalemia; I10 Essential (primary) hypertension; M1A.9XX0 Chronic gout, unspecified, without tophus (tophi); N28.9 Disorder of kidney and ureter, unspecified; Z79.899 Other long term (current) drug therapy
CPT/HCPCS: 36415; 80053; 80061; 82043; 82570; 84439; 84443; 84481; 84550

== ENCOUNTER → 2022-06-07 13:22 | Outpatient (CLI) | payer MEDICARE, SELFPAY ==
--- NOTE | 2022-06-07 | DI.MG.S_ITS ---
BILATERAL DIGITAL SCREENING MAMMOGRAM 3D/2D WITH CAD: 06/07/2022 CLINICAL: Routine screening. Comparison is made to exams dated: 05/05/2021 mammogram, 03/10/2020 mammogram, 12/30/2017 mammogram, and 11/17/2017 mammogram - [facility]. Both breasts are heterogeneously dense, which may obscure small masses (category c / 51-75% glandular tissue). Current study was also evaluated with a Computer Aided Detection (CAD) system. No significant masses, calcifications, or other findings are seen in either breast. There has been no significant interval change. IMPRESSION: NEGATIVE There is no mammographic evidence of malignancy. A 1 year screening mammogram is recommended. Based on the Tyrer Cuzick model (a risk assessment model) the patient's lifetime risk is 4.2% and her 10 year risk is 0.0%. According to the ACR, ACS, and NCCN guidelines, an annual breast MRI exam along with mammogram is recommended if the patient's lifetime risk is 20% or greater. This exam was interpreted at Station ID: [id number]. NOTE: For mammograms, a report in lay terms will be sent to the patient. Approximately 15% of breast malignancies will not be visualized mammographically. In the management of a palpable breast mass, a negative mammogram must not discourage biopsy of a clinically suspicious lesion. Electronically Signed By: Kristin williamson/louis:06/07/2022 16:01:19 letter sent: Normal Exam ACR BI-RADS Category 1: Negative [id number]
== END ==
PROVIDERS: Family Provider Nurse Practitioner; PCP Nurse Practitioner; Referring Provider Nurse Practitioner; Visit Provider Nurse Practitioner
DX: Z12.31 Encounter for screening mammogram for malignant neoplasm of breast (principal)
CPT/HCPCS: 77063; 77067

== ENCOUNTER → 2022-06-24 09:30 | Outpatient (CLI) | payer MEDICARE, SELFPAY ==
--- NOTE | 2022-06-24 09:32 | DI.RAD.S_ITS ---
PROCEDURE: XR CHEST 2V INDICATIONS: HYPERTENSION TECHNIQUE: 2 views of the chest were acquired. COMPARISON: [facility], CR, XR CHEST 2V, 06/19/2018, 15:31. FINDINGS: Surgical changes and devices: None. Lungs and pleura: Lungs are clear. No pleural effusions or pneumothorax. Mediastinum: Mediastinal contours are normal. Heart size is normal. Bones and chest wall: No suspicious bony abnormalities. Soft tissues appear unremarkable. IMPRESSION: No acute cardiopulmonary abnormality. Dictated by: Aamir Calderon M.D. on 06/24/2022 at 11:53 Approved by: Aamir Calderon M.D. on 06/24/2022 at 11:59
== END ==
PROVIDERS: Family Provider Nurse Practitioner; PCP Nurse Practitioner; Referring Provider Internal Medicine Cardiovascular Disease; Visit Provider Internal Medicine Cardiovascular Disease
DX: I10 Essential (primary) hypertension (principal)
CPT/HCPCS: 71046

== ENCOUNTER 2022-07-22 10:00 | Outpatient (RCR) | payer MEDICARE, SELFPAY ==
--- NOTE | 2022-06-01 15:12 | PT.OIE ---
Current Diagnoses Dorsalgia, unspecified (06/01/22) Past Medical History (Last Reviewed 04/26/22 @ 17:31 by BECKY Keen) Eczema of both upper extremities Gout (Unknown) Hyperlipemia (Unknown) Hypertension (Unknown) Right knee pain (2019) Past Surgical History (Last Reviewed 04/26/22 @ 17:31 by BECKY Keen) History of cataract removal with insertion of prosthetic lens S/P total abdominal hysterectomy and bilateral salpingo-oophorectomy (1987) Visit Care Team Role Provider Type BECKY Keen Attending Provider Advanced Cover Stitch Machine Operator Family Provider Primary Care Provider Referring Provider Specialty: [facility] Practice Address: [address] [place] [address], [facility] Email: [email or web address] Physical Therapy Initial Evaluation PT-OP-A Visit Information Start: 05/31/22 10:22 Freq: Status: Active Protocol: Document 06/01/22 09:00 AMB (Rec: 06/01/22 09:15 AMB [id number]) Out-Patient Physical Therapy Visit Information Visit Information Visit Type Initial Evaluation Visit Start Time 09:00 Visit Stop Time 09:45 Total Visit Minutes 45 Visit Number 1 PT-OP-B Current Condition Start: 05/31/22 10:22 Freq: Status: Active Protocol: Document 06/01/22 09:06 AMB (Rec: 06/01/22 09:14 AMB [id number]) Current Condition History of Current Condition Onset Date 2-3 months Current Complaints upper back pain History of Current Condition upper back down to the mid back seems to radiate down. 2 -3 months of back pain. Gets better when she lies down. Seems to be worst with extended standing like an hour of standing. Definitely affecting cooking. Stretching the back seems to be helpful. Turning neck to the left is painful. Prior Treatments and Tests Chiropractor was somewhat helpful PT-OP-C Subjective Start: 05/31/22 10:22 Freq: Status: Active Protocol: Document 06/01/22 09:00 AMB (Rec: 06/03/22 14:46 AMB [id number]) Patient Questionnaires Oswestry Low Back Index Oswestry Score 6 PT-OP-J Posture/Palpation/Skin Start: 05/31/22 10:22 Freq: Status: Active Protocol: Document 06/02/22 09:00 AMB (Rec: 06/03/22 14:45 AMB [id number]) Posture Evaluation Comments Posture Comments increased lumbar lordosis PT-OP-K Range of Motion Start: 05/31/22 10:22 Freq: Status: Active Protocol: Document 06/02/22 09:00 AMB (Rec: 06/03/22 14:45 AMB [id number]) Lumbar Spine Range of Motion Lumbar Spine Active Percentage Testing Position Standing Flexion 100 Extension 25 Lateral Flexion Left 50 Lateral Flexion Right 25 PT-OP-M Strength Start: 05/31/22 10:22 Freq: Status: Active Protocol: Document 06/02/22 09:00 AMB (Rec: 06/03/22 14:45 AMB [id number]) Hip Strength Hip Manual Muscle Testing Right Extension (S1) 4 Good Left Extension (S1) 4 Good PT-OP-Q Treatments Start: 05/31/22 10:22 Freq: Status: Active Protocol: Document 06/02/22 09:00 AMB (Rec: 06/03/22 14:45 AMB [id number]) Therapeutic Exercises Supine Exercises 1 Supine Exercise Name TA in hooklying PT-OP-T Assessment and Plan Start: 05/31/22 10:22 Freq: Status: Active Protocol: Document 06/02/22 09:00 AMB (Rec: 06/03/22 15:12 AMB [id number]) Physical Therapy Assessment Rehab Potential Rehabilitation Potential Good Evaluation Complexity Number of Personal Factors/Comorbidities 0 Number of Body Systems Impaired 3 Clinical Presentation at Evaluation Stable Impairments Impairments Pain,Posture,ROM Goals Two Impairment Transfers Short Term Goal (STG) Aicha will perform all bed mobility with good body mechanics without pain. STG Duration 4 weeks One Impairment Pain Short Term Goal (STG) Aicha will stand to vegetables cook for 45 minutes without an increase in her baseline pain. STG Duration 4 weeks Longterm Goal (LTG) Aicha will perform a partial squat and lift 10# without an increase in pain with good body mechanics. LTG Duration 8 weeks Assessment Summary Assessment Aicha attends physical therapy with mid/low back pain with standing. Limited ROM into extension and R sidebending. Poor gluteal and core strength . Aicha will benefit from body mechanics and postural insruction in addition to working on strengthening to support her so that she can cook and move throughout her home with less back pain. Physical Therapy Plan Frequency and Duration Frequency of Treatment 2x/Week Duration of treatment (weeks) 12 Plan of Care Start Date 06/01/22 Plan of Care End Date 08/24/22 Therapeutic Interventions Therapeutic Interventions Manual Therapy,Neuromuscular Re-education,Therapeutic Activities,Therapeutic Exercises Modalities Cold Pack/Ice Massage,Electric Stimulation,Hot Packs Next Visit Focus/Plan Next Note Type Treatment Note Next Visit Plan Follow up on body mechanics, core stabilization
--- NOTE | 2022-06-01 15:14 | PT.OPPOC ---
Physical, Occupational & Speech Therapy At [facility] Current Diagnoses Dorsalgia, unspecified (06/01/22) Visit Care Team Role Provider Type BECKY Keen Attending Provider Advanced Chemical Treatment Operator Family Provider Primary Care Provider Referring Provider Specialty: Family Practice Address: [address] [place] [address], [id number] Email: [email or web address] Plan Of Care PT-OP-T Assessment and Plan Start: 05/31/22 10:22 Freq: Status: Active Protocol: Document 06/02/22 09:00 AMB (Rec: 06/03/22 15:12 AMB [id number]) Physical Therapy Assessment Rehab Potential Rehabilitation Potential Good Evaluation Complexity Number of Personal Factors/Comorbidities 0 Number of Body Systems Impaired 3 Clinical Presentation at Evaluation Stable Impairments Impairments Pain,Posture,ROM Goals Two Impairment Transfers Short Term Goal (STG) Aicha will perform all bed mobility with good body mechanics without pain. STG Duration 4 weeks One Impairment Pain Short Term Goal (STG) Aicha will stand to cooky packer for 45 minutes without an increase in her baseline pain. STG Duration 4 weeks Commodity Buyer Goal (LTG) Aicha will perform a partial squat and lift 10# without an increase in pain with good body mechanics. LTG Duration 8 weeks Assessment Summary Assessment Aicha attends physical therapy with mid/low back pain with standing. Limited ROM into extension and R sidebending. Poor gluteal and core strength . Aicha will benefit from body mechanics and postural insruction in addition to working on strengthening to support her so that she can cook and move throughout her home with less back pain. Physical Therapy Plan Frequency and Duration Frequency of Treatment 2x/Week Duration of treatment (weeks) 12 Plan of Care Start Date 06/01/22 Plan of Care End Date 08/24/22 Therapeutic Interventions Therapeutic Interventions Manual Therapy,Neuromuscular Re-education,Therapeutic Activities,Therapeutic Exercises Modalities Cold Pack/Ice Massage,Electric Stimulation,Hot Packs Next Visit Focus/Plan Next Note Type Treatment Note Next Visit Plan Follow up on body mechanics, core stabilization Plan of Care Dates Plan of Care Start Date 06/01/22 Plan of Care End Date 08/24/22 Electronically Signed by: Tara Barlow, PT 06/03/22 1333 If you are in agreement with this Plan of Care, please return a signed and dated copy. I have reviewed this Plan of Care and certify that the skilled therapy services above are required to meet the patient?s needs. Physician Signature Date Printed Name and Credentials Clinical Instructor Signature Printed Name and Credentials
--- NOTE | 2022-06-07 10:31 | PT.OTN ---
Current Diagnoses Dorsalgia, unspecified (06/07/22) Physical Therapy Treatment Note PT-OP-A Visit Information Start: 05/31/22 10:22 Freq: Status: Active Protocol: Document 06/07/22 09:51 AMB (Rec: 06/07/22 10:30 AMB [id number]) Out-Patient Physical Therapy Visit Information Visit Information Visit Type Treatment Note Visit Start Time 09:00 Visit Stop Time 09:45 Total Visit Minutes 45 Visit Number 2 PT-OP-B Current Condition Start: 05/31/22 10:22 Freq: Status: Active Protocol: Document 06/01/22 09:06 AMB (Rec: 06/01/22 09:14 AMB [id number]) Current Condition History of Current Condition Onset Date 2-3 months Current Complaints upper back pain History of Current Condition upper back down to the mid back seems to radiate down. 2 -3 months of back pain. Gets better when she lies down. Seems to be worst with extended standing like an hour of standing. Definitely affecting cooking. Stretching the back seems to be helpful. Turning neck to the left is painful. Prior Treatments and Tests Chiropractor was somewhat helpful PT-OP-C Subjective Start: 05/31/22 10:22 Freq: Status: Active Protocol: Document 06/07/22 09:51 AMB (Rec: 06/07/22 10:30 AMB [id number]) OP-PT Subjective Patient Comments Patient Comments Pt reports less painin the kitchen with putting her leg up on something, made her a little wooden block that she can kick around. Has been doing her exercises. PT-OP-J Posture/Palpation/Skin Start: 05/31/22 10:22 Freq: Status: Active Protocol: Document 06/02/22 09:00 AMB (Rec: 06/03/22 14:45 AMB [id number]) Posture Evaluation Comments Posture Comments increased lumbar lordosis PT-OP-K Range of Motion Start: 05/31/22 10:22 Freq: Status: Active Protocol: Document 06/02/22 09:00 AMB (Rec: 06/03/22 14:45 AMB [id number]) Lumbar Spine Range of Motion Lumbar Spine Active Percentage Testing Position Standing Flexion 100 Extension 25 Lateral Flexion Left 50 Lateral Flexion Right 25 PT-OP-M Strength Start: 05/31/22 10:22 Freq: Status: Active Protocol: Document 06/02/22 09:00 AMB (Rec: 06/03/22 14:45 AMB [id number]) Hip Strength Hip Manual Muscle Testing Right Extension (S1) 4 Good Left Extension (S1) 4 Good PT-OP-Q Treatments Start: 05/31/22 10:22 Freq: Status: Active Protocol: Document 06/07/22 09:51 AMB (Rec: 06/07/22 10:30 AMB [id number]) Therapeutic Exercises Supine Exercises table top Supine Exercise Name too challenging d/jessie TA with SLR Reps/Minutes 10 1 Supine Exercise Name TA in hooklying Sitting Exercises pelvic tilt Reps/Minutes 10 Comments cue breath Standing Exercises kitchen sink stretch Reps/Minutes 10x3 Comments with hip side to side for QL stretch Other Exercises max pose Reps/Minutes 30x2 cat cow Reps/Minutes 10 Comments challenging due to wrists PT-OP-T Assessment and Plan Start: 05/31/22 10:22 Freq: Status: Active Protocol: Document 06/07/22 09:51 AMB (Rec: 06/07/22 10:30 AMB [id number]) Physical Therapy Assessment Goals Two Impairment Transfers Short Term Goal (STG) Aicha will perform all bed mobility with good body mechanics without pain. STG Duration 4 weeks One Impairment Pain Short Term Goal (STG) Aicha will stand to cook camp for 45 minutes without an increase in her baseline pain. STG Duration 4 weeks Drug Abuse Counselor Goal (LTG) Aicha will perform a partial squat and lift 10# without an increase in pain with good body mechanics. LTG Duration 8 weeks Assessment Summary Assessment Table top increased pt;s back pain, single leg march was pretty easy. SLR worked the best, worked on pelvic tilt for long car rides. Pt feels tension in neck so addressed with UT stretch. Physical Therapy Plan Frequency and Duration Frequency of Treatment 2x/Week Duration of treatment (weeks) 12 Plan of Care Start Date 06/01/22 Plan of Care End Date 08/24/22 Therapeutic Interventions Therapeutic Interventions Manual Therapy,Neuromuscular Re-education,Therapeutic Activities,Therapeutic Exercises Modalities Cold Pack/Ice Massage,Electric Stimulation,Hot Packs Next Visit Focus/Plan Next Note Type Treatment Note Next Visit Plan Follow up on body mechanics, core stabilization
--- NOTE | 2022-06-29 16:01 | PT.OTN ---
Current Diagnoses Dorsalgia, unspecified (07/06/22) Physical Therapy Treatment Note PT-OP-A Visit Information Start: 05/31/22 10:22 Freq: Status: Active Protocol: Document 07/06/22 14:30 AMB (Rec: 06/29/22 10:34 AMB [id number]) Out-Patient Physical Therapy Visit Information Visit Information Visit Type Treatment Note Visit Start Time 09:45 Visit Stop Time 10:30 Total Visit Minutes 45 Visit Number 3 PT-OP-B Current Condition Start: 05/31/22 10:22 Freq: Status: Active Protocol: Document 06/01/22 09:06 AMB (Rec: 06/01/22 09:14 AMB [id number]) Current Condition History of Current Condition Onset Date 2-3 months Current Complaints upper back pain History of Current Condition upper back down to the mid back seems to radiate down. 2 -3 months of back pain. Gets better when she lies down. Seems to be worst with extended standing like an hour of standing. Definitely affecting cooking. Stretching the back seems to be helpful. Turning neck to the left is painful. Prior Treatments and Tests Chiropractor was somewhat helpful PT-OP-C Subjective Start: 05/31/22 10:22 Freq: Status: Active Protocol: Document 07/06/22 14:30 AMB (Rec: 06/29/22 10:34 AMB [id number]) OP-PT Subjective Patient Comments Patient Comments Pt reports improving back pain , does need to take a break and do stretches while cooking , but pain does come back down . PT-OP-J Posture/Palpation/Skin Start: 05/31/22 10:22 Freq: Status: Active Protocol: Document 06/02/22 09:00 AMB (Rec: 06/03/22 14:45 AMB [id number]) Posture Evaluation Comments Posture Comments increased lumbar lordosis PT-OP-K Range of Motion Start: 05/31/22 10:22 Freq: Status: Active Protocol: Document 06/02/22 09:00 AMB (Rec: 06/03/22 14:45 AMB [id number]) Lumbar Spine Range of Motion Lumbar Spine Active Percentage Testing Position Standing Flexion 100 Extension 25 Lateral Flexion Left 50 Lateral Flexion Right 25 PT-OP-M Strength Start: 05/31/22 10:22 Freq: Status: Active Protocol: Document 06/02/22 09:00 AMB (Rec: 06/03/22 14:45 AMB [id number]) Hip Strength Hip Manual Muscle Testing Right Extension (S1) 4 Good Left Extension (S1) 4 Good PT-OP-Q Treatments Start: 05/31/22 10:22 Freq: Status: Active Protocol: Document 07/06/22 14:30 AMB (Rec: 06/29/22 10:34 AMB [id number]) Therapeutic Exercises Supine Exercises table top Supine Exercise Name too challenging increased back pain TA with SLR Reps/Minutes 10 Comments not touching down between reps Sidelying Exercises open book Reps/Minutes 10 ea Comments cue follow hand with eyes for c spine rot clamshell Reps/Minutes 2x10 Comments AROM Sitting Exercises flaco disk Sitting Exercise Name may Reps/Minutes 5 min therapy ball Sitting Exercise Name may, LAQ, pelvic tilt Reps/Minutes 10 min Standing Exercises squats Standing Exercise Name at railing, focus on PT-OP-T Assessment and Plan Start: 05/31/22 10:22 Freq: Status: Active Protocol: Document 07/06/22 14:30 AMB (Rec: 06/29/22 10:34 AMB [id number]) Physical Therapy Assessment Goals Two Impairment Transfers Short Term Goal (STG) Aicha will perform all bed mobility with good body mechanics without pain. STG Duration 4 weeks One Impairment Pain Short Term Goal (STG) Aicha will stand to cook chill technician for 45 minutes without an increase in her baseline pain. STG Duration 4 weeks Digital Marketing Project Manager Goal (LTG) Aicha will perform a partial squat and lift 10# without an increase in pain with good body mechanics. LTG Duration 8 weeks Assessment Summary Assessment Pt is progressing well back pain is reducing. Continues to be concerned about upper back/thoracic pain wistanding, . Physical Therapy Plan Frequency and Duration Frequency of Treatment 2x/Week Duration of treatment (weeks) 12 Plan of Care Start Date 06/01/22 Plan of Care End Date 08/24/22 Therapeutic Interventions Therapeutic Interventions Manual Therapy,Neuromuscular Re-education,Therapeutic Activities,Therapeutic Exercises Modalities Cold Pack/Ice Massage,Electric Stimulation,Hot Packs Next Visit Focus/Plan Next Note Type Treatment Note Next Visit Plan Recheck response to open book. Incorporated standing core: resisted rows/ext, hurdles. Add: Follow up on body mechanics, core stabilization
--- NOTE | 2022-07-01 14:30 | PT.OTN ---
Current Diagnoses Dorsalgia, unspecified (07/01/22) Physical Therapy Treatment Note PT-OP-A Visit Information Start: 05/31/22 10:22 Freq: Status: Active Protocol: Document 07/01/22 13:49 SP (Rec: 07/01/22 14:33 SP [id number]) Out-Patient Physical Therapy Visit Information Visit Information Visit Type Treatment Note Visit Start Time 13:49 Visit Stop Time 14:30 Total Visit Minutes 41 Visit Number 4 Number of DIRECTOR SALES SUPPORT Visits 1 PT-OP-B Current Condition Start: 05/31/22 10:22 Freq: Status: Active Protocol: Document 06/01/22 09:06 AMB (Rec: 06/01/22 09:14 AMB [id number]) Current Condition History of Current Condition Onset Date 2-3 months Current Complaints upper back pain History of Current Condition upper back down to the mid back seems to radiate down. 2 -3 months of back pain. Gets better when she lies down. Seems to be worst with extended standing like an hour of standing. Definitely affecting cooking. Stretching the back seems to be helpful. Turning neck to the left is painful. Prior Treatments and Tests Chiropractor was somewhat helpful PT-OP-C Subjective Start: 05/31/22 10:22 Freq: Status: Active Protocol: Document 07/01/22 13:49 SP (Rec: 07/01/22 14:33 SP [id number]) OP-PT Subjective Patient Comments Patient Comments Pt reports exercises given helping, wants to review open book to be sure doing correctly, can't get back flat on table as picture instructs . PT-OP-J Posture/Palpation/Skin Start: 05/31/22 10:22 Freq: Status: Active Protocol: Document 06/02/22 09:00 AMB (Rec: 06/03/22 14:45 AMB [id number]) Posture Evaluation Comments Posture Comments increased lumbar lordosis PT-OP-K Range of Motion Start: 05/31/22 10:22 Freq: Status: Active Protocol: Document 06/02/22 09:00 AMB (Rec: 06/03/22 14:45 AMB [id number]) Lumbar Spine Range of Motion Lumbar Spine Active Percentage Testing Position Standing Flexion 100 Extension 25 Lateral Flexion Left 50 Lateral Flexion Right 25 PT-OP-M Strength Start: 05/31/22 10:22 Freq: Status: Active Protocol: Document 06/02/22 09:00 AMB (Rec: 06/03/22 14:45 AMB [id number]) Hip Strength Hip Manual Muscle Testing Right Extension (S1) 4 Good Left Extension (S1) 4 Good PT-OP-Q Treatments Start: 05/31/22 10:22 Freq: Status: Active Protocol: Document 07/01/22 13:49 SP (Rec: 07/01/22 14:33 SP [id number]) Therapeutic Exercises Sidelying Exercises open book Sidelying Exercise Name HEP reviewed Side bilateral Resistance R partial head turn then eyes follow, L head / TS rotation fine Reps/Minutes 10 ea Comments cue follow hand with eyes/head if painfree for c spine rot clamshell Sidelying Exercise Name HEP reviewed Resistance AROM Reps/Minutes 2x10 Comments good PPT/TA, slow hip abd painfree ROM Sitting Exercises flaco disk Sitting Exercise Name may, Equipment Used low table + blue disc Reps/Minutes x10 each Comments cued tall posture over pelvis, LE lift with core fac stability- good form therapy ball Sitting Exercise Name may,, pelvic tilt Reps/Minutes 5 min Comments improved stability without need use UE support nearby table Standing Exercises squats Standing Exercise Name sit to stands on/off low table Resistance arms across chest Reps/Minutes x10 reps Comments cued scoot fwd, hip hinge full descent slow- improved form/ painfree Self-Care/Home Management Treatment Education Patient Education Home Exercise Program Other Education Ed and instruction on proper form: head with arm open book painfree range, no UT recruitment. Extra time hip hinge STS arms across chest vs lap. PT-OP-T Assessment and Plan Start: 05/31/22 10:22 Freq: Status: Active Protocol: Document 07/01/22 13:49 SP (Rec: 07/01/22 14:33 SP [id number]) Physical Therapy Assessment Goals Two Impairment Transfers Short Term Goal (STG) Aicha will perform all bed mobility with good body mechanics without pain. STG Duration 4 weeks One Impairment Pain Short Term Goal (STG) Aicha will stand to cook vegetable for 45 minutes without an increase in her baseline pain. STG Duration 4 weeks Leather Belt Shaper Goal (LTG) Aicha will perform a partial squat and lift 10# without an increase in pain with good body mechanics. LTG Duration 8 weeks Assessment Summary Assessment Pt improved understanding of HEP post review, cues for head turn during R limited then follow with eyes decreased to no UT neck pain painfree range , not needing to rotation to extent hand out suggested. Pt improved TA and hip hinge sit to stands end tx, self corrections scoot forward and no use UE. Physical Therapy Plan Frequency and Duration Frequency of Treatment 2x/Week Duration of treatment (weeks) 12 Plan of Care Start Date 06/01/22 Plan of Care End Date 08/24/22 Therapeutic Interventions Therapeutic Interventions Manual Therapy,Neuromuscular Re-education,Therapeutic Activities,Therapeutic Exercises Modalities Cold Pack/Ice Massage,Electric Stimulation,Hot Packs Next Visit Focus/Plan Next Note Type Treatment Note Next Visit Plan Recheck response to open book. Incorporated standing core: resisted rows/ext, hurdles. Add: Follow up on body mechanics, core stabilization
--- NOTE | 2022-07-06 08:55 | PT.OTN ---
Current Diagnoses Dorsalgia, unspecified (07/06/22) Physical Therapy Treatment Note PT-OP-A Visit Information Start: 05/31/22 10:22 Freq: Status: Active Protocol: Document 07/01/22 13:49 SP (Rec: 07/01/22 14:33 SP [id number]) Out-Patient Physical Therapy Visit Information Visit Information Visit Type Treatment Note Visit Start Time 13:49 Visit Stop Time 14:30 Total Visit Minutes 41 Visit Number 4 Number of TUBE BUILDER AIRPLANE Visits 1 PT-OP-B Current Condition Start: 05/31/22 10:22 Freq: Status: Active Protocol: Document 06/01/22 09:06 AMB (Rec: 06/01/22 09:14 AMB [id number]) Current Condition History of Current Condition Onset Date 2-3 months Current Complaints upper back pain History of Current Condition upper back down to the mid back seems to radiate down. 2 -3 months of back pain. Gets better when she lies down. Seems to be worst with extended standing like an hour of standing. Definitely affecting cooking. Stretching the back seems to be helpful. Turning neck to the left is painful. Prior Treatments and Tests Chiropractor was somewhat helpful PT-OP-C Subjective Start: 05/31/22 10:22 Freq: Status: Active Protocol: Document 07/01/22 13:49 SP (Rec: 07/01/22 14:33 SP [id number]) OP-PT Subjective Patient Comments Patient Comments Pt reports exercises given helping, wants to review open book to be sure doing correctly, can't get back flat on table as picture instructs . PT-OP-J Posture/Palpation/Skin Start: 05/31/22 10:22 Freq: Status: Active Protocol: Document 06/02/22 09:00 AMB (Rec: 06/03/22 14:45 AMB [id number]) Posture Evaluation Comments Posture Comments increased lumbar lordosis PT-OP-K Range of Motion Start: 05/31/22 10:22 Freq: Status: Active Protocol: Document 06/02/22 09:00 AMB (Rec: 06/03/22 14:45 AMB [id number]) Lumbar Spine Range of Motion Lumbar Spine Active Percentage Testing Position Standing Flexion 100 Extension 25 Lateral Flexion Left 50 Lateral Flexion Right 25 PT-OP-M Strength Start: 05/31/22 10:22 Freq: Status: Active Protocol: Document 06/02/22 09:00 AMB (Rec: 06/03/22 14:45 AMB [id number]) Hip Strength Hip Manual Muscle Testing Right Extension (S1) 4 Good Left Extension (S1) 4 Good PT-OP-Q Treatments Start: 05/31/22 10:22 Freq: Status: Active Protocol: Document 07/01/22 13:49 SP (Rec: 07/01/22 14:33 SP [id number]) Therapeutic Exercises Sidelying Exercises open book Sidelying Exercise Name HEP reviewed Side bilateral Resistance R partial head turn then eyes follow, L head / TS rotation fine Reps/Minutes 10 ea Comments cue follow hand with eyes/head if painfree for c spine rot clamshell Sidelying Exercise Name HEP reviewed Resistance AROM Reps/Minutes 2x10 Comments good PPT/TA, slow hip abd painfree ROM Sitting Exercises flaco disk Sitting Exercise Name may, Equipment Used low table + blue disc Reps/Minutes x10 each Comments cued tall posture over pelvis, LE lift with core fac stability- good form therapy ball Sitting Exercise Name may,, pelvic tilt Reps/Minutes 5 min Comments improved stability without need use UE support nearby table Standing Exercises squats Standing Exercise Name sit to stands on/off low table Resistance arms across chest Reps/Minutes x10 reps Comments cued scoot fwd, hip hinge full descent slow- improved form/ painfree Self-Care/Home Management Treatment Education Patient Education Home Exercise Program Other Education Ed and instruction on proper form: head with arm open book painfree range, no UT recruitment. Extra time hip hinge STS arms across chest vs lap. PT-OP-T Assessment and Plan Start: 05/31/22 10:22 Freq: Status: Active Protocol: Document 07/01/22 13:49 SP (Rec: 07/01/22 14:33 SP [id number]) Physical Therapy Assessment Goals Two Impairment Transfers Short Term Goal (STG) Aicha will perform all bed mobility with good body mechanics without pain. STG Duration 4 weeks One Impairment Pain Short Term Goal (STG) Aicha will stand to meal cooker for 45 minutes without an increase in her baseline pain. STG Duration 4 weeks Photographic Process Worker Goal (LTG) Aicha will perform a partial squat and lift 10# without an increase in pain with good body mechanics. LTG Duration 8 weeks Assessment Summary Assessment Pt improved understanding of HEP post review, cues for head turn during R limited then follow with eyes decreased to no UT neck pain painfree range , not needing to rotation to extent hand out suggested. Pt improved TA and hip hinge sit to stands end tx, self corrections scoot forward and no use UE. Physical Therapy Plan Frequency and Duration Frequency of Treatment 2x/Week Duration of treatment (weeks) 12 Plan of Care Start Date 06/01/22 Plan of Care End Date 08/24/22 Therapeutic Interventions Therapeutic Interventions Manual Therapy,Neuromuscular Re-education,Therapeutic Activities,Therapeutic Exercises Modalities Cold Pack/Ice Massage,Electric Stimulation,Hot Packs Next Visit Focus/Plan Next Note Type Treatment Note Next Visit Plan Recheck response to open book. Incorporated standing core: resisted rows/ext, hurdles. Add: Follow up on body mechanics, core stabilization
--- NOTE | 2022-07-06 15:53 | PT.OTN ---
Current Diagnoses Dorsalgia, unspecified (07/06/22) Physical Therapy Treatment Note PT-OP-A Visit Information Start: 05/31/22 10:22 Freq: Status: Active Protocol: Document 07/06/22 08:56 AMB (Rec: 07/06/22 09:54 AMB [id number]) Out-Patient Physical Therapy Visit Information Visit Information Visit Type Treatment Note Visit Start Time 09:00 Visit Stop Time 09:45 Total Visit Minutes 45 Visit Number 5 PT-OP-B Current Condition Start: 05/31/22 10:22 Freq: Status: Active Protocol: Document 06/01/22 09:06 AMB (Rec: 06/01/22 09:14 AMB [id number]) Current Condition History of Current Condition Onset Date 2-3 months Current Complaints upper back pain History of Current Condition upper back down to the mid back seems to radiate down. 2 -3 months of back pain. Gets better when she lies down. Seems to be worst with extended standing like an hour of standing. Definitely affecting cooking. Stretching the back seems to be helpful. Turning neck to the left is painful. Prior Treatments and Tests Chiropractor was somewhat helpful PT-OP-C Subjective Start: 05/31/22 10:22 Freq: Status: Active Protocol: Document 07/06/22 08:56 AMB (Rec: 07/06/22 09:54 AMB [id number]) OP-PT Subjective Patient Comments Patient Comments Whenever pt flexes spine she notices increased back pain. Appreciates exercises working on thoracic mobility as she feels that is where pain starts. PT-OP-J Posture/Palpation/Skin Start: 05/31/22 10:22 Freq: Status: Active Protocol: Document 06/02/22 09:00 AMB (Rec: 06/03/22 14:45 AMB [id number]) Posture Evaluation Comments Posture Comments increased lumbar lordosis PT-OP-K Range of Motion Start: 05/31/22 10:22 Freq: Status: Active Protocol: Document 06/02/22 09:00 AMB (Rec: 06/03/22 14:45 AMB [id number]) Lumbar Spine Range of Motion Lumbar Spine Active Percentage Testing Position Standing Flexion 100 Extension 25 Lateral Flexion Left 50 Lateral Flexion Right 25 PT-OP-M Strength Start: 05/31/22 10:22 Freq: Status: Active Protocol: Document 06/02/22 09:00 AMB (Rec: 06/03/22 14:45 AMB [id number]) Hip Strength Hip Manual Muscle Testing Right Extension (S1) 4 Good Left Extension (S1) 4 Good PT-OP-Q Treatments Start: 05/31/22 10:22 Freq: Status: Active Protocol: Document 07/06/22 08:56 AMB (Rec: 07/06/22 09:54 AMB [id number]) Therapeutic Exercises Sidelying Exercises open book Sidelying Exercise Name HEP reviewed Side bilateral Resistance R partial head turn then eyes follow, L head / TS rotation fine Reps/Minutes 10 ea Comments cue follow hand with eyes/head if painfree for c spine rot Sitting Exercises foam roll Sitting Exercise Name gentle pec stretch Reps/Minutes 30x2 Standing Exercises t band rows Reps/Minutes 2x10 squats Standing Exercise Name sit to stands on/off low table Resistance arms across chest Reps/Minutes x10 reps Comments cue hip/back dissasociation kitchen sink stretch Reps/Minutes 10x3 Comments with hip side to side for QL stretch Other Exercises thread the needle Reps/Minutes 5 Comments reps limited due to wrists PT-OP-T Assessment and Plan Start: 05/31/22 10:22 Freq: Status: Active Protocol: Document 07/06/22 08:56 AMB (Rec: 07/06/22 09:54 AMB [id number]) Physical Therapy Assessment Goals Two Impairment Transfers Short Term Goal (STG) Aicha will perform all bed mobility with good body mechanics without pain. STG Duration 4 weeks One Impairment Pain Short Term Goal (STG) Aicha will stand to head cook for 45 minutes without an increase in her baseline pain. STG Duration 4 weeks Radiology Practitioner Assistant Goal (LTG) Aicha will perform a partial squat and lift 10# without an increase in pain with good body mechanics. LTG Duration 8 weeks Assessment Summary Assessment Pt did well with half foam roll, had significant difficulty lifting L leg up when in hooklying on half foam , did better with towel roll. Given options for home of half foam roll vs towel roll vs pool noodle. Physical Therapy Plan Frequency and Duration Frequency of Treatment 2x/Week Duration of treatment (weeks) 12 Plan of Care Start Date 06/01/22 Plan of Care End Date 08/24/22 Therapeutic Interventions Therapeutic Interventions Manual Therapy,Neuromuscular Re-education,Therapeutic Activities,Therapeutic Exercises Modalities Cold Pack/Ice Massage,Electric Stimulation,Hot Packs Next Visit Focus/Plan Next Note Type Treatment Note Next Visit Plan Recheck response to open book. Incorporated standing core: resisted rows/ext, hurdles. Add: Follow up on body mechanics, core stabilization
--- NOTE | 2022-07-13 13:45 | PT.OTN ---
Current Diagnoses Dorsalgia, unspecified (07/13/22) Physical Therapy Treatment Note PT-OP-A Visit Information Start: 05/31/22 10:22 Freq: Status: Active Protocol: Document 07/13/22 13:04 SP (Rec: 07/13/22 13:48 SP [id number]) Out-Patient Physical Therapy Visit Information Visit Information Visit Type Treatment Note Visit Start Time 13:04 Visit Stop Time 13:45 Total Visit Minutes 41 Visit Number 6 Number of DIRECTOR SECURITY RISK MANAGEMENT Visits 1 PT-OP-B Current Condition Start: 05/31/22 10:22 Freq: Status: Active Protocol: Document 06/01/22 09:06 AMB (Rec: 06/01/22 09:14 AMB [id number]) Current Condition History of Current Condition Onset Date 2-3 months Current Complaints upper back pain History of Current Condition upper back down to the mid back seems to radiate down. 2 -3 months of back pain. Gets better when she lies down. Seems to be worst with extended standing like an hour of standing. Definitely affecting cooking. Stretching the back seems to be helpful. Turning neck to the left is painful. Prior Treatments and Tests Chiropractor was somewhat helpful PT-OP-C Subjective Start: 05/31/22 10:22 Freq: Status: Active Protocol: Document 07/13/22 13:04 SP (Rec: 07/13/22 13:48 SP [id number]) OP-PT Subjective Patient Comments Patient Comments Pt reports rolled towel/ blanket isn;t the same, looking for a noodle for home stretching. PT-OP-J Posture/Palpation/Skin Start: 05/31/22 10:22 Freq: Status: Active Protocol: Document 06/02/22 09:00 AMB (Rec: 06/03/22 14:45 AMB [id number]) Posture Evaluation Comments Posture Comments increased lumbar lordosis PT-OP-K Range of Motion Start: 05/31/22 10:22 Freq: Status: Active Protocol: Document 06/02/22 09:00 AMB (Rec: 06/03/22 14:45 AMB [id number]) Lumbar Spine Range of Motion Lumbar Spine Active Percentage Testing Position Standing Flexion 100 Extension 25 Lateral Flexion Left 50 Lateral Flexion Right 25 PT-OP-M Strength Start: 05/31/22 10:22 Freq: Status: Active Protocol: Document 06/02/22 09:00 AMB (Rec: 06/03/22 14:45 AMB [id number]) Hip Strength Hip Manual Muscle Testing Right Extension (S1) 4 Good Left Extension (S1) 4 Good PT-OP-Q Treatments Start: 05/31/22 10:22 Freq: Status: Active Protocol: Document 07/13/22 13:04 SP (Rec: 07/13/22 13:48 SP [id number]) Gym Equipment Shuttle Balance red Details stagger Reps/Duration 4 min Comments wt shift f/b, stationary w/ arm swings, cued relax UEs with increased stability TS rotation. Discussed spinal alignment but allowance TS rotation with arm swing carryover walking up/down streets when out for walk. Therapeutic Exercises Supine Exercises over noodle Supine Exercise Name 1. pec stretch various angles w/ breath 2. FF 3. HABD 4. 1/2 X diagonal Side bilateral Resistance AROM Reps/Minutes x8 reps each Comments good feedback ROM painfree, cued TA as needed for LS stab 1 Supine Exercise Name TA in hooklying, added march Equipment Used over noodle Reps/Minutes x10 Comments cued TA and scapular complex ( LT) recruitment Neuro Re-Education Treatment Balance Activities hurdles Details floor then added foam Equipment 6 hurdles, 4 oval cushions- near rail not used Reps/Duration 4 laps Comments cued tall posturing book on head and core over stance LE slower pacing improved stability for uneven surface. PT-OP-T Assessment and Plan Start: 05/31/22 10:22 Freq: Status: Active Protocol: Document 07/13/22 13:04 SP (Rec: 07/13/22 13:48 SP [id number]) Physical Therapy Assessment Goals Two Impairment Transfers Short Term Goal (STG) Aicha will perform all bed mobility with good body mechanics without pain. STG Duration 4 weeks One Impairment Pain Short Term Goal (STG) Aicha will stand to cooker cleaner for 45 minutes without an increase in her baseline pain. STG Duration 4 weeks Airplane Captain Goal (LTG) Aicha will perform a partial squat and lift 10# without an increase in pain with good body mechanics. LTG Duration 8 weeks Assessment Summary Assessment Pt improved TA recruitment during UE and LE movements supine over noodle today with good feedback response back painfree with more freedom to move posterior. Good posturing , TS mobility with arms swing corrections during uneven angel luis stepping and shuttle balance today for [place] outdoor walks on street. Physical Therapy Plan Frequency and Duration Frequency of Treatment 2x/Week Duration of treatment (weeks) 12 Plan of Care Start Date 06/01/22 Plan of Care End Date 08/24/22 Therapeutic Interventions Therapeutic Interventions Manual Therapy,Neuromuscular Re-education,Therapeutic Activities,Therapeutic Exercises Modalities Cold Pack/Ice Massage,Electric Stimulation,Hot Packs Next Visit Focus/Plan Next Note Type Treatment Note Next Visit Plan Recheck response to supine noodle, uneven hurdles, shuttle balance. If did well can incorporate TB over noodle . POC: Incorporated standing core: resisted rows/ext, hurdles. Add: Follow up on body mechanics, core stabilization
--- NOTE | 2022-07-15 10:30 | PT.OTN ---
Current Diagnoses Dorsalgia, unspecified (07/15/22) Physical Therapy Treatment Note PT-OP-A Visit Information Start: 05/31/22 10:22 Freq: Status: Active Protocol: Document 07/15/22 09:50 SP (Rec: 07/15/22 10:33 SP [id number]) Out-Patient Physical Therapy Visit Information Visit Information Visit Type Treatment Note Visit Start Time 09:51 Visit Stop Time 10:30 Total Visit Minutes 39 Visit Number 7 Number of CRISIS INTERVENTION COUNSELOR Visits 2 PT-OP-B Current Condition Start: 05/31/22 10:22 Freq: Status: Active Protocol: Document 06/01/22 09:06 AMB (Rec: 06/01/22 09:14 AMB [id number]) Current Condition History of Current Condition Onset Date 2-3 months Current Complaints upper back pain History of Current Condition upper back down to the mid back seems to radiate down. 2 -3 months of back pain. Gets better when she lies down. Seems to be worst with extended standing like an hour of standing. Definitely affecting cooking. Stretching the back seems to be helpful. Turning neck to the left is painful. Prior Treatments and Tests Chiropractor was somewhat helpful PT-OP-C Subjective Start: 05/31/22 10:22 Freq: Status: Active Protocol: Document 07/15/22 09:50 SP (Rec: 07/15/22 10:33 SP [id number]) OP-PT Subjective Patient Comments Patient Comments Pt reports was able get noodle and tried ROM and pec stretch last night with it. She is little tight in pecs when wakes up. PT-OP-J Posture/Palpation/Skin Start: 05/31/22 10:22 Freq: Status: Active Protocol: Document 06/02/22 09:00 AMB (Rec: 06/03/22 14:45 AMB [id number]) Posture Evaluation Comments Posture Comments increased lumbar lordosis PT-OP-K Range of Motion Start: 05/31/22 10:22 Freq: Status: Active Protocol: Document 06/02/22 09:00 AMB (Rec: 06/03/22 14:45 AMB [id number]) Lumbar Spine Range of Motion Lumbar Spine Active Percentage Testing Position Standing Flexion 100 Extension 25 Lateral Flexion Left 50 Lateral Flexion Right 25 PT-OP-M Strength Start: 05/31/22 10:22 Freq: Status: Active Protocol: Document 06/02/22 09:00 AMB (Rec: 06/03/22 14:45 AMB [id number]) Hip Strength Hip Manual Muscle Testing Right Extension (S1) 4 Good Left Extension (S1) 4 Good PT-OP-Q Treatments Start: 05/31/22 10:22 Freq: Status: Active Protocol: Document 07/15/22 09:50 SP (Rec: 07/15/22 10:33 SP [id number]) Therapeutic Exercises Supine Exercises over noodle Supine Exercise Name 1. pec stretch various angles w/ breath 2. FF 3. HABD 4. 1/2 X diagonal Side bilateral Resistance AROM Equipment Used over noodle/mat Reps/Minutes x10 reps each Comments good feedback ROM painfree, cued TA as needed for LS stab TA with SLR Supine Exercise Name HEP reviewed Side bilateral Reps/Minutes 10 each LE Comments Cued TA, good slow pacing almost no touch between re ps 1 Supine Exercise Name TA HEP review march Equipment Used over noodle Reps/Minutes x10 Comments cued TA and scapular complex ( LT) recruitment Standing Exercises t band rows Standing Exercise Name Rows and ext Resistance Tb #3 (green latex free) Reps/Minutes 2x10 each Comments cued split stance for stability if needed, good scap stab Other Exercises quadruped Other Exercise Name UE, LE ext each- in PT Reps/Minutes x3 reps each side Comments cued sequencing, (to challenging together, slide floor) thread the needle Reps/Minutes 10 SH x1 rep each side Comments good form and stretch max pose Reps/Minutes 30x2 Comments good feedback stretch cat cow Reps/Minutes 4 reps Comments wrist little sore but ok PT-OP-T Assessment and Plan Start: 05/31/22 10:22 Freq: Status: Active Protocol: Document 07/15/22 09:50 SP (Rec: 07/15/22 10:33 SP [id number]) Physical Therapy Assessment Goals Two Impairment Transfers Short Term Goal (STG) Aicha will perform all bed mobility with good body mechanics without pain. STG Duration 4 weeks One Impairment Pain Short Term Goal (STG) Aicha will stand to first cook for 45 minutes without an increase in her baseline pain. STG Duration 4 weeks Prison Goal (LTG) Aicha will perform a partial squat and lift 10# without an increase in pain with good body mechanics. LTG Duration 8 weeks Assessment Summary Assessment Pt reponded well to supine over noodle and reviewed core march this tx with improved stability. Added resisted shld ext with good response core fac challenge. Pt reports feels progressing well and compliant with HEP home. Physical Therapy Plan Frequency and Duration Frequency of Treatment 2x/Week Duration of treatment (weeks) 12 Plan of Care Start Date 06/01/22 Plan of Care End Date 08/24/22 Therapeutic Interventions Therapeutic Interventions Manual Therapy,Neuromuscular Re-education,Therapeutic Activities,Therapeutic Exercises Modalities Cold Pack/Ice Massage,Electric Stimulation,Hot Packs Next Visit Focus/Plan Next Note Type Treatment Note Next Visit Plan Next 10 th visit PN due soon. Recheck response to supine noodle HEP. Next: Continue uneven hurdles, shuttle balance. If did well over noodle AROM can incorporate TB over noodle. POC: Follow up on body mechanics, core stabilization
--- NOTE | 2022-07-20 10:52 | PT.OTN ---
Current Diagnoses Dorsalgia, unspecified (07/20/22) Physical Therapy Treatment Note PT-OP-A Visit Information Start: 05/31/22 10:22 Freq: Status: Active Protocol: Document 07/20/22 10:05 AMB (Rec: 07/20/22 10:51 AMB [id number]) Out-Patient Physical Therapy Visit Information Visit Information Visit Type Treatment Note Visit Start Time 10:00 Visit Stop Time 10:45 Total Visit Minutes 45 Visit Number 8 Number of FLEXIBLE NANNY Visits 0 PT-OP-B Current Condition Start: 05/31/22 10:22 Freq: Status: Active Protocol: Document 06/01/22 09:06 AMB (Rec: 06/01/22 09:14 AMB [id number]) Current Condition History of Current Condition Onset Date 2-3 months Current Complaints upper back pain History of Current Condition upper back down to the mid back seems to radiate down. 2 -3 months of back pain. Gets better when she lies down. Seems to be worst with extended standing like an hour of standing. Definitely affecting cooking. Stretching the back seems to be helpful. Turning neck to the left is painful. Prior Treatments and Tests Chiropractor was somewhat helpful PT-OP-C Subjective Start: 05/31/22 10:22 Freq: Status: Active Protocol: Document 07/20/22 10:05 AMB (Rec: 07/20/22 10:51 AMB [id number]) OP-PT Subjective Patient Comments Patient Comments Pt reports still gets pain if stands too long but doesn't happen as frequently and feels like exercises are helpful to take pain away once it starts . PT-OP-J Posture/Palpation/Skin Start: 05/31/22 10:22 Freq: Status: Active Protocol: Document 06/02/22 09:00 AMB (Rec: 06/03/22 14:45 AMB [id number]) Posture Evaluation Comments Posture Comments increased lumbar lordosis PT-OP-K Range of Motion Start: 05/31/22 10:22 Freq: Status: Active Protocol: Document 06/02/22 09:00 AMB (Rec: 06/03/22 14:45 AMB [id number]) Lumbar Spine Range of Motion Lumbar Spine Active Percentage Testing Position Standing Flexion 100 Extension 25 Lateral Flexion Left 50 Lateral Flexion Right 25 PT-OP-M Strength Start: 05/31/22 10:22 Freq: Status: Active Protocol: Document 06/02/22 09:00 AMB (Rec: 06/03/22 14:45 AMB [id number]) Hip Strength Hip Manual Muscle Testing Right Extension (S1) 4 Good Left Extension (S1) 4 Good PT-OP-Q Treatments Start: 05/31/22 10:22 Freq: Status: Active Protocol: Document 07/20/22 10:05 AMB (Rec: 07/20/22 10:51 AMB [id number]) Gym Equipment Shuttle Balance red Details stagger Reps/Duration 2 min Comments increased pt's knee pain Therapeutic Exercises Supine Exercises over noodle Supine Exercise Name 1. pec stretch various angles w/ breath 2. FF 3. HABD 4. 1/2 X diagonal Side bilateral Resistance AROM Equipment Used over noodle/mat Reps/Minutes x10 reps each Comments good feedback ROM painfree, cued TA as needed for LS stab Sitting Exercises therapy ball Sitting Exercise Name march, LAQ, pelvic tilt Reps/Minutes 5 min Comments improved stability without need use UE support nearby table Standing Exercises t band rows Standing Exercise Name Rows and ext Resistance Tb #3 (green latex free) Reps/Minutes 2x10 each Comments cued split stance for stability if needed, good scap stab PT-OP-T Assessment and Plan Start: 05/31/22 10:22 Freq: Status: Active Protocol: Document 07/20/22 10:05 AMB (Rec: 07/20/22 10:51 AMB [id number]) Physical Therapy Assessment Goals Two Impairment Transfers Short Term Goal (STG) Aicha will perform all bed mobility with good body mechanics without pain. STG Duration 4 weeks One Impairment Pain Short Term Goal (STG) Aicha will stand to cook chili for 45 minutes without an increase in her baseline pain. STG Duration 4 weeks Skilled Nursing Goal (LTG) Aicha will perform a partial squat and lift 10# without an increase in pain with good body mechanics. LTG Duration 8 weeks Assessment Summary Assessment Pt progressing with her exercises well. Likes to do pool noodle on the floor for a good stretch. Added t band to pool noodle exercises. Physical Therapy Plan Frequency and Duration Frequency of Treatment 2x/Week Duration of treatment (weeks) 12 Plan of Care Start Date 06/01/22 Plan of Care End Date 08/24/22 Therapeutic Interventions Therapeutic Interventions Manual Therapy,Neuromuscular Re-education,Therapeutic Activities,Therapeutic Exercises Modalities Cold Pack/Ice Massage,Electric Stimulation,Hot Packs Next Visit Focus/Plan Next Note Type Treatment Note Next Visit Plan Recheck response to supine noodle. Next: Continue uneven hurdles, shuttle balance. If did well over noodle AROM can incorporate TB over noodle. POC: Follow up on body mechanics, core stabilization
--- NOTE | 2022-07-22 10:45 | PT.OTN ---
Current Diagnoses Dorsalgia, unspecified (07/22/22) Physical Therapy Treatment Note PT-OP-A Visit Information Start: 05/31/22 10:22 Freq: Status: Active Protocol: Document 07/22/22 10:02 SP (Rec: 07/22/22 10:50 SP [id number]) Out-Patient Physical Therapy Visit Information Visit Information Visit Type Treatment Note Visit Start Time 10:02 Visit Stop Time 10:45 Total Visit Minutes 43 Visit Number 9 Number of COMPRESSION MOLDING MACHINE TENDER Visits 1 PT-OP-B Current Condition Start: 05/31/22 10:22 Freq: Status: Active Protocol: Document 06/01/22 09:06 AMB (Rec: 06/01/22 09:14 AMB [id number]) Current Condition History of Current Condition Onset Date 2-3 months Current Complaints upper back pain History of Current Condition upper back down to the mid back seems to radiate down. 2 -3 months of back pain. Gets better when she lies down. Seems to be worst with extended standing like an hour of standing. Definitely affecting cooking. Stretching the back seems to be helpful. Turning neck to the left is painful. Prior Treatments and Tests Chiropractor was somewhat helpful PT-OP-C Subjective Start: 05/31/22 10:22 Freq: Status: Active Protocol: Document 07/22/22 10:02 SP (Rec: 07/22/22 10:50 SP [id number]) OP-PT Subjective Patient Comments Patient Comments Pt reports did some garden over the weekend (did use pad under knees too) and wondered if why her R knee was and still little but improved. The supine noodle ex help the best wtih back but hard on knees getting on floor so can' t right now. She stated calling Orthopedist and ask if can get shot in her knee to improve mobil without pain. PT-OP-J Posture/Palpation/Skin Start: 05/31/22 10:22 Freq: Status: Active Protocol: Document 06/02/22 09:00 AMB (Rec: 06/03/22 14:45 AMB [id number]) Posture Evaluation Comments Posture Comments increased lumbar lordosis PT-OP-K Range of Motion Start: 05/31/22 10:22 Freq: Status: Active Protocol: Document 06/02/22 09:00 AMB (Rec: 06/03/22 14:45 AMB [id number]) Lumbar Spine Range of Motion Lumbar Spine Active Percentage Testing Position Standing Flexion 100 Extension 25 Lateral Flexion Left 50 Lateral Flexion Right 25 PT-OP-M Strength Start: 05/31/22 10:22 Freq: Status: Active Protocol: Document 06/02/22 09:00 AMB (Rec: 06/03/22 14:45 AMB [id number]) Hip Strength Hip Manual Muscle Testing Right Extension (S1) 4 Good Left Extension (S1) 4 Good PT-OP-Q Treatments Start: 05/31/22 10:22 Freq: Status: Active Protocol: Document 07/22/22 10:02 SP (Rec: 07/22/22 10:50 SP [id number]) Therapeutic Exercises Sidelying Exercises hip abd Sidelying Exercise Name added to HEP Side bilateral Resistance Bottom leg bent Reps/Minutes 2x10 Comments cued neutral ankle DF, knee straight, lift lower, core/abd fac- gd pnfree Sitting Exercises LS rotation Sitting Exercise Name added to HEP Side bilateral Resistance TB #3 Reps/Minutes 8, 10 reps Comments little L LB during R rotation but improved less range and incr core fac therapy ball Sitting Exercise Name march, LAQ, pelvic tilt Equipment Used no UE support needed Reps/Minutes 5 min Comments improved stability,nearby table Standing Exercises palloff press Standing Exercise Name added to HEP Side bilateral Resistance Tb #3 Reps/Minutes 10, 8 reps before knee discomfort recruitment Comments cued step out then core fac equal BLE WB, t band rows Standing Exercise Name Rows and ext Resistance Tb #3 (green latex free) Reps/Minutes 2x10 each Comments good form, painfree kitchen sink stretch Standing Exercise Name HEP reviewed Side bilateral Equipment Used counter waist height Reps/Minutes 20 x3 Comments cued lean back, tilt pelvis hold good QL stretch PT-OP-T Assessment and Plan Start: 05/31/22 10:22 Freq: Status: Active Protocol: Document 07/22/22 10:02 SP (Rec: 07/22/22 10:50 SP [id number]) Physical Therapy Assessment Goals Two Impairment Transfers Short Term Goal (STG) Aicha will perform all bed mobility with good body mechanics without pain. STG Duration 4 weeks One Impairment Pain Short Term Goal (STG) Aicha will stand to cook night for 45 minutes without an increase in her baseline pain. STG Duration 4 weeks Operating Room Coordinator Goal (LTG) Aicha will perform a partial squat and lift 10# without an increase in pain with good body mechanics. LTG Duration 8 weeks Assessment Summary Assessment Tx focused on LS ROM and core fac this tx with positioning painfree knee pain. Pt good feedback response to added sit / standing core ex, cued posture and directioning. Pt good core fac during LS rotation able complete 10 reps otherwise LLB started to iritate. Physical Therapy Plan Frequency and Duration Frequency of Treatment 2x/Week Duration of treatment (weeks) 12 Plan of Care Start Date 06/01/22 Plan of Care End Date 08/24/22 Therapeutic Interventions Therapeutic Interventions Manual Therapy,Neuromuscular Re-education,Therapeutic Activities,Therapeutic Exercises Modalities Cold Pack/Ice Massage,Electric Stimulation,Hot Packs Next Visit Focus/Plan Next Note Type Treatment Note Next Visit Plan *10th visit PN next tx. Recheck response to resisted LS rotation/paloff press. Next : Continue uneven hurdles, shuttle balance. If did well over noodle AROM can incorporate TB over noodle. POC: Follow up on body mechanics, core stabilization
--- NOTE | 2022-07-26 12:47 | PT.OPDS ---
Current Diagnoses Dorsalgia, unspecified (07/22/22) Visit Care Team Role Provider Type BECKY Keen Attending Provider Advanced Diagnostic Technician Family Provider Primary Care Provider Referring Provider Specialty: Family Practice Address: [address] [place] [address], [facility] Email: [email or web address] Visit Number Visit Number 9 Discharge Summary PT-OP-B Current Condition Start: 05/31/22 10:22 Freq: Status: Active Protocol: Document 06/01/22 09:06 AMB (Rec: 06/01/22 09:14 AMB [id number]) Current Condition History of Current Condition Onset Date 2-3 months Current Complaints upper back pain History of Current Condition upper back down to the mid back seems to radiate down. 2 -3 months of back pain. Gets better when she lies down. Seems to be worst with extended standing like an hour of standing. Definitely affecting cooking. Stretching the back seems to be helpful. Turning neck to the left is painful. Prior Treatments and Tests Chiropractor was somewhat helpful PT-OP-C Subjective Start: 05/31/22 10:22 Freq: Status: Active Protocol: Document 07/22/22 10:02 SP (Rec: 07/22/22 10:50 SP [id number]) OP-PT Subjective Patient Comments Patient Comments Pt reports did some garden over the weekend (did use pad under knees too) and wondered if why her R knee was and still little but improved. The supine noodle ex help the best wtih back but hard on knees getting on floor so can' t right now. She stated calling Orthopedist and ask if can get shot in her knee to improve mobil without pain. PT-OP-J Posture/Palpation/Skin Start: 05/31/22 10:22 Freq: Status: Active Protocol: Document 06/02/22 09:00 AMB (Rec: 06/03/22 14:45 AMB [id number]) Posture Evaluation Comments Posture Comments increased lumbar lordosis PT-OP-K Range of Motion Start: 05/31/22 10:22 Freq: Status: Active Protocol: Document 06/02/22 09:00 AMB (Rec: 06/03/22 14:45 AMB [id number]) Lumbar Spine Range of Motion Lumbar Spine Active Percentage Testing Position Standing Flexion 100 Extension 25 Lateral Flexion Left 50 Lateral Flexion Right 25 PT-OP-M Strength Start: 05/31/22 10:22 Freq: Status: Active Protocol: Document 06/02/22 09:00 AMB (Rec: 06/03/22 14:45 AMB [id number]) Hip Strength Hip Manual Muscle Testing Right Extension (S1) 4 Good Left Extension (S1) 4 Good PT-OP-T Assessment and Plan Start: 05/31/22 10:22 Freq: Status: Active Protocol: Document 07/26/22 12:45 AMB (Rec: 07/26/22 12:47 AMB [id number]) Physical Therapy Assessment Goals Two Impairment Transfers Short Term Goal (STG) Aicha will perform all bed mobility with good body mechanics without pain. 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 STG Duration 4 weeks Intermediate Goal (LTG) Aicha will perform a partial squat and lift 10# without an increase in pain with good body mechanics. LTG Duration 8 weeks Assessment Summary Assessment Aicha called to state she is ready for discharge. She is feeling she is at a point where she can manage her sx with her current exercises.
== END 2022-07-27 15:26 | disposition home or self-care (01) ==
LOC: PHYS 10:00
PROVIDERS: Absent Provider Nurse Practitioner; Family Provider Nurse Practitioner; PCP Nurse Practitioner; Referring Provider Nurse Practitioner; Visit Provider Nurse Practitioner
DX: M54.9 Dorsalgia, unspecified (principal)
CPT/HCPCS: 97110; 97112; 97161

== ENCOUNTER → 2022-12-22 09:21 | Outpatient (CLI) | payer MEDICARE, SELFPAY ==
[2022-12-22 10:57] LABS: Add Manual Diff / Slide Review NO; Basophils Absolute Auto 0 /uL (0-100); Basophils Percent Auto 0.8 % (0-2); Eosinophils Absolute Auto 100 /uL (0-450); Eosinophils Percent Auto 2.2 % (2-4); Hematocrit 34.7 % (36-46); Hemoglobin 11.8 g/dL (12.0-16.0); Lymphocytes Absolute Auto 1200 /uL (1100-4500); Lymphocytes Percent Auto 25.6 % (25-40); Mean Corpuscular Hemoglobin 29.3 PG (26-34); Mean Corpuscular Volume 86.3 fL (80-100); Monocytes Absolute Auto 400 /uL (0-900); Monocytes Percent Auto 9.4 % (3-14); Neutrophils Absolute Auto 2900 /uL (1500-7000); Platelet Count 202 X10^3/uL (150-400); Red Blood Cell Count 4.02 X10^6/uL (4.0-5.2); Red Cell Distribution Width 13.8 % (11.6-14.8); White Blood Cell Count 4.7 X10^3/uL (4.5-11.0)
[2022-12-22 11:18] LABS: Alanine Aminotransferase 19 IU/L (<35); Albumin 4.3 g/dL (3.5-5.0); Albumin Globulin Ratio 1.3 (1.0-2.8); Alkaline Phosphatase 90 U/L (38-126); Aspartate Aminotransferase 26 IU/L (14-36); BUN Creatinine Ratio 13.9 (6-22); Bilirubin Total 0.4 mg/dL (0.2-1.3); Blood Urea Nitrogen 21 mg/dL (7-17); Calcium 9.9 mg/dL (8.4-10.2); Carbon Dioxide 25 mmol/L (22-32); Chloride 107 mmol/L (98-107); Cholesterol 203 mg/dL (140-199); Estimated Glomerular Filt Rate 35 mL/min (>60); Globulin 3.3 g/dL (1.7-4.1); Glucose 102 mg/dL (80-110); HDL Cholesterol 39 mg/dL (40-60); HEMOLYSIS < 15 (0-50); LDL Cholesterol Calculated 135 mg/dL (<100); Potassium 5.3 mmol/L (3.4-5.1); Sodium 139 mmol/L (137-145); Total Protein 7.6 g/dL (6.3-8.2); Triglycerides 146 mg/dL (35-150); Uric Acid 6.8 mg/dL (2.5-6.2)
[2022-12-22 12:16] LABS: Creatinine Urine Random 100.6 mg/dL
[2022-12-22 12:23] LABS: Microalbumin Urine Random < 0.6 mg/dL (0-1.6)
== END ==
PROVIDERS: Family Provider Nurse Practitioner; PCP Nurse Practitioner; Referring Provider Nurse Practitioner; Visit Provider Nurse Practitioner
DX: E87.5 Hyperkalemia (principal); E79.0 Hyperuricemia without signs of inflammatory arthritis and tophaceous disease; E78.5 Hyperlipidemia, unspecified; N28.9 Disorder of kidney and ureter, unspecified; E78.2 Mixed hyperlipidemia; I10 Essential (primary) hypertension
CPT/HCPCS: 36415; 80053; 80061; 82043; 82570; 84550; 85025

== ENCOUNTER → 2023-06-11 09:04 | Outpatient (CLI) | payer MEDICARE, SELFPAY ==
--- NOTE | 2023-06-11 | DI.MG.S_ITS ---
BILATERAL DIGITAL SCREENING MAMMOGRAM 3D/2D WITH CAD: 06/11/2023 CLINICAL: Routine screening. Comparison is made to exams dated: 06/07/2022 mammogram, 05/05/2021 mammogram, 03/10/2020 mammogram, and 11/17/2017 mammogram - [facility]. Both breasts are heterogeneously dense, which may obscure small masses (category c / 51-75% glandular tissue). Current study was also evaluated with a Computer Aided Detection (CAD) system. No significant masses, calcifications, or other findings are seen in either breast. There has been no significant interval change. IMPRESSION: NEGATIVE There is no mammographic evidence of malignancy. A 1 year screening mammogram is recommended. Based on the Tyrer Cuzick model (a risk assessment model) the patient's lifetime risk is 3.7% and her 10 year risk is 0.0%. According to the ACR, ACS, and NCCN guidelines, an annual breast MRI exam along with mammogram is recommended if the patient's lifetime risk is 20% or greater. This exam was interpreted at Station ID: [id number]. NOTE: For mammograms, a report in lay terms will be sent to the patient. Approximately 15% of breast malignancies will not be visualized mammographically. In the management of a palpable breast mass, a negative mammogram must not discourage biopsy of a clinically suspicious lesion. Electronically Signed By: Grabiel singh/louis:06/13/2023 09:15:13 letter sent: Normal Exam ACR BI-RADS Category 1: Negative [id number]
== END ==
PROVIDERS: Family Provider Nurse Practitioner; PCP Nurse Practitioner; Referring Provider Nurse Practitioner; Visit Provider Nurse Practitioner
DX: Z12.31 Encounter for screening mammogram for malignant neoplasm of breast (principal); R92.333 Mammographic heterogeneous density, bilateral breasts
CPT/HCPCS: 77063; 77067

== ENCOUNTER → 2023-06-30 09:59 | Outpatient (CLI) | payer MEDICARE, SELFPAY ==
[2023-06-30 11:26] LABS: Alanine Aminotransferase 17 IU/L (<35); Albumin 4.3 g/dL (3.5-5.0); Albumin Globulin Ratio 1.1 (1.0-2.8); Alkaline Phosphatase 83 U/L (38-126); Aspartate Aminotransferase 25 IU/L (14-36); BUN Creatinine Ratio 17.6 (6-22); Bilirubin Total 0.6 mg/dL (0.2-1.3); Blood Urea Nitrogen 26 mg/dL (7-17); Calcium 9.9 mg/dL (8.4-10.2); Carbon Dioxide 22 mmol/L (22-32); Chloride 108 mmol/L (98-107); Cholesterol 228 mg/dL (140-199); Estimated Glomerular Filt Rate 36 mL/min (>60); Globulin 3.8 g/dL (1.7-4.1); Glucose 109 mg/dL (80-110); HDL Cholesterol 37 mg/dL (40-60); HEMOLYSIS < 15 (0-50); LDL Cholesterol Calculated 159 mg/dL (<100); Potassium 5.3 mmol/L (3.4-5.1); Sodium 139 mmol/L (137-145); Total Protein 8.1 g/dL (6.3-8.2); Triglycerides 162 mg/dL (35-150)
[2023-06-30 11:35] LABS: Microalbumin Urine Random 1.3 mg/dL (0-1.6)
[2023-06-30 13:46] LABS: Creatinine Urine Random 404.9 mg/dL; Microalbumi Creatinin Ratio Ur 3.2 ug/mg CR (<30)
[2023-07-01 05:43] LABS: Free T3, Triiodothyronine Free 3.47 pg/mL (2.77-5.27); Free T4, Direct Thyroxine 1.38 ng/dL (0.78-2.19)
[2023-07-01 05:56] LABS: Thyroid Stimulating Hormone 2.06 uIU/mL (0.47-4.68)
== END ==
PROVIDERS: Family Provider Nurse Practitioner; PCP Nurse Practitioner; Referring Provider Nurse Practitioner; Visit Provider Nurse Practitioner
DX: E87.5 Hyperkalemia (principal); I12.9 Hypertensive chronic kidney disease with stage 1 through stage 4 chronic kidney disease, or unspecified chronic kidney disease; N18.30 Chronic kidney disease, stage 3 unspecified; E78.2 Mixed hyperlipidemia; Z79.899 Other long term (current) drug therapy
CPT/HCPCS: 36415; 80053; 80061; 82043; 82570; 84439; 84443; 84481

== ENCOUNTER → 2023-08-26 12:15 | Outpatient (CLI) | payer MEDICARE, SELFPAY ==
--- NOTE | 2023-08-26 12:15 | DI.RAD.S_ITS ---
PROCEDURE: XR DEXA AXIAL SKELETON INDICATIONS: menopausal, screening for osteoporosis COMPARISON: [facility], , XR DEXA AXIAL SKELETON, 09/02/2021, 15:19. [facility], CR, XR DEXA AXIAL SKELETON, 11/17/2017, 9:52. FINDINGS: Lumbar Spine: Bone mineral density 0.929 g/cm2, T score -1.1, previously -0.3. Left Hip: Bone mineral density 0.928 g/cm2, T score -0.1, previously -0.3. Left Femoral Neck: Bone mineral density 0.780 g/cm2, T score -0.6, normal. Right Hip: Bone mineral density is 0.917 g/cm2, T score -0.2, previously -0.3. Right Femoral Neck: Bone mineral density 0.754 g/cm2, T score -0.9, previously -0.9. Fracture Risk Calculation (when applicable): 10-year fracture risk of a major osteoporotic fracture 6.6 and of a hip fracture 1.2. (T score greater or equal to -1.0 to: NORMAL) (T score from -1.1 to -2.4: OSTEOPENIA) (T score less than or equal to -2.5: OSTEOPOROSIS) IMPRESSION: Osteopenia. Follow-up guidelines as follows: Osteoporosis: Consider a repeat DEXA and Vertebral Fracture Assessment (VFA) exam in 2 years or sooner if medically necessary, to reassess this patient's status. Osteopenia: Consider a repeat DEXA in 2-3 years to reassess this patient's status, or if there is a new clinical indication. Normal: Consider a repeat DEXA in 5 years or sooner, or if there is a new clinical indication. All treatment decisions require clinical judgment and consideration of individual patient factors, including patient preferences, comorbidities, previous drug use, risk factors not captured in the FRAX model (e.g., frailty, falls, vitamin D deficiency, increased bone turnover, interval significant decline in bone density ) and possible under- or over-estimation of fracture risk by FRAX. In addition, the NOF Guide recommends that FDA-approved medical therapies be considered in postmenopausal women and men age >= 50 years with a: * Hip or vertebral (clinical or morphometric) fracture * T-score of <=-2.5 at the spine or hip * Ten-year fracture probability by FRAX of >= 3% for hip fracture or >=20% for major osteoporotic fracture. People with diagnosed cases of osteoporosis or at high risk for fracture should have regular bone mineral density tests. For patients eligible for Medicare, routine testing is allowed once every 2 years. The testing frequency can be increased to one year for patients who have rapidly progressing disease, those who are receiving or discontinuing medical therapy to restore bone mass, or have additional risk factors. Dictated by: Danny Smith M.D. on 08/26/2023 at 13:19 Approved by: Danyn Smith M.D. on 08/26/2023 at 13:20
== END ==
LOC: RAD 12:15
PROVIDERS: Family Provider Nurse Practitioner; PCP Nurse Practitioner; Referring Provider Nurse Practitioner; Visit Provider Nurse Practitioner
DX: M85.88 Other specified disorders of bone density and structure, other site (principal); N95.8 Other specified menopausal and perimenopausal disorders
CPT/HCPCS: 77080

== ENCOUNTER → 2023-10-26 10:49 | Outpatient (CLI) | payer MEDICARE, SELFPAY ==
--- NOTE | 2023-10-26 10:50 | DI.RAD.S_ITS ---
PROCEDURE: XR DEXA AXIAL SKELETON INDICATIONS: R/O COMPRESSIVE VERTEBRAL FX's / FAMILY HISTORY COMPARISON: [facility], [facility], XR DEXA AXIAL SKELETON, 08/26/2023, 12:28. FINDINGS: Lumbar Spine: Bone mineral density 0.957 g/cm2, T score -0.8. There is interval 3.1 percent increase in total lumbar spine bone mineral density. Left Hip: Bone mineral density 0.913 g/cm2, T score -0.2. There is interval 1.7 percent decrease in total left hip bone mineral density. Left Femoral Neck: Bone mineral density 0.744 g/cm2, T score -0.9. There is interval 4.6 percent decrease in left femoral neck bone mineral density. Right Hip: Bone mineral density 0.916 g/cm2, T score -0.2. There is interval 0.1 percent decrease in right total hip bone mineral density. Right Femoral Neck: Bone mineral density 0.733 g/cm2, T score -1.0. There is interval 2.8 percent decrease in right femoral neck bone mineral density. Delete Fracture Risk Calculation (when applicable): 10-year fracture risk of a major osteoporotic fracture 6.8 percent and of a hip fracture 1.3 percent. (T score greater or equal to -1.0 to: NORMAL) (T score from -1.1 to -2.4: OSTEOPENIA) (T score less than or equal to -2.5: OSTEOPOROSIS) IMPRESSION: Normal bone mineral density. Follow-up guidelines as follows: Osteoporosis: Consider a repeat DEXA and Vertebral Fracture Assessment (VFA) exam in 2 years or sooner if medically necessary, to reassess this patient's status. Osteopenia: Consider a repeat DEXA in 2-3 years to reassess this patient's status, or if there is a new clinical indication. Normal: Consider a repeat DEXA in 5 years or sooner, or if there is a new clinical indication. All treatment decisions require clinical judgment and consideration of individual patient factors, including patient preferences, comorbidities, previous drug use, risk factors not captured in the FRAX model (e.g., frailty, falls, vitamin D deficiency, increased bone turnover, interval significant decline in bone density ) and possible under- or over-estimation of fracture risk by FRAX. In addition, the NOF Guide recommends that FDA-approved medical therapies be considered in postmenopausal women and men age >= 50 years with a: * Hip or vertebral (clinical or morphometric) fracture * T-score of <=-2.5 at the spine or hip * Ten-year fracture probability by FRAX of >= 3% for hip fracture or >=20% for major osteoporotic fracture. People with diagnosed cases of osteoporosis or at high risk for fracture should have regular bone mineral density tests. For patients eligible for Medicare, routine testing is allowed once every 2 years. The testing frequency can be increased to one year for patients who have rapidly progressing disease, those who are receiving or discontinuing medical therapy to restore bone mass, or have additional risk factors. Dictated by: Delbert Méndez M.D. on 10/26/2023 at 12:47 Approved by: Delbert Méndez M.D. on 10/26/2023 at 12:50
== END ==
PROVIDERS: Family Provider Nurse Practitioner; PCP Nurse Practitioner; Referring Provider Nurse Practitioner; Visit Provider Nurse Practitioner
DX: M48.50XA Collapsed vertebra, not elsewhere classified, site unspecified, initial encounter for fracture (principal)
CPT/HCPCS: 77080

== ENCOUNTER → 2024-01-20 13:41 | Outpatient (CLI) | payer MEDICARE, SELFPAY ==
[2024-01-20 15:07] LABS: BUN Creatinine Ratio 11.2 (6-22); Blood Urea Nitrogen 14 mg/dL (7-17); Calcium 10.1 mg/dL (8.4-10.2); Carbon Dioxide 23 mmol/L (22-32); Chloride 103 mmol/L (98-107); Estimated Glomerular Filt Rate 44 mL/min (>60); Glucose 110 mg/dL (80-110); HEMOLYSIS < 15 (0-50); Sodium 137 mmol/L (137-145)
[2024-01-20 15:32] LABS: Hemoglobin 12.3 g/dL (12.0-16.0)
[2024-01-20 17:16] LABS: Protein (Total) Urine Random 11 mg/dL (0-12); Protein Creatinine Ratio Urine 0.24 GRAM/24H
== END ==
PROVIDERS: Family Provider Nurse Practitioner; PCP Registered Nurse Diabetes Educator; Referring Provider Student in an Organized Health Care Education/Training Program; Visit Provider Student in an Organized Health Care Education/Training Program
DX: N05.9 Unspecified nephritic syndrome with unspecified morphologic changes (principal); D64.9 Anemia, unspecified; R80.9 Proteinuria, unspecified; E87.1 Hypo-osmolality and hyponatremia
CPT/HCPCS: 36415; 80048; 82570; 84156; 85014; 85018

== ENCOUNTER → 2024-02-27 08:42 | Outpatient (CLI) | payer MEDICARE, SELFPAY ==
[2024-02-27 10:03] LABS: Add Manual Diff / Slide Review NO; Basophils Absolute Auto 0 /uL (0-100); Basophils Percent Auto 0.9 % (0-2); Eosinophils Absolute Auto 100 /uL (0-450); Eosinophils Percent Auto 2.3 % (2-4); Hematocrit 35.8 % (36-46); Hemoglobin 11.8 g/dL (12.0-16.0); Lymphocytes Absolute Auto 1100 /uL (1100-4500); Mean Corpuscular HGB Conc 32.9 % (30-36); Mean Corpuscular Hemoglobin 29.4 PG (26-34); Mean Corpuscular Volume 89.2 fL (80-100); Monocytes Absolute Auto 600 /uL (0-900); Monocytes Percent Auto 11.9 % (3-14); Neutrophils Absolute Auto 3100 /uL (1500-7000); Neutrophils Percent Auto 62.9 % (50-75); Platelet Count 214 X10^3/uL (150-400); Red Blood Cell Count 4.02 X10^6/uL (4.0-5.2); Red Cell Distribution Width 13.5 % (11.6-14.8); White Blood Cell Count 4.9 X10^3/uL (4.5-11.0)
[2024-02-27 10:24] LABS: Alanine Aminotransferase 30 IU/L (<35); Albumin 4.1 g/dL (3.5-5.0); Albumin Globulin Ratio 1.2 (1.0-2.8); Alkaline Phosphatase 72 U/L (38-126); Aspartate Aminotransferase 40 IU/L (14-36); BUN Creatinine Ratio 17.1 (6-22); Bilirubin Total 0.5 mg/dL (0.2-1.3); Blood Urea Nitrogen 24 mg/dL (7-17); Calcium 9.7 mg/dL (8.4-10.2); Carbon Dioxide 24 mmol/L (22-32); Chloride 105 mmol/L (98-107); Cholesterol 180 mg/dL (140-199); Estimated Glomerular Filt Rate 38 mL/min (>60); Globulin 3.4 g/dL (1.7-4.1); Glucose 106 mg/dL (80-110); HDL Cholesterol 44 mg/dL (40-60); HEMOLYSIS < 15 (0-50); LDL Cholesterol Calculated 101 mg/dL (<100); Potassium 4.6 mmol/L (3.4-5.1); Sodium 136 mmol/L (137-145); Total Protein 7.5 g/dL (6.3-8.2); Triglycerides 174 mg/dL (35-150)
[2024-02-27 11:08] LABS: TSH w/ Reflex to FT4 1.93 uIU/mL (0.47-4.68)
== END ==
PROVIDERS: Family Provider Nurse Practitioner; PCP Registered Nurse Diabetes Educator; Referring Provider Nurse Practitioner; Visit Provider Nurse Practitioner
DX: I12.9 Hypertensive chronic kidney disease with stage 1 through stage 4 chronic kidney disease, or unspecified chronic kidney disease (principal); N18.32 Chronic kidney disease, stage 3b; E78.2 Mixed hyperlipidemia
CPT/HCPCS: 36415; 80053; 80061; 84443; 85025

== ENCOUNTER → 2024-02-29 16:29 | Outpatient (CLI) | payer MEDICARE, SELFPAY ==
--- NOTE | 2024-02-29 16:30 | DI.US.S_ITS ---
PROCEDURE: US RENAL COMPLETE INDICATIONS: stage 3b chronic kidney disease TECHNIQUE: Real-time scanning was performed of the kidneys and bladder, with image documentation. COMPARISON: [facility], US, RENAL OR RETROPERITONEAL LIMIT, 08/05/2014, 9:24. FINDINGS: Kidneys: Kidneys are normal in size. Right kidney measures 9.1 cm long; left kidney measures 8.3 cm long. Right renal cortical thickness is 1.7 cm; left renal cortical thickness is 1.6 cm. Renal cortical echotexture is normal. No hydronephrosis or nephrolithiasis. No suspicious solid mass lesions. Bladder: Pre-void bladder volume is 13.4 mL. Post-void residual is 0 mL. Pre-void images demonstrate no intraluminal masses or stones. On pre-void images, bilateral ureteral jets are not identified with color Doppler interrogation. (Of note, ureteral jets may not be detectable in up to 25% of cases due to insufficient differences in specific gravity between ureteral and bladder urine). Miscellaneous: No free pelvic fluid. Incidentally noted hepatic hyperechogenicity. IMPRESSION: 1. No sonographic evidence of hydronephrosis or obstructive urolithiasis. 2. Insufficient evaluation of the urinary bladder. 3. Hepatic steatosis versus underlying hepatocellular disease. Dictated by: Rodri Davenport M.D. on 03/01/2024 at 11:06 Approved by: Rodri Davenport M.D. on 03/01/2024 at 11:07
== END ==
PROVIDERS: Family Provider Nurse Practitioner; PCP Registered Nurse Diabetes Educator; Referring Provider Student in an Organized Health Care Education/Training Program; Visit Provider Student in an Organized Health Care Education/Training Program
DX: N18.32 Chronic kidney disease, stage 3b (principal)
CPT/HCPCS: 76770

== ENCOUNTER → 2024-03-27 10:48 | Outpatient (CLI) | payer MEDICARE, SELFPAY | PROVIDERS: Family Provider Nurse Practitioner; PCP Registered Nurse Diabetes Educator; Referring Provider Registered Nurse Diabetes Educator; Visit Provider Registered Nurse Diabetes Educator | DX: R06.09 Other forms of dyspnea (principal); R94.2 Abnormal results of pulmonary function studies | CPT/HCPCS: 94060; 94726; 94729 ==

== ENCOUNTER → 2024-03-30 11:39 | Outpatient (CLI) | payer MEDICARE, SELFPAY ==
[2024-03-30 12:33] LABS: Hematocrit 37.5 % (36-46); Hemoglobin 12.4 g/dL (12.0-16.0)
[2024-03-30 12:58] LABS: BUN Creatinine Ratio 14.5 (6-22); Blood Urea Nitrogen 21 mg/dL (7-17); Calcium 9.7 mg/dL (8.4-10.2); Carbon Dioxide 23 mmol/L (22-32); Chloride 106 mmol/L (98-107); Estimated Glomerular Filt Rate 36 mL/min (>60); Glucose 106 mg/dL (80-110); HEMOLYSIS < 15 (0-50); Potassium 5.1 mmol/L (3.4-5.1); Sodium 139 mmol/L (137-145)
[2024-03-30 13:42] LABS: Creatinine Urine Random 272.03 mg/dL
[2024-03-30 13:43] LABS: Protein (Total) Urine Random < 5 mg/dL (0-12); Protein Creatinine Ratio Urine 0.01 GRAM/24H
[2024-03-31 07:39] LABS: Parathyroid Hormone Int 115 pg/mL (15-65)
== END ==
PROVIDERS: Family Provider Nurse Practitioner; PCP Registered Nurse Diabetes Educator; Referring Provider Student in an Organized Health Care Education/Training Program; Visit Provider Student in an Organized Health Care Education/Training Program
DX: N05.9 Unspecified nephritic syndrome with unspecified morphologic changes (principal); D70.9 Neutropenia, unspecified; D63.1 Anemia in chronic kidney disease; N25.81 Secondary hyperparathyroidism of renal origin; R80.9 Proteinuria, unspecified
CPT/HCPCS: 36415; 80048; 82570; 83970; 84156; 85014; 85018

== ENCOUNTER → 2024-05-12 08:34 | Outpatient (CLI) | payer MEDICARE, SELFPAY ==
[2024-05-12 09:36] LABS: Hematocrit 34.9 % (36-46); Hemoglobin 11.7 g/dL (12.0-16.0)
[2024-05-12 09:55] LABS: BUN Creatinine Ratio 11.9 (6-22); Blood Urea Nitrogen 14 mg/dL (7-17); Calcium 9.5 mg/dL (8.4-10.2); Carbon Dioxide 23 mmol/L (22-32); Chloride 105 mmol/L (98-107); Estimated Glomerular Filt Rate 47 mL/min (>60); Glucose 111 mg/dL (80-110); HEMOLYSIS < 15 (0-50); Potassium 4.4 mmol/L (3.4-5.1); Sodium 139 mmol/L (137-145)
[2024-05-12 10:31] LABS: Creatinine Urine Random 35.94 mg/dL; Protein (Total) Urine Random 12 mg/dL (0-12); Protein Creatinine Ratio Urine 0.33 GRAM/24H
[2024-05-13 10:10] LABS: Calcium 9.3 mg/dL (8.7-10.3); Parathyroid Hormone, Intact 58 pg/mL (15-65)
== END ==
LOC: LAB 08:38
PROVIDERS: Family Provider Nurse Practitioner; PCP Registered Nurse Diabetes Educator; Referring Provider Student in an Organized Health Care Education/Training Program; Visit Provider Student in an Organized Health Care Education/Training Program
DX: N05.9 Unspecified nephritic syndrome with unspecified morphologic changes (principal); D70.9 Neutropenia, unspecified; D63.1 Anemia in chronic kidney disease; N25.81 Secondary hyperparathyroidism of renal origin; R80.9 Proteinuria, unspecified
CPT/HCPCS: 36415; 80048; 82310; 82570; 83970; 84156; 85014; 85018

== ENCOUNTER 2024-05-28 06:52 | Day surgery (SDC) | payer MEDICARE, SELFPAY ==
[2024-05-28] VITALS (7 sets, daily range): BP systolic 93–158; BP diastolic 46–86; PULSE 57–70; RESP 6–18; TEMP 36.1–36.3; O2SAT 95–98
[2024-05-28] MEDS: LACTATED RINGERS 1,000 ML 42 ML IV (07:33)
--- NOTE | 2024-05-28 08:19 | PM.HP.IH.1 ---
History of Present Illness History of Present Illness Date Patient Seen: 05/28/24 Time Patient Seen: 08:19 Date of Onset of Symptoms: 05/28/24 Chief complaint: Colonoscopy Narrative: 78-year-old female presents for subsequent colonoscopy. Last colonoscopy 10 years ago was unremarkable. [facility] Medical History (Updated 05/28/24 @ 08:20 by Sujit Wyatt MD) Colon cancer screening (05/28/24) Chronic upper back pain Other low back pain CKD (chronic kidney disease) stage 3, GFR 30-59 ml/min Eczema of both upper extremities Right knee pain (2018) Gout (Unknown) Hyperlipemia (Unknown) Hypertension (Unknown) Surgical History History of cataract removal with insertion of prosthetic lens S/P total abdominal hysterectomy and bilateral salpingo-oophorectomy (1987) Family History Brother Essential hypertension Sister Essential hypertension Sister Essential hypertension Sister Essential hypertension Mother Hypertension Father Myocardial infarct Social History Smoking Status: Never smoker second hand exposure: No alcohol intake: current substance use type: does not use Meds Home Medications and Allergies Home Medications Medication Instructions Recorded Confirmed Type Calcium 1200 mg/Vit D3 1000 IU 2 cap PO .QDAY 07/05/18 02/28/24 History ascorbic acid (vitamin C) 1,000 mg 1 gram PO DAILY 07/05/18 05/28/24 History tablet diclofenac sodium 1 % topical gel 2 g topical QID #100 grams 06/19/20 02/28/24 Rx fluocinonide 0.05 % topical 1 applic topical BID PRN itching 06/19/20 02/28/24 Rx ointment #30 grams carvedilol 25 mg tablet 25 mg PO BID 09/01/21 05/28/24 History losartan 100 mg tablet 100 mg PO QDAY #90 tabs 07/04/23 05/28/24 Rx sodium,potassium,mag sulfates 17.5 See Rx Instructions PO .COMPLEX 05/21/24 Rx gram-3.13 gram-1.6 gram oral soln #354 mL (Suprep Bowel Prep Kit) Allergies Allergy/AdvReac Type Severity Reaction Status Date / Time Sulfa (Sulfonamide Allergy Intermediate REDNESS Verified 05/28/24 07:49 Antibiotics) AND RASH [SULFA (SULFONAMIDE ANTIBIOTICS)] atorvastatin [ATORVASTATIN] AdvReac Intermediate Myalgias Verified 05/28/24 07:49 Review of Systems Review of Systems ROS: Yes All systems reviewed with the patient and are negative except as otherwise documented Exam Vital Signs (past 8 hours): - 05/28/24 07:39 Temperature 97.4 F L Pulse Rate 68 Respiratory Rate 6 L Blood Pressure 158/86 H Pulse Oximetry 97 Oxygen Delivery Method Room Air Oxygen Delivery Method Room Air Narrative Exam Narrative: Gen: NAD, sitting comfortably in bed, appears well HEENT: Sclera are anicteric, head is normocephalic and atraumatic, trachea is midline. CV: RRR, no JVD Resp: clear to auscultation bilaterally, equal chest wall movement bilaterally Abd: soft, nontender, normoactive bowel sounds Ext: no edema, full range of motion Neuro: Cranial nerves II-XII grossly intact, no focal deficits Skin: No erythema or ecchymosis Assessment & Plan Assessment and plan (1) Colon cancer screening: Status: Acute Assessment & Plan narrative: Patient presents for colonoscopy Risks, benefits, alternatives to colonoscopy explained, including but not limited to bowel perforation or other serious complication requiring surgery at less than 1 in 5000 colonoscopies, abdominal pain, cramping or bleeding and less than 1% of colonoscopies, and the chances that we find a diagnosis that would require further intervention of about 2%. Patient agrees to proceed. Time-Based Coding :: [TOTAL MINUTES] spent with patient and on the chart (including review of chart, obtaining history, exam, reviewing outside data, placing orders, documenting exam and treatment plan, and counseling patient) on [DATE]. 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
--- NOTE | 2024-05-28 08:49 | P.OP.COLON_ITS ---
Operative Date/Time/Diagnoses Date of procedure: 05/28/24 Time of procedure: 08:49 Pre-op diagnosis: Colon screening Post-op diagnosis: same Procedure & Clinicians Study performed: Colonoscopy Same procedure as scheduled: Yes Indications: Colon screening Surgeon: Sujit Wyatt Procedure Notes SCOAP/Timeout: Performed Procedure in detail: Time-out was performed. Mac was induced. Patient was placed in left lateral d ecubitus position. The perineum was inspected without any gross abnormality. Lubricated pediatric colonoscope was inserted and advanced to the cecum. The terminal ileum was intubated. The colonoscope was withdrawn slowly inspecting the circumference of the colon. Very small polyps may have been missed, prep quality was adequate. Retroflexed view of the rectum showed small, non prolapsed nonbleeding internal hemorrhoids. The scope was withdrawn the patient was taken to PACU in good condition. Scope withdrawal time: 7 Sedation minutes: 18 Specimen(s): none sent Complications: none Impression: Normal colon Post-procedure Recommendations: Colonoscopy in 10 years (No further colonoscopy required based on age) Plan for aftercare: home Follow up: as needed Disposition: PACU
== END 2024-05-28 09:30 | disposition home or self-care (01) ==
PROVIDERS: Family Provider Nurse Practitioner; PCP Registered Nurse Diabetes Educator; Referring Provider Surgery; Visit Provider Surgery
PROC: 0DJD8ZZ Inspection of Lower Intestinal Tract, Via Natural or Artificial Opening Endoscopic (ICD-10-PCS; CPT 45378; principal; 2024-05-28 08:15)
DX: Z12.11 Encounter for screening for malignant neoplasm of colon (principal); K64.8 Other hemorrhoids
CPT/HCPCS: G0121; J2704

== ENCOUNTER → 2024-05-31 11:09 | Outpatient (CLI) | payer MEDICARE, SELFPAY ==
[2024-05-31 11:54] LABS: Hematocrit 36.3 % (36-46); Hemoglobin 11.9 g/dL (12.0-16.0); Mean Corpuscular HGB Conc 32.8 % (30-36); Mean Corpuscular Hemoglobin 28.9 PG (26-34); Platelet Count 212 X10^3/uL (150-400); Red Blood Cell Count 4.12 X10^6/uL (4.0-5.2); Red Cell Distribution Width 13.4 % (11.6-14.8); White Blood Cell Count 5.6 X10^3/uL (4.5-11.0)
[2024-05-31 12:11] LABS: Alanine Aminotransferase 26 IU/L (<35); Albumin 4.5 g/dL (3.5-5.0); Albumin Globulin Ratio 1.5 (1.0-2.8); Alkaline Phosphatase 80 U/L (38-126); Aspartate Aminotransferase 45 IU/L (14-36); Bilirubin Total 0.4 mg/dL (0.2-1.3); Bilirubin Unconjugated 0.2 mg/dL (0.0-1.1); HEMOLYSIS < 15 (0-50); Total Protein 7.5 g/dL (6.3-8.2)
[2024-05-31 12:48] LABS: Ferritin 18 ng/mL (11-264)
[2024-05-31 13:20] LABS: Folate 11.1 ng/mL (2.76-20.0); Vitamin B12 218 pg/mL (239-931)
[2024-05-31 15:38] LABS: HEMOLYSIS < 15 (0-50); Total Iron Binding Capacity 392 ug/dL (265-497); Transferrin 315 mg/dL (206-381)
[2024-05-31 15:48] LABS: Iron 40 ug/dL (37-170); Percent Iron Saturation 10 % (15-50)
== END ==
PROVIDERS: Family Provider Nurse Practitioner; PCP Registered Nurse Diabetes Educator; Referring Provider Registered Nurse Diabetes Educator; Visit Provider Registered Nurse Diabetes Educator
DX: D64.9 Anemia, unspecified (principal); R74.8 Abnormal levels of other serum enzymes
CPT/HCPCS: 36415; 80076; 82607; 82728; 82746; 83540; 83550; 85027

== ENCOUNTER → 2024-06-28 10:12 | Outpatient (CLI) | payer MEDICARE, SELFPAY ==
--- NOTE | 2024-06-28 10:13 | DI.MG.S_ITS ---
MM screening mammo BI: 06/28/2024. BI-RADS: 1 CLINICAL: 78-year old female for bilateral screening mammogram. Tyrer-Cuzick lifetime risk of 3.9%. No personal or first-degree family history of breast cancer. PRIOR EXAMS 06/11/2023, 06/07/2022, 05/05/2021, 03/10/2020, 12/30/2017, 11/17/2017, 09/30/2016, 09/24/2015, 08/05/2014. MAMMOGRAPHY TECHNIQUE: 2D and 3D (tomosynthesis) digital mammographic views obtained, with additional images as needed for full coverage. Current study was also evaluated with a Computer Aided Detection (CAD) system. DENSITY D. The breasts are extremely dense, which lowers the sensitivity of mammography. MAMMOGRAPHY FINDINGS Bilateral: No suspicious mass, asymmetry, microcalcification, or other abnormality seen. No significant change from comparison. IMPRESSION: * No evidence of malignancy. RECOMMENDATIONS Bilateral * Annual screening mammography. OVERALL ASSESSMENT CATEGORY BI-RADS-1: Negative. The [employer] recommends annual screening mammography beginning at age 40 for women with average risk of breast cancer. ELECTRONICALLY SIGNED: Mariza Garcia M.D. on 06/28/2024 at 12:09:33 PM PT Interpreting Station ID: [id number]
== END ==
PROVIDERS: Family Provider Nurse Practitioner; PCP Registered Nurse Diabetes Educator; Referring Provider Registered Nurse Diabetes Educator; Visit Provider Registered Nurse Diabetes Educator
DX: Z12.31 Encounter for screening mammogram for malignant neoplasm of breast (principal); R92.343 Mammographic extreme density, bilateral breasts
CPT/HCPCS: 77063; 77067

== ENCOUNTER → 2024-08-17 09:36 | Outpatient (CLI) | payer MEDICARE, SELFPAY ==
[2024-08-17 10:23] LABS: Hematocrit 35.9 % (36-46); Hemoglobin 12.1 g/dL (12.0-16.0)
[2024-08-17 10:50] LABS: BUN Creatinine Ratio 14.5 (6-22); Blood Urea Nitrogen 19 mg/dL (7-17); Calcium 9.7 mg/dL (8.4-10.2); Carbon Dioxide 22 mmol/L (22-32); Chloride 103 mmol/L (98-107); Estimated Glomerular Filt Rate 41 mL/min (>60); Glucose 110 mg/dL (70-99); HEMOLYSIS < 15 (0-50); Potassium 4.5 mmol/L (3.4-5.1); Sodium 137 mmol/L (137-145)
[2024-08-17 12:19] LABS: Creatinine Urine Random 235.22 mg/dL
[2024-08-17 12:20] LABS: Protein (Total) Urine Random < 5 mg/dL (0-12); Protein Creatinine Ratio Urine 0.02 GRAM/24H
[2024-08-20 22:36] LABS: Calcium 9.5 mg/dL (8.7-10.3); Parathyroid Hormone, Intact 60 pg/mL (15-65)
== END ==
PROVIDERS: Family Provider Nurse Practitioner; PCP Registered Nurse Diabetes Educator; Referring Provider Student in an Organized Health Care Education/Training Program; Visit Provider Student in an Organized Health Care Education/Training Program
DX: N05.9 Unspecified nephritic syndrome with unspecified morphologic changes (principal); D70.9 Neutropenia, unspecified; D63.1 Anemia in chronic kidney disease; R80.9 Proteinuria, unspecified; N25.81 Secondary hyperparathyroidism of renal origin
CPT/HCPCS: 36415; 80048; 82310; 82570; 83970; 84156; 85014; 85018

== ENCOUNTER → 2024-12-14 07:56 | Outpatient (CLI) | payer MEDICARE, SELFPAY ==
[2024-12-14 08:49] LABS: Hematocrit 36.4 % (36-46); Hemoglobin 12.1 g/dL (12.0-16.0); Mean Corpuscular HGB Conc 33.1 % (30-36); Mean Corpuscular Hemoglobin 28.2 PG (26-34); Mean Corpuscular Volume 85.3 fL (80-100); Platelet Count 208 X10^3/uL (150-400)
[2024-12-14 09:16] LABS: HEMOLYSIS < 15 (0-50); Iron 81 ug/dL (37-170)
[2024-12-14 09:19] LABS: Blood Urea Nitrogen 14 mg/dL (7-17); Calcium 9.5 mg/dL (8.4-10.2); Carbon Dioxide 24 mmol/L (22-32); Chloride 99 mmol/L (98-107); Estimated Glomerular Filt Rate 52 mL/min (>60); Glucose 111 mg/dL (70-99); HEMOLYSIS < 15 (0-50); Potassium 4.7 mmol/L (3.4-5.1); Protein (Total) Urine Random 6 mg/dL (0-12); Protein Creatinine Ratio Urine 0.09 GRAM/24H; Sodium 134 mmol/L (137-145)
[2024-12-14 09:20] LABS: Alanine Aminotransferase 22 IU/L (<35); Albumin 4.4 g/dL (3.5-5.0); Albumin Globulin Ratio 1.4 (1.0-2.8); Alkaline Phosphatase 75 U/L (38-126); Globulin 3.1 g/dL (1.7-4.1); HEMOLYSIS < 15 (0-50); Total Protein 7.5 g/dL (6.3-8.2)
[2024-12-14 09:29] LABS: Percent Iron Saturation 21 % (15-50); Total Iron Binding Capacity 389 ug/dL (265-497); Transferrin 341 mg/dL (206-381)
[2024-12-14 09:55] LABS: Ferritin 10 ng/mL (11-264)
[2024-12-14 10:07] LABS: Vitamin B12 > 1000 pg/mL (239-931)
== END ==
PROVIDERS: Family Provider Nurse Practitioner; PCP Registered Nurse Diabetes Educator; Referring Provider Student in an Organized Health Care Education/Training Program; Visit Provider Student in an Organized Health Care Education/Training Program
DX: D70.9 Neutropenia, unspecified (principal); N05.9 Unspecified nephritic syndrome with unspecified morphologic changes; N25.81 Secondary hyperparathyroidism of renal origin; R80.9 Proteinuria, unspecified; D63.1 Anemia in chronic kidney disease; R74.8 Abnormal levels of other serum enzymes; D64.9 Anemia, unspecified; E53.8 Deficiency of other specified B group vitamins
CPT/HCPCS: 36415; 80048; 80076; 82570; 82607; 82728; 83540; 83550; 83970; 84156; 85027

== ENCOUNTER → 2025-01-31 12:59 | Outpatient (CLI) | payer MEDICARE, SELFPAY ==
[2025-01-31 13:51] LABS: Blood Urea Nitrogen 21 mg/dL (7-17); Calcium 9.5 mg/dL (8.4-10.2); Carbon Dioxide 25 mmol/L (22-32); Chloride 99 mmol/L (98-107); Estimated Glomerular Filt Rate 44 mL/min (>60); Glucose 102 mg/dL (70-99); HEMOLYSIS < 15 (0-50); Potassium 4.3 mmol/L (3.4-5.1); Sodium 135 mmol/L (137-145)
[2025-01-31 14:01] LABS: NT-proBNP (BNP-Adult 18+) 367 pg/mL (<450)
== END ==
PROVIDERS: Family Provider Nurse Practitioner; PCP Registered Nurse Diabetes Educator; Referring Provider Registered Nurse Diabetes Educator; Visit Provider Registered Nurse Diabetes Educator
DX: I50.32 Chronic diastolic (congestive) heart failure (principal); N05.9 Unspecified nephritic syndrome with unspecified morphologic changes
CPT/HCPCS: 36415; 80048; 83880

== ENCOUNTER → 2025-03-04 07:35 | Outpatient (CLI) | payer MEDICARE, SELFPAY ==
[2025-03-04 08:06] LABS: Hematocrit 35.4 % (36-46); Hemoglobin 11.6 g/dL (12.0-16.0); Mean Corpuscular HGB Conc 32.9 % (30-36); Mean Corpuscular Hemoglobin 27.6 PG (26-34); Mean Corpuscular Volume 83.8 fL (80-100); Platelet Count 226 X10^3/uL (150-400)
[2025-03-04 08:24] LABS: HEMOLYSIS < 15 (0-50); Iron 76 ug/dL (37-170)
[2025-03-04 08:27] LABS: Alanine Aminotransferase 22 IU/L (<35); Albumin 4.5 g/dL (3.5-5.0); Albumin Globulin Ratio 1.5 (1.0-2.8); Alkaline Phosphatase 75 U/L (38-126); Blood Urea Nitrogen 20 mg/dL (7-17); Calcium 9.5 mg/dL (8.4-10.2); Carbon Dioxide 22 mmol/L (22-32); Chloride 105 mmol/L (98-107); Cholesterol 190 mg/dL (140-199); Estimated Glomerular Filt Rate 45 mL/min (>60); Globulin 3.1 g/dL (1.7-4.1); Glucose 110 mg/dL (70-99); HDL Cholesterol 54 mg/dL (40-60); HEMOLYSIS < 15 (0-50); Potassium 4.0 mmol/L (3.4-5.1); Sodium 138 mmol/L (137-145); Total Protein 7.6 g/dL (6.3-8.2); Triglycerides 125 mg/dL (35-150)
[2025-03-04 08:35] LABS: Percent Iron Saturation 18 % (15-50); Total Iron Binding Capacity 416 ug/dL (265-497); Transferrin 348 mg/dL (206-381)
[2025-03-04 09:00] LABS: Ferritin 10 ng/mL (11-264)
== END ==
PROVIDERS: Family Provider Nurse Practitioner; PCP Registered Nurse Diabetes Educator; Referring Provider Registered Nurse Diabetes Educator; Visit Provider Registered Nurse Diabetes Educator
DX: E78.2 Mixed hyperlipidemia (principal); D50.9 Iron deficiency anemia, unspecified; I10 Essential (primary) hypertension
CPT/HCPCS: 36415; 80053; 80061; 82728; 83540; 83550; 85027